=== PATIENT | male | born 1955 | race Caucasian/White ===

== ENCOUNTER → 2023-05-06 09:30 | Outpatient (REF) | payer MEDICARE, OTHER, SELFPAY ==
[2023-05-06 09:54] VITALS: BP 114/83; BP_SYST 108
[2023-05-06 10:35] VITALS: BP 108/74; BP_SYST 99
[2023-05-06 10:45] VITALS: BP 108/74
[2023-05-06 11:54] LABS: Body Fluid Mononuclear 77.7 %; Body Fluid Polymorphonuclear 22.3 %; Body Fluid WBC 417 /CUMM
[2023-05-06 12:09] LABS: Body Fluid Second Tech CF
== END ==
LOC: RADI 09:30
PROVIDERS: ATTENDING PHYSICIAN Physician Assistant Medical
DX: R18.8 Other ascites (principal)
CPT/HCPCS: 49083; 89051

== ENCOUNTER 2023-05-10 13:09 | Emergency (ER) | payer MEDICARE, OTHER, SELFPAY ==
[2023-05-10] VITALS (9 sets, daily range): BP systolic 82–112; BP diastolic 63–72
[2023-05-10 13:42] LABS: % Basophils 0.3 % (0-2); % Eosinophils 0.1 % (0-6); % Immature Granulocytes 1.6 % (0-0.5); % Lymphocytes 0.9 % (20.5-51.1); % Monocytes 0.6 % (1.7-9.3); % Neutrophils 96.5 % (42.2-75.2); Absolute Basophils 0.1 10^3/uL (0-0.2); Absolute Immature Granulocytes 0.2 10^3/uL (0-0.05); Absolute Lymphocytes 0.1 10^3/uL (1.2-3.4); Absolute Monocytes 0.1 10^3/uL (0.1-0.6); Absolute Neutrophils 14.2 10^3/uL (1.4-6.5); Hematocrit 35.2 % (39.0-52.0); Hemoglobin 12.1 g/dL (13.0-18.0); Mean Corp Hgb Conc. 34.4 g/dL (33.0-37.0); Mean Corpuscular Hgb 29.5 pg (27.0-31.0); Mean Corpuscular Volume 85.9 fL (80.0-94.0); Mean Platelet Volume 9.4 fL (7.4-10.4); Nucleated Red Blood Cells % 0 % (-); Platelet Count 381 10^3/uL (130-400); Red Cell Dist. Width 16.2 % (11.5-14.5); White Blood Cell Count 14.8 10^3/uL (4.8-10.8)
[2023-05-10 13:54] LABS: ALT (SGPT) 23 U/L (0-50); AST (SGOT) 37 U/L (17-59); Albumin 3.2 g/dl (3.5-5.0); Alkaline Phosphatase 169 U/L (38-126); Blood Urea Nitrogen 66 mg/dl (9-20); Calcium 8.6 mg/dl (8.4-10.2); Carbon Dioxide 18 mmol/L (22-30); Chloride 95 mmol/L (98-107); Glucose 151 mg/dl (70-99); Potassium 5.5 mmol/L (3.5-5.1); Sodium 128 mmol/L (135-145); Total Bilirubin 1.2 mg/dl (0.2-1.3); Total Protein 5.7 g/dl (6.3-8.2); eGFR 24.13
[2023-05-10 14:10] LABS: Troponin I 0.192 ng/ml
--- NOTE | 2023-05-10 14:21 | ED.GENMED ---
History of Present Illness
<Sagrario Phelps PA-C - Last Filed: 05/10/23 23:33>
General
Chief Complaint: Breathing Problem
Source: patient and records
Exam Limitations: none
Time Seen by Provider: 05/10/23 14:21
Nursing documentation reviewed up to this point in time: agreed with
Travel History
Have you had any contact with someone who has COVID-19?: No
Do you have any symptoms of coronavirus? Fever > 100 degrees, chills, cough, shortness of breath, sore throat, loss of taste or smell, muscle aches, or headache?: No
History of Present Illness
History of Present Illness:
68 y/o male with PMH of afib on Eliquis, CHF, CAD, diabetes, cardiogenic ascites, presenting to the ER today with concerns of shortness of breath since last night and worsening abdominal swelling. Patient states that will have shortness of breath
from time to time but it has been persistent this week. Patient states that he usually only gets it with exertion. Patient does not plan on coming to the ER today, but his called his cardiology office advised him to report to the emergency
department. Patient states that he was recently put on milrinone drip a few months ago and sees Dr. Almanza at [facility]. Patient also states that he has had a cough these past few days, but he usually gets that when he gets short of breath. Patient
recently had a paracentesis done here at [facility] on 05/06/2023 and had 7 L drained. Patient states he feels like he needs to fluid drained again.
Past History
<Sagrario Phelps PA-C - Last Filed: 05/10/23 23:33>
Past History
ED Past Medical History: Arrthythmia and CHF
Social History
Tobacco: Non-smoker
Alcohol: None
Drug: None
Personal:
Living: with family
Employment: Retired
Review of Systems
<Sagrario Phelps PA-C - Last Filed: 05/10/23 23:33>
Review of Systems
All Other Systems: ROS reviewed and negative except as documented in HPI and ROS
Phy Exam
<Sagrario Phelps PA-C - Last Filed: 05/10/23 23:33>
Physical Exam
Physical Exam:
Vitals: Patient is tachycardic and has increased respiratory rate
General: Patient is well appearing and in no acute distress
Skin: Warm and dry, no rashes or lesions
Head: Normocephalic, atraumatic
Cardiac: Regular rate and rhythm, no murmurs
Peripheral Vascular: Chronic venous ulcers noted on lower extremities b/l. 2+ DP pulses b/l.
Pulm: Mild tachypneic. No wheezes, rales, or rhonchi heard on exam
Abdomen: Abdominal distension present, abdomen dull to percussion. No tenderness to palpation, no palpable masses.
Neuro: AAOx3. CN II-XII intact. No focal neurologic deficits.
Scores
<BERTRAND Forrest Last Filed: 05/10/23 23:33>
Heart Failure Risk
HF Risk Score: 2
Admission Status: MEDIUM RISK 9.2% Consider observation or discharge to home with homecare & f/u visit to PCP/Concrete Block Plant Supervisor, or SNF for treatment
<Jet Tran DO - Last Filed: 05/10/23 22:34>
Heart Failure Risk
Heart Failure Risk Score: Yes
History of Stroke or TIA: No
History of intubation for respiratory distress: No
Heart rate on ED arrival >/= 110: No
SaO2 <90% on arrival on room air: No
HR >/=110 during 3min walk test (or too ill to perform test): No
ECG has acute ischemic changes: No
Urea >/=12mmol/L (BUN 33.6mg/dL): Yes
Serum CO2>/=35mmol/L: No
Troponin I or T elevated to ID Level (0.4mg/dL): No
NT-proBNP >/=5,000ng/L (5,000pg/ml): Yes
HF Risk Score: 2
Admission Status: MEDIUM RISK 9.2% Consider observation or discharge to home with homecare & f/u visit to PCP/Con[employer] Block Plant Supervisor, or SNF for treatment
Course
<Sagrario Phelps PA-C - Last Filed: 05/10/23 23:33>
Orders/Labs/Results
Orders:
Orders
05/10/23 13:15
Electrocardiogram (*1) Urgent
Reason for Study: Other
Other Reason for Exam: Respiratory Distress
EKG- Treatment ONCE
05/10/23 13:27
Complete Blood Count/With Diff Urgent
Comprehensive Metabolic Panel Urgent
NT-proBNP Urgent
Troponin I Urgent
05/10/23 14:47
CR Chest - 2 Views Urgent
Comment:
Reason For Exam: shortness of breath
05/10/23 14:55
IRAD CONSULT Routine
Consulting Provider: Nikolas Bright
Was physician already notified: Yes
Reason for consult: paracentesis
05/10/23 15:35
Body Fluid Albumin Routine
Fluid Source: Peritoneal (Ascites)
Date Specimen was Collected: 05/10/23
Time Specimen was Collected: 15:29
Body Fluid Amylase Routine
Fluid Source: Peritoneal (Ascites)
Date Specimen was Collected: 05/10/23
Time Specimen was Collected: 15:29
Body Fluid Cell Count Routine
What is the Body Fluid: peritoneal fluid
Date Specimen was Collected: 05/10/23
Time Specimen was Collected: 15:29
Body Fluid LDH Routine
Fluid Source: Peritoneal (Ascites)
Date Specimen was Collected: 05/10/23
Time Specimen was Collected: 15:29
Body Fluid Protein Routine
Fluid Source: Peritoneal (Ascites)
Date Specimen was Collected: 05/10/23
Time Specimen was Collected: 15:29
Fluid Culture with Gram Stain Routine
ADRIANO Source: Peritoneal Fluid
Specimen Description:
Date Specimen was Collected: 05/10/23
Time Specimen was Collected: 15:29
05/10/23 16:30
Albumin Human 25% 100 ml [Flexbumin] 25 grams in 100 ml IV TODAY
05/10/23 17:28
Electrocardiogram (*1) Urgent
Reason for Study: Tachycardia
EKG- Treatment ONCE
Abnormal Lab Results
05/10/23
13:27
WBC 14.8 H 10^3/uL
(4.8-10.8)
RBC 4.10 L 10^6/uL
(4.70-6.10)
Hgb 12.1 L g/dL
(13.0-18.0)
Hct 35.2 L %
(39.0-52.0)
RDW 16.2 H %
(11.5-14.5)
Abs Immat Gran (auto) 0.2 H 10^3/uL
(0-0.05)
Absolute Neuts (auto) 14.2 H 10^3/uL
(1.4-6.5)
Absolute Lymphs (auto) 0.1 L 10^3/uL
(1.2-3.4)
Immature Gran % 1.6 H %
(0-0.5)
Neutrophils % 96.5 H %
(42.2-75.2)
Lymphocytes % 0.9 L %
(20.5-51.1)
Monocytes % 0.6 L %
(1.7-9.3)
Sodium 128 L mmol/L
(135-145)
Potassium 5.5 H mmol/L
(3.5-5.1)
Chloride 95 L mmol/L
(98-107)
Carbon Dioxide 18 L mmol/L
(22-30)
BUN 66 H mg/dl
(9-20)
Creatinine 2.8 H mg/dL
(0.7-1.3)
Glucose 151 H mg/dl
(70-99)
Alkaline Phosphatase 169 H U/L
(38-126)
Troponin I 0.192 H* ng/ml
Total Protein 5.7 L g/dl
(6.3-8.2)
Albumin 3.2 L g/dl
(3.5-5.0)
05/10/23 13:27
05/10/23 13:27
Vital Signs
Initial and Last Documented VS:
Initial Vital Signs
Temp Pulse Resp BP Pulse Ox
98.3 F 108 22 107/72 98
05/10/23 13:11 05/10/23 13:11 05/10/23 13:11 05/10/23 13:11 05/10/23 13:11
Last Documented Vital Signs
Temp Pulse Resp BP Pulse Ox
98.2 F 65 20 86/69 95
05/10/23 19:34 05/10/23 19:34 05/10/23 19:34 05/10/23 19:34 05/10/23 19:34
Darlenelt;Mickey Coleman DO - Last Filed: 05/10/23 15:28>
Orders/Labs/Results
Orders:
Orders
05/10/23 13:15
Electrocardiogram (*1) Urgent
Reason for Study: Other
Other Reason for Exam: Respiratory Distress
EKG- Treatment ONCE
05/10/23 13:27
Complete Blood Count/With Diff Urgent
Comprehensive Metabolic Panel Urgent
NT-proBNP Urgent
Troponin I Urgent
05/10/23 14:47
CR Chest - 2 Views Urgent
Comment:
Reason For Exam: shortness of breath
05/10/23 14:55
IRAD CONSULT Routine
Consulting Provider: Nikolas Bright
Was physician already notified: Yes
Reason for consult: paracentesis
05/10/23 15:35
Body Fluid Albumin Routine
Fluid Source: Peritoneal (Ascites)
Date Specimen was Collected: 05/10/23
Time Specimen was Collected: 15:29
Body Fluid Amylase Routine
Fluid Source: Peritoneal (Ascites)
Date Specimen was Collected: 05/10/23
Time Specimen was Collected: 15:29
Body Fluid Cell Count Routine
What is the Body Fluid: peritoneal fluid
Date Specimen was Collected: 05/10/23
Time Specimen was Collected: 15:29
Body Fluid LDH Routine
Fluid Source: Peritoneal (Ascites)
Date Specimen was Collected: 05/10/23
Time Specimen was Collected: 15:29
Body Fluid Protein Routine
Fluid Source: Peritoneal (Ascites)
Date Specimen was Collected: 05/10/23
Time Specimen was Collected: 15:29
Fluid Culture with Gram Stain Routine
ADRIANO Source: Peritoneal Fluid
Specimen Description:
Date Specimen was Collected: 05/10/23
Time Specimen was Collected: 15:29
05/10/23 16:30
Albumin Human 25% 100 ml [Flexbumin] 25 grams in 100 ml IV TODAY
05/10/23 17:28
Electrocardiogram (*1) Urgent
Reason for Study: Tachycardia
EKG- Treatment ONCE
Abnormal Lab Results
05/10/23
13:27
WBC 14.8 H 10^3/uL
(4.8-10.8)
RBC 4.10 L 10^6/uL
(4.70-6.10)
Hgb 12.1 L g/dL
(13.0-18.0)
Hct 35.2 L %
(39.0-52.0)
RDW 16.2 H %
(11.5-14.5)
Abs Immat Gran (auto) 0.2 H 10^3/uL
(0-0.05)
Absolute Neuts (auto) 14.2 H 10^3/uL
(1.4-6.5)
Absolute Lymphs (auto) 0.1 L 10^3/uL
(1.2-3.4)
Immature Gran % 1.6 H %
(0-0.5)
Neutrophils % 96.5 H %
(42.2-75.2)
Lymphocytes % 0.9 L %
(20.5-51.1)
Monocytes % 0.6 L %
(1.7-9.3)
Sodium 128 L mmol/L
(135-145)
Potassium 5.5 H mmol/L
(3.5-5.1)
Chloride 95 L mmol/L
(98-107)
Carbon Dioxide 18 L mmol/L
(22-30)
BUN 66 H mg/dl
(9-20)
Creatinine 2.8 H mg/dL
(0.7-1.3)
Glucose 151 H mg/dl
(70-99)
Alkaline Phosphatase 169 H U/L
(38-126)
Troponin I 0.192 H* ng/ml
Total Protein 5.7 L g/dl
(6.3-8.2)
Albumin 3.2 L g/dl
(3.5-5.0)
05/10/23 13:27
05/10/23 13:27
Vital Signs
Initial and Last Documented VS:
Initial Vital Signs
Temp Pulse Resp BP Pulse Ox
98.3 F 108 22 107/72 98
05/10/23 13:11 05/10/23 13:11 05/10/23 13:11 05/10/23 13:11 05/10/23 13:11
Last Documented Vital Signs
Temp Pulse Resp BP Pulse Ox
98.2 F 65 20 86/69 95
05/10/23 19:34 05/10/23 19:34 05/10/23 19:34 05/10/23 19:34 05/10/23 19:34
<Jet Tran, DO - Last Filed: 05/10/23 22:34>
Orders/Labs/Results
Orders:
Orders
05/10/23 13:15
Electrocardiogram (*1) Urgent
Reason for Study: Other
Other Reason for Exam: Respiratory Distress
EKG- Treatment ONCE
05/10/23 13:27
Complete Blood Count/With Diff Urgent
Comprehensive Metabolic Panel Urgent
NT-proBNP Urgent
Troponin I Urgent
05/10/23 14:47
CR Chest - 2 Views Urgent
Comment:
Reason For Exam: shortness of breath
05/10/23 14:55
IRAD CONSULT Routine
Consulting Provider: Nikolas Bright
Was physician already notified: Yes
Reason for consult: paracentesis
05/10/23 15:35
Body Fluid Albumin Routine
Fluid Source: Peritoneal (Ascites)
Date Specimen was Collected: 05/10/23
Time Specimen was Collected: 15:29
Body Fluid Amylase Routine
Fluid Source: Peritoneal (Ascites)
Date Specimen was Collected: 05/10/23
Time Specimen was Collected: 15:29
Body Fluid Cell Count Routine
What is the Body Fluid: peritoneal fluid
Date Specimen was Collected: 05/10/23
Time Specimen was Collected: 15:29
Body Fluid LDH Routine
Fluid Source: Peritoneal (Ascites)
Date Specimen was Collected: 05/10/23
Time Specimen was Collected: 15:29
Body Fluid Protein Routine
Fluid Source: Peritoneal (Ascites)
Date Specimen was Collected: 05/10/23
Time Specimen was Collected: 15:29
Fluid Culture with Gram Stain Routine
ADRIANO Source: Peritoneal Fluid
Specimen Description:
Date Specimen was Collected: 05/10/23
Time Specimen was Collected: 15:29
05/10/23 16:30
Albumin Human 25% 100 ml [Flexbumin] 25 grams in 100 ml IV TODAY
05/10/23 17:28
Electrocardiogram (*1) Urgent
Reason for Study: Tachycardia
EKG- Treatment ONCE
Abnormal Lab Results
05/10/23
13:27
WBC 14.8 H 10^3/uL
(4.8-10.8)
RBC 4.10 L 10^6/uL
(4.70-6.10)
Hgb 12.1 L g/dL
(13.0-18.0)
Hct 35.2 L %
(39.0-52.0)
RDW 16.2 H %
(11.5-14.5)
Abs Immat Gran (auto) 0.2 H 10^3/uL
(0-0.05)
Absolute Neuts (auto) 14.2 H 10^3/uL
(1.4-6.5)
Absolute Lymphs (auto) 0.1 L 10^3/uL
(1.2-3.4)
Immature Gran % 1.6 H %
(0-0.5)
Neutrophils % 96.5 H %
(42.2-75.2)
Lymphocytes % 0.9 L %
(20.5-51.1)
Monocytes % 0.6 L %
(1.7-9.3)
Sodium 128 L mmol/L
(135-145)
Potassium 5.5 H mmol/L
(3.5-5.1)
Chloride 95 L mmol/L
(98-107)
Carbon Dioxide 18 L mmol/L
(22-30)
BUN 66 H mg/dl
(9-20)
Creatinine 2.8 H mg/dL
(0.7-1.3)
Glucose 151 H mg/dl
(70-99)
Alkaline Phosphatase 169 H U/L
(38-126)
Troponin I 0.192 H* ng/ml
Total Protein 5.7 L g/dl
(6.3-8.2)
Albumin 3.2 L g/dl
(3.5-5.0)
05/10/23 13:27
05/10/23 13:27
Vital Signs
Initial and Last Documented VS:
Initial Vital Signs
Temp Pulse Resp BP Pulse Ox
98.3 F 108 22 107/72 98
05/10/23 13:11 05/10/23 13:11 05/10/23 13:11 05/10/23 13:11 05/10/23 13:11
Last Documented Vital Signs
Temp Pulse Resp BP Pulse Ox
98.2 F 65 20 86/69 95
05/10/23 19:34 05/10/23 19:34 05/10/23 19:34 05/10/23 19:34 05/10/23 19:34
Darlenelt;Sagrario Phelps PA-C - Last Filed: 05/10/23 23:33>
MDM/Problems Addressed
Differential Diagnosis Includes:
ddx include acute CHF, pneumonia, cardiorenal syndrome, ACS, pulmonary aneurysm
MDM/Problems Addressed:
shortness of breath
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
Acute Exacerbation and/or Progression of Chronic Illness: HTN and Arrhythmia (atrial fibrillation)
<Sagrario Phelps PA-C - Last Filed: 05/10/23 23:33>
*Pulse Oximetry
Patient hypoxic: no
*EKG
Interpreted by ED Provider?: Yes
EKG Intrepretation Date: 05/10/23
Interpretation: abnormal
Comparison EKG: no changes
Heart Rate: 122
Rate: tachycardiac
Rhythm: a-fib
[place]: normal axis
QRS Pattern: low voltage
Ischemia: non-specific ST changes
*Engine Tester Interpretation
Rate: tachycardiac
Interpretation: abnormal
Heart Rate: 110
Rhythm: a-fib
Data Reviewed
Review of Other/Old Records Reveals: Records
<Jet Tran DO - Last Filed: 05/10/23 22:34>
*Critical Care Note
Total Time (30-74mins, 75-104mins- exclusive of procedures): Not Applicable
<BERTRAND Forrest Last Filed: 05/10/23 23:33>
Patient Management
Escalation/DeEscalation of care consider admission/obs:
68 y/o male with PMH of afib on Eliquis, CHF, CAD, diabetes, cardiogenic ascites, presenting to the ER today with concerns of shortness of breath since last night and worsening abdominal swelling. Patient states that he needs another paracentesis.
Patient had recent paracentesis here at [facility] a few days ago in which 7 L of ascitic fluid was drained. Patient did not receive albumin at that time. Patient had thoracentesis performed today in which around 2L of ascitic fluid was drained.
Patient states that his SOB significantly improved after this procedure. Albumin was repleted.
Patient does not want to stay in the hospital at [facility] or [facility] at this time. Spoke to Nurse from patient's care team at [facility] who states that they have tried many interventions for patient and they are running
out of options for his heart disease. Patient currently takes daily PO diuretics and gets lasix IV infusion twice a week and so IV diuresis not recommended at this time. Care team aware of plan, patient will follow up with his team at [facility].
<Jet Tran, DO - Last Filed: 05/10/23 22:34>
Update Note
Update Note:
Patient feels well, still with mild tachycardia and hypotension. He states he does not feel lightheaded or dizzy. He is in atrial fibrillation. He declines admission and wants to go home. Will discharge to follow-up with his registered public health nurse, ALYS[facility]
surgery and nephrology [facility] [place]. He has complex congenital heart disease heart failure and progressive renal insufficiency.,
ED Attending Note
<Sagrario Phelps PA-C - Last Filed: 05/10/23 23:33>
-
Portions of this chart may have been created with voice recognition software.� Occasional wrong word or��sound alike� substitutions may have occurred due to the inherent limitations of voice recognition software.
<Mickey Coleman, DO - Last Filed: 05/10/23 15:28>
ED Attending Note
Patient seen and examined by attending physician: Yes
I performed the substantive portion of visit, reviewed & personally made and approve the management plan that is documented in note by myself or ADINA.: Yes
I performed a history and physical exam of patient and discussed management with resident, I reviewed resident's note and agree with documented findings and plan of care.: Yes
ED Attending Note:
I evaluated the patient at bedside. The patient is chronically ill in appearance. White count is elevated at 14.8 and he is borderline tachycardic. He does have a history of atrial fibrillation. Sodium is low at 128 but his glucose is elevated.
He has been hyperkalemic in the past and his potassium today is 5.5. His BNP is 12,500. Troponin is chronically elevated currently at 0.192. We are trying to arrange for emergent/urgent paracentesis.
Discharge Plan
Departure
Patient Disposition: Home (Routine Discharge)
Date of Disposition: 05/10/23
Time of Disposition: 19:17
Patient with high blood pressure during this ER visit?: No
Condition: Fair
Discharge Problem:
Exertional shortness of breath, Status post abdominal paracentesis, Hyperkalemia
Instructions: Shortness of Breath (Dyspnea) (DC), Abdominal Paracentesis (DC), BLOOD PRESSURE, *PCP/Other [employer] Supervisor Heart Failure Instructions
Prescriptions:
No Action
allopurinol 100 MG tablet
100 mg PO DAILY
gabapentin 100 MG capsule
100 mg PO BID
acetaminophen 325 mg Tablet
650 mg PO DAILYPRN PRN (Reason: mild pain)
insulin glargine [Lantus U-100 Insulin] 100 unit/mL Solution
10 unit SC HS
Patient Comments:
metoprolol succinate 25 mg Tablet Extended Release 24 Hr
12.5 mg PO DAILY
Eliquis 5 mg Tablet
5 mg PO BID
therapeutic multivitamin Tablet
1 tab PO DAILY
potassium chloride 10 mEq Capsule, Extended Release
40 meq PO DAILY
torsemide 20 mg Tablet
120 mg PO BID
omega-3 fatty acids 1,000 mg Capsule
1,000 mg PO DAILY
hydralazine 25 mg Tablet
25 mg PO Q8H
spironolactone 25 mg Tablet
12.5 mg PO DAILY
levothyroxine 50 mcg Tablet
50 mcg PO DAILY
insulin lispro [Admelog SoloStar U-100 Insulin] 100 unit/mL Insulin Pen
2 unit SC AC
lactulose 10 gram/15 mL Solution
20 g PO DAILY PRN (Reason: constipation)
furosemide 10 mg/ml solution
100 mg IV WEFR
Patient Comments:
05/10/2023, infuse 10 ml into venous catheter 2 times a week. Immediately prior to dose, RN to withdraw Furosemide 100 mg/10 ml and administer IV push over 5-10 minutes twice weekly on WeFr.
milrinone
39,000 mcg IV .SEE BELOW
Patient Comments:
05/10/2023, infuse 39,000 mcg into a venous catheter continuous. Infuse milrinone 0.125 mcg/kg/min IV continuously via CADD may pump. Dose based on weight of 104.3 kg. Pump settings: continuous rate = 3.9 ml/hr; reservoir vol = 191 ml. Bag
contains 48 hour supply with overfill.
Referrals:
Felix Almanza MD [Family Provider] -
Activity Restrictions/Additional Instructions:
Please follow up with your heart failure specialist at [facility].
Please return to the emergency department should you experience new or worsening symptoms, chest pain, syncopal episodes, speech changes, motor weakness, paresthesias, visual changes, lower extremity swelling, or other concerning signs or symptoms.
Interventions
Interventions:
*Risk Screen - Suicide Last Done: 05/10/23 13:11
*General Assessment Last Done: 05/10/23 13:11
*Neglect/Abuse Screening Last Done: 05/10/23 13:11
*ED COVID-19 Vaccine History Last Done: 05/10/23 14:20
*Nursing Disposition Last Done: 05/10/23 19:38
ED- Pulmonary Assessment Last Done: 05/10/23 16:49
Discharge Date and Time
Discharge Date/Time: 05/10/23 19:38
Print Language: GEORGIAN
[2023-05-10 14:39] LABS: NT-proBNP 12500 pg/ml
[2023-05-10 16:35] LABS: Body Fluid Mononuclear 57.7 %; Body Fluid Polymorphonuclear 42.3 %; Body Fluid WBC 409 /CUMM
[2023-05-10] MEDS: FLEXBUMIN 100 IV (16:42)
[2023-05-10 16:55] LABS: Body Fluid Albumin 1.6 g/dl; Body Fluid Amylase 61 U/L; Body Fluid LDH 95 U/L; Body Fluid Protein 3.2 g/dl
[2023-05-10 17:06] LABS: Body Fluid Second Tech DW
== END 2023-05-10 19:38 | disposition home or self-care (01) ==
LOC: EMR 13:09
PROVIDERS: Emergency Medicine; Physician Assistant; CONSULT PHYSICIAN Radiology Vascular & Interventional Radiology; EMERGENCY PHYSICIAN Emergency Medicine; FAMILY PHYSICIAN Internal Medicine Cardiovascular Disease
DX: R06.02 Shortness of breath (principal); I11.0 Hypertensive heart disease with heart failure; E87.5 Hyperkalemia; I48.91 Unspecified atrial fibrillation; I50.9 Heart failure, unspecified; I25.10 Atherosclerotic heart disease of native coronary artery without angina pectoris; E11.9 Type 2 diabetes mellitus without complications; I95.9 Hypotension, unspecified; N28.9 Disorder of kidney and ureter, unspecified; Z79.01 Long term (current) use of anticoagulants
CPT/HCPCS: 49083; 99285; 96365; 96366; 71046; 80053; 82042; 82150; 83615; 83880; 84157; 84484; 85025; 87015; 87070; 87205; 89051; 93005; P9047

== ENCOUNTER 2023-05-12 01:49 | Inpatient (IN) | payer MEDICARE, OTHER, SELFPAY ==
[2023-05-11 21:47] VITALS: BP 96/74
[2023-05-11 22:00] VITALS: BP 97/71
[2023-05-11 22:01] VITALS: BMI 33.8
--- NOTE | 2023-05-11 22:23 | ED.GENMED ---
History of Present Illness
<RHIANNON Canas - Last Filed: 05/11/23 22:32>
General
Chief Complaint: Weakness
Source: patient and family
Exam Limitations: none
Time Seen by Provider: 05/11/23 22:00
Nursing documentation reviewed up to this point in time: agreed with
Travel History
Have you had any contact with someone who has COVID-19?: No
Do you have any symptoms of coronavirus? Fever > 100 degrees, chills, cough, shortness of breath, sore throat, loss of taste or smell, muscle aches, or headache?: No
History of Present Illness
History of Present Illness:
patient is a 68 y/o male with PMH of CHF, afib, and DM presenting after elevated potassium levels at home. Patient states he was here on 05/10/23 for a second paracentesis due to cardiogenic ascites. Patient presents today with continued abdominal
pain and bloating. patient states the symptoms have not changed since the paracentesis. Patient admtis that he had his lasix treatment today where the trailers and motor homes salesperson noted a potassium of 6.2. patient was instructed to 'go to [facility]
immediately, get admitted and request a transfer to [facility].' Patient states there were no beds at [facility]. Patient currently denies MARTÍNEZ, SOB, CP, fever, chills, cough, V/D/C, dizziness, lightheadedness.
Past History
<RHIANNON Canas - Last Filed: 05/11/23 22:32>
Past History
ED Past Medical History: Arrthythmia and CHF
Social History
Tobacco: Non-smoker
Alcohol: None
Drug: None
Personal:
Living: with family
Employment: Retired
Review of Systems
<RHIANNON Canas - Last Filed: 05/11/23 22:32>
Review of Systems
Constitutional: Reports weight gain and fatigue
EENT: Reports no symptoms
Respiratory: Reports no symptoms
Cardiac: Reports no symptoms
ABD/GI: Reports abdominal pain, nausea and other (distension)
: Reports no symptoms
Skin: Reports no symptoms
Endocrine: Reports no symptoms
Phy Exam
<ST FloresitaPA - Last Filed: 05/11/23 22:32>
General Physical Exam
General Presentation: well appearing and no apparent distress
General Skin: warm and dry
General Habitus: normal
General Mental: alert
General Hydration: appears well hydrated
ENT Exam
ENT Exam: EOMI, pharynx normal, neck supple and normocephalic
Eye Exam
Eye Exam: PERRL, cornea clear and conjunctiva normal
Cardiovascular Exam
Cardiovascular Exam: irregularly irregular and other (edema)
Pulmonary Exam
Pulmonary Exam: lungs clear, no respiratory distress, no rales, no crackles, no rhonchi, no stridor, no wheezing and no cough
Gastrointestinal Exam
Gastrointestinal Exam: ascites, distended and tender
Palpation: generalized: Minimal tenderness
Liver Exam: ascites
Neurological Exam
Neurological Exam: alert, oriented x3, no motor deficits and speech normal
Musculoskeletal Exam
Musculoskeletal Exam: full ROM and no edema
Skin Exam
Skin Exam: other (edema, erythema, ulcer noted on B/L LEs)
Psychiatric Exam
Psychiatric Exam: normal mood/affect
Scores
<Nkechi Skinner DO - Last Filed: 05/12/23 00:59>
Heart Failure Risk
Heart Failure Risk Score: Yes
History of Stroke or TIA: No
History of intubation for respiratory distress: No
Heart rate on ED arrival >/= 110: Yes
SaO2 <90% on arrival on room air: No
HR >/=110 during 3min walk test (or too ill to perform test): Yes
ECG has acute ischemic changes: No
Urea >/=12mmol/L (BUN 33.6mg/dL): Yes
Serum CO2>/=35mmol/L: No
Troponin I or T elevated to AL Level (0.4mg/dL): Yes
NT-proBNP >/=5,000ng/L (5,000pg/ml): Yes
HF Risk Score: 6
Admission Status: VERY HIGH RISK 55.3% Consider admission to hospital
Course
<RHIANNON Canas - Last Filed: 05/11/23 22:32>
Orders/Labs/Results
Orders:
Orders
05/11/23 21:39
Electrocardiogram (*1) Urgent
Reason for Study: Fatigue / Weakness
05/11/23 21:40
EKG- Treatment ONCE
05/11/23 22:15
CR Chest - 2 Views Urgent
Comment:
Reason For Exam: cough, SOB, fatigue-worsening
05/11/23 22:58
Complete Blood Count/With Diff Urgent
Comprehensive Metabolic Panel Urgent
Free T4 Urgent
Magnesium Urgent
NT-proBNP Urgent
TSH Reflex To Free T4 Urgent
Troponin I Urgent
05/11/23 23:21
COVID-19 Antigen Urgent
Source: Nasal Swab
Lactic Acid Urgent
05/11/23 23:23
Urinalysis Reflex To Culture Urgent
Date Specimen was Collected: 05/11/23
Time Specimen was Collected: 23:22
Urine Microscopic Reflex Cult Urgent
05/12/23 00:27
Procalcitonin Urgent
PCT Algorithmm Indication: Respiratory
05/12/23 00:30
Blood Culture Q30M
ADRIANO Source: Blood/Venous
Specimen Description:
05/12/23 01:00
Blood Culture Q30M
ADRIANO Source: Blood/Venous
Specimen Description:
Abnormal Lab Results
05/11/23 05/11/23
22:58 23:23
WBC 21.3 H 10^3/uL
(4.8-10.8)
RBC 3.87 L 10^6/uL
(4.70-6.10)
Hgb 11.5 L g/dL
(13.0-18.0)
Hct 32.1 L %
(39.0-52.0)
RDW 15.9 H %
(11.5-14.5)
Abs Immat Gran (auto) 0.2 H 10^3/uL
(0-0.05)
Absolute Neuts (auto) 18.8 H 10^3/uL
(1.4-6.5)
Absolute Lymphs (auto) 0.5 L 10^3/uL
(1.2-3.4)
Absolute Monos (auto) 1.6 H 10^3/uL
(0.1-0.6)
Immature Gran % 1.0 H %
(0-0.5)
Neutrophils % 88.3 H %
(42.2-75.2)
Lymphocytes % 2.5 L %
(20.5-51.1)
Sodium 120 L D mmol/L
(135-145)
Potassium 5.6 H mmol/L
(3.5-5.1)
Chloride 93 L mmol/L
(98-107)
Carbon Dioxide 17 L mmol/L
(22-30)
BUN 68 H mg/dl
(9-20)
Creatinine 2.8 H mg/dL
(0.7-1.3)
Glucose 188 H mg/dl
(70-99)
Alkaline Phosphatase 173 H U/L
(38-126)
Troponin I 0.506 H* ng/ml
Total Protein 5.3 L g/dl
(6.3-8.2)
Albumin 3.0 L g/dl
(3.5-5.0)
TSH (Reflex) 17.50 H uIU/ml
(0.47-4.68)
Leukocyte Esterase Rfl Trace A
(Negative)
Urine Bacteria (Reflex) Few A
(Negative)
05/11/23 22:58
05/11/23 22:58
Vital Signs
Initial and Last Documented VS:
Initial Vital Signs
Temp Pulse Resp BP Pulse Ox
97.9 F 110 18 96/74 99
05/11/23 21:47 05/11/23 21:47 05/11/23 21:47 05/11/23 21:47 05/11/23 21:47
Last Documented Vital Signs
Temp Pulse Resp BP Pulse Ox
97.9 F 102 11 97/71 100
05/11/23 21:47 05/12/23 00:30 05/11/23 22:45 05/11/23 22:00 05/11/23 23:45
<Nkechi Skinner, DO - Last Filed: 05/12/23 00:59>
Orders/Labs/Results
Orders:
Orders
05/11/23 21:39
Electrocardiogram (*1) Urgent
Reason for Study: Fatigue / Weakness
05/11/23 21:40
EKG- Treatment ONCE
05/11/23 22:15
CR Chest - 2 Views Urgent
Comment:
Reason For Exam: cough, SOB, fatigue-worsening
05/11/23 22:58
Complete Blood Count/With Diff Urgent
Comprehensive Metabolic Panel Urgent
Free T4 Urgent
Magnesium Urgent
NT-proBNP Urgent
TSH Reflex To Free T4 Urgent
Troponin I Urgent
05/11/23 23:21
COVID-19 Antigen Urgent
Source: Nasal Swab
Lactic Acid Urgent
05/11/23 23:23
Urinalysis Reflex To Culture Urgent
Date Specimen was Collected: 05/11/23
Time Specimen was Collected: 23:22
Urine Microscopic Reflex Cult Urgent
05/12/23 00:27
Procalcitonin Urgent
PCT Algorithmm Indication: Respiratory
05/12/23 00:30
Blood Culture Q30M
ADRIANO Source: Blood/Venous
Specimen Description:
05/12/23 01:00
Blood Culture Q30M
ADRIANO Source: Blood/Venous
Specimen Description:
Abnormal Lab Results
05/11/23 05/11/23
22:58 23:23
WBC 21.3 H 10^3/uL
(4.8-10.8)
RBC 3.87 L 10^6/uL
(4.70-6.10)
Hgb 11.5 L g/dL
(13.0-18.0)
Hct 32.1 L %
(39.0-52.0)
RDW 15.9 H %
(11.5-14.5)
Abs Immat Gran (auto) 0.2 H 10^3/uL
(0-0.05)
Absolute Neuts (auto) 18.8 H 10^3/uL
(1.4-6.5)
Absolute Lymphs (auto) 0.5 L 10^3/uL
(1.2-3.4)
Absolute Monos (auto) 1.6 H 10^3/uL
(0.1-0.6)
Immature Gran % 1.0 H %
(0-0.5)
Neutrophils % 88.3 H %
(42.2-75.2)
Lymphocytes % 2.5 L %
(20.5-51.1)
Sodium 120 L D mmol/L
(135-145)
Potassium 5.6 H mmol/L
(3.5-5.1)
Chloride 93 L mmol/L
(98-107)
Carbon Dioxide 17 L mmol/L
(22-30)
BUN 68 H mg/dl
(9-20)
Creatinine 2.8 H mg/dL
(0.7-1.3)
Glucose 188 H mg/dl
(70-99)
Alkaline Phosphatase 173 H U/L
(38-126)
Troponin I 0.506 H* ng/ml
Total Protein 5.3 L g/dl
(6.3-8.2)
Albumin 3.0 L g/dl
(3.5-5.0)
TSH (Reflex) 17.50 H uIU/ml
(0.47-4.68)
Leukocyte Esterase Rfl Trace A
(Negative)
Urine Bacteria (Reflex) Few A
(Negative)
05/11/23 22:58
05/11/23 22:58
Vital Signs
Initial and Last Documented VS:
Initial Vital Signs
Temp Pulse Resp BP Pulse Ox
97.9 F 110 18 96/74 99
05/11/23 21:47 05/11/23 21:47 05/11/23 21:47 05/11/23 21:47 05/11/23 21:47
Last Documented Vital Signs
Temp Pulse Resp BP Pulse Ox
97.9 F 102 11 97/71 100
05/11/23 21:47 05/12/23 00:30 05/11/23 22:45 05/11/23 22:00 05/11/23 23:45
[place];RHIANNON Canas - Last Filed: 05/11/23 22:32>
MDM/Problems Addressed
Differential Diagnosis Includes:
CHF exacerbation
afib
hyperkalemia
MDM/Problems Addressed:
elevated potassium
<RHIANNON Canas - Last Filed: 05/11/23 22:32>
*Critical Care Note
Total Time (30-74mins, 75-104mins- exclusive of procedures): Not Applicable
<Nkechi Skinner DO - Last Filed: 05/12/23 00:59>
*Radiology
Radiology exam reviewed: preliminary read by ED provider (Does not chest x-ray shows severe cardiomegaly, no evidence of infiltrate nor pulmonary edema. Overall similar to previous film yesterday.)
*Pulse Oximetry
Patient hypoxic: no
*EKG
Interpreted by ED Provider?: Yes
Interpretation: abnormal
Comparison EKG: no changes (Unchanged from previous EKG yesterday)
Rate: tachycardiac
Rhythm: a-fib
[place]: normal axis
Interval: normal QT interval
QRS Pattern: low voltage and poor R-wave progression
Ischemia: non-specific ST changes
*[employer] Interpretation
Rate: tachycardiac
Interpretation: abnormal
Rhythm: a-fib
ED Attending Note
<RHIANNON Canas - Last Filed: 05/11/23 22:32>
-
Portions of this chart may have been created with voice recognition software.� Occasional wrong word or��sound alike� substitutions may have occurred due to the inherent limitations of voice recognition software.
<Nkechi Skinner DO - Last Filed: 05/12/23 00:59>
ED Attending Note
Patient seen and examined by attending physician: Yes
I performed the substantive portion of visit, reviewed & personally made and approve the management plan that is documented in note by myself or ADINA.: Yes
I performed a history and physical exam of patient and discussed management with resident, I reviewed resident's note and agree with documented findings and plan of care.: Yes
ED Attending Note:
This is a 68-year-old gentleman who resides at home with his . 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
follows with [facility] heart failure team. He has history of atrial fibrillation chronically maintained on Eliquis. Insulin requiring diabetes.
Over the past year he has had marked progression of his heart failure with development of cardiogenic ascites, maintained on IV milrinone via PICC line and receives IV Lasix twice weekly.
He underwent paracentesis May 05 with removal of 7 L and then return to the ED yesterday due to increasing shortness of breath and increasing abdominal girth and underwent paracentesis with removal of 2 L of ascitic fluid via IR. He was given IV
albumin after yesterday's paracentesis.
Laboratory studies yesterday noted a potassium of 5.5, trending up slightly from previous. Creatinine of 2.8 which is his baseline.
Home health nurse visit today for his usual 10 mg of IV Lasix and blood draw today revealed potassium at 6.2. received a phone call from heart failure/transplant attending satellite communications engineer sidra recommending to come to the ED for recheck potassium.
She states she was told that her was going to require admission and then eventual transfer to [facility].
Patient does endorse moderate, chronic fatigue, chronic shortness of breath and somewhat chronic dry cough which is overall unchanged. Chemistry chronic bilateral lower extremity edema and abdominal bloating but currently stable and unchanged from
yesterday.
He admits to neglecting daily weights due to overall fatigue which has been ongoing over the past few weeks.
He has not had a fever nor chills.
Appetite has been fair.
Urinating normally.
He has been compliant with daily fluid restriction. Although asking for ice chips and/or water during my initial evaluation.
GENERAL: 68-year-old gentleman appears his stated age, he is awake and alert, appears mildly fatigued with very mild resting tachypnea and occasional dry cough but able to speak in full sentences and easily communicative. is accompanying.
Vital signs reviewed. Borderline hypotension which appears to be patient's baseline, improved from yesterday. Mild tachycardia. Afebrile. Pulse ox 97 to 99% on room air.
EYE: pupils equal and reactive. anicteric
NECK: Supple, nontender, no meningismus, no significant adenopathy. Mild to moderate JVD.
ENT: oral mucosa is moist. No rhinorrhea.
CARDIAC: Irregularly irregular, mildly tachycardic, 2/6 holosystolic murmur left sternal border.
LUNGS: Very mild resting tachypnea, rales/fine rhonchi left base, minimal rales right base otherwise clear to auscultation.
ABDOMEN: Moderately rotund, soft, nondistended, without focal tenderness, normoactive BS.
NEUROLOGICAL: Alert and oriented x3, no focal neuro deficits.
SKIN: Warm and dry, normal color, venous stasis skin thickening bilateral lower extremities with 2 cm superficial abrasion left anterior medial mid curtis with scant serous drainage. There is no erythema, no tenderness to palpation.
MUSCULOSKELETAL: No clubbing or cyanosis. +2 pitting edema bilateral lower extremities. Peripheral pulses are full and equal b/l. No palpable tenderness.
PSYCH: Normal and appropriate interaction.
Patient has known advanced cardiomyopathy with chronic CHF, cardiogenic ascites, chronic kidney disease, A-fib chronically maintained on Eliquis, insulin requiring diabetes.
Concern for progressive hyperkalemia as cause for generalized fatigue.
Concern for advanced/progressive CHF, CAD with ischemia.
Concern for progression of chronic kidney disease.
Concern for left lower lobe pneumonia, occult infectious process.
Paracentesis fluid from yesterday thus far cultures are negative.
EKG shows chronic A-fib, overall similar and unchanged from yesterday.
Will repeat labs, repeat chest x-ray, will check COVID-19 antigen.
I have placed a call to [facility] and have spoken with [facility] heart failure attending, Dr Cj Reynaga--he was a physician who had spoken with earlier this evening and reports that he did tell the patient to come to
the ED only to recheck labs and if patient is hyperkalemic recommend Imanixalate and then repeat potassium if improves then recommends discharge to home.
05/12/2023 0015 AM
Labs show improvement in potassium to 5.6 but sodium has drifted down from 128 yesterday to now 120. BUN and creatinine stable and unchanged.
White blood cell count has trended up further from 14.8 yesterday to now 21.3.
Troponin has trended up from 0.19 yesterday to now 0.5.
BNP has trended up from 12,500 yesterday to now 13,500.
TSH is elevated at 17.5, new finding.
COVID-19 antigen is negative.
Urinalysis is unremarkable.
Patient continues to deny chest pain, has not had a fever nor chills.
Chest x-ray shows significant cardiomegaly but no evidence of infiltrate.
With uptrend in white blood cell count, significant concern for occult infectious process. Will check procalcitonin and blood cultures.
Patient has significant hyponatremia and if this continues to trend down, he is at risk for seizures, cerebral edema. Due to severe cardiomyopathy/CHF he is not a candidate for hypertonic saline.
He is again asking for water and I have concern for compliance issues with fluid restriction.
Will continue strict fluid restriction and will give an additional IV dose of Lasix now.
Will admit to hospitalist service.
I have touched base with [facility] heart failure attending on-call, Dr. Cj Reynaga. He agrees with acute hospitalization due to significant abnormalities and multiple laboratory studies.
[facility] currently has no beds thus will admit to hospitalist service here with plan for potential transfer to [facility] once bed becomes available.
Discharge Plan
Departure
Patient Disposition: Admit
Date of Disposition: 05/12/23
Time of Disposition: 00:15
Admit to: Telemetry
Admit to doctor: Alvaro
Presentation/result/management discussed w/ accepting MD/DO: Hospitalist
Condition: Serious
Discharge Problem:
Acute on chronic combined systolic and diastolic CHF (congestive heart failure), severe hyponatremia, Elevated troponin level, Leukocytosis,concern for occult infectio, TSH elevation, Permanent atrial fibrillation
Prescriptions:
No Action
allopurinol 100 MG tablet
100 mg PO DAILY
gabapentin 100 MG capsule
100 mg PO BID
acetaminophen 325 mg Tablet
650 mg PO DAILYPRN PRN (Reason: mild pain)
insulin glargine [Lantus U-100 Insulin] 100 unit/mL Solution
10 unit SC HS
Patient Comments:
metoprolol succinate 25 mg Tablet Extended Release 24 Hr
12.5 mg PO DAILY
Eliquis 5 mg Tablet
5 mg PO BID
therapeutic multivitamin Tablet
1 tab PO DAILY
potassium chloride 10 mEq Capsule, Extended Release
40 meq PO DAILY
torsemide 20 mg Tablet
120 mg PO BID
omega-3 fatty acids 1,000 mg Capsule
1,000 mg PO DAILY
hydralazine 25 mg Tablet
25 mg PO Q8H
spironolactone 25 mg Tablet
12.5 mg PO DAILY
levothyroxine 50 mcg Tablet
50 mcg PO DAILY
insulin lispro [Admelog SoloStar U-100 Insulin] 100 unit/mL Insulin Pen
2 unit SC AC
lactulose 10 gram/15 mL Solution
20 g PO DAILY PRN (Reason: constipation)
furosemide 10 mg/ml solution
100 mg IV WEFR
Patient Comments:
05/10/2023, infuse 10 ml into venous catheter 2 times a week. Immediately prior to dose, RN to withdraw Furosemide 100 mg/10 ml and administer IV push over 5-10 minutes twice weekly on WeFr.
milrinone
39,000 mcg IV .SEE BELOW
Patient Comments:
05/10/2023, infuse 39,000 mcg into a venous catheter continuous. Infuse milrinone 0.125 mcg/kg/min IV continuously via CADD may pump. Dose based on weight of 104.3 kg. Pump settings: continuous rate = 3.9 ml/hr; reservoir vol = 191 ml. Bag
contains 48 hour supply with overfill.
Referrals:
Felix Almanza MD [Family Provider] -
Interventions
Interventions:
*Risk Screen - Suicide Last Done: 05/11/23 21:47
*General Assessment Last Done: 05/11/23 21:47
*Neglect/Abuse Screening Last Done: 05/11/23 21:47
ED- Fall Risk Assessment Last Done: 05/11/23 22:02
*ED COVID-19 Vaccine History Last Done: 05/11/23 21:47
ED- Cardiac Assessment Last Done: 05/11/23 22:02
ED- Neurological Assessment Last Done: 05/11/23 22:02
ED- Pulmonary Assessment Last Done: 05/11/23 22:02
Discharge Date and Time
Print Language: TURKMEN
[2023-05-11 23:07] LABS: % Basophils 0.4 % (0-2); % Eosinophils 0.4 % (0-6); % Lymphocytes 2.5 % (20.5-51.1); % Monocytes 7.4 % (1.7-9.3); % Neutrophils 88.3 % (42.2-75.2); Absolute Basophils 0.1 10^3/uL (0-0.2); Absolute Eosinophils 0.1 10^3/uL (0-0.7); Absolute Immature Granulocytes 0.2 10^3/uL (0-0.05); Absolute Lymphocytes 0.5 10^3/uL (1.2-3.4); Absolute Monocytes 1.6 10^3/uL (0.1-0.6); Absolute Neutrophils 18.8 10^3/uL (1.4-6.5); Hematocrit 32.1 % (39.0-52.0); Hemoglobin 11.5 g/dL (13.0-18.0); Mean Corp Hgb Conc. 35.8 g/dL (33.0-37.0); Mean Corpuscular Hgb 29.7 pg (27.0-31.0); Mean Corpuscular Volume 82.9 fL (80.0-94.0); Mean Platelet Volume 9.4 fL (7.4-10.4); Nucleated Red Blood Cells % 0 % (-); Platelet Count 361 10^3/uL (130-400); Red Blood Cell Count 3.87 10^6/uL (4.70-6.10); Red Cell Dist. Width 15.9 % (11.5-14.5); White Blood Cell Count 21.3 10^3/uL (4.8-10.8)
[2023-05-11 23:26] LABS: ALT (SGPT) 22 U/L (0-50); AST (SGOT) 45 U/L (17-59); Alkaline Phosphatase 173 U/L (38-126); Blood Urea Nitrogen 68 mg/dl (9-20); Calcium 8.5 mg/dl (8.4-10.2); Carbon Dioxide 17 mmol/L (22-30); Chloride 93 mmol/L (98-107); Estimated Creatinine Clearance 34 ml/min; Glucose 188 mg/dl (70-99); Magnesium 2.3 mg/dl (1.6-2.3); Potassium 5.6 mmol/L (3.5-5.1); Sodium 120 mmol/L (135-145); Total Protein 5.3 g/dl (6.3-8.2); eGFR 24.13
[2023-05-11 23:41] LABS: Urine Albumin Negative (Neg - Trace); Urine Bilirubin Negative (Negative); Urine Character Clear (Clear); Urine Color Yellow; Urine Glucose Negative (Negative); Urine Ketone Negative (Negative); Urine Leukocyte Trace (Negative); Urine Nitrite Negative (Negative); Urine Occult Blood Negative (Negative); Urine Urobilinogen Negative (Neg - 1+)
[2023-05-11 23:53] LABS: COVID-19 Antigen Negative (Negative)
[2023-05-11 23:55] LABS: NT-proBNP 13500 pg/ml; Troponin I 0.506 ng/ml
[2023-05-12] VITALS (30 sets, daily range): BP systolic 82–119; BP diastolic 58–86; BMI 33.8
--- NOTE | 2023-05-12 00:23 | HPS.HSE ---
Addendum entered and electronically signed by Diana John MD 05/12/23 02:29:
one bag of IV Vancomycin is 300mL. Given patient no presenting like he has a MRSA infection, will cancel.
I will change antibiotics to IV Zosyn (less IVF given) - given degree hyponatremia, goal is to reduce fluid administration as much as possible
Addendum entered and electronically signed by Diana John MD 05/12/23 02:04:
procalcitonin significantly elevated taking into account CKD (37.7)
-covid negative, UA without infection
-blood cultures pending
-will start vanc/cefepime/flagyl
-no obvious source, will need to retest ascitic fluid, IR consult placed for diagnostic paracentesis
Original Note:
Family Physician
-
Family Physician: Felix Almanza MD
Chief Complaint
-
generalized fatigue
History of Present Illness
Mr. Heriberto Sousa is a 68 yo man with hx congenital heart disease, NICM with EF 42% (TTE 08/29) on a milrinone drip and lasix IV 2x/week, cor pulmonale with recurrent ascites, CKD 23, chronic hyponatremia, permanent atrial fibrillation on
Eliquis, IDDM, history of medication non-compliance who presents to the ER after outpatient potassium elevated. He received lasix today and potassium was 6.2
Patient was placed on a milrinone drip a few months ago. He follows with Dr. Almanza at [facility]. He had a recent paracentesis at on 05/05 with 7L drained and returned to the ER 05/09 with additional 2L drained. Albumin was repleted. Per ER note from
05/09: 'Spoke to Nurse from patient's care team at [facility] who states that they have tried many interventions for patient and they are running out of options for his heart disease.' Patient was hospitalized early April
at [facility]. Per he received a lasix gtt while there.
Per Dr. Skinner's note: 'I have placed a call to [facility] transfer center and have spoken with [facility] heart failure attending, Dr Cj Guaman--he was a physician who had spoken with earlier this evening and reports that he did tell
the patient to come to the ED only to recheck labs and if patient is hyperkalemic recommend Kayexalate and then repeat potassium if improves then recommends discharge to home. He denies recommending admission/transfer to [facility].'
Patient states that he has felt sluggish over the past several days. He reports that he feels he has had too much fluid drained. He always has some degree of swelling. Denies more swelling than normal. States abdomen feels better. No
fevers/chills. No abdominal pain. No nausea/vomiting/diarrhea. States he drinks ~ 64 oz water/day at home. He received the IV lasix today but states lasix hasn't been doing much for him lately. He denies rash. Denies cough or sore throat. No
chest pain.
Medical History
Past Medical History
Past Medical History: Reports Other (Coronary AV Fistula Chronic HFrEF DM-II Hypertension Permanent Atrial Fibrillation Obesity)
Past Surgical History: Reports Other
Social History
Tobacco: Non-smoker
Alcohol: Daily (2 drinks daily )
Family History
Family History: Not pertinent
Allergies / Home Medications
Allergies reflects when Allergies were last updated in [employer].
Home Medications with original date entered in [employer]
Allergy/Medication List:
Allergies
Allergy/AdvReac Type Severity Reaction Status Date / Time
No Known Allergies Allergy Verified 05/10/23 13:11
Home Medications
allopurinol 100 mg tablet 100 mg PO DAILY Gout 03/23/21
gabapentin 100 mg capsule 100 mg PO BID Pain 03/23/21
acetaminophen 325 mg tablet 650 mg PO DAILYPRN PRN mild pain 01/03/23
apixaban 5 mg tablet (Eliquis) 5 mg PO BID atrial fibrillation 01/03/23
insulin glargine 100 unit/mL subcutaneous solution (Lantus U-100 Insulin) 10 unit SC HS Diabetes 01/03/23
metoprolol succinate 25 mg tablet,extended release 24 hr 12.5 mg PO DAILY Heart Disease/Hypertension 01/03/23
therapeutic multivitamin 1 tab PO DAILY Supplement 01/03/23
furosemide 100 mg IV WEFR 05/10/23
hydralazine 25 mg tablet 25 mg PO Q8H 05/10/23
insulin lispro 100 unit/mL subcutaneous pen (Admelog SoloStar U-100 Insulin lispro) 2 unit SC AC 05/10/23
lactulose 10 gram/15 mL oral solution 20 g PO DAILY PRN constipation 05/10/23
levothyroxine 50 mcg tablet 50 mcg PO DAILY 05/10/23
milrinone 39,000 mcg IV .SEE BELOW 05/10/23
omega-3 fatty acids 1,000 mg capsule 1,000 mg PO DAILY 05/10/23
potassium chloride 10 mEq capsule,extended release 40 meq PO DAILY 05/10/23
spironolactone 25 mg tablet 12.5 mg PO DAILY 05/10/23
torsemide 20 mg tablet 120 mg PO BID 05/10/23
Review of Systems
-
History Source: Patient
A 12 point ROS was completed and negative except as noted: Yes
Physical Exam
Vital Signs
Vital Signs
Temp Pulse Resp BP Pulse Ox
97.9 F 105 11 97/71 100
05/11/23 21:47 05/12/23 00:15 05/11/23 22:45 05/11/23 22:00 05/11/23 23:45
Physical Exam
General: No Apparent Distress and Appears Chronically Ill
HEENT: PERRLA
Respiratory: Clear; No Wheezes
Cardiac: S1/S2, Regular Rhythm and Murmur
GI: Soft and Non Tender
Musculoskeletal: Other (edema b/l extremities with fluid blisters)
Skin: Warm and Dry; No Rash
Neuro: AO x 3
Psych: Calm
Laboratory Results
-
05/11/23 22:58
05/11/23 22:58
Laboratory Results
Total Bilirubin 1.0 mg/dl (0.2-1.3) 05/11/23 22:58
AST 45 U/L (17-59) 05/11/23 22:58
ALT 22 U/L (0-50) 05/11/23 22:58
Alkaline Phosphatase 173 U/L (38-126) H 05/11/23 22:58
Troponin I 0.506 ng/ml H* 05/11/23 22:58
Data Reviewed
-
Diagnostic Radiology: Report Reviewed by me
Lab Data: Labs Reviewed by me
Impression/Plan
-
Mr. Heriberto Sousa is a 68 yo man with hx congenital heart disease, NICM with EF 42% (TTE 08/29) on a milrinone drip and lasix IV 2x/week, cor pulmonale with recurrent ascites, CKD 3, chronic hyponatremia, permanent atrial fibrillation on
Eliquis, IDDM, history of medication non-compliance who presents to the ER after outpatient potassium elevated. He received lasix today and potassium was 6.2
Triage VS: T 97.9, P 110, RR 18, BP 96/74, SpO2 99%
LABS: WBC 21.3, Hg 11.5, PLT 361, Na 120, K+ 5.6, CO2 17, Cr 2.8 (baseline), Glucose 188, T. Bili 1.0, AST 45, ALT 22, Alk Phos 173, Trop 0.506, TSH 17.5
covid negative
Nonischemic Cardiomyopathy with EF 42%
Cor Pulmonale with Recurrent Ascites
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
Hyperkalemia, 6.2 as outpatient, 5.6 here
-patient is on chronic milrinone drip; he receives outpatient IV lasix 100mg infusions twice a week and takes Torsemide 120mg PO BID
-Dr. Skinner spoke with [facility] heart failure attending. No beds available, did not state patient required transfer at this point. Attending (Dr. Cj Reynaga) aware of low Na, stated heart couldn't handle hypertonic saline.
-Patient appears volume overloaded but not more than his normal. Patient and actually more concerned about how much fluid was recently taken off with paracenteses.
-I will give patient his HARBOR [employer] Torsemide now (missed his evening dose)
-admit to IMU
-very strict fluid restriction for now
-daily weights, strict I/O
-cardiology consult for recs on further administration IV lasix (IV lasix gtt?). Team to touch base with patient's hand pleater, Dr. Almanza tomorrow.
-renal consult
-HARBOR T[employer] Hydralazine
-hold Spironolactone with elevated K today
-hold standing K repletion
Severe Hyponatremia
Acute on Chronic hyponatremia
-with patient's severity of heart failure, would not tolerate hypertonic saline
-he is AAO x 3 but states he feels sluggish
-HARBOR [employer] Torsemide as above
-very strict fluid restriction
-repeat labs at 4 AM
-Renal consult
Leukocytosis
-WBC up from 14.8 yesterday to 21.3 today
-paracentesis from 05/10 without e/o SBP
-follow up blood cultures
-no localizing symptoms to suggest infection
Hypothyroidism
-TSH elevated, will increase [employer] synthroid to 62.5mcg daily
Permanent Atrial Fibrillation on Eliquis
-give Eliquis x 1 now given missed evening dose and next dose this evening
Elevated Troponin
-suspect non-VA Troponin elevation
-trend
-cardiology consult
IDDM
-ISS
-takes lantus 10 units qhs at home; will give 5 units here
chronic kidney disease
-baseline creatinine 2.8-3
DVT PPx Eliquis
FULL CODE - patient states he wants to talk to his more about code status.
[2023-05-12 00:24] LABS: Urine Bacteria Few (Negative); Urine Red Blood Cell 0-2 /HPF (0-2); Urine White Cell 0-2 /HPF (0-5)
[2023-05-12 00:33] LABS: Lactic Acid 1.5 mmol/L (0.7-2.0)
[2023-05-12 01:08] LABS: Free T4 1.08 ng/dl (0.78-2.19)
--- NOTE | 2023-05-12 01:08 | VATNOTE ---
PT ADMITTED WITH 5FR DL R PICC INSERTED AT [facility] IN EARLY FEBRUARY 2023. PT ON A CONTINUOS MILRINONE GTT AT HOME VIA A CADD PUMP. DRSG C/D/I WITH Real Time Tomography. BOTH LUMENS FLUSHED AND HAVE A GOOD BR. LABS DRAWN ORDERED. CAPS CHANGED. CXR COMPLETED FOR
PICC TIP VERIFICATION.
[2023-05-12] MEDS: DEMADEX 120 MG PO (01:42)
[2023-05-12] MEDS: ELIQUIS 5 MG PO ×2 (01:43→20:02)
--- NOTE | 2023-05-12 02:48 | PTCARENOTE ---
Received pt from ED via stretcher. Pt able to ambulate into room with no assistance. Stead on feet. Pt slightly withdrawn and flat. Milrinone gtt on home pump infusing; pt states his will change the bag in the morning when she comes back.
Pt states he will be addressing his code status but provided no extra details. Wound consult placed - pt has two open wounds on left lower leg. AFib on the monitor in 100-120s HR. Pt resting in bed with call evans in reach.
[2023-05-12 03:41] LABS: Urine Sodium < 5 mmol/L (30-90)
[2023-05-12] MEDS: ZOSYN 50 IV (03:46)
[2023-05-12 04:22] LABS: Hematocrit 32.8 % (39.0-52.0); Hemoglobin 11.6 g/dL (13.0-18.0); Mean Corp Hgb Conc. 35.4 g/dL (33.0-37.0); Mean Corpuscular Hgb 29.5 pg (27.0-31.0); Mean Corpuscular Volume 83.5 fL (80.0-94.0); Mean Platelet Volume 9.5 fL (7.4-10.4); Platelet Count 386 10^3/uL (130-400); Red Blood Cell Count 3.93 10^6/uL (4.70-6.10); Red Cell Dist. Width 15.9 % (11.5-14.5); White Blood Cell Count 17.3 10^3/uL (4.8-10.8)
[2023-05-12 04:28] LABS: Osmolality Urine 264 mOsm/kg (300-900)
[2023-05-12 04:49] LABS: Troponin I 0.437 ng/ml
[2023-05-12 04:54] LABS: Blood Urea Nitrogen 70 mg/dl (9-20); Calcium 8.7 mg/dl (8.4-10.2); Carbon Dioxide 18 mmol/L (22-30); Chloride 94 mmol/L (98-107); Estimated Creatinine Clearance 33 ml/min; Glucose 148 mg/dl (70-99); Magnesium 2.4 mg/dl (1.6-2.3); Potassium 5.3 mmol/L (3.5-5.1); Sodium 123 mmol/L (135-145); eGFR 23.13
--- NOTE | 2023-05-12 05:41 | PTCARENOTE ---
Pt HR remains in the 110s-120s consistently. Notified KALSOMINER. Told to give morning dose of Metoprolol early for rate control. (see MAR)
[2023-05-12] MEDS: TOPROL XL 12.5 MG PO ×2 (06:03→09:07)
[2023-05-12] MEDS: SYNTHROID 62.5 MCG PO (06:03)
--- NOTE | 2023-05-12 07:43 | CON.CAR ---
Addendum entered and electronically signed by Julius Adams MD 05/12/23 13:36:
I saw and examined the patient.
The Home Health Aide's note was reviewed and I agree with the note.
Comment: Briefly, 68-year-old man past medical history of complex congenital heart disease and now stage D heart failure with reduced ejection fraction on home milrinone as well as refractory ascites requiring frequent paracentesis who presents due
to abnormal labs showing hyperkalemia
Volume overloaded on exam on exam here, but warm and well perfused on home milrinone dose of 0.125
With IV diuresis potassium has improved and is now normal
Would monitor sodium closely, significantly hyponatremic with sodium of 120, suspect this is hypovolemic hyponatremia -appreciate nephrology input
Continue IV diuresis for now
Will attempt to reach out to patient's primary maintenance of way supervisor at [facility] for further input
Original Note:
Consultation
Consultation Request
Date/Time Consultation Requested: 05/12/23 at 0240
Date/Time Consultation Performed: 05/12/23 at 0743
Requesting Provider: Dr. John
Performing Provider: Dr. Landrum
Reason for Consultation: h/o HF, congenital heart disease, abnl electrolytes
Medical History
-
History of Present Illness:
Patient came to [facility] last night after outpatient labs showed hyperkalemia and cardiology is now consulted for h/o HFrEF. Patient has advanced HF and follows with Dr. Almanza at [facility]. Patient follows with at [facility] for h/o congenital heart disease with
AV fistula from circumflex to coronary sinus, as well as patent ductus arteriosus.Patient was last seen at when he was admitted with COVID 01/03/23 until 01/05/23. During that admission the patient had KATY and diuretics were held, but he also had
increasing ascites so he had a paracentesis as well. Patient and said at that time that patient was being considered for repair of his congenital defect with Dr. Kendrick and it was going to be discussed at his upcoming appt. Called and talked
to patient's this AM and she says that at patient's [facility] cardiology visit that they were told the patient is not a candidate for surgery because EF was down to 18% and that he is also not a candidate for heart transplant because of CKD. Patient
was admitted to [facility] and started on milrinone infusion and was ultimately discharged on continuous home milrinone therapy at 0.125 mcg/kg/min. Patient's says that he did not appear well this weekend with increased SOB and fatigue and decreased
appetite. Patient has regular paracenteses, he had a regularly schedule paracentesis 05/06/23 and 7.1 L removed at that time. Patient then presented to [facility] 05/10/23 with increased SOB and swelling and had another paracentesis for 2.6 L that day. Fluid
from the 05/10/23 tap was cultured and no growth thus far. Patient currently on a regimen from [facility] that includes continuous milrinone at 0.125 mcg/kg/min, torsemide 120 mg PO BID and Lasix 100 mg IV every WeFr. Patient's reports that labs
checked yesterday when [facility]N came for the home Lasix IV infusion and that patient's got a call late last night that the potassium was 6.2 and patient needed to go to his local ER for recheck and evaluation. Recheck potassium in [facility] was 5.6 last
night and potassium is down to 5.3 this AM. Sodium was 120 in ER last night and is 123 today. Patient says that he feels well and wants to go home.
PMH:
Chronic HFrEF
NICM EF 18% by echo at [facility] 01/2023
Recurrent ascites
s/p paracentesis at for 7.1 L 05/06/23
s/p paracentesis at for 2.6 L 05/10/23
HTN
Permanent atrial fibrillation
Chronic Eliquis OAC
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
Patent ductus arteriosus, conservatively managed
CKD 4
History of noncompliance
Past Medical History
Past Medical History: Other (in HPI)
Past Surgical History: None
Social History
Tobacco: Non-Smoker
Alcohol: Occasional (monthly or less)
Drug: None
Personal:
Living: With Family
Family History
Family History: Cancer
Allergies / Home Medications
Allergy/AdvReac Type Severity Reaction Status Date / Time
No Known Allergies Allergy Verified 05/10/23 13:11
�Medication �Instructions �Recorded �Confirmed �Type
allopurinol 100 mg tablet 100 mg PO DAILY Gout 03/23/21 05/11/23 History
gabapentin 100 mg capsule 100 mg PO BID Pain 03/23/21 05/11/23 History
acetaminophen 325 mg tablet 650 mg PO DAILYPRN PRN mild pain 01/03/23 05/11/23 History
apixaban 5 mg tablet (Eliquis) 5 mg PO BID atrial fibrillation 01/03/23 05/11/23 History
insulin glargine 100 unit/mL 10 unit SC HS Diabetes 01/03/23 05/11/23 History
subcutaneous solution (Lantus
U-100 Insulin)
metoprolol succinate 25 mg 12.5 mg PO DAILY Heart 01/03/23 05/11/23 History
tablet,extended release 24 hr Disease/Hypertension
therapeutic multivitamin 1 tab PO DAILY Supplement 01/03/23 05/11/23 History
furosemide 100 mg IV WEFR 05/10/23 05/11/23 History
hydralazine 25 mg tablet 25 mg PO Q8H 05/10/23 05/11/23 History
insulin lispro 100 unit/mL 2 unit SC AC 05/10/23 05/11/23 History
subcutaneous pen (Admelog SoloStar
U-100 Insulin lispro)
lactulose 10 gram/15 mL oral 20 g PO DAILY PRN constipation 05/10/23 05/11/23 History
solution
levothyroxine 50 mcg tablet 50 mcg PO DAILY 05/10/23 05/11/23 History
milrinone 39,000 mcg IV .SEE BELOW 05/10/23 05/11/23 History
omega-3 fatty acids 1,000 mg 1,000 mg PO DAILY 05/10/23 05/11/23 History
capsule
potassium chloride 10 mEq 40 meq PO DAILY 05/10/23 05/11/23 History
capsule,extended release
spironolactone 25 mg tablet 12.5 mg PO DAILY 05/10/23 05/11/23 History
torsemide 20 mg tablet 120 mg PO BID 05/10/23 05/11/23 History
Review of Systems
-
History Source: Patient and Family ( by phone for 13 minutes)
All other systems: Negative unless noted
Physical Exam
Vital Signs
Temp Pulse Resp BP Pulse Ox
97.4 F 99 17 119/76 97
05/12/23 03:55 05/12/23 06:10 05/12/23 06:10 05/12/23 06:10 05/12/23 04:00
Gen: NAD, AAOx3
HEENT: EOMI, MMM
CV: Irreg irreg
Lungs: CTA B/L without wheeze
Abd: NT, soft
Ext: +2 B/L LE edema
Skin: Warm, dry and pink without rash
Neuro: Non-focal
Lab Results
05/12/23 03:55
Troponin I 0.437 ng/ml H* 05/12/23 03:55
Qvt-C-Ptbqluziian Pept 15806 pg/ml 05/11/23 22:58
Impression / Plan
-
PCP: Dr. Nikolas Schmitz
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 Now following with Dr. Felix Almanza at [facility]
Impression:
Acute on chronic HFrEF
NICM EF 18% by echo at [facility] 01/2023
Anasarca
Recurrent ascites
s/p paracentesis at for 7.1 L 3/29/24
s/p paracentesis at for 2.6 L 05/10/23
HTN
Permanent atrial fibrillation
Chronic Eliquis OAC
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
Patent ductus arteriosus, conservatively managed
CKD 4
History of noncompliance
Hyperkalemia
Hyponatremia
ECHO 09/2018: Severely dilated LV, EF 45% with regional variations, moderate LVH, dilated RV, severe biatrial dilatation, dilated coronary sinus, MAC, mild MR, aortic sclerosis, mild AR, trace TR, PAP 50 to 55 mmHg, dilated IVC, small pericardial
effusion, mildly dilated aortic root and proximal ascending aorta
Echo 08/25/22: EF 42%, global hypokinesis, stage 3 diastolic dysfunction, severely enlarged RV size with moderately reduced RV systolic function, severely dilated LA/RA, mild MR, mild TR with PAP 57-62 mmHg, small pericardial effusion, dilated aortic
root with Sinuses at 3.9 cm
Plan:
-Patient came to [facility] last night after outpatient labs showed hyperkalemia and cardiology is now consulted for h/o HFrEF. Patient has advanced HF and follows with Dr. Almanza at [facility]. Patient follows with at [facility] for h/o congenital heart disease
with AV fistula from circumflex to coronary sinus, as well as patent ductus arteriosus.Patient was last seen at when he was admitted with COVID 01/03/23 until 01/05/23. During that admission the patient had KATY and diuretics were held, but he
also had increasing ascites so he had a paracentesis as well. Patient and said at that time that patient was being considered for repair of his congenital defect with Dr. Kendrick and it was going to be discussed at his upcoming appt. Called and
talked to patient's this AM and she says that at patient's [facility] cardiology visit that they were told the patient is not a candidate for surgery because EF was down to 18% and that he is also not a candidate for heart transplant because of CKD.
Patient was admitted to [facility] and started on milrinone infusion and was ultimately discharged on continuous home milrinone therapy at 0.125 mcg/kg/min. Patient's says that he did not appear well this weekend with increased SOB and fatigue and
decreased appetite. Patient has regular paracenteses, he had a regularly schedule paracentesis 05/06/23 and 7.1 L removed at that time. Patient then presented to [facility] 05/10/23 with increased SOB and swelling and had another paracentesis for 2.6 L that
day. Fluid from the 05/10/23 tap was cultured and no growth thus far. Patient currently on a regimen from [facility] that includes continuous milrinone at 0.125 mcg/kg/min, torsemide 120 mg PO BID and Lasix 100 mg IV every WeFr. Patient's reports that
labs checked yesterday when VN came for the home Lasix IV infusion and that patient's got a call late last night that the potassium was 6.2 and patient needed to go to his local ER for recheck and evaluation. Recheck potassium in [facility] was 5.6
last night and potassium is down to 5.3 this AM. Sodium was 120 in ER last night and is 123 today. Patient says that he feels well and wants to go home.
-Hyperkalemia on outpatient labs yesterday with potassium 6.2 at home and then 5.6 on recheck in ER. Potassium is down to 5.3 this AM. Suspect improvement is related to Lasix 100 mg IV x1 given at home yesterday prior to admission to .
-Not clear that patient is responding to oral diuretics at home based on labs, anasarca and increased need to paracentesis. Also question the level of salt and fluid restriction compliance at home. Will attempt IV diuresis with Lasix 100 mg IV now.
-Will hold outpatient dose of torsemide 120 mg PO BID for now
-Patient's is bringing in the home milrinone cartridge and will cont with current rate at 0.125 mcg/kg/min.
-Talked with patient's by phone for about 13 minutes this AM. Patient's is calling Dr. Almanza's office today, shared my work cell # with her so that Romeo can call me with any recommendations or if Romeo decides he should be transferred,
although it sounds like last night that [facility] did not feel a transfer was needed.
-Talked with patient this AM about current care and prognosis and he is a full code. Patient did not want me to talk to his on the phone in front of him and asked that I talk to her separately. Called and talked with patient's for about 13
minutes and reviewed recent course. Patient's does not feel he is ready for palliative care. Confirmed that patient is not a candidate for repair of congenital disease and he is not a transplant candidate.
-Patient with known permanent Afib. HR currently at goal <110 bpm. Outpatient dose of Toprol XL 12.5 mg daily ordered. Patient no longer taking digoxin.
-Outpatient dose of Eliquis 5 mg BID continued
-ECG reviewed by me with Afib and HR 108.
-Reviewed with hospitalist attending as well
[2023-05-12 07:51] LABS: Glucose - Point of Care 170 mg/dl (70-99)
--- NOTE | 2023-05-12 08:15 | W.PN.HOSP.TC ---
Today's Communication/Plan
-
Fluid restriction
Diuresis
Nephrology consult
Cardiology consult
Await cultures
Hold antibiotics
Assessment / Plan
Assessment / Plan
Gen-AAOx3, NAD
HEENT-NC, AT, anicteric, clear oral mm
Neck-supple
CV-reg, no M, +S1/S2
Lungs-clear B/L
Abd-soft, nontender, diffusely distended with fluid wave
Ext-bilateral lower extremity pitting edema, hyperpigmentation
Musculoskeletal-no cyanosis, clubbing
Skin-warm and dry
Neuro-grossly non-focal
Psych-calm, cooperative
Anasarca -multifactorial etiology including chronic congestive heart failure, chronic kidney disease, hypoalbuminemia, etc. Suspect excess sodium intake at home through diet.
Chest x-ray with cardiomegaly, increased pulmonary vascularity.
Acute on chronic hyponatremia -due to excess volume. Admission sodium 120, 123 this morning, continue fluid restriction. Continue diuresis. Urine osmolality 264, urine sodium less than 5. Suspect he drinks excessive amounts of fluids at home.
We discussed the importance of alcohol abstinence. H&P documents 2 drinks daily but patient states he only tastes alcohol and does not have a whole drink.
Hyperkalemia -potassium improving. 5.3 today. Potassium supplements and spironolactone discontinued.
Leukocytosis -doubt infection clinically. Cultures pending. Procalcitonin unreliable in the setting of chronic kidney disease. Hold further antibiotics and observe.
CKD 3B - renal function at baseline. Normal anion gap metabolic acidosis. Bicarb 18.
Chronic heart failure with combined reduced and preserved EF - on chronic milrinone drip. BNP 13,500. He receives outpatient IV Lasix infusions 100 mg twice a week, and takes torsemide 120 mg twice a day at home. He is taken care of by Dr. Corona
Ronnell at the [facility], heart failure team.
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
Cor pulmonale/recurrent ascites due to heart failure - over the past week he had 9.7 L removed via paracentesis.
Essential hypertension -blood pressure stable currently.
Permanent atrial fibrillation -continue Eliquis.
DM2 with hyperglycemia -hemoglobin A1c pending. He is on Lantus 10 units at bedtime, lispro 2 units AC at home. Glucose 148 this morning. Lantus 5 units ordered to start tonight. Low resistance scale.
Troponin elevation -suspect acute nonischemic myocardial injury due to acute on chronic illness. He is asymptomatic.
Hypothyroidism -suspect he is either not consistently taking levothyroxine or he is not absorbing it in light of volume overload. TSH 17.5, free T4 1.0. Admitting physician increased dose of levothyroxine to 62.5 mcg, was on 50 mcg prior to
admission.
Chronic normocytic anemia -suspect due to chronic inflammation. Hemoglobin at baseline.
obesity due to excess calories
Full code
Anticipated Discharge: > 48 hours
Subjective/Interval History
-
Date of Service: May 12, 2023
Patient seen and examined. No complaints. Denies shortness of breath. Denies fevers or chills.
Objective Data
-
Labs:
Laboratory Results
05/11/23 05/12/23 05/12/23
22:58 03:55 10:00
WBC 21.3 H 17.3 H
Hgb 11.5 L 11.6 L
Hct 32.1 L 32.8 L
Plt Count 361 386
Sodium 120 L D 123 L Pending
Potassium 5.6 H 5.3 H Pending
Chloride 93 L 94 L Pending
Carbon Dioxide 17 L 18 L Pending
BUN 68 H 70 H Pending
Creatinine 2.8 H 2.9 H Pending
Glucose 188 H 148 H Pending
Calcium 8.5 8.7 Pending
Total Bilirubin 1.0
AST 45
ALT 22
Alkaline Phosphatase 173 H
Vital Signs:
Vital Signs
Temp Pulse Resp BP Pulse Ox
97.4 F 99 17 119/76 97
05/12/23 03:55 05/12/23 06:10 05/12/23 06:10 05/12/23 06:10 05/12/23 04:00
I&O
05/11/23 05/12/23 05/13/23
06:59 06:59 06:59
Intake Total 240 / 240
Output Total 300 / 300
Balance -60 / -60
Review of Systems
-
History Source: Patient
All other systems: Reviewed and negative
[2023-05-12 08:42] LABS: Glycohemoglobin (HgbA1c) 7.5 % (4.0-5.6)
[2023-05-12] MEDS: APRESOLINE 25 MG PO ×3 (09:06→23:39)
[2023-05-12] MEDS: ZYLOPRIM 100 MG PO (09:07)
[2023-05-12] MEDS: NEURONTIN 100 MG PO ×2 (09:07→20:01)
--- NOTE | 2023-05-12 09:16 | W.CON.NEPH ---
Consultation
-
Date/Time Consultation Requested: 05/12/2023 6:15 AM
Date/Time Consultation Performed: 05/12/2023 9:00 AM
Requesting Provider: Alvaro
Performing Provider: Nicola
Reason for Consultation: Hyponatremia/chronic kidney disease stage IV
Medical History
-
Chief Complaint: Hyponatremia/CKD stage IV
History of Present Illness:
The patient is a 68-year-old male with a past medical history of chronic kidney disease stage IV who maintains a creatinine baseline of around 2.8-3. He has a history of congestive heart failure with a nonischemic cardiomyopathy who is maintained
on milrinone drip and IV Lasix twice weekly in the setting of his cor pulmonale and recurrent ascites. He underwent 2600 cc paracentesis yesterday prior to presenting to the emergency room. He presented to the hospital last evening due to feelings
of fatigue and was noted to have a sodium level of 120 and was at his baseline creatinine level of 2.9. Nephrology was asked to see the patient in regards to his hyponatremia and CKD stage IV in the setting of his cardiorenal syndrome. Of note the
patient is maintained on torsemide 120 mg twice daily in the outpatient setting for his cardiomyopathy. He is maintained on insulin in the setting of his diabetes. The patient was placed on a milrinone drip a few months ago. He follows with "Caridad"Archie at [facility]. He had a recent paracentesis at on 05/05 with 7L drained and returned to the ER 05/09 with additional 2L drained. Albumin was repleted. Per ER note from 05/09: 'Spoke to Nurse from patient's care team at [facility] who states that they have tried many interventions for patient and they are running out of options for his heart disease.' Patient was hospitalized early April at [facility]. Per he received a lasix gtt while there.
He always has some degree of swelling. Denies more swelling than normal. States abdomen feels better. No fevers/chills. No abdominal pain. No nausea/vomiting/diarrhea. States he drinks ~ 64 oz water/day at home. He received the IV lasix
today but states lasix hasn't been doing much for him lately. He denies rash. Denies cough or sore throat. No chest pain.
Past Medical History
CKD 4-progressive creatinine was 3.5 1 month [employer] per pt report-follows nephro at [facility]
Azotemia in setting of cardiorenal state
Chronic hyponatremia
Hyperkalemia
NICM, EF 42% with enlarged and moderately reduced RV systolic function by echo 08/25/22
Recurrent Ascites
Hypertension now with relative hypotension
Permanent atrial fibrillation
Chronic anticoagulation with Eliquis
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
Patent ductus arteriosus, conservatively managed at [facility]
History of noncompliance
Diabetes mellitus type 2
Anemia, multifactorial
Social History
Tobacco: Non-Smoker
Alcohol: Daily
Family History
No chronic kidney
Allergies / Home Medications
Allergy/AdvReac Type Severity Reaction Status Date / Time
No Known Allergies Allergy Verified 05/10/23 13:11
�Medication �Instructions �Recorded �Confirmed �Type
allopurinol 100 mg tablet 100 mg PO DAILY Gout 03/23/21 05/11/23 History
gabapentin 100 mg capsule 100 mg PO BID Pain 03/23/21 05/11/23 History
acetaminophen 325 mg tablet 650 mg PO DAILYPRN PRN mild pain 01/03/23 05/11/23 History
apixaban 5 mg tablet (Eliquis) 5 mg PO BID atrial fibrillation 01/03/23 05/11/23 History
insulin glargine 100 unit/mL 10 unit SC HS Diabetes 01/03/23 05/11/23 History
subcutaneous solution (Lantus
U-100 Insulin)
metoprolol succinate 25 mg 12.5 mg PO DAILY Heart 01/03/23 05/11/23 History
tablet,extended release 24 hr Disease/Hypertension
therapeutic multivitamin 1 tab PO DAILY Supplement 01/03/23 05/11/23 History
furosemide 100 mg IV WEFR 05/10/23 05/11/23 History
hydralazine 25 mg tablet 25 mg PO Q8H 05/10/23 05/11/23 History
insulin lispro 100 unit/mL 2 unit SC AC 05/10/23 05/11/23 History
subcutaneous pen (Admelog SoloStar
U-100 Insulin lispro)
lactulose 10 gram/15 mL oral 20 g PO DAILY PRN constipation 05/10/23 05/11/23 History
solution
levothyroxine 50 mcg tablet 50 mcg PO DAILY 05/10/23 05/11/23 History
milrinone 39,000 mcg IV .SEE BELOW 05/10/23 05/11/23 History
omega-3 fatty acids 1,000 mg 1,000 mg PO DAILY 05/10/23 05/11/23 History
capsule
potassium chloride 10 mEq 40 meq PO DAILY 05/10/23 05/11/23 History
capsule,extended release
spironolactone 25 mg tablet 12.5 mg PO DAILY 05/10/23 05/11/23 History
torsemide 20 mg tablet 120 mg PO BID 05/10/23 05/11/23 History
Review of Systems
-
History Source: Patient
All other systems: Negative unless noted
Constitutional: Fatigue
EENT: No Symptoms
Respiratory: No Symptoms
Cardiac: No Symptoms
Abdomen/GI: No Symptoms
: No Symptoms
Musculoskeletal: No Symptoms
Skin: No Symptoms
Neurological: No Symptoms
Endocrine: No Symptoms
Hematologic/Lymphatic: No Symptoms
Physical Exam
Vital Signs
Vital Signs
Temp Pulse Resp BP Pulse Ox
98.0 F 100 17 91/61 97
05/12/23 07:32 05/12/23 09:07 05/12/23 06:10 05/12/23 09:07 05/12/23 04:00
Lab Results
05/12/23 03:55
WBC 17.3 10^3/uL (4.8-10.8) H 05/12/23 03:55
RBC 3.93 10^6/uL (4.70-6.10) L 05/12/23 03:55
Hgb 11.6 g/dL (13.0-18.0) L 05/12/23 03:55
Hct 32.8 % (39.0-52.0) L 05/12/23 03:55
Plt Count 386 10^3/uL (130-400) 05/12/23 03:55
eGFR 23.13 05/12/23 03:55
Yyb-Z-Rirqrnwqrwb Pept 39228 pg/ml 05/11/23 22:58
Albumin 3.0 g/dl (3.5-5.0) L 05/11/23 22:58
Physical Exam
General: AOx3, No Distress and Nontoxic
HEENT: PERRL, EOMI, Anicteric, Conjunctivae Clear, Ear/Nose Intact, Hearing Normal, Oropharynx Clear/Moist, Dentition Intact, Neck Supple, Trachea Midline, No JVD and No Thyromegaly
Respiratory: Clear, Normal Excursion and Other (Decreased breath sounds to bases)
Cardiac: S1/S2 and Regular Rate/Rhythm
Breast: Deferred by me
Abdomen: Soft, Nontender, Nondistended (Distended) and No Hepatosplenomegaly
Rectal: Deferred by Provider
Genito-urinary: No Costovertebral Tender
Musculoskeletal: No Clubbing, No Cyanosis and Edema (+1 pitting edema to knees)
Skin: No Rash, Warm, Dry, No Clubbing, No Cyanosis, Normal Turgor and No Bruising
Neuro: Nonfocal/Grossly Intact, CN II-XII (Grossly intact) and Strength (5 out of 5 all 4 extremities)
Hematologic/Lymphatic: No Cervical Lymphadenopathy, No Submandibular Lymphadenopathy and No Supraclavicular Lymphadenopathy
Psych: Mood/afflect pleasant and Insight/judgement good
Assessment/Plan
-
Impression:
Cardiorenal syndrome
CKD stage IV with baseline creatinine 2.5-3
Recurrent ascites status post paracentesis on 05-31
Nonischemic cardiomyopathy with a EF of 40% (on home milrionone)
Hyponatremia
Hypotension
Permanent atrial fibrillation
Chronic anticoagulation with Eliquis
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
Patent ductus arteriosus, conservatively managed at [facility]
History of noncompliance
Diabetes mellitus type 2
Anemia, multifactorial
Plan:
Hyponatremia;
-Likely hypervolemic in setting of congestive heart failure with elevated ADH chronically
-Will provide 15 mg of p.o. Samsca to facilitate free water while
-Maintain fluid restriction of 1200 cc daily
-Diuretics per cardiology: Currently maintained on torsemide
-
CKD 4:
-Creatinine is at baseline
-Patient will not be an appropriate dialysis candidate given advanced cardiomyopathy and chronic hemodynamic instability
Data Reviewed
-
Radiology: Image Personally Visualized and interpreted (Chest x-ray personally reviewed noted interstitial edema and Cardiolite)
Medical Tests (Nuc Med, Echo etc): Other (EKG report reviewed A-fib with rapid ventricular)
Labs: Labs Reviewed by me (Reviewed BMP CBC urine osmolality)
Old Records: Reviewed (Reviewed old records from 01/05/2023: Sodium 126 creatinine 2.8)
[2023-05-12 10:25] LABS: Blood Urea Nitrogen 68 mg/dl (9-20); Calcium 8.7 mg/dl (8.4-10.2); Carbon Dioxide 16 mmol/L (22-30); Chloride 95 mmol/L (98-107); Estimated Creatinine Clearance 33 ml/min; Glucose 175 mg/dl (70-99); Potassium 5.5 mmol/L (3.5-5.1); Sodium 121 mmol/L (135-145); eGFR 23.13
[2023-05-12] MEDS: SAMSCA 15 MG PO (10:37)
[2023-05-12] MEDS: NOVOLOG FLEXPEN-LOW RESISTANCE SC (10:57)
[2023-05-12 12:06] LABS: Body Fluid LDH 98 U/L
--- NOTE | 2023-05-12 12:06 | PTCARENOTE ---
Rec'd pt this AM. Pt currently using own milrinone pump and med. Pt BP low this AM. Reviewed with agricultural agent this AM as pt BP sys 90s. Ok to give AM meds. Pt currently due for 100mg IV lasix. BP 88/71. RN notified Cardiology GAEL Anne. Will
awaiit further instructions prior to giving lasix. Pt asymptomatic
[2023-05-12 12:20] LABS: Glucose - Point of Care 171 mg/dl (70-99)
[2023-05-12] MEDS: LASIX 100 MG IV (12:31)
[2023-05-12 12:38] LABS: Body Fluid Albumin 1.5 g/dl; Body Fluid Protein 3.2 g/dl
[2023-05-12] MEDS: NOVOLOG FLEXPEN-LOW RESISTANCE 1 UNITS SC ×2 (13:46→17:07)
--- NOTE | 2023-05-12 14:55 | PTCARENOTE ---
IV lasix given per cardiology order. Pts BP tolerated the lasix well. Resting comfortably.
[2023-05-12] MEDS: PRIMACOR 20 MG 100 IV (15:33)
--- NOTE | 2023-05-12 15:40 | CM ---
Addendum entered by Erum Aden RN 05/12/23 16:08:
PT/OT Evals pending.
Follow up after PT/OT Evals.
Addendum entered by Erum Aden RN 05/12/23 15:58:
Patient with Dx Anasarca s/p paracentesis today. Room air. Receiving IV Milrinone infusion, IV Las
Spoke with Kita who confirms patient functioning independently at home and still working from home. confirms they are fully setup to do his Milrinone infusions at home through [facility]. She volunteers that there have been discussions
with his [facility] docs about Palliative Care however they do not feel ready for that at this time.
Plan home with resumption [facility] for Milrinone.
Original Note:
Patient with Dx Anasaarca s/p paracentesis today. Room air. Receiving IV Milrinone infusion, IV Lasix.
Spoke with patient who was known to this CM from his prior admission. Speech is hesitant, patient appears forgetful and needs some prompting to remember.
The patient resides in a 2 story house with his .
The patient was Independent for ADLs/ambulation prior to admission.
No difficulty with stairs at home. He was active and self employed.
The patient has no DME.
He is current with [facility] for Milrinone infusion, ordered by Dr. Almanza, which his administers.
PCP - Nikolas Schmitz
Pharmacy - [facility] [address], [place]
Plan home with resumption [facility] for Milrinone.
--- NOTE | 2023-05-12 16:02 | PTCARENOTE ---
Pt became irate over not being able to get OOB by himself and walk into the bathroom. RN explained that he is weak and that we have to make sure that he is safe. Explained about the fall risk related to monitor wires, IV lines, etc. Pt upset but
finally agreed to use urinal standing at bedside with supervision by RN.
[2023-05-12 16:39] LABS: Troponin I 0.309 ng/ml
--- NOTE | 2023-05-12 17:08 | CM ---
Call received from [facility] saying that they received the referral for resumption of care and wanted to know if patient was being discharged tonight, I reviewed physicians notes and stated that based on the notes patient is not discharging
tonight. I was given the name of Elaine at [phone] who will be working the next three days and once we know discharge date for patient to please call her to make her aware. Update to CM.
[2023-05-12 17:18] LABS: Glucose - Point of Care 158 mg/dl (70-99)
--- NOTE | 2023-05-12 19:15 | PTCARENOTE ---
aaox3 but forgetfull. afib on monitor. vss. Milrinone infusing @ 3.9ml/hr via r picc. pt using urinal. bed alarm on for safety. Will monitor.
[2023-05-12 22:23] LABS: Glucose - Point of Care 176 mg/dl (70-99)
[2023-05-12] MEDS: LANTUS 0.0500000000000000028 UNITS SC (23:14)
[2023-05-13] VITALS (30 sets, daily range): BP systolic 82–119; BP diastolic 49–97; PULSE 98–105; O2SAT 98; BMI 30.6; BMI 31.1
[2023-05-13 04:17] LABS: % Basophils 0.9 % (0-2); % Eosinophils 3.4 % (0-6); % Immature Granulocytes 1.1 % (0-0.5); % Monocytes 12.9 % (1.7-9.3); % Neutrophils 73.7 % (42.2-75.2); Absolute Basophils 0.1 10^3/uL (0-0.2); Absolute Eosinophils 0.4 10^3/uL (0-0.7); Absolute Immature Granulocytes 0.1 10^3/uL (0-0.05); Absolute Lymphocytes 0.9 10^3/uL (1.2-3.4); Absolute Monocytes 1.4 10^3/uL (0.1-0.6); Hematocrit 34.7 % (39.0-52.0); Mean Corp Hgb Conc. 34.6 g/dL (33.0-37.0); Mean Corpuscular Hgb 29.9 pg (27.0-31.0); Mean Corpuscular Volume 86.3 fL (80.0-94.0); Mean Platelet Volume 9.5 fL (7.4-10.4); Nucleated Red Blood Cells % 0 % (-); Platelet Count 402 10^3/uL (130-400); Red Blood Cell Count 4.02 10^6/uL (4.70-6.10); Red Cell Dist. Width 15.9 % (11.5-14.5); White Blood Cell Count 10.9 10^3/uL (4.8-10.8)
[2023-05-13 04:58] LABS: Blood Urea Nitrogen 73 mg/dl (9-20); Calcium 8.7 mg/dl (8.4-10.2); Carbon Dioxide 19 mmol/L (22-30); Chloride 95 mmol/L (98-107); Estimated Creatinine Clearance 30 ml/min; Glucose 156 mg/dl (70-99); Potassium 5.4 mmol/L (3.5-5.1); Sodium 125 mmol/L (135-145); eGFR 22.21
[2023-05-13] MEDS: SYNTHROID 62.5 MCG PO (06:30)
[2023-05-13 08:21] LABS: Glucose - Point of Care 150 mg/dl (70-99)
[2023-05-13] MEDS: NOVOLOG FLEXPEN-LOW RESISTANCE SC ×2 (09:07→12:55)
[2023-05-13] MEDS: ELIQUIS 5 MG PO ×2 (09:08→20:05)
[2023-05-13] MEDS: ZYLOPRIM 100 MG PO (09:08)
[2023-05-13] MEDS: NEURONTIN 100 MG PO ×2 (09:08→20:05)
[2023-05-13] MEDS: APRESOLINE 25 MG PO ×3 (09:08→23:12)
[2023-05-13] MEDS: TOPROL XL 12.5 MG PO (09:09)
[2023-05-13] MEDS: LASIX 100 MG IV (09:09)
--- NOTE | 2023-05-13 10:10 | W.PN.CARDCBS ---
Addendum entered and electronically signed by Mariam Mcmahon PA-C 05/13/23 15:24:
Talked w/ Charity Merritt, Nurse Coordinator from [facility] who works directly with Dr. Almanza and updated her on patient status and ongoing treatment plan/decisions. [facility] is in agreement he should remain hospitalized as he is not medically optimized and not
ready for discharge. They will be reaching out to him on Tuesday to schedule follow up early next week, likely Tuesday visit.
Talked w/ pt and his , Kita and updated them on coordination of care between Darlin and Dr. Almanza/[facility] team. Patient now is willing to remain hospitalized at this time.
Addendum entered and electronically signed by Guzman Srinivasan MD 05/13/23 12:32:
I saw and examined the patient.
The SLASHER TENDER or PA's note was reviewed and I agree with the note.
Comment: General: Well developed, well nourished in NAD.
Neck: Supple, no JVD, HJR, carotids +2 B/L, no bruits bilaterally.
Heart: Non displaced PMI, RRR, no murmurs, No S3, S4, no rubs.
Lungs: Scattered rhonchi
Abdomen: Distended
Extremities: No clubbing, cyanosis or edema bilaterally.
Neuro: Grossly nonfocal, awake, alert and oriented x3.
He insist on being discharged. He claims his dry weight at home was approximately 226 pounds. His weight today is 229 pounds. I feel he would benefit from more IV Lasix but he thinks he can get all these things at home. Discussed with primary
service. Patient likely will sign out AMA. He can follow-up with [facility] on discharge. Unclear how much of improvement is due to paracentesis versus IV Lasix. He is getting IV Lasix at home and on chronic milrinone.
Original Note:
Today's Communication / Plan
-
Continue IV Lasix
Continue milrinone infusion
Continue to monitor electrolytes and renal function
Recommend continue to observe for another 24 hours with anticipated discharge 05/14/2023
Impression / Plan
-
PCP: Dr. Nikolas Schmitz
Primary Fancy [facility] Drawer: previously seen by Dr. Torres, last 2018. Now following with Dr. Felix Almanza at [facility]
Impression:
Presented 05/11/2023 with abnormal labs, hyperkalemia
Acute on chronic HFrEF
NICM EF 18% by echo at [facility] 01/2023
Anasarca
Recurrent ascites
s/p paracentesis at for 7.1 L 05/06/23
s/p paracentesis at for 2.6 L 05/10/23
HTN
Permanent atrial fibrillation
Chronic Eliquis OAC
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
Patent ductus arteriosus, conservatively managed
CKD 4
History of noncompliance
Hyperkalemia
Hyponatremia
ECHO 09/2018: Severely dilated LV, EF 45% with regional variations, moderate LVH, dilated RV, severe biatrial dilatation, dilated coronary sinus, MAC, mild MR, aortic sclerosis, mild AR, trace TR, PAP 50 to 55 mmHg, dilated IVC, small pericardial
effusion, mildly dilated aortic root and proximal ascending aorta
Echo 08/25/22: EF 42%, global hypokinesis, stage 3 diastolic dysfunction, severely enlarged RV size with moderately reduced RV systolic function, severely dilated LA/RA, mild MR, mild TR with PAP 57-62 mmHg, small pericardial effusion, dilated aortic
root with Sinuses at 3.9 cm
Plan:
-Presented 05/11/2023 with abnormal labs, hyperkalemia
-Hyperkalemia on outpatient labs yesterday with potassium 6.2 at home, 5.6 on recheck in ER. Potassium is down to 5.4 this AM. Seems to be improving with IV diuresis
-Acute on chronic heart failure. proBNP 13,700. Unfortunately weight is up 4 pounds overnight. May be discrepancy in scale. Patient feeling well. Would continue with IV diuresis with Lasix 100 mg IV for another 24 hours
-Managed by [facility] cardiology, Dr. Almanza with IV milrinone infusion. Continue with current rate at 0.125 mcg/kg/min.
-Discussion with [facility] on 05/12/2023 regarding transfer. [facility] did not feel a transfer was needed.
-Patient with known permanent Afib. HR currently at goal <110 bpm. Outpatient dose of Toprol XL 12.5 mg daily ordered. Patient no longer taking digoxin.
-Outpatient dose of Eliquis 5 mg BID continued
-ECG reviewed by me with Afib and HR 108.
-CKD 4, follows with [facility] neph[facility]. Creatinine appears to be at baseline, currently 3.0. Patient is not appropriate dialysis candidate given heart failure with advanced cardiomyopathy and chronic hemodynamic instability
-Hyponatremia was provided Samsca 15 mg 05/12/2023, sodium improved to 125.
-Leukocytosis appears to be improving. Blood culture negative x 24 hours
-Ascites with paracentesis with removal of 7.1 L of fluid removed 05/06/2023. Then had repeat thoracentesis 05/10/2023 with 2.6 L removed. Electrolyte disturbance may be secondary to fluid shift from thoracentesis. Patient may benefit from routine
scheduling of outpatient paracentesis but will defer to [facility] where he gets his routine outpatient cardiology care.
-Prior goals of care discussion with patient and . Not ready for palliative care. Confirmed that patient is not a candidate for repair of congenital disease and he is not a transplant candidate.
-Abnormal troponin, peaked at 0.506 and trended down thereafter. Patient denies chest pain.EKG without ischemic changes. Suspect nonischemic myocardial injury secondary to acute heart failure, CKD, electrolyte disturbance
-Reviewed with hospitalist attending as well
Talked w/ [facility] nurse Elaine and [facility] Pharmacist Darci regarding continuing home infusion of Milrinone at 0.125 mcg/kg/min and IV Lasix 100 mg IV Tuesday and Tuesday upon d/c. Also reached out to Dr. Agrawal's
office to provide update. Time for correspondence was 25 minutes in addition face to face encounter
HPI :
Patient came to [facility] last night after outpatient labs showed hyperkalemia and cardiology is now consulted for h/o HFrEF. Patient has advanced HF and follows with Dr. Almanza at [facility]. Patient follows with at [facility] for h/o congenital heart disease with
AV fistula from circumflex to coronary sinus, as well as patent ductus arteriosus.Patient was last seen at when he was admitted with COVID 01/03/23 until 01/05/23. During that admission the patient had KATY and diuretics were held, but he also had
increasing ascites so he had a paracentesis as well. Patient and said at that time that patient was being considered for repair of his congenital defect with Dr. Kendrick and it was going to be discussed at his upcoming appt. Called and talked
to patient's this AM and she says that at patient's [facility] cardiology visit that they were told the patient is not a candidate for surgery because EF was down to 18% and that he is also not a candidate for heart transplant because of CKD. Patient
was admitted to [facility] and started on milrinone infusion and was ultimately discharged on continuous home milrinone therapy at 0.125 mcg/kg/min. Patient's says that he did not appear well this weekend with increased SOB and fatigue and decreased
appetite. Patient has regular paracenteses, he had a regularly schedule paracentesis 05/06/23 and 7.1 L removed at that time. Patient then presented to [facility] 05/10/23 with increased SOB and swelling and had another paracentesis for 2.6 L that day. Fluid
from the 05/10/23 tap was cultured and no growth thus far. Patient currently on a regimen from [facility] that includes continuous milrinone at 0.125 mcg/kg/min, torsemide 120 mg PO BID and Lasix 100 mg IV every WeFr. Patient's reports that labs
checked yesterday when [facility] came for the home Lasix IV infusion and that patient's got a call late last night that the potassium was 6.2 and patient needed to go to his local ER for recheck and evaluation. Recheck potassium in [facility] was 5.6 last
night and potassium is down to 5.3 this AM. Sodium was 120 in ER last night and is 123 today. Patient says that he feels well and wants to go home.
Progress Note - Fancy Wire Drawer
Subjective
Date of Service: May 13, 2023
Patient seen and examined. Patient reports he is feeling considerably better. He reports he has been able to ambulate around the unit without significant shortness of breath. He is eager to go home
Objective
Labs:
05/13/23 04:05
05/13/23 04:05
Labs
Hgb 12.0 g/dL (13.0-18.0) L 05/13/23 04:05
Hct 34.7 % (39.0-52.0) L 05/13/23 04:05
Plt Count 402 10^3/uL (130-400) H 05/13/23 04:05
Sodium 125 mmol/L (135-145) L 05/13/23 04:05
Potassium 5.4 mmol/L (3.5-5.1) H 05/13/23 04:05
BUN 73 mg/dl (9-20) H 05/13/23 04:05
Creatinine 3.0 mg/dL (0.7-1.3) H 05/13/23 04:05
Glucose 156 mg/dl (70-99) H 05/13/23 04:05
Troponins
05/11/23 05/12/23 05/12/23
22:58 03:55 09:59
Troponin I 0.506 H* 0.437 H* 0.380 H*
05/12/23
15:54
Troponin I 0.309 H*
Vital Signs and I&O:
Vital Signs
Temp Pulse Resp BP Pulse Ox
97.3 F 96 18 92/69 98
05/13/23 07:36 05/13/23 09:00 05/13/23 09:00 05/13/23 09:00 05/13/23 09:00
Vital Signs
Temp Pulse Resp BP Pulse Ox
97.3 F 96 18 92/69 98
05/13/23 07:36 05/13/23 09:00 05/13/23 09:00 05/13/23 09:00 05/13/23 09:00
Intake & Output
05/11/23 05/12/23 05/13/23 05/14/23
06:59 06:59 06:59 06:59
Intake Total 240 / 240 526.8 / 526.8 720 / 720
Output Total 300 / 300 1650 / 1650 350 / 350
Balance -60 / -60 -1123.2 / -1123.2 370 / 370
Physical Exam
Physical Exam
GEN: No distress, awake, Ox3, sitting up in chair
HEENT: supple, anicteric, mmm
LUNGS: Decreased breath sounds at bases otherwise clear CTA, no wheezes/rales
CV: Irregularly irregular, no murmur, rub or gallop
ABD: Mildly distended, BS+, NT/ND
EXT: Trace bilateral lower extremity edema, skin changes consistent with chronic venous stasis
NEURO: Gross non-focal
SKIN: No rash, warm, dry, pink
[2023-05-13 12:27] LABS: Glucose - Point of Care 156 mg/dl (70-99)
[2023-05-13] MEDS: PRIMACOR 20 MG 100 IV (13:00)
[2023-05-13] MEDS: NOVOLOG FLEXPEN-LOW RESISTANCE 1 UNITS SC ×3 (13:04→17:22)
--- NOTE | 2023-05-13 13:06 | CM ---
Patient currently discussing signing AMA per nursing and physician. Per discussion with Mariam Mcmahon NP from Cardiology. Patient restart order for medication given to [facility] Pharmacist (Darci [phone]) and no further information needed. CM
updated Elaine from [facility] [phone]. Patient completed IMM and signed form placed on chart. Patient physician and Cardiology are requesting patient remain at for another day. Patient with no questions and IMM completed and signed form placed
on chart. CM will continue to follow for discharge planning needs.
Plan; home with [facility]
--- NOTE | 2023-05-13 13:11 | W.PN.HOSP.TC ---
Addendum entered and electronically signed by Júnior Bragg DO 05/13/23 15:51:
CKD 4
Acute on chronic heart failure with reduced EF
Original Note:
Today's Communication/Plan
-
Continue diuresis
Assessment / Plan
Assessment / Plan
Gen-AAOx3, NAD
HEENT-NC, AT, anicteric, clear oral mm
Neck-supple
CV-reg, no M, +S1/S2
Lungs-clear B/L
Abd-soft, nontender, diffusely distended with fluid wave
Ext-bilateral lower extremity pitting edema, hyperpigmentation
Musculoskeletal-no cyanosis, clubbing
Skin-warm and dry
Neuro-grossly non-focal
Psych-calm, cooperative
Anasarca -multifactorial etiology including chronic congestive heart failure, chronic kidney disease, hypoalbuminemia, etc. Suspect excess sodium intake at home through diet.
Chest x-ray with cardiomegaly, increased pulmonary vascularity. Weight is down from 113 kg to 103 today.
Acute on chronic hyponatremia -due to excess volume. Admission sodium 120, 125 this morning, continue fluid restriction. Received a dose of tolvaptan on 05/11. Continue diuresis. Urine osmolality 264, urine sodium less than 5. Suspect he drinks
excessive amounts of fluids at home.
We discussed the importance of alcohol abstinence. H&P documents 2 drinks daily but patient states he only 'tastes alcohol' and does not have a whole drink.
Hyperkalemia -potassium improving. 5.5 today. Potassium supplements and spironolactone discontinued.
Leukocytosis -doubt infection clinically. White blood cell count down to 10.9k today. Blood cultures negative. Ascitic fluid cultures negative. Procalcitonin unreliable in the setting of chronic kidney disease. Holding antibiotics.
CKD 3B - renal function at baseline. Normal anion gap metabolic acidosis. Bicarb 19.
Acute on chronic heart failure with combined reduced and preserved EF - on chronic milrinone drip. BNP 13,500. He receives outpatient IV Lasix infusions 100 mg twice a week, and takes torsemide 120 mg twice a day at home. He is taken care of by
Dr. Cj Reynaga at the [facility], heart failure team.
Chronic hypotension noted.
Currently on IV Lasix 100 mg daily. Not yet ready for discharge despite patient wishes.
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
Cor pulmonale/recurrent ascites due to heart failure - over the past week he had 9.7 L removed via paracentesis.
Essential hypertension -blood pressure stable currently.
Permanent atrial fibrillation -continue Eliquis.
DM2 with hyperglycemia -hemoglobin A1c 7.5%. He is on Lantus 10 units at bedtime, lispro 2 units AC at home. Glucose 156 this morning. Continue Lantus 5 units at bedtime, low resistance scale.
Troponin elevation -suspect acute nonischemic myocardial injury due to acute on chronic illness. He is asymptomatic. Troponin trending down.
Hypothyroidism -suspect he is either not consistently taking levothyroxine or he is not absorbing it in light of volume overload. TSH 17.5, free T4 1.0. Admitting physician increased dose of levothyroxine to 62.5 mcg, was on 50 mcg prior to
admission.
Chronic normocytic anemia -suspect due to chronic inflammation. Hemoglobin at baseline.
obesity due to excess calories
Full code
Dispo -patient not medically ready for discharge given ongoing acute on chronic heart failure exacerbation, volume overload, electrolyte abnormalities including hyponatremia. High risk for readmission to the hospital. Discussed with patient.
Anticipated Discharge: > 48 hours
Subjective/Interval History
-
Date of Service: May 13, 2023
Patient seen and examined. Seems angry today, demanding discharge. No complaints.
Objective Data
-
Labs:
Laboratory Results
05/13/23
04:05
WBC 10.9 H
Hgb 12.0 L
Hct 34.7 L
Plt Count 402 H
Sodium 125 L
Potassium 5.4 H
Chloride 95 L
Carbon Dioxide 19 L
BUN 73 H
Creatinine 3.0 H
Glucose 156 H
Calcium 8.7
Vital Signs:
Vital Signs
Temp Pulse Resp BP Pulse Ox
97.3 F 96 18 92/69 98
05/13/23 11:23 05/13/23 09:00 05/13/23 09:00 05/13/23 09:00 05/13/23 09:00
I&O
05/12/23 05/13/23 05/14/23
06:59 06:59 06:59
Intake Total 240 / 240 526.8 / 526.8 720 / 720
Output Total 300 / 300 1650 / 1650 600 / 600
Balance -60 / -60 -1123.2 / -1123.2 120 / 120
Review of Systems
-
History Source: Patient
All other systems: Reviewed and negative
--- NOTE | 2023-05-13 14:45 | PN.CDI ---
CDI
- -
CDI:
Physician Documentation Request
Admit Date: 05/12/23 01:49
Dear Doctor Mahsa,
Patient admitted with anasarca.
05/12 Cardiology PN: 'Acute on chronic HFrEF'
05/12 Hospitalist PN: 'Acute on chronic heart failure with combined reduced and preserved EF'
Please provide further specificity regarding the most likely type of CHF you are evaluating, treating or monitoring.
HF reduced EF
HF combined reduced and preserved EF
Other
Use of terms such as suspected, likely, concern for, or probable (associated with a specific diagnosis that is being evaluated, monitored, or treated as if it exists) are acceptable and can be coded in the inpatient setting, when documented at the
time of discharge.
Thank you,
Daja Stokes RN, BSN
CDI Specialist
Available via [place] text
Please use your independent medical judgment in providing your response.
--- NOTE | 2023-05-13 14:51 | PN.CDI ---
CDI
- -
CDI:
Physician Documentation Request
Admit Date: 05/12/23 01:49
Dear Doctor Mahsa,
Patient admitted for anasacra.
05/11 Nephrology PN: 'past medical history of chronic kidney disease stage IV who maintains a creatinine baseline of around 2.8-3.'
05/12 Hospitalist PN: 'CKD 3B - renal function at baseline.'
Laboratory Tests
05/11/23 05/12/23 05/13/23
22:58 03:55 04:05
Creatinine 2.8 H 2.9 H 3.0 H
eGFR 24.13 23.13 22.21
Clarify which of the following accurately represents the patient's renal status:
CKD 4
CKD 3B
Other
Stages of Chronic Kidney Disease*
Level Description GFR
G1 Normal or High >90
G2 Mildly decreased 60-89
G3a Mildly to moderately decreased 45-59
G3b Moderately to severely decreased 30-44
G4 Severely decreased 15-29
G5 Kidney failure <15
Use of terms such as suspected, likely, concern for, or probable (associated with a specific diagnosis that is being evaluated, monitored, or treated as if it exists) are acceptable and can be coded in the inpatient setting, when documented at the
time of discharge.
Thank you,
Daja Stokes RN, BSN
CDI Specialist
Available via [place] text
Please use your independent medical judgment in providing your response.
*Source: Kidney Disease: Improving Global Outcomes (KDIGO) 2012
--- NOTE | 2023-05-13 14:59 | W.PN.NEPH.PH ---
Today's Communication / Plan
-
samsca again
Assessment/Plan
-
Impression:
Cardiorenal syndrome
CKD stage IV with baseline creatinine 2.5-3
Recurrent ascites status post paracentesis on 05-31
Nonischemic cardiomyopathy with a EF of 40% (on home milrionone)
Hyponatremia
Hypotension
Permanent atrial fibrillation
Chronic anticoagulation with Eliquis
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
Patent ductus arteriosus, conservatively managed at [facility]
History of noncompliance
Diabetes mellitus type 2
Anemia, multifactorial
Plan:
Hyponatremia;
-Likely hypervolemic in setting of congestive heart failure with elevated ADH chronically
-sodium improving slowly to 125 post [facility] 05/11, redose again
-Maintain fluid restriction of 1200 cc daily
-Diuretics per cardiology: Currently maintained on torsemide
-d/w in detail with pt and
CKD 4:
-Creatinine is at baseline
monitor met acidosis
chr hyperkalemia-holding po kcl
-Patient will not be an appropriate dialysis candidate given advanced cardiomyopathy and chronic hemodynamic instability
-
-
Date of Service: May 13, 2023
CC / HPI / ROS
-
Chief Complaint:
hyponatreia, CKD
History of Present Illness:
sodium improving to 125, wt is down
BP chr low on milrinone gtt
k remians high 5.4
Review of Systems:
no cp or sob at rest
wanting to go home
Labs
-
Labs:
WBC 10.9 10^3/uL (4.8-10.8) H 05/13/23 04:05
RBC 4.02 10^6/uL (4.70-6.10) L 05/13/23 04:05
Hgb 12.0 g/dL (13.0-18.0) L 05/13/23 04:05
Hct 34.7 % (39.0-52.0) L 05/13/23 04:05
Plt Count 402 10^3/uL (130-400) H 05/13/23 04:05
Sodium 125 mmol/L (135-145) L 05/13/23 04:05
Potassium 5.4 mmol/L (3.5-5.1) H 05/13/23 04:05
Chloride 95 mmol/L (98-107) L 05/13/23 04:05
Carbon Dioxide 19 mmol/L (22-30) L 05/13/23 04:05
BUN 73 mg/dl (9-20) H 05/13/23 04:05
Creatinine 3.0 mg/dL (0.7-1.3) H 05/13/23 04:05
eGFR 22.21 05/13/23 04:05
Glucose 156 mg/dl (70-99) H 05/13/23 04:05
Calcium 8.7 mg/dl (8.4-10.2) 05/13/23 04:05
Lxo-R-Rznetxsrsir Pept 14092 pg/ml 05/11/23 22:58
Albumin 3.0 g/dl (3.5-5.0) L 05/11/23 22:58
Physical Exam
-
Vital Signs:
Vital Signs
Temp Pulse Resp BP Pulse Ox
97.3 F 96 18 89/66 97
05/13/23 11:23 05/13/23 14:00 05/13/23 14:00 05/13/23 14:00 05/13/23 14:00
Cardiovascular:: Regular rate and rhythm
Respiratory:: Bilateral: CTA
Lung Excursion:: Normal
Abdomen:: Distended, Nontender and Soft
Extremity Edema:: +3: Bilateral:
Johnson Catheter: No
[2023-05-13] MEDS: SAMSCA 30 MG PO (17:13)
[2023-05-13 17:32] LABS: Glucose - Point of Care 152 mg/dl (70-99)
[2023-05-13 21:58] LABS: Glucose - Point of Care 159 mg/dl (70-99)
[2023-05-13] MEDS: LANTUS SC (22:01)
[2023-05-14] VITALS (15 sets, daily range): BP systolic 91–123; BP diastolic 60–80; BMI 30.6
--- NOTE | 2023-05-14 04:45 | PTCARENOTE ---
Patient OOB to chair, felt like he got enough sleep. Patient's outlook good since he voided urine throughout the night. OOB to standing scale. happy with weight. Patient stated his abdomen feels less distended, but is concerned about not having a
bowel movement for 3 days. Requesting daily lactulose.
[2023-05-14 05:15] LABS: % Basophils 1.1 % (0-2); % Eosinophils 4.8 % (0-6); % Immature Granulocytes 1.9 % (0-0.5); % Lymphocytes 10.4 % (20.5-51.1); % Neutrophils 68.8 % (42.2-75.2); Absolute Basophils 0.1 10^3/uL (0-0.2); Absolute Eosinophils 0.4 10^3/uL (0-0.7); Absolute Immature Granulocytes 0.2 10^3/uL (0-0.05); Absolute Monocytes 1.2 10^3/uL (0.1-0.6); Absolute Neutrophils 6.4 10^3/uL (1.4-6.5); Hematocrit 35.9 % (39.0-52.0); Mean Corp Hgb Conc. 33.4 g/dL (33.0-37.0); Mean Corpuscular Hgb 28.8 pg (27.0-31.0); Mean Corpuscular Volume 86.1 fL (80.0-94.0); Mean Platelet Volume 9.4 fL (7.4-10.4); Nucleated Red Blood Cells % 0 % (-); Platelet Count 403 10^3/uL (130-400); Red Blood Cell Count 4.17 10^6/uL (4.70-6.10); Red Cell Dist. Width 15.7 % (11.5-14.5); White Blood Cell Count 9.3 10^3/uL (4.8-10.8)
[2023-05-14] MEDS: DUPHALAC/CHRONULAC 20 GRAMS PO (06:08)
[2023-05-14] MEDS: SYNTHROID 62.5 MCG PO (06:09)
[2023-05-14 06:22] LABS: Blood Urea Nitrogen 70 mg/dl (9-20); Calcium 8.5 mg/dl (8.4-10.2); Carbon Dioxide 19 mmol/L (22-30); Chloride 101 mmol/L (98-107); Estimated Creatinine Clearance 33 ml/min; Glucose 136 mg/dl (70-99); Magnesium 2.6 mg/dl (1.6-2.3); Potassium 4.6 mmol/L (3.5-5.1); Sodium 128 mmol/L (135-145)
[2023-05-14 08:11] LABS: Glucose - Point of Care 183 mg/dl (70-99)
--- NOTE | 2023-05-14 09:12 | W.PN.HOSP.TC ---
Addendum entered and electronically signed by Júnior Bragg DO 05/14/23 11:08:
Cardiology recommends discharge home today. Resume home doses of diuretics per cardiology. Confirmed that milrinone is available with both patient's and case management. Resume milrinone at home.
Updated regarding discharge plans. Will need BMP checked this coming week. Recommend holding spironolactone and potassium supplements on discharge given hyperkalemia on admission.
TSH in 4 weeks to follow-up on thyroid function given change in Synthroid dose on discharge. Discussed with . Follow-up with PCP and cardiology.
Original Note:
Today's Communication/Plan
-
Continue diuresis
Bowel regimen
Assessment / Plan
Assessment / Plan
Gen-AAOx3, NAD
HEENT-NC, AT, anicteric, clear oral mm
Neck-supple
CV-reg, no M, +S1/S2
Lungs-clear B/L
Abd-soft, nontender, diffusely distended with fluid wave
Ext-bilateral lower extremity pitting edema, hyperpigmentation
Musculoskeletal-no cyanosis, clubbing
Skin-warm and dry
Neuro-grossly non-focal
Psych-calm, cooperative
Anasarca -multifactorial etiology including chronic congestive heart failure, chronic kidney disease, hypoalbuminemia, etc. Suspect excess sodium intake at home through diet.
Chest x-ray with cardiomegaly, increased pulmonary vascularity. Weight is down to 102.3 kg today.
Acute on chronic hyponatremia -due to excess volume. Admission sodium 120, 128 this morning, continue fluid restriction. Received a second dose dose of tolvaptan on 05/12. Continue diuresis. Urine osmolality 264, urine sodium less than 5. Suspect
he drinks excessive amounts of fluids at home.
We discussed the importance of alcohol abstinence. H&P documents 2 drinks daily but patient states he only 'tastes alcohol' and does not have a whole drink.
Hyperkalemia -potassium improving. 4.6 today. Potassium supplements and spironolactone discontinued.
Leukocytosis -doubt infection clinically. White blood cell count down to 9.3k today. Blood cultures negative. Ascitic fluid cultures negative. Procalcitonin unreliable in the setting of chronic kidney disease. Holding antibiotics.
CKD 3B - renal function at baseline. Normal anion gap metabolic acidosis. Bicarb 19.
Acute on chronic heart failure with combined reduced and preserved EF - on chronic milrinone drip. BNP 13,500. He receives outpatient IV Lasix infusions 100 mg twice a week, and takes torsemide 120 mg twice a day at home. He is taken care of by
Dr. Cj Reynaga at the [facility], heart failure team.
Chronic hypotension noted.
Currently on IV Lasix 100 mg daily. Not yet ready for discharge despite patient wishes.
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
Cor pulmonale/recurrent ascites due to heart failure -he has had 3 paracenteses since May 05, last was May 11.
Essential hypertension -blood pressure stable currently.
Permanent atrial fibrillation -continue Eliquis.
DM2 with hyperglycemia -hemoglobin A1c 7.5%. He is on Lantus 10 units at bedtime, lispro 2 units AC at home. Glucose 136 this morning. Continue Lantus 5 units at bedtime, low resistance scale.
Troponin elevation -suspect acute nonischemic myocardial injury due to acute on chronic illness. He is asymptomatic. Troponin trending down.
Hypothyroidism -suspect he is either not consistently taking levothyroxine or he is not absorbing it in light of volume overload. TSH 17.5, free T4 1.0. Admitting physician increased dose of levothyroxine to 62.5 mcg, was on 50 mcg prior to
admission.
Chronic normocytic anemia -suspect due to chronic inflammation. Hemoglobin at baseline.
obesity due to excess calories
Full code
Dispo -patient not medically ready for discharge given ongoing acute on chronic heart failure exacerbation, volume overload, electrolyte abnormalities including hyponatremia. High risk for readmission to the hospital. Discussed with patient.
Anticipated Discharge: > 48 hours
Subjective/Interval History
-
Date of Service: May 14, 2023
Patient seen and examined. Complaining of constipation. Denies shortness of breath.
Objective Data
-
Labs:
Laboratory Results
05/14/23
04:24
WBC 9.3
Hgb 12.0 L
Hct 35.9 L
Plt Count 403 H
Sodium 128 L
Potassium 4.6
Chloride 101
Carbon Dioxide 19 L
BUN 70 H
Creatinine 2.7 H
Glucose 136 H
Calcium 8.5
Vital Signs:
Vital Signs
Temp Pulse Resp BP Pulse Ox
97.4 F 95 15 101/67 98
05/14/23 07:00 05/14/23 08:00 05/14/23 08:00 05/14/23 08:00 05/14/23 08:00
I&O
05/13/23 05/14/23 05/15/23
06:59 06:59 06:59
Intake Total 526.8 / 526.8 2160 / 2160
Output Total 1650 / 1650 3390 / 3390
Balance -1123.2 / -1123.2 -1230 / -1230
Review of Systems
-
History Source: Patient
All other systems: Reviewed and negative
--- NOTE | 2023-05-14 09:41 | W.PN.CARDCBS ---
Today's Communication / Plan
-
He has end-stage heart failure with reduced ejection fraction and appears to be back to his baseline.
No objection to discharge home as long as he has his home milrinone infusion arranged. He can be placed back on his outpatient diuretic regimen at discharge. He has follow-up arranged next week with [facility].
Impression / Plan
-
PCP: Dr. Nikolas Schmitz
Primary Demand Generation Manager: previously seen by Dr. Torres, last 2018. Now following with Dr. Felix Almanza at [facility]
Impression:
Presented 05/11/2023 with abnormal labs, hyperkalemia
Acute on chronic HFrEF
NICM EF 18% by echo at [facility] 01/2023
Anasarca
Recurrent ascites
s/p paracentesis at for 7.1 L 05/06/23
s/p paracentesis at for 2.6 L 05/10/23
HTN
Permanent atrial fibrillation
Chronic Eliquis OAC
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
Patent ductus arteriosus, conservatively managed
CKD 4
History of noncompliance
Hyperkalemia
Hyponatremia
ECHO 09/2018: Severely dilated LV, EF 45% with regional variations, moderate LVH, dilated RV, severe biatrial dilatation, dilated coronary sinus, MAC, mild MR, aortic sclerosis, mild AR, trace TR, PAP 50 to 55 mmHg, dilated IVC, small pericardial
effusion, mildly dilated aortic root and proximal ascending aorta
Echo 08/25/22: EF 42%, global hypokinesis, stage 3 diastolic dysfunction, severely enlarged RV size with moderately reduced RV systolic function, severely dilated LA/RA, mild MR, mild TR with PAP 57-62 mmHg, small pericardial effusion, dilated aortic
root with Sinuses at 3.9 cm
Plan:
Presented 05/11/2023 with abnormal labs, hyperkalemia 6.2 as OP, 5.6 on recheck in ER. Also found to be in acute on chronic decompensated heart failure with reduced ejection fraction, cardiorenal syndrome.
-Potassium improving, down to 4.6 today
-Acute on chronic heart failure. proBNP 13,700.
IV diuresis has been with Lasix 100 mg IV daily
Wt down 4 lbs and Creat improved
Continue with IV lasix 100mg daily for while hospitalized, then transition to outpt regimen of Torsemide 120 mg BID and Lasix IV 100mg and Tue
No objection to discharge home as long as he has home milrinone infusion arranged. He has a phone call appointment with [facility] on Tuesday.
Managed by [facility] cardiology, Dr. Almanza with IV milrinone infusion. Continue with current rate at 0.125 mcg/kg/min.
Discussion with [facility] on 05/12/2023 regarding transfer. [facility] did not feel a transfer was needed.
- Ascites with paracentesis with removal of 7.1 L of fluid removed 05/06/2023. Then had repeat thoracentesis 05/10/2023 with 2.6 L removed.
Patient may benefit from routine scheduling of outpatient paracentesis but will defer to [facility] where he gets his routine outpatient cardiology care.
-Patient with known permanent Afib. HR currently at goal <110 bpm. Outpatient dose of Toprol XL 12.5 mg daily ordered. Patient no longer taking digoxin.
-Outpatient dose of Eliquis 5 mg BID continued
-CKD 4, follows with [facility] nephrology. Creatinine appears to be at baseline, currently 2.7. Patient is not appropriate dialysis candidate given heart failure with advanced cardiomyopathy and chronic hemodynamic instability
-Hyponatremia was provided Samsca 15 mg 05/12/2023, sodium improved to 128.
-Leukocytosis appears to be improving. Blood culture negative x 48 hours
-Prior goals of care discussion with patient and . Not ready for palliative care. Confirmed that patient is not a candidate for repair of congenital disease and he is not a transplant candidate.
-Abnormal troponin, peaked at 0.506 and trended down thereafter. Patient denies chest pain.EKG without ischemic changes. Suspect nonischemic myocardial injury secondary to acute heart failure, CKD, electrolyte disturbance
-Reviewed with hospitalist attending as well
We have talked / [facility] nurse Elaine and [facility] Pharmacist Darci regarding continuing home infusion of Milrinone at 0.125 mcg/kg/min and IV Lasix 100 mg IV Tuesday and Tuesday upon d/c. Also reached out to
Tanja's office to provide update.
HPI :
Patient came to [facility] last night after outpatient labs showed hyperkalemia and cardiology is now consulted for h/o HFrEF. Patient has advanced HF and follows with Dr. Almanza at [facility]. Patient follows with at [facility] for h/o congenital heart disease with
AV fistula from circumflex to coronary sinus, as well as patent ductus arteriosus.Patient was last seen at when he was admitted with COVID 01/03/23 until 01/05/23. During that admission the patient had KATY and diuretics were held, but he also had
increasing ascites so he had a paracentesis as well. Patient and said at that time that patient was being considered for repair of his congenital defect with Dr. Kendrick and it was going to be discussed at his upcoming appt. Called and talked
to patient's this AM and she says that at patient's [facility] cardiology visit that they were told the patient is not a candidate for surgery because EF was down to 18% and that he is also not a candidate for heart transplant because of CKD. Patient
was admitted to [facility] and started on milrinone infusion and was ultimately discharged on continuous home milrinone therapy at 0.125 mcg/kg/min. Patient's says that he did not appear well this weekend with increased SOB and fatigue and decreased
appetite. Patient has regular paracenteses, he had a regularly schedule paracentesis 05/06/23 and 7.1 L removed at that time. Patient then presented to [facility] 05/10/23 with increased SOB and swelling and had another paracentesis for 2.6 L that day. Fluid
from the 05/10/23 tap was cultured and no growth thus far. Patient currently on a regimen from [facility] that includes continuous milrinone at 0.125 mcg/kg/min, torsemide 120 mg PO BID and Lasix 100 mg IV every WeFr. Patient's reports that labs
checked yesterday when [facility] came for the home Lasix IV infusion and that patient's got a call late last night that the potassium was 6.2 and patient needed to go to his local ER for recheck and evaluation. Recheck potassium in [facility] was 5.6 last
night and potassium is down to 5.3 this AM. Sodium was 120 in ER last night and is 123 today. Patient says that he feels well and wants to go home.
Progress Note - Demand Generation Manager
Subjective
Date of Service: May 14, 2023
He tells me he feels back to his baseline and would like to go home.
Objective
Labs:
05/14/23 04:24
05/14/23 04:24
Labs
Hgb 12.0 g/dL (13.0-18.0) L 05/14/23 04:24
Hct 35.9 % (39.0-52.0) L 05/14/23 04:24
Plt Count 403 10^3/uL (130-400) H 05/14/23 04:24
Sodium 128 mmol/L (135-145) L 05/14/23 04:24
Potassium 4.6 mmol/L (3.5-5.1) 05/14/23 04:24
BUN 70 mg/dl (9-20) H 05/14/23 04:24
Creatinine 2.7 mg/dL (0.7-1.3) H 05/14/23 04:24
Glucose 136 mg/dl (70-99) H 05/14/23 04:24
Troponins
05/11/23 05/12/23 05/12/23
22:58 03:55 09:59
Troponin I 0.506 H* 0.437 H* 0.380 H*
05/12/23
15:54
Troponin I 0.309 H*
Vital Signs and I&O:
Vital Signs
Temp Pulse Resp BP Pulse Ox
97.4 F 95 15 101 98
05/14/23 07:00 05/14/23 08:00 05/14/23 08:00 05/14/23 08:00 05/14/23 08:00
Vital Signs
Temp Pulse Resp BP Pulse Ox
97.4 F 95 15 98
05/14/23 07:00 05/14/23 08:00 05/14/23 08:00 05/14/23 08:00 05/14/23 08:00
Intake & Output
05/12/23 05/13/23 05/14/23 05/15/23
06:59 06:59 06:59 06:59
Intake Total 240 / 240 526.8 / 526.8 2160 / 2160
Output Total 300 / 300 1650 / 1650 3390 / 3390
Balance -60 / -60 -1123.2 / -1123.2 -1230 / -1230
Physical Exam
Physical Exam
Sitting in chair, no acute distress
Irregular rate and rhythm, normal S1 and S2, no S3, no S4 there is a grade 2/6 apical holosystolic murmur, no rubs, PMI is laterally and inferiorly displaced.
Lungs with reduced inspiratory effort, decreased breath sounds at bases but otherwise clear
Abdomen with ascites
Extremities with +2 lower extremity edema
[2023-05-14] MEDS: ZYLOPRIM 100 MG PO (10:03)
[2023-05-14] MEDS: NOVOLOG FLEXPEN-LOW RESISTANCE 1 UNITS SC (10:03)
[2023-05-14] MEDS: COLACE 100 MG PO (10:03)
[2023-05-14] MEDS: TOPROL XL 12.5 MG PO (10:04)
[2023-05-14] MEDS: NEURONTIN 100 MG PO (10:04)
[2023-05-14] MEDS: MIRALAX 17 GRAMS PO (10:05)
[2023-05-14] MEDS: ELIQUIS 5 MG PO (10:05)
[2023-05-14] MEDS: LASIX 100 MG IV (10:06)
[2023-05-14] MEDS: APRESOLINE 25 MG PO (10:07)
--- NOTE | 2023-05-14 11:04 | W.DS.TRANS ---
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
-
Discharge Instructions:
Sleep Apnea Risk Intermediate
Discharge Diagnosis/Procedures Acute on chronic heart failure exacerbation,
hyponatremia, hyperkalemia
Diet 2 Gram Sodium,Diabetic, Carb Controlled
Additional Diets 40 ounce fluid restriction
Activity As tolerated
Driving Restrictions As prior to admission
Bathing Restrictions None
Blood Work BMP next week
TSH in 4 weeks
Other Services [facility]N
Instructions: *PCP/Other Inside Sales Executive Heart Failure Instructions
Stand-Alone Forms:
Changes to Home Medications: Yes
Discharge Medications:
DC Medications w/original date entered in [facility]
allopurinol 100 mg tablet 100 mg PO DAILY Gout 03/23/21
gabapentin 100 mg capsule 100 mg PO BID Pain 03/23/21
acetaminophen 325 mg tablet 650 mg PO DAILYPRN PRN mild pain 01/03/23
apixaban 5 mg tablet (Eliquis) 5 mg PO BID atrial fibrillation 01/03/23
insulin glargine 100 unit/mL subcutaneous solution (Lantus U-100 Insulin) 10 unit SC HS Diabetes 01/03/23
metoprolol succinate 25 mg tablet,extended release 24 hr 12.5 mg PO DAILY Heart Disease/Hypertension 01/03/23
therapeutic multivitamin 1 tab PO DAILY Supplement 01/03/23
furosemide 100 mg IV WEFR Fluid Retention/Swelling 05/10/23
hydralazine 25 mg tablet 25 mg PO Q8H Blood Pressure 05/10/23
insulin lispro 100 unit/mL subcutaneous pen (Admelog SoloStar U-100 Insulin lispro) 2 unit SC AC Diabetes 05/10/23
lactulose 10 gram/15 mL oral solution 20 g PO DAILY PRN constipation 05/10/23
milrinone 39,000 mcg IV .SEE BELOW CHF 05/10/23
omega-3 fatty acids 1,000 mg capsule 1,000 mg PO DAILY Supplement 05/10/23
torsemide 20 mg tablet 120 mg PO BID Fluid Retention/Swelling 05/10/23
docusate sodium 100 mg capsule 100 mg PO BID #0 caps 05/14/23
levothyroxine 125 mcg tablet 62.5 mcg (1/2 x 125 mcg) PO DAILY@0700 #30 tabs 05/14/23
Home Medication Changes
Hold spironolactone and potassium
Levothyroxine dose increased
Pending Results: No
--- NOTE | 2023-05-14 11:10 | CM ---
Patient with Dx Anasarca. Room air. Receiving IV Milrinone infusion, IV Lasix.
As per prior CM note 05/12: Patient restart order for medication given to [facility] Pharmacist (Darci [phone]) and no further information needed.
Spoke with Kita who confirms she is ready to take the patient home today. confirmed that [facility] is aware of discharge and she has knowledge of next delivery of Milrinone and IV Lasix for Tuesday. She has the Milrinone if discharged
today. Nurse from [facility] will do next IV Lasix on Tue per . She will bring in his Milrinone infusion pump to hook him up to the Milrinone, and needs any extra Milrinone cartridges that she brought in from home.
Phone call to Rahul, [facility] (fax [phone]); they put CM on hold for 15 mins and never came back to the phone- sent message through [employer] confirming d/c today and requesting callback.
Spoke with Elaine, [facility] (ph [phone]); informed her of d/c today. She confirms that the next delivery of Milrinone and Lasix will be Tuesday.
Phone calls x3 to Elaine at # provided; message all circuits are busy now on every call. Attempted to send text which did not go through.
Plan home today with resumption [facility] for Milrinone.
--- NOTE | 2023-05-14 11:41 | PTCARENOTE ---
Patient out of bed to chair. Anxious to go home today. Milrinone drip infusing as ordered 3.9 mls/hr via right D/L PICC. Patient came in with PICC. He receives milrinone at home, managed by home economics extension worker's with [facility]. Patient's will bring in
milrinone from home at discharge. Afib with PVC's on monitor. Vital signs stable.
--- NOTE | 2023-05-14 11:45 | CM ---
Patient with Dx Anasarca. Room air. Receiving IV Milrinone infusion, IV Lasix. PT & OT Evals; no PT/OT needs.
As per prior CM note 05/12: Patient restart order for medication given to [facility] Pharmacist (Darci [phone]) and no further information needed.
Spoke with Kita who confirms she is ready to take the patient home today. confirmed that [facility] is aware of discharge and she has knowledge of next delivery of Milrinone and IV Lasix for Tuesday. She has the Milrinone if discharged
today. Nurse from [facility] will do next IV Lasix on Tue per . She will bring in his Milrinone infusion pump to hook him up to the Milrinone, and needs any extra Milrinone cartridges that she brought in from home.
Phone call to Intake, [facility] (fax [phone]); CM placed on hold for 15 mins and Intake never came back to the phone- sent message through [employer] confirming d/c today and requesting callback.
Spoke with Elaine, Intake [facility] (ph [phone]); informed her of d/c today. She confirms that the next delivery of Milrinone and Lasix will be Tuesday.
Plan home today with resumption [facility] for Milrinone.
[2023-05-14 12:09] LABS: Glucose - Point of Care 126 mg/dl (70-99)
[2023-05-14] MEDS: NOVOLOG FLEXPEN-LOW RESISTANCE SC (12:21)
--- NOTE | 2023-05-16 11:55 | W.HF.CON ---
Heart Failure
- LV Function
Left ventricular function study result: LV Ejection fraction </= 35% (ECHO 01/2023 outside hospital)
Ejection Fraction Percentage: 18
- ARNI
Patient already on ARNI: No
Heart Failure ARNI Contraindication: Acute Renal Failure
- ACEI/ARB
Patient already on ACEI/ARB: No
Heart Failure ACEI/ARB Contraindication: Acute Renal Failure
- Beta Lizz
Patient already on Evidence Based Beta Lizz: Yes
- Mineralocorticord Receptor Antagonist
Patient already on MRA: No
Heart Failure MRA Contraindication: Acute Renal Insufficiency
- SGLT-2 Inhibitor
Patient already on SGLT-2 Inhibitor: No
Heart Failure SGLT-2 Inhibitor Contraindication: eGFR < 25
- Afib Anticoagulation
Patient already on Anticoagulation for Afib: Yes
- NYHA CHF Classification
NYHA CHF Classification Level: Class III - Symptoms w/ min exertion, interferes w/ nml daily activity
- ACC/AHA Stage
ACC/AHA Stage: Stage D: Advanced Heart Failure (home IV milirnone & furosemide)
[id number] Score
- Score
Stroke/TIA/Thromboembolism History (Yes=+2): (home IV milrinone & furosimide)
== END 2023-05-14 13:59 | disposition home health service (06) | DRG 291 ==
LOC: IMU 01:49
PROVIDERS: Radiology Vascular & Interventional Radiology; ADMITTING PHYSICIAN Student in an Organized Health Care Education/Training Program; ATTENDING PHYSICIAN Hospitalist; CONSULT PHYSICIAN Specialist; EMERGENCY PHYSICIAN Emergency Medicine; FAMILY PHYSICIAN Internal Medicine Cardiovascular Disease; OTHER PHYSICIAN Internal Medicine Cardiovascular Disease
PROC: 0W9G3ZZ Drainage of Peritoneal Cavity, Percutaneous Approach (ICD-10-PCS; 2023-05-12)
DX: I13.0 Hypertensive heart and chronic kidney disease with heart failure and stage 1 through stage 4 chronic kidney disease, or unspecified chronic kidney disease (principal); I50.43 Acute on chronic combined systolic (congestive) and diastolic (congestive) heart failure; E87.1 Hypo-osmolality and hyponatremia; I48.21 Permanent atrial fibrillation; R18.8 Other ascites; N18.4 Chronic kidney disease, stage 4 (severe); I42.8 Other cardiomyopathies; I5A Non-ischemic myocardial injury (non-traumatic); Z11.52 Encounter for screening for COVID-19; E11.22 Type 2 diabetes mellitus with diabetic chronic kidney disease; Z79.4 Long term (current) use of insulin; Z79.01 Long term (current) use of anticoagulants; E87.5 Hyperkalemia; E66.9 Obesity, unspecified; Z68.30 Body mass index [BMI] 30.0-30.9, adult; I27.81 Cor pulmonale (chronic)
CPT/HCPCS: 49083; 71046; 80048; 80053; 81003; 81015; 82042; 82150; 82962; 83036; 83605; 83615; 83735; 83880; 83935; 84145; 84157; 84300; 84439; 84443; 84484; 85025; 85027; 87015; 87040; 87070; 87205; 87811; 89051; 93005; 96374; 96375; 97162; 97166; 99285; J2260; P9047

== ENCOUNTER → 2023-06-01 09:21 | Outpatient (REF) | payer MEDICARE, OTHER, SELFPAY ==
[2023-06-01 09:50] VITALS: BP 122/68; BP_SYST 92
[2023-06-01 10:52] VITALS: BP 105/76
[2023-06-01 11:28] LABS: Body Fluid Mononuclear 86.1 %; Body Fluid Polymorphonuclear 13.9 %; Body Fluid WBC 403 /CUMM
[2023-06-01 11:45] LABS: Body Fluid Second Tech EF
== END ==
LOC: RADI 09:21
PROVIDERS: ATTENDING PHYSICIAN Physician Assistant Medical; FAMILY PHYSICIAN Family Medicine
DX: R18.8 Other ascites (principal)
CPT/HCPCS: 49083; 89051

== ENCOUNTER 2023-06-01 11:12 | Outpatient (RCR) | payer MEDICARE, OTHER, SELFPAY ==
[2023-06-01] MEDS: FLEXBUMIN 50 IV (11:30)
[2023-06-01 11:43] VITALS: BP 104/73
[2023-06-01 12:44] VITALS: BP 111/65
== END 2023-06-07 23:59 | disposition home or self-care (01) ==
LOC: OID 11:12
PROVIDERS: ATTENDING PHYSICIAN Internal Medicine Cardiovascular Disease
DX: I50.23 Acute on chronic systolic (congestive) heart failure (principal); E87.1 Hypo-osmolality and hyponatremia; E87.5 Hyperkalemia; R60.1 Generalized edema; N18.32 Chronic kidney disease, stage 3b
CPT/HCPCS: 96365; P9047

== ENCOUNTER 2023-06-18 18:00 | Inpatient (IN) | payer MEDICARE, OTHER, SELFPAY ==
[2023-06-18] VITALS (11 sets, daily range): BP systolic 90–108; BP diastolic 64–75; BMI 33.2; BMI 31.7
--- NOTE | 2023-06-18 12:49 | ED.GENMED ---
History of Present Illness
<Sagrario Phelps PA-C - Last Filed: 06/18/23 15:50>
General
Chief Complaint: Fall
Source: patient and records
Exam Limitations: none
Time Seen by Provider: 06/18/23 12:33
Nursing documentation reviewed up to this point in time: agreed with
Travel History
Have you had any contact with someone who has COVID-19?: No
Do you have any symptoms of coronavirus? Fever > 100 degrees, chills, cough, shortness of breath, sore throat, loss of taste or smell, muscle aches, or headache?: No
History of Present Illness
History of Present Illness:
68-year-old male with a past medical history of A-fib on Eliquis, who pretension, CHF, coronary artery disease, insulin-dependent diabetes presenting emergency department today following a fall. Patient is currently asymptomatic but his was
concerned after he fell and called 911. Patient notes that he was walking to the bathroom today when he slipped on the floor and fell forward onto his face. Patient states that he felt shaky and weak. [place] that this may have contributed to his
fall. Patient denies any headache, any dizziness and lightheadedness. Patient currently endorses a lump above his left brow. Of note, patient was recently discharged from the hospital for an acute heart failure exacerbation at [facility]. Patient
denies any dizziness or dizziness prior to falling. Patient denies any pain in his arms or legs, denies any neck pain. Later on in the ER visit, patient presented to the emergency department who updated my attending that patient has been much
more confused than baseline he is past few days and repeating his words a lot and she ran to get his medication for him today and came back to find him on the floor in front of the bathroom, not moving.
Past History
<Sagrario Phelps PA-C - Last Filed: 06/18/23 15:50>
Past History
ED Past Medical History: Arrthythmia and CHF
Social History
Tobacco: Non-smoker
Alcohol: None
Drug: None
Personal:
Living: with family
Employment: Retired
Review of Systems
<Sagrario Phelps PA-C - Last Filed: 06/18/23 15:50>
Review of Systems
All Other Systems: ROS reviewed and negative except as documented in HPI and ROS
Phy Exam
<Sagrario Phelps PA-C - Last Filed: 06/18/23 15:50>
Physical Exam
Physical Exam:
General: Patient is well appearing and in no acute distress; non-toxic
Skin: Warm and dry, chronic scaly discoloration to b/l lower extremities.
Head: Small hematoma noted above the left eyebrow. No tenderness to palpation of the facial bones bilaterally.
Eyes: Sclera non-icteric. EOMs intact.
Ears: No hemotympanum.
Cardiac: Regular rate and rhythm, no murmurs.
Peripheral Vascular: Non-pitting edema noted to bilateral lower extremities.
Pulm: Normal respiratory effort, no wheezes, no crackles.
Abdomen: No abdominal tenderness, abdominal distension noted.
Musculoskeletal: Patient seen spontaneously moving cervical spine. No tenderness to palpation of the cervical spine.
Neuro: CN II-XII intact, no focal neurologic deficits.
Psychiatric: Appropriate mood and affect.
Course
<Sagrario Phelps PA-C - Last Filed: 06/18/23 15:50>
Orders/Labs/Results
Orders:
Orders
06/18/23 12:[address] [CT Head W/o Iv Contrast] Urgent
Comment:
Reason For Exam: fall eliquis
06/18/23 13:35
Electrocardiogram (*1) Urgent
Reason for Study: Fatigue / Weakness
EKG- Treatment ONCE
06/18/23 14:17
Basic Metabolic Panel Urgent
Complete Blood Count/With Diff Urgent
TSH Urgent
Comment: ADD ON
Urinalysis Reflex To Culture Urgent
Date Specimen was Collected: 06/18/23
Time Specimen was Collected: 13:55
Urine Microscopic Reflex Cult Urgent
06/18/23 14:53
CR Chest - 2 Views Urgent
Comment:
Reason For Exam: weakness
06/18/23 14:54
Add On- LAB Urgent
Tests Added?: tsh
06/18/23 15:23
Blood Culture Q30M
ADRIANO Source: Blood/Venous
Specimen Description:
Blood Culture Q30M
ADRIANO Source: Blood/Venous
Specimen Description:
Abnormal Lab Results
06/18/23
14:17
WBC 11.2 H 10^3/uL
(4.8-10.8)
RBC 4.13 L 10^6/uL
(4.70-6.10)
Hgb 12.1 L g/dL
(13.0-18.0)
Hct 34.8 L %
(39.0-52.0)
RDW 15.9 H %
(11.5-14.5)
Plt Count 437 H 10^3/uL
(130-400)
Abs Immat Gran (auto) 0.1 H 10^3/uL
(0-0.05)
Absolute Neuts (auto) 9.5 H 10^3/uL
(1.4-6.5)
Absolute Lymphs (auto) 0.5 L 10^3/uL
(1.2-3.4)
Absolute Monos (auto) 1.0 H 10^3/uL
(0.1-0.6)
Immature Gran % 0.8 H %
(0-0.5)
Neutrophils % 84.6 H %
(42.2-75.2)
Lymphocytes % 4.3 L %
(20.5-51.1)
Sodium 125 L mmol/L
(135-145)
Chloride 90 L mmol/L
(98-107)
BUN 102 H* mg/dl
(9-20)
Creatinine 2.4 H mg/dL
(0.7-1.3)
Glucose 189 H mg/dl
(70-99)
Ur Occult Blood Reflex Trace A
(Negative)
06/18/23 14:17
06/18/23 14:17
Vital Signs
Initial and Last Documented VS:
Initial Vital Signs
Temp Pulse Resp BP Pulse Ox
98.1 F 101 16 108/73 99
06/18/23 12:33 06/18/23 12:33 06/18/23 12:33 06/18/23 12:33 06/18/23 12:33
Last Documented Vital Signs
Temp Pulse Resp BP Pulse Ox
98.1 F 101 16 108/73 99
06/18/23 12:33 06/18/23 12:33 06/18/23 12:33 06/18/23 12:33 06/18/23 12:33
<Danelle Ferguson MD - Last Filed: 06/18/23 14:20>
Orders/Labs/Results
Orders:
Orders
06/18/23 12:[address] [CT Head W/o Iv Contrast] Urgent
Comment:
Reason For Exam: fall eliquis
06/18/23 13:35
Electrocardiogram (*1) Urgent
Reason for Study: Fatigue / Weakness
EKG- Treatment ONCE
06/18/23 14:17
Basic Metabolic Panel Urgent
Complete Blood Count/With Diff Urgent
TSH Urgent
Comment: ADD ON
Urinalysis Reflex To Culture Urgent
Date Specimen was Collected: 06/18/23
Time Specimen was Collected: 13:55
Urine Microscopic Reflex Cult Urgent
06/18/23 14:53
CR Chest - 2 Views Urgent
Comment:
Reason For Exam: weakness
06/18/23 14:54
Add On- LAB Urgent
Tests Added?: tsh
06/18/23 15:23
Blood Culture Q30M
ADRIANO Source: Blood/Venous
Specimen Description:
Blood Culture Q30M
ADRIANO Source: Blood/Venous
Specimen Description:
Abnormal Lab Results
06/18/23
14:17
WBC 11.2 H 10^3/uL
(4.8-10.8)
RBC 4.13 L 10^6/uL
(4.70-6.10)
Hgb 12.1 L g/dL
(13.0-18.0)
Hct 34.8 L %
(39.0-52.0)
RDW 15.9 H %
(11.5-14.5)
Plt Count 437 H 10^3/uL
(130-400)
Abs Immat Gran (auto) 0.1 H 10^3/uL
(0-0.05)
Absolute Neuts (auto) 9.5 H 10^3/uL
(1.4-6.5)
Absolute Lymphs (auto) 0.5 L 10^3/uL
(1.2-3.4)
Absolute Monos (auto) 1.0 H 10^3/uL
(0.1-0.6)
Immature Gran % 0.8 H %
(0-0.5)
Neutrophils % 84.6 H %
(42.2-75.2)
Lymphocytes % 4.3 L %
(20.5-51.1)
Sodium 125 L mmol/L
(135-145)
Chloride 90 L mmol/L
(98-107)
BUN 102 H* mg/dl
(9-20)
Creatinine 2.4 H mg/dL
(0.7-1.3)
Glucose 189 H mg/dl
(70-99)
Ur Occult Blood Reflex Trace A
(Negative)
06/18/23 14:17
06/18/23 14:17
Vital Signs
Initial and Last Documented VS:
Initial Vital Signs
Temp Pulse Resp BP Pulse Ox
98.1 F 101 16 108/73 99
06/18/23 12:33 06/18/23 12:33 06/18/23 12:33 06/18/23 12:33 06/18/23 12:33
Last Documented Vital Signs
Temp Pulse Resp BP Pulse Ox
98.1 F 101 16 108/73 99
06/18/23 12:33 06/18/23 12:33 06/18/23 12:33 06/18/23 12:33 06/18/23 12:33
<Sagrario Phelps PA-C - Last Filed: 06/18/23 15:50>
MDM/Problems Addressed
Differential Diagnosis Includes:
Hyponatremia, deconditioning, fluid overload, sepsis, epidural hematoma, subarachnoid hemorrhage, CVA,
MDM/Problems Addressed:
shakiness, weakness, head trauma
Chronic conditions affecting care:
Chronic kidney disease, congestive heart failure, recurrent ascites, atrial fibrillation, coronary artery disease, hypertension
Acute Exacerbation and/or Progression of Chronic Illness:
Chronic kidney disease, congestive heart failure, recurrent ascites, atrial fibrillation, coronary artery disease, hypertension
<Sagrario Phelps PA-C - Last Filed: 06/18/23 15:50>
*Critical Care Note
Total Time (30-74mins, 75-104mins- exclusive of procedures): Not Applicable
<Sagrario Phelps PA-C - Last Filed: 06/18/23 15:50>
Patient Management
Escalation/DeEscalation of care consider admission/obs:
68-year-old male with a past medical history of A-fib on Eliquis, who pretension, CHF, coronary artery disease, insulin-dependent diabetes presenting emergency department today following a fall. Patient states that he felt shaky and weak prior to
falling. presents and states that he was recently discharged from the hospital for CHF and feels that she was discharged too soon. She reports he had a paracentesis done and at least 7 L of fluid was removed from his abdomen. There is no
history of liver disease. reports that she feels patient is still more confused than his baseline. Considering his recent fluid shifts, hyponatremia, and altered mental status, admission is indicated for further evaluation.
ED Attending Note
<Sagrario Phelps PA-C - Last Filed: 06/18/23 15:50>
-
Portions of this chart may have been created with voice recognition software.� Occasional wrong word or��sound alike� substitutions may have occurred due to the inherent limitations of voice recognition software.
<Danelle Ferguson MD - Last Filed: 06/18/23 14:20>
ED Attending Note
Patient seen and examined by attending physician: Yes
I performed the substantive portion of visit, reviewed & personally made and approve the management plan that is documented in note by myself or ADINA.: Yes
ED Attending Note:
Patient looks chronically ill but not acutely ill. Patient's has just come to the bedside and reports that the patient was recently admitted at [facility] for CHF. She reports he had a paracentesis done and at least 7 L of fluid was removed from
his abdomen. There is no history of liver disease. reports that she feels patient is still more confused than his baseline. She reports he was asking the same question over and over this morning. She reports that she is worried that he was
not strong enough and stable enough to be discharged from [facility]. Patient is alert and oriented x 3 in the ED. He reports he felt shaky earlier but no longer feels shaky. His lungs are clear. He has a nonfocal neurological exam. We will proceed
with CT head, blood work and EKG given patient's history of chronic illness and his 's concerns
Discharge Plan
Departure
Patient Disposition: Admit
Date of Disposition: 06/18/23
Time of Disposition: 15:16
Admit to: Med/Surg
Presentation/result/management discussed w/ accepting MD/DO: Hospitalist
Patient with high blood pressure during this ER visit?: Yes
Condition: Fair
Discharge Problem:
Hyponatremia, Altered mental status
Prescriptions:
No Action
allopurinol 100 MG tablet
100 mg PO DAILY
gabapentin 100 MG capsule
100 mg PO BID
acetaminophen 325 mg Tablet
650 mg PO DAILYPRN PRN (Reason: mild pain)
insulin glargine [Lantus U-100 Insulin] 100 unit/mL Solution
10 unit SC HS
Patient Comments:
metoprolol succinate 25 mg Tablet Extended Release 24 Hr
12.5 mg PO DAILY
Eliquis 5 mg Tablet
5 mg PO BID
therapeutic multivitamin Tablet
1 tab PO DAILY
torsemide 20 mg Tablet
120 mg PO BID
omega-3 fatty acids 1,000 mg Capsule
1,000 mg PO DAILY
hydralazine 25 mg Tablet
25 mg PO Q8H
insulin lispro [Admelog SoloStar U-100 Insulin] 100 unit/mL Insulin Pen
2 unit SC AC
lactulose 10 gram/15 mL Solution
20 g PO DAILY PRN (Reason: constipation)
furosemide 10 mg/ml solution
100 mg IV MOWEFR
Patient Comments:
05/10/2023, infuse 10 ml into venous catheter 2 times a week. Immediately prior to dose, RN to withdraw Furosemide 100 mg/10 ml and administer IV push over 5-10 minutes twice weekly on WeFr.
milrinone
39,000 mcg IV .SEE BELOW
Patient Comments:
05/10/2023, infuse 39,000 mcg into a venous catheter continuous. Infuse milrinone 0.125 mcg/kg/min IV continuously via CADD may pump. Dose based on weight of 104.3 kg. Pump settings: continuous rate = 3.9 ml/hr; reservoir vol = 191 ml. Bag
contains 48 hour supply with overfill.
levothyroxine 125 mcg Tablet
62.5 mcg PO DAILY@0700 Qty: 30 0RF
docusate sodium 100 mg Capsule
100 mg PO BID Qty: 0 0RF
potassium chloride 10 mEq Tablet Extended Release
60 meq PO ONCE
Referrals:
Nikolas Schmitz MD [Family Provider] -
Interventions
Interventions:
*Risk Screen - Suicide Last Done: 06/18/23 12:33
*General Assessment Last Done: 06/18/23 12:33
*Neglect/Abuse Screening Last Done: 06/18/23 12:33
*ED COVID-19 Vaccine History Last Done: 06/18/23 12:33
ED-Musculoskeletal Assessment Last Done: 06/18/23 14:23
ED- Neurological Assessment Last Done: 06/18/23 14:23
ED-Skin Assessment Last Done: 06/18/23 12:33
Discharge Date and Time
Print Language: TUNISIAN
[2023-06-18 14:31] LABS: % Basophils 0.9 % (0-2); % Eosinophils 0.7 % (0-6); % Immature Granulocytes 0.8 % (0-0.5); % Lymphocytes 4.3 % (20.5-51.1); % Monocytes 8.7 % (1.7-9.3); % Neutrophils 84.6 % (42.2-75.2); Absolute Basophils 0.1 10^3/uL (0-0.2); Absolute Eosinophils 0.1 10^3/uL (0-0.7); Absolute Immature Granulocytes 0.1 10^3/uL (0-0.05); Absolute Lymphocytes 0.5 10^3/uL (1.2-3.4); Absolute Neutrophils 9.5 10^3/uL (1.4-6.5); Hematocrit 34.8 % (39.0-52.0); Hemoglobin 12.1 g/dL (13.0-18.0); Mean Corp Hgb Conc. 34.8 g/dL (33.0-37.0); Mean Corpuscular Hgb 29.3 pg (27.0-31.0); Mean Corpuscular Volume 84.3 fL (80.0-94.0); Mean Platelet Volume 9.5 fL (7.4-10.4); Nucleated Red Blood Cells % 0 % (-); Platelet Count 437 10^3/uL (130-400); Red Blood Cell Count 4.13 10^6/uL (4.70-6.10); Red Cell Dist. Width 15.9 % (11.5-14.5); White Blood Cell Count 11.2 10^3/uL (4.8-10.8)
[2023-06-18 14:48] LABS: Urine Albumin Trace (Neg - Trace); Urine Bilirubin Negative (Negative); Urine Character Clear (Clear); Urine Color Yellow; Urine Glucose Negative (Negative); Urine Ketone Negative (Negative); Urine Leukocyte Negative (Negative); Urine Nitrite Negative (Negative); Urine Occult Blood Trace (Negative); Urine Specific Gravity 1.005 (<1.030); Urine Urobilinogen Negative (Neg - 1+)
[2023-06-18 14:58] LABS: Urine Hyaline Cast 0-2 /LPF (0-2); Urine Squamous Cell 0-2 /LPF (Few)
[2023-06-18 14:59] LABS: Urine Red Blood Cell 0-2 /HPF (0-2); Urine Urothelial Cell 0-2 /LPF (FEW); Urine White Cell 0-2 /HPF (0-5)
[2023-06-18 15:04] LABS: Calcium 9.2 mg/dl (8.4-10.2); Carbon Dioxide 29 mmol/L (22-30); Chloride 90 mmol/L (98-107); Glucose 189 mg/dl (70-99); Sodium 125 mmol/L (135-145); eGFR 29.03
[2023-06-18 15:05] LABS: Blood Urea Nitrogen 102 mg/dl (9-20)
--- NOTE | 2023-06-18 17:06 | HPS.HSE ---
Family Physician
-
Family Physician: Nikolas Schmitz
Chief Complaint
-
Fall
History of Present Illness
68-year-old man with a past medical history of:
A-fib on Eliquis
HTN,
CHF, end stage with EF of 18%
Chronic kidney Dz
coronary artery disease,
insulin-dependent diabetes
Who came to the emergency department following a fall. He was walking to the bathroom today when he slipped on the floor and fell forward onto his face. He states that he felt shaky and weak. He denies any headache, any dizziness and
lightheadedness. He was discharged yesterday from the hospital ([facility]) for an acute heart failure exacerbation. He has been much more confused than baseline and is repeating his words. Today he is more somnolent. He also had had admits to for a
similar presentation. From the 05/15/23 admit:
'DISCHARGE DIAGNOSES:
1. Anasarca.
2. Acute on chronic hyponatremia.
3. Acute on chronic heart failure with reduced ejection fraction.
4. Hyperkalemia.
5. Chronic kidney disease, stage IIIB.
CONSULTATIONS:
1. Cardiology - Dr. Royce Fam.
2. Nephrology - Dr. Emely Perez.
HOSPITAL COURSE: The patient is a 68-year-old male with chronic
congestive heart failure and cor pulmonale, recurrent ascites, who
presented to the hospital with generalized fatigue and diagnosed
with acute on chronic heart failure exacerbation.
He underwent a paracentesis with removal of 3.1 L of fluid. Of
note, he also had a recent paracentesis on 05/10/2023 as well as
05/05. Diuresis was achieved with IV Lasix. His infusion of
Milrinone was continued. Cardiology and Nephrology assisted in
management. Hyperkalemia was treated and hyponatremia as well.
Electrolytes overall were trending in the normal direction and was
deemed stable for discharge by Cardiology on 05/14/2023 with plans
to continue the home Milrinone infusion. We will resume his home
doses of diuretics. He does follow up with the heart failure team
at the [facility]. He will be in touch with them on
Tuesday. Labs should be repeated early next week. He was otherwise
stable for discharge.'
Medical History
Past Medical History
Past Medical History: Reports Other
Additional Past Medical History:
Congenital heart anomaly
PDA (patent ductus arteriosus)
Other thrombophilia
Allergic rhinitis,
Chronic anticoagulation
Chronic atrial fibrillation, permanent
Essential (primary) hypertension
Chronic diastolic (congestive) heart failure, ef 18%
hyponatremia
Hypothyroidism
Diabetes
Hyperkalemia
Chronic leg wounds
Past Surgical History: Reports Other
Additional Past Surgical History:
Pic in arm
Social History
Tobacco: Non-smoker
Alcohol: Occasional
Personal:
Living: With Family
Employment: Employed
Family History
Family History: Not pertinent
Allergies / Home Medications
Allergies reflects when Allergies were last updated in [facility].
Home Medications with original date entered in [facility]
Allergy/Medication List:
Allergies
Allergy/AdvReac Type Severity Reaction Status Date / Time
No Known Allergies Allergy Verified 06/01/23 11:34
Home Medications
allopurinol 100 mg tablet 100 mg PO DAILY Gout 03/23/21
gabapentin 100 mg capsule 100 mg PO Q12H Pain 03/23/21
acetaminophen 325 mg tablet 650 mg PO DAILYPRN PRN mild pain 01/03/23
apixaban 5 mg tablet (Eliquis) 5 mg PO BID atrial fibrillation 01/03/23
insulin glargine 100 unit/mL subcutaneous solution (Lantus U-100 Insulin) 10 unit SC HS Diabetes 01/03/23
metoprolol succinate 25 mg tablet,extended release 24 hr 12.5 mg PO DAILY Heart Disease/Hypertension 01/03/23
therapeutic multivitamin 1 tab PO DAILY Supplement 01/03/23
insulin lispro 100 unit/mL subcutaneous pen (Admelog SoloStar U-100 Insulin lispro) 2 unit SC AC Diabetes 05/10/23
milrinone 78,000 mcg IV .SEE BELOW CHF 05/10/23
omega-3 fatty acids 1,000 mg capsule 1,000 mg PO DAILY Supplement 05/10/23
torsemide 20 mg tablet 120 mg PO BID Fluid Retention/Swelling 05/10/23
docusate sodium 100 mg capsule 100 mg PO DAILY 06/18/23
furosemide 10 mg/mL injection solution 100 mg IV MOWEFR 06/18/23
levothyroxine 75 mcg tablet 75 mcg PO DAILY 06/18/23
potassium chloride 10 mEq capsule,extended release 40 meq PO DIRECTED 06/18/23
spironolactone 25 mg tablet 12.5 mg PO DAILY 06/18/23
Review of Systems
-
Unable to obtain full review of systems at this time due to: Acuity
History Source: Patient
A 12 point ROS was completed and negative except as noted: Yes
Physical Exam
Vital Signs
Vital Signs
Temp Pulse Resp BP Pulse Ox
98.1 F 101 16 108/73 99
06/18/23 12:33 06/18/23 12:33 06/18/23 12:33 06/18/23 12:33 06/18/23 12:33
Physical Exam
General: Comfortable and Appears Chronically Ill
HEENT: NormoCephalic, Moist mucous membranes, No Ptosis, Nose Appears Normal and Ears Appear Normal
Respiratory: Clear and Decreased Breath Sounds
Cardiac: S1/S2, Irregular Rhythm and Murmur
GI: Soft, Non Tender and Distended
Musculoskeletal: No Clubbing, No Cyanosis, Edema, Left Lower Extremity and Edema, Right Lower Extremity
Skin: Warm, Dry, Rash and Lesions
Neuro: Awake, Alert, Oriented and AO x 3
Psych: Calm
Laboratory Results
-
06/18/23 14:17
06/18/23 14:17
Laboratory Results
Total Bilirubin Cancelled 06/18/23 14:17
AST Cancelled 06/18/23 14:17
ALT Cancelled 06/18/23 14:17
Alkaline Phosphatase Cancelled 06/18/23 14:17
Data Reviewed
-
Lab Data: Labs Reviewed by me
Impression/Plan
-
IMPRESSION:
Very medically complex 68 man with the following findings:
Somnolence, weakness and shakiness
WBC 11.2
Na 125
Unknown K
BUN/Creat 102/2.4
TSH 18.6
BP 108/73
Pulse of 101
PLAN:
1. Somnolence, weakness and shakiness - likely multifactorial mix of low thyroid, low Na, high BUN. See plans for each condition below.
WBC of 11.2 and low BP less likely to be sepsis given issues below
if WBC goes up tomorrow, treat for sepsis given high complexity and risk
Given complexity of situation and his care, IMU or ICU may be a good fit for him.
2. Congenital heart anomaly - PDA (patent ductus arteriosus) Chronically managed by cardiology, no signs of acute stroke
3. Other thrombophilia on Chronic anticoagulation for afib
Continue anticoagulation
4. Chronic atrial fibrillation, permanent
Cardiology consult to help with this and also:
Essential (primary) hypertension
Chronic diastolic (congestive) heart failure, with ef 18% on milrinone IV
In mean time, given risk and known disease, check troponins
monitor on telemetry
5. hyponatremia - 125
Consult nephrology
request help with best strategy to fix given heart and kidney issues
6 Hypothyroidism, TSH 18.60
Increase thyroid replacement dose
7. Diabetes - supplemental insulin as needed.
8. Hyperkalemia - check K and mag now and in the am
9. Chronic leg wounds - looks much improved according to patient and
Wound care
Keep eye on WBC of 11.2, this may be a source of infection
Full code
Eliquis for DVTp
[2023-06-18] MEDS: ELIQUIS 5 MG PO (20:13)
[2023-06-18] MEDS: NEURONTIN 100 MG PO (20:13)
[2023-06-18 20:41] LABS: Glucose - Point of Care 171 mg/dl (70-99)
[2023-06-18] MEDS: DEMADEX 120 MG PO (22:06)
[2023-06-18] MEDS: LANTUS 0.100000000000000006 UNITS SC (22:20)
[2023-06-18 22:33] LABS: Glucose - Point of Care 211 mg/dl (70-99)
[2023-06-19] VITALS (19 sets, daily range): BP systolic 83–119; BP diastolic 56–97; BMI 31.7
[2023-06-19 00:11] LABS: Troponin I 0.128 ng/ml
--- NOTE | 2023-06-19 02:31 | PTCARENOTE ---
Rec'd pt from ED confused, forgetful. Milrinone gtt in place on admission through R PICC. Stockinet dressing covering PICC soiled in crusted drainage. This RN replaced stockinet dressing. Pt unable to state purpose of admission, but does answer
admission questions. Afib on cardiac cath tech. Pt continuously requesting water, education provided about 1000ml FR. Pt able to void in urinal. Bed alarm in place for pt safety.
[2023-06-19 03:47] LABS: Troponin I 0.119 ng/ml
[2023-06-19] MEDS: SYNTHROID 150 MCG PO (05:06)
[2023-06-19 05:36] LABS: Blood Urea Nitrogen 98 mg/dl (9-20); Calcium 9.1 mg/dl (8.4-10.2); Carbon Dioxide 28 mmol/L (22-30); Chloride 92 mmol/L (98-107); Estimated Creatinine Clearance 37 ml/min; Glucose 151 mg/dl (70-99); Potassium 4.6 mmol/L (3.5-5.1); Sodium 126 mmol/L (135-145); eGFR 27.64
[2023-06-19 05:52] LABS: Hematocrit 31.9 % (39.0-52.0); Mean Corp Hgb Conc. 34.5 g/dL (33.0-37.0); Mean Corpuscular Hgb 29.2 pg (27.0-31.0); Mean Corpuscular Volume 84.6 fL (80.0-94.0); Mean Platelet Volume 9.7 fL (7.4-10.4); Platelet Count 422 10^3/uL (130-400); Red Blood Cell Count 3.77 10^6/uL (4.70-6.10); Red Cell Dist. Width 15.9 % (11.5-14.5); White Blood Cell Count 7.9 10^3/uL (4.8-10.8)
[2023-06-19] MEDS: TOPROL XL 12.5 MG PO (08:04)
[2023-06-19] MEDS: ELIQUIS 5 MG PO ×2 (08:04→20:28)
[2023-06-19] MEDS: ALDACTONE 12.5 MG PO (08:05)
[2023-06-19] MEDS: DEMADEX 120 MG PO ×2 (08:05→20:27)
[2023-06-19] MEDS: THERAGRAN 1 TABLET PO (08:07)
[2023-06-19] MEDS: ZYLOPRIM 100 MG PO (08:08)
[2023-06-19] MEDS: COLACE 100 MG PO (08:09)
[2023-06-19] MEDS: NEURONTIN 100 MG PO ×2 (08:09→20:28)
[2023-06-19 09:57] LABS: Glucose - Point of Care 165 mg/dl (70-99)
--- NOTE | 2023-06-19 10:10 | W.CON.NEPH ---
Consultation
-
Date/Time Consultation Requested: 06/18/2023 7:00 PM
Date/Time Consultation Performed: 06/19/2023 10:00 AM
Requesting Provider: Tamara
Performing Provider: Dr. Petersen
Reason for Consultation: Hyponatremia CKD stage IV
Medical History
-
Chief Complaint: Hyponatremia CKD stage 4
History of Present Illness:
The patient is a 68-year-old male with a past medical history of chronic kidney disease stage IV due to cardio renal syndrome ,who maintains a creatinine baseline of around 2.8-3. He has a history of congestive heart failure with a nonischemic
cardiomyopathy who is maintained on milrinone drip and IV Lasix twice weekly in the setting of his cor pulmonale and recurrent ascites. Of note the patient is maintained on torsemide 120 mg twice daily in the outpatient setting for his
cardiomyopathy. He is maintained on insulin in the setting of his diabetes. The patient was placed on a milrinone drip a few months ago. He follows with Dr. Almanza at [facility]. He presented o the emergency department following a fall. He was walking
to the bathroom today when he slipped on the floor and fell forward onto his face. He states that he felt shaky and weak. He denies any headache, any dizziness and lightheadedness. He was discharged yesterday from the hospital ([facility]) for an acute
heart failure exacerbation. He has been much more confused than baseline and is repeating his words. Nephrology was consulted for hyponatremia of 125 and profound azotemia with a BUN of 102 and creatinine of 2.4 in the setting of his cardiorenal
syndrome.
Past Medical History
CKD 4-progressive creatinine was 3.5 1 month [employer] per pt report-follows nephro at [facility]
Azotemia in setting of cardiorenal state
Chronic hyponatremia
Chronic hyponatremia
Hyperkalemia
NICM, EF 18% with enlarged and moderately reduced RV systolic function
Recurrent Ascites
Hypertension now with relative hypotension
Permanent atrial fibrillation
Chronic anticoagulation with Eliquis
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
Patent ductus arteriosus, conservatively managed at [facility]
History of noncompliance
Diabetes mellitus type 2
Anemia, multifactorial
Social History
Tobacco: Non-Smoker
Alcohol: Daily
Family History
No chronic kidney
Allergies / Home Medications
Allergy/AdvReac Type Severity Reaction Status Date / Time
No Known Allergies Allergy Verified 06/01/23 11:34
�Medication �Instructions �Recorded �Confirmed �Type
allopurinol 100 mg tablet 100 mg PO DAILY Gout 03/23/21 06/18/23 History
gabapentin 100 mg capsule 100 mg PO Q12H Pain 03/23/21 06/18/23 History
acetaminophen 325 mg tablet 650 mg PO DAILYPRN PRN mild pain 01/03/23 06/18/23 History
apixaban 5 mg tablet (Eliquis) 5 mg PO BID atrial fibrillation 01/03/23 06/18/23 History
insulin glargine 100 unit/mL 10 unit SC HS Diabetes 01/03/23 06/18/23 History
subcutaneous solution (Lantus
U-100 Insulin)
metoprolol succinate 25 mg 12.5 mg PO DAILY Heart 01/03/23 06/18/23 History
tablet,extended release 24 hr Disease/Hypertension
therapeutic multivitamin 1 tab PO DAILY Supplement 01/03/23 06/18/23 History
insulin lispro 100 unit/mL 2 unit SC AC Diabetes 05/10/23 06/18/23 History
subcutaneous pen (Admelog SoloStar
U-100 Insulin lispro)
milrinone 78,000 mcg IV .SEE BELOW CHF 05/10/23 06/18/23 History
omega-3 fatty acids 1,000 mg 1,000 mg PO DAILY Supplement 05/10/23 06/18/23 History
capsule
torsemide 20 mg tablet 120 mg PO BID Fluid 05/10/23 06/18/23 History
Retention/Swelling
docusate sodium 100 mg capsule 100 mg PO DAILY 06/18/23 06/18/23 History
furosemide 10 mg/mL injection 100 mg IV MOWEFR 06/18/23 06/18/23 History
solution
levothyroxine 75 mcg tablet 75 mcg PO DAILY 06/18/23 06/18/23 History
potassium chloride 10 mEq 40 meq PO DIRECTED 06/18/23 06/18/23 History
capsule,extended release
spironolactone 25 mg tablet 12.5 mg PO DAILY 06/18/23 06/18/23 History
Review of Systems
-
History Source: Patient
All other systems: Negative unless noted
Constitutional: Weight Gain (increased 4kg)
Respiratory: Other (Chronic shortness of breath with exertion)
Cardiac: No Symptoms
Abdomen/GI: Other (Recurrent ascites)
: No Symptoms
Musculoskeletal: Edema and Other (Left leg cramp)
Skin: Other (Chronic venous stasis changes along lower extremity)
Neurological: Other (Somnolence)
Endocrine: No Symptoms
Hematologic/Lymphatic: No Symptoms
Physical Exam
Vital Signs
Vital Signs
Temp Pulse Resp BP Pulse Ox
97.7 F 96 15 95/68 94
06/19/23 03:08 06/19/23 04:22 06/19/23 04:22 06/19/23 04:22 06/19/23 04:22
Lab Results
06/19/23 05:04
06/19/23 05:04
WBC 7.9 10^3/uL (4.8-10.8) 06/19/23 05:04
RBC 3.77 10^6/uL (4.70-6.10) L 06/19/23 05:04
Hgb 11.0 g/dL (13.0-18.0) L 06/19/23 05:04
Hct 31.9 % (39.0-52.0) L 06/19/23 05:04
Plt Count 422 10^3/uL (130-400) H 06/19/23 05:04
Sodium 126 mmol/L (135-145) L 06/19/23 05:04
Potassium 4.6 mmol/L (3.5-5.1) 06/19/23 05:04
Chloride 92 mmol/L (98-107) L 06/19/23 05:04
Carbon Dioxide 28 mmol/L (22-30) 06/19/23 05:04
BUN 98 mg/dl (9-20) H 06/19/23 05:04
Creatinine 2.5 mg/dL (0.7-1.3) H 06/19/23 05:04
eGFR 27.64 06/19/23 05:04
Glucose 151 mg/dl (70-99) H 06/19/23 05:04
Calcium 9.1 mg/dl (8.4-10.2) 06/19/23 05:04
Albumin Cancelled 06/18/23 14:17
Physical Exam
General: AOx3, Nontoxic , NAD
HEENT: PERRL, EOMI, Anicteric, Conjunctivae Clear, Ear/Nose Intact, Hearing Normal, Oropharynx Clear/Moist, Dentition Intact, Facial Symmetry, Neck Supple, Neck: Trachea Midline, No JVD and No Thyromegaly, no Bruits
Respiratory: coarse to auscultation bilaterally with normal lung exersion
Cardiac: S1/S2 and Regular Rate/Rhythm
Breast: Deferred by me
Abdomen: Soft, Nontender, Nondistended, Normal Bowel Sounds and No Hepatosplenomegaly
Rectal: Deferred by Provider
Genito-urinary: No Costovertebral Tenderness
Extremities: No Clubbing, No Cyanosis and plus two pitting edema
Skin: No Rash or open lesions
Neuro: Nonfocal/Grossly Intact, CN II-XII (Intact) and Strength (Musculoskeletal exam 5 out of 5 both upper and lower extremities)
Hematologic/Lymphatic: No Cervical Lymphadenopathy, No Submandibular Lymphadenopathy and No Supraclavicular Lymphadenopathy
Psych: Mood/afflect pleasant, Insight/judgement good and Appropriate
Vascular: plus 1 pedal and radial pulses
Data Reviewed
-
Radiology: Image Personally Visualized and interpreted (Chest x-ray personally reviewed : cardiomegaly with interstitial edema)
Medical Tests (Nuc Med, Echo etc): Report Reviewed by me (EKG report reviewed A-fib with PVCs inferior infarct pattern anterolateral infarct pattern 97 beats per minute)
Labs: Labs Reviewed by me (BMP CBC)
Old Records: Reviewed (Reviewed 05/12/2023 nephrology consultation for hyponatremia: sodium 121)
Assessment/Plan
-
Impression:
Change in mental status
Status post fall on face
Cardiorenal syndrome
CKD stage IV with baseline creatinine 2.5-3
Recurrent ascites status post paracentesis on 05-31
Nonischemic cardiomyopathy with a EF of 40% (on home milrinone)
Hyponatremia (125)
Hypotension
Permanent atrial fibrillation
Chronic anticoagulation with Eliquis
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
Patent ductus arteriosus, conservatively managed at [facility]
History of noncompliance
Diabetes mellitus type 2
Anemia, multifactorial
Plan:
Hyponatremia;
-Likely hypervolemic in setting of congestive heart failure with elevated ADH chronically
-hypotension aggravating ADH
-Sodium 126 today
-Maintain fluid restriction of 1200 cc daily
-Diuretics per cardiology: Currently maintained on torsemide
-will give 15mg po samsca
-Hyponatremia should improve with volume reduction with diuresis
-Check magnesium level in regards to cramping on high-dose diuretic regimen
CKD 4:
-Creatinine is at baseline
-Chronic cardiorenal syndrome with profound azotemia
-Patient will not be an appropriate dialysis candidate given advanced cardiomyopathy and chronic hemodynamic instability this was directly communicated to the patient and his daughter at bedside
-Unfortunately recurrent profound azotemia will be unavoidable in setting of advanced cardiorenal syndrome
-Concur with diuresis
[2023-06-19 10:12] LABS: Glucose - Point of Care 188 mg/dl (70-99)
[2023-06-19] MEDS: NOVOLOG FLEXPEN 2 UNITS SC ×3 (11:08→18:20)
[2023-06-19 11:17] LABS: Glycohemoglobin (HgbA1c) 7.7 % (4.0-5.6)
[2023-06-19] MEDS: PRIMACOR 20 MG 100 IV ×2 (11:46→23:36)
[2023-06-19] MEDS: SAMSCA 15 MG PO (12:26)
[2023-06-19 12:35] LABS: Glucose - Point of Care 219 mg/dl (70-99)
--- NOTE | 2023-06-19 12:35 | PTCARENOTE ---
Pt needing frequent reminders to not get OOB on his own. Bed alarm in place for patient safety. Pt agitated w/ this RN for following hospital protocols.
--- NOTE | 2023-06-19 15:34 | PTCARENOTE ---
home pump evon holguin d/c. Placed on our pump/medication running through R double lumen PICC.
--- NOTE | 2023-06-19 16:25 | CM ---
IA completed with pts via phone.
Pt is a 68yr old male admitted after a fall at home.
Per MD note, pt is very medically complex. Pt was in back in May for weakness and heart failure exacerbation. Pt was just a few days ago dc'd from [facility] for same. Pt is lethargic and confused at present.
Pt is seen at home by [facility] at home for [id number] for chronic milrinone drip and blood draws.
Per , functionally, pt is independent with mobility and ADLs. Pt does have a RW, but does not actively use it. is present and helpful when needed.
plans for pt to dc to home with [facility] and no additional needs.
PCP; Esteb[facility] Mcnulty
IV provided through [facility] and alternative Pharm is [facility]
--- NOTE | 2023-06-19 16:46 | W.PN.HOSP.TC ---
Today's Communication/Plan
-
PT/OT
Orthostatic vital signs
Diuresis
Samsca as per nephrology
Assessment / Plan
Assessment / Plan
Physical Exam
General: Not in acute distress
HEENT: Normocephalic, Moist mucous membranes
Respiratory: Decreased Breath Sounds
Cardiac: S1/S2, Irregular Rhythm and Murmur
GI: Soft, Non Tender and Distended
Musculoskeletal: No Clubbing, No Cyanosis, Edema, Left Lower Extremity and Edema, Right Lower Extremity
Skin: Warm, Dry, Rash and Lesions
Neuro: Awake, Alert, Oriented and AO x 3
Psych: Calm
Assessment/Plan
#Somnolence, weakness and shakiness resulting in fall
#Fall prior to arrival
-Somnolence resolved, continue to monitor
-Fall appears to be from weakness, patient denied syncope
-Could be due to multiple medical problems as below
-Troponins with insignificant rise so far
-Orthostatic vital signs
-PT/OT
#Anasarca
#Heart Failure with Reduced Ejection Fraction
#NICM EF 18% by echo at [place] 01/2023
#Cor Pulmonale
-Managed by [place] cardiology, Dr. Almanza with IV milrinone infusion.
-On Milrinone Drip via Picc Line at home
-Recent ejection fraction was 18%
-Per patient and his , his most recent Lasix dose is 120 mg on Tue/Tue/Tue (3x per week)
-Continue home Lasix
-He continues to take Torsemide 120 mg PO BID -- continue
-Daily weights
-I's and O's
#Recurrent ascites
-s/p paracentesis at for 7.1 L 05/06/23
-s/p paracentesis at for 2.6 L 05/10/23
-Re-assess for another paracentesis if needed
#Congenital heart disease with AV fistula from LCx to coronary sinus
#Patent ductus arteriosus, conservatively managed
#Chronic atrial fibrillation, permanent
-Heart rate goal less than 110 bpm
-Continue home Eliquis 5 mg PO BID
-Continue Toprol XL 12.5 mg daily
-Continue Aldactone
#Chronic Kidney Disease Stage 4
#Chronic Cardiorenal Syndrome
#Recurrent Profound Aoztemia
-Creatinine is at baseline
-Monitor BMP/renal function
-Patient will not be an appropriate dialysis candidate given advanced cardiomyopathy and chronic hemodynamic instability -- patient is aware
-Continue with diuresis
#Hypervolemic hyponatremia
-Consulted nephrology, recommendations appreciated
-Try to avoid hypotension
-Maintain daily PO fluid restriction of 1200 cc daily
-Samsca, as per nephrology
-Check magnesium levels
#Hypothyroidism, TSH 18.60
-Home thyroid replacement dose was increased on admission due to the TSH
#Diabetes - supplemental insulin as needed.
#Hypertension
-Continue Toprol, Aldactone, Furosemide
#History of Hyperkalemia
-Monitor BMP and magnesium
#Chronic leg wounds - looks much improved according to patient and
Wound care
Keep eye on WBC of 11.2, this might be a source of infection
Full code
Eliquis for DVTp
Anticipated Discharge: 24 - 48 hours
Subjective/Interval History
-
Date of Service: June 19, 2023
Patient was seen and examined. No new significant symptoms or complaints since admission.
Objective Data
-
Labs:
Laboratory Results
06/19/23
05:04
WBC 7.9
Hgb 11.0 L
Hct 31.9 L
Plt Count 422 H
Sodium 126 L
Potassium 4.6
Chloride 92 L
Carbon Dioxide 28
BUN 98 H
Creatinine 2.5 H
Glucose 151 H
Calcium 9.1
Vital Signs:
Vital Signs
Temp Pulse Resp BP Pulse Ox
97.9 F 83 15 110/71 96
06/19/23 11:25 06/19/23 14:00 06/19/23 14:00 06/19/23 13:01 06/19/23 06:00
I&O
06/18/23 06/19/23 06/20/23
06:59 06:59 06:59
Intake Total 480 / 480 840 / 840
Output Total 500 / 500 625 / 625
Balance -20 / -20 215 / 215
--- NOTE | 2023-06-19 17:45 | CON.CAR ---
Consultation
Consultation Request
Date/Time Consultation Requested: 06/19/2023 1026
Date/Time Consultation Performed: 06/19/2023 1200
Requesting Provider: Olivier Tolbert MD
Performing Provider: Miles Botello DO
Reason for Consultation: History of HF, on home milrinone
Medical History
-
Chief Complaint: Fall
History of Present Illness:
Patient is a 68-year-old male with a past medical history significant for nonischemic cardiomyopathy, chronic heart failure with reduced ejection fraction, recurrent ascites, hypertension, permanent A-fib, chronic Eliquis oral anticoagulation,
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
to acute on chronic heart failure and underwent significant diuresis and underwent paracentesis x 2 draining 6 L and 2 L respectively during hospital stay. Patient was discharged on 06/17/2023. On 06/18/2023, patient was reporting significant
shakiness and unsteadiness. He reports that he had a mechanical fall at home. Patient denies any chest pain, shortness of breath, lightheadedness, dizziness, near-syncope, syncope, PND, orthopnea, or weakness. He reports that his abdomen is soft
and close to baseline for him and his condition. He notes that the lower extremity swelling is significantly improved with only mild swelling noted. He notes that while he had been shaky on discharge and on the following day, he notes that the
shakiness has improved during his hospitalization here. Patient noted to have abnormal labs including hyponatremia elevated BUN and creatinine which are near his baseline. Patient remains on home inotropic therapy. In discussion with patient, he
denies any chest pain, shortness of breath, palpitations, edema, or weakness. Additionally, troponin was noted to be 0.128 downtrending to 0.119. EKG demonstrated A-fib with aberrantly conducted beats no significant change from prior. Chest x-ray
no acute disease stable moderate cardiomegaly. CT head no acute intracranial abnormality.
Past Medical History
Past Medical History: None (Per HPI)
Past Surgical History: None
Social History
Tobacco: Non-Smoker
Alcohol: Occasional
Drug: None
Personal:
Living: With Family
Family History
Family History: Cancer
Allergies / Home Medications
Allergy/AdvReac Type Severity Reaction Status Date / Time
No Known Allergies Allergy Verified 06/01/23 11:34
�Medication �Instructions �Recorded �Confirmed �Type
allopurinol 100 mg tablet 100 mg PO DAILY Gout 03/23/21 06/18/23 History
gabapentin 100 mg capsule 100 mg PO Q12H Pain 03/23/21 06/18/23 History
acetaminophen 325 mg tablet 650 mg PO DAILYPRN PRN mild pain 01/03/23 06/18/23 History
apixaban 5 mg tablet (Eliquis) 5 mg PO BID atrial fibrillation 01/03/23 06/18/23 History
insulin glargine 100 unit/mL 10 unit SC HS Diabetes 01/03/23 06/18/23 History
subcutaneous solution (Lantus
U-100 Insulin)
metoprolol succinate 25 mg 12.5 mg PO DAILY Heart 01/03/23 06/18/23 History
tablet,extended release 24 hr Disease/Hypertension
therapeutic multivitamin 1 tab PO DAILY Supplement 01/03/23 06/18/23 History
insulin lispro 100 unit/mL 2 unit SC AC Diabetes 05/10/23 06/18/23 History
subcutaneous pen (Admelog SoloStar
U-100 Insulin lispro)
milrinone 78,000 mcg IV .SEE BELOW CHF 05/10/23 06/18/23 History
omega-3 fatty acids 1,000 mg 1,000 mg PO DAILY Supplement 05/10/23 06/18/23 History
capsule
torsemide 20 mg tablet 120 mg PO BID Fluid 05/10/23 06/18/23 History
Retention/Swelling
docusate sodium 100 mg capsule 100 mg PO DAILY 06/18/23 06/18/23 History
furosemide 10 mg/mL injection 100 mg IV MOWEFR 06/18/23 06/18/23 History
solution
levothyroxine 75 mcg tablet 75 mcg PO DAILY 06/18/23 06/18/23 History
potassium chloride 10 mEq 40 meq PO DIRECTED 06/18/23 06/18/23 History
capsule,extended release
spironolactone 25 mg tablet 12.5 mg PO DAILY 06/18/23 06/18/23 History
Review of Systems
-
History Source: Patient and Family
Constitutional: Fatigue and Other (Shakiness)
EENT: No Symptoms
Respiratory: No Symptoms
Cardiac: No Symptoms
Abdomen/GI: No Symptoms
: No Symptoms
Musculoskeletal: No Symptoms
Skin: No Symptoms
Neurological: Other (Fall; shakiness)
Endocrine: No Symptoms
Hematologic/Lymphatic: No Symptoms
Physical Exam
Vital Signs
Temp Pulse Resp BP Pulse Ox
97.9 F 83 15 110/71 96
06/19/23 11:25 06/19/23 14:00 06/19/23 14:00 06/19/23 13:01 06/19/23 06:00
Lab Results
06/19/23 05:04
06/19/23 05:04
Troponin I 0.119 ng/ml H* 06/19/23 02:26
Physical Exam
General: Well Developed, Well Nourished, No Apparent Distress and Comfortable
HEENT: Normocephalic, Anicteric and Moist Mucous Membranes
Respiratory: Clear and Non Labored Respirations
Cardiac: S1/S2, Irregular Rhythm and Murmur (2/6 apical holosystolic)
Breast: Deferred by me
GI: Soft, Non Tender and Non Distended
Rectal: Deferred by Provider
Musculoskeletal: No Clubbing, No Cyanosis and Edema (1+ bilateral lower extremity)
Skin: Warm and Dry
Neuro: Awake, Alert and Oriented
Psych: Calm
Impression / Plan
-
PCP: Dr. Nikolas Schmitz
Primary Die Baker: previously seen by Dr. 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 Now following with Dr. Felix Almanza at [place] /Dr. Hong Nino
Impression:
Mechanical fall
Hyponatremia, chronic
Acute on chronic heart failure with reduced ejection fraction
Nonischemic cardiomyopathy EF 18% by echo at [facility] 01/2023
Recurrent ascites, stable
Hypertension
Permanent A-fib on Eliquis; [id number]: 3 (heart failure, hypertension, age). On Eliquis 5 mg twice daily for stroke risk reduction
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
PA, conservatively managed
CKD stage IV
History of medication nonadherence
History of hyperkalemia
ECHO 09/2018: Severely dilated LV, EF 45% with regional variations, moderate LVH, dilated RV, severe biatrial dilatation, dilated coronary sinus, MAC, mild MR, aortic sclerosis, mild AR, trace TR, PAP 50 to 55 mmHg, dilated IVC, small pericardial
effusion, mildly dilated aortic root and proximal ascending aorta
Echo 08/25/22: EF 42%, global hypokinesis, stage 3 diastolic dysfunction, severely enlarged RV size with moderately reduced RV systolic function, severely dilated LA/RA, mild MR, mild TR with PAP 57-62 mmHg, small pericardial effusion, dilated aortic
root with Sinuses at 3.9 cm
Plan:
� Recently discharged from [facility] for acute on chronic heart failure, reported aggressive diuresis with 6 L and 2 L paracenteses prior to discharge on 06/17/2023
� Continue home dosing of milrinone infusion
� Diuretic therapy with torsemide in coordination with nephrology; believed by nephrology that renal function will improve/noted hyponatremia will improve with diuresis�currently on IV Lasix 20 mg Tuesday, torsemide 120 mg twice
daily, Aldactone 12.5 mg daily
� Monitor renal function closely
� Strict intake and output, daily weights
� Physical therapy
� Continue beta-harry for rate control and permanent A-fib, patient currently at goal less than 110 bpm
� On Samsca for hyponatremia, managed by nephrology
� Troponin peak 0.12, likely secondary to acute metabolic conditions, no chest pain or EKG changes
Discussed with nursing, hospitalist, and Dr. Nino
Data Reviewed
-
EKG: Tracing Personally Visualized and interpreted
Radiology: Report Reviewed by me
CT Scan: Report Reviewed by me
Medical Tests (Nuc Med, Echo etc): Report Reviewed by me
Labs: Labs Reviewed by me
Old Records: Reviewed
[2023-06-19 18:12] LABS: Glucose - Point of Care 206 mg/dl (70-99)
[2023-06-19 20:26] LABS: Magnesium 2.4 mg/dl (1.6-2.3)
[2023-06-19 20:39] LABS: Troponin I 0.125 ng/ml
[2023-06-19 21:57] LABS: Glucose - Point of Care 228 mg/dl (70-99)
[2023-06-19] MEDS: LANTUS 0.100000000000000006 UNITS SC (23:33)
[2023-06-20] VITALS (26 sets, daily range): BP systolic 93–118; BP diastolic 61–90; PULSE 90–98; O2SAT 98; BMI 31.2
[2023-06-20 04:36] LABS: % Basophils 1.2 % (0-2); % Eosinophils 3.3 % (0-6); % Immature Granulocytes 0.7 % (0-0.5); % Lymphocytes 10.2 % (20.5-51.1); % Monocytes 10.8 % (1.7-9.3); % Neutrophils 73.8 % (42.2-75.2); Absolute Basophils 0.1 10^3/uL (0-0.2); Absolute Eosinophils 0.3 10^3/uL (0-0.7); Absolute Immature Granulocytes 0.1 10^3/uL (0-0.05); Absolute Lymphocytes 0.9 10^3/uL (1.2-3.4); Absolute Neutrophils 6.8 10^3/uL (1.4-6.5); Hematocrit 33.9 % (39.0-52.0); Hemoglobin 11.3 g/dL (13.0-18.0); Mean Corp Hgb Conc. 33.3 g/dL (33.0-37.0); Mean Corpuscular Hgb 28.9 pg (27.0-31.0); Mean Corpuscular Volume 86.7 fL (80.0-94.0); Mean Platelet Volume 9.5 fL (7.4-10.4); Nucleated Red Blood Cells % 0 % (-); Platelet Count 426 10^3/uL (130-400); Red Blood Cell Count 3.91 10^6/uL (4.70-6.10); Red Cell Dist. Width 15.8 % (11.5-14.5); White Blood Cell Count 9.2 10^3/uL (4.8-10.8)
[2023-06-20 05:04] LABS: Blood Urea Nitrogen 94 mg/dl (9-20); Calcium 9.1 mg/dl (8.4-10.2); Carbon Dioxide 29 mmol/L (22-30); Chloride 94 mmol/L (98-107); Estimated Creatinine Clearance 36 ml/min; Glucose 173 mg/dl (70-99); Magnesium 2.4 mg/dl (1.6-2.3); Potassium 4.4 mmol/L (3.5-5.1); Sodium 132 mmol/L (135-145); eGFR 27.64
[2023-06-20 05:13] LABS: Troponin I 0.146 ng/ml
[2023-06-20] MEDS: SYNTHROID 100 MCG PO (06:26)
[2023-06-20 07:17] LABS: Glucose - Point of Care 188 mg/dl (70-99)
--- NOTE | 2023-06-20 07:26 | PTCARENOTE ---
Patient sitting up in bed AAO X3. Milrinone drip infusing at 7.8 mls/hr via right PICC as ordered. SR with BBB and PVC's. Patient offers no complaints at this time.
[2023-06-20] MEDS: NOVOLOG FLEXPEN 2 UNITS SC ×3 (08:07→17:32)
--- NOTE | 2023-06-20 08:07 | W.PN.HOSP.TC ---
Today's Communication/Plan
-
Orthostatic vitals
PT/OT
Add low resistance NovoLog correction scale
Assessment / Plan
Assessment / Plan
Gen-AAOx3, NAD
HEENT-NC, AT, anicteric, clear oral mm
Neck-supple
CV-reg, no M, +S1/S2
Lungs-clear B/L
Abd-soft, NT, ND
Ext-bilateral lower extremity edema
Musculoskeletal-no cyanosis, clubbing
Skin-warm and dry
Neuro-grossly non-focal
Psych-calm, cooperative
Ambulatory dysfunction, fall -multifactorial etiology including hyponatremia, deconditioning, etc. Check orthostatics. Await PT/OT. He does have a walker at home.
Symptomatic hyponatremia -likely contributor to weakness and fall. Patient states he feels much stronger today. Sodium improved, 132 today. Received a dose of tolvaptan yesterday.
Anasarca
Heart Failure with Reduced Ejection Fraction
NICM EF 18% by echo at [place] 01/2023
Cor Pulmonale.
Currently weight is 104 kg, down since admission weight of 106. Discharge weight in May of this year was 102 kg.
-Managed by [place] cardiology, Dr. Almanza with IV milrinone infusion.
-On Milrinone Drip via Picc Line at home
-Recent ejection fraction was 18%
-Per patient and his , his most recent Lasix dose is 120 mg on Tue/Tue/Tue (3x per week)
-Continue home Lasix
-He continues to take Torsemide 120 mg PO BID -- continue
Recurrent ascites
-s/p paracentesis at for 7.1 L 05/06/23
-s/p paracentesis at for 2.6 L 05/10/23
-Re-assess for another paracentesis if needed
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
Patent ductus arteriosus, conservatively managed
Chronic atrial fibrillation, permanent
-Heart rate goal less than 110 bpm
-Continue home Eliquis 5 mg PO BID
-Continue Toprol XL 12.5 mg daily
-Continue Aldactone
Chronic Kidney Disease Stage 4
Chronic Cardiorenal Syndrome
Recurrent Profound Aoztemia
-Creatinine is at baseline
-Monitor BMP/renal function
-Patient will not be an appropriate dialysis candidate given advanced cardiomyopathy and chronic hemodynamic instability -- patient is aware
-Continue with diuresis
Hypothyroidism - TSH 18.60 -Home thyroid replacement dose was increased on admission due to the TSH, repeat thyroid labs in 4 weeks with primary care doctor.
DM2 with hyperglycemia - Hemoglobin A1c 7.7%. He is on glargine insulin 10 units at bedtime, lispro insulin 2 units AC at home. Received 10 units of Lantus last night, glucose 173 this morning on BMP, 228 last night. Continue home regimen of
insulin, add low resistance NovoLog scale.
Essential hypertension -Continue Toprol, Aldactone, Furosemide
Chronic leg wounds - looks much improved according to patient and
Wound care
Keep eye on WBC of 11.2, this might be a source of infection
Full code
Anticipated Discharge: Within 24 hours
Subjective/Interval History
-
Date of Service: June 20, 2023
Patient seen and examined. No complaints today.
Objective Data
-
Labs:
Laboratory Results
06/20/23
04:25
WBC 9.2
Hgb 11.3 L
Hct 33.9 L
Plt Count 426 H
Sodium 132 L
Potassium 4.4
Chloride 94 L
Carbon Dioxide 29
BUN 94 H
Creatinine 2.5 H
Glucose 173 H
Calcium 9.1
Vital Signs:
Vital Signs
Temp Pulse Resp BP Pulse Ox
97.6 F 101 26 110/67 99
06/20/23 07:42 06/20/23 07:13 06/20/23 07:13 06/20/23 07:13 06/20/23 08:06
I&O
06/19/23 06/20/23 06/21/23
06:59 06:59 06:59
Intake Total 480 / 480 840 / 840
Output Total 500 / 500 2075 / 2075 300 / 300
Balance -20 / -20 -1235 / -1235 -300 / -300
Review of Systems
-
History Source: Patient
All other systems: Reviewed and negative
[2023-06-20] MEDS: ALDACTONE 12.5 MG PO (08:08)
[2023-06-20] MEDS: DEMADEX 120 MG PO ×2 (08:10→21:06)
[2023-06-20] MEDS: ELIQUIS 5 MG PO ×2 (08:11→21:08)
[2023-06-20] MEDS: NEURONTIN 100 MG PO ×2 (08:11→21:09)
[2023-06-20] MEDS: COLACE PO (08:12)
[2023-06-20] MEDS: ZYLOPRIM 100 MG PO (08:12)
[2023-06-20] MEDS: TOPROL XL 12.5 MG PO (08:12)
[2023-06-20] MEDS: THERAGRAN 1 TABLET PO (08:12)
--- NOTE | 2023-06-20 10:33 | W.PN.CARDCBS ---
Today's Communication / Plan
-
Continue milrinone, he is on this at home for palliation
Follow labs
Continue diuretics per nephrology
PT
Impression / Plan
-
PCP: Dr. Nikolas Schmitz
Primary Department Specialist: previously seen by Dr. 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 Now following with Dr. Felix Almanza at [place] /Dr. Hong Nino
Impression:
Mechanical fall
Hyponatremia, chronic
Acute on chronic heart failure with reduced ejection fraction
Nonischemic cardiomyopathy EF 18% by echo at [facility] 01/2023
Recurrent ascites, stable
Hypertension
Permanent A-fib on Eliquis; [id number]: 3 (heart failure, hypertension, age). On Eliquis 5 mg twice daily for stroke risk reduction
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
PA, conservatively managed
CKD stage IV
History of medication nonadherence
History of hyperkalemia
ECHO 09/2018: Severely dilated LV, EF 45% with regional variations, moderate LVH, dilated RV, severe biatrial dilatation, dilated coronary sinus, MAC, mild MR, aortic sclerosis, mild AR, trace TR, PAP 50 to 55 mmHg, dilated IVC, small pericardial
effusion, mildly dilated aortic root and proximal ascending aorta
Echo 08/25/22: EF 42%, global hypokinesis, stage 3 diastolic dysfunction, severely enlarged RV size with moderately reduced RV systolic function, severely dilated LA/RA, mild MR, mild TR with PAP 57-62 mmHg, small pericardial effusion, dilated aortic
root with Sinuses at 3.9 cm
Plan:
- Here for mechanical fall. Awaiting PT assessment. Patient occasionally will have lightheadedness. Telemetry stable. Blood pressure stable.
- Unfortunately appears to have end-stage heart failure. Currently on IV milrinone with upcoming appointment today or tomorrow at [facility] for which she will change timing.
� Recently discharged from [facility] for acute on chronic heart failure, reported aggressive diuresis with 6 L and 2 L paracentesis x 2 prior to discharge on 06/17/2023. In addition he tells me [facility] has
triggers for him to undergo paracentesis.
� Continue home dosing of milrinone infusion from what the patient tells me appears to be palliative. He also receives intermittent IV Lasix at home through infusion company.
� Continue current diuretics. Weight stable. Tells me dry weight is about 225 pounds.
� Monitor renal function closely
� Strict intake and output, daily weights
� Continue beta-haryr for rate control and permanent A-fib, patient currently at goal less than 110 bpm
� On Samsca for hyponatremia, managed by nephrology
� Troponin peak 0.146. Likely nonischemic troponin elevation.
Discussed with nursing, hospitalist, and Dr. Nino
Progress Note - Department Specialist
Subjective
Date of Service: June 20, 2023
He feels like he is near his dry weight. He denies chest pain and palpitations.
Objective
Labs:
06/20/23 04:25
06/20/23 04:25
Labs
Hgb 11.3 g/dL (13.0-18.0) L 06/20/23 04:25
Hct 33.9 % (39.0-52.0) L 06/20/23 04:25
Plt Count 426 10^3/uL (130-400) H 06/20/23 04:25
Sodium 132 mmol/L (135-145) L 06/20/23 04:25
Potassium 4.4 mmol/L (3.5-5.1) 06/20/23 04:25
BUN 94 mg/dl (9-20) H 06/20/23 04:25
Creatinine 2.5 mg/dL (0.7-1.3) H 06/20/23 04:25
Glucose 173 mg/dl (70-99) H 06/20/23 04:25
Troponins
06/18/23 06/18/23 06/19/23
18:47 23:25 02:26
Troponin I Cancelled 0.128 H* 0.119 H*
06/19/23 06/20/23
20:05 04:25
Troponin I 0.125 H* 0.146 H*
Vital Signs and I&O:
Vital Signs
Temp Pulse Resp BP Pulse Ox
97.6 F 101 26 110/67 99
06/20/23 07:42 06/20/23 07:13 06/20/23 07:13 06/20/23 07:13 06/20/23 08:06
Vital Signs
Temp Pulse Resp BP Pulse Ox
97.6 F 101 26 110/67 99
06/20/23 07:42 06/20/23 07:13 06/20/23 07:13 06/20/23 07:13 06/20/23 08:06
Intake & Output
06/18/23 06/19/23 06/20/23 06/21/23
06:59 06:59 06:59 06:59
Intake Total 480 / 480 840 / 840 325 / 325
Output Total 500 / 500 5 / 2075 300 / 300
Balance -20 / -20 -1235 / -1235
Physical Exam
Physical Exam
General: Well developed, well nourished in NAD.
Heart: Distant heart sounds, irregularly irregular, 2/6 murmur left sternal border no S3, S4, no rubs.
Lungs: Coarse breath sounds decreased at the bases
Abdomen: distended.
Extremities: No clubbing, cyanosis and +2 edema bilaterally. Chronic skin changes and legs wrapped
[2023-06-20 11:51] LABS: Glucose - Point of Care 165 mg/dl (70-99)
--- NOTE | 2023-06-20 12:00 | W.PN.NEPH.PH ---
Today's Communication / Plan
-
- Cr stable
- Na improving
- diuretics per cardiology
Assessment/Plan
-
Impression:
Change in mental status
Status post fall on face
Cardiorenal syndrome
CKD stage IV with baseline creatinine 2.5-3
Recurrent ascites status post paracentesis on 05-31
Nonischemic cardiomyopathy with a EF of 40% (on home milrinone)
Hyponatremia (125)
Hypotension
Permanent atrial fibrillation
Chronic anticoagulation with Eliquis
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
Patent ductus arteriosus, conservatively managed at [place]
History of noncompliance
Diabetes mellitus type 2
Anemia, multifactorial
Plan:
Hyponatremia;
-Likely hypervolemic in setting of congestive heart failure with elevated ADH chronically
-hypotension aggravating ADH
-Sodium 132 today
-Maintain fluid restriction of 1200 cc daily
-Diuretics per cardiology: Currently maintained on torsemide
-s/p samsca on 06/18
-Hyponatremia should improve with volume reduction with diuresis
-Mg levels acceptable
CKD 4:
-Creatinine is at baseline
-Chronic cardiorenal syndrome with profound azotemia
-Patient will not be an appropriate dialysis candidate given advanced cardiomyopathy and chronic hemodynamic instability this was directly communicated to the patient and his daughter at bedside
-Unfortunately recurrent profound azotemia will be unavoidable in setting of advanced cardiorenal syndrome
-Concur with diuresis
-
-
Date of Service: June 20, 2023
CC / HPI / ROS
-
Chief Complaint:
Hyponatremia
History of Present Illness:
Cr stable at 2.5
Na improving to 132 today s/p samsca
Review of Systems:
continues to have pitting edema
overall feels okay
Labs
-
Labs:
WBC 9.2 10^3/uL (4.8-10.8) 06/20/23 04:25
RBC 3.91 10^6/uL (4.70-6.10) L 06/20/23 04:25
Hgb 11.3 g/dL (13.0-18.0) L 06/20/23 04:25
Hct 33.9 % (39.0-52.0) L 06/20/23 04:25
Plt Count 426 10^3/uL (130-400) H 06/20/23 04:25
Sodium 132 mmol/L (135-145) L 06/20/23 04:25
Potassium 4.4 mmol/L (3.5-5.1) 06/20/23 04:25
Chloride 94 mmol/L (98-107) L 06/20/23 04:25
Carbon Dioxide 29 mmol/L (22-30) 06/20/23 04:25
BUN 94 mg/dl (9-20) H 06/20/23 04:25
Creatinine 2.5 mg/dL (0.7-1.3) H 06/20/23 04:25
eGFR 27.64 06/20/23 04:25
Glucose 173 mg/dl (70-99) H 06/20/23 04:25
Calcium 9.1 mg/dl (8.4-10.2) 06/20/23 04:25
Albumin Cancelled 06/18/23 14:17
Physical Exam
-
Vital Signs:
Vital Signs
Temp Pulse Resp BP Pulse Ox
98.2 F 93 14 106/76 99
06/20/23 11:20 06/20/23 10:00 06/20/23 10:00 06/20/23 10:00 06/20/23 10:00
Cardiovascular:: Regular rate and rhythm
Respiratory:: Bilateral: Coarse
Lung Excursion:: Normal
Abdomen:: Nontender and Soft
Bowel Sounds:: Normal
Extremity Edema:: +3: Bilateral:
Johnson Catheter: No
[2023-06-20] MEDS: NOVOLOG FLEXPEN-LOW RESISTANCE 1 UNITS SC (12:06)
[2023-06-20] MEDS: LASIX 100 MG IV (12:12)
[2023-06-20] MEDS: FLUSH (NSS) 1 FLUSH IV (12:13)
[2023-06-20] MEDS: PRIMACOR 20 MG 100 IV (12:14)
--- NOTE | 2023-06-20 16:47 | CM ---
Patient with Hx Milrinone home infusion, Chronic leg wounds with Dx Ambulatory dysfunction, fall, Symptomatic hyponatremia, Anasarca, HF. Receiving IV Milrinone gtt. PT recommends HH. OT; no needs.
Met with patient who resides in a 2 story house with his . Patient somewhat forgetful and becomes irritable when he cannot remember details.
The patient was Independent for ADLs/ambulation prior to admission.
The patient has no DME, prior VN or SNF.
He is current with [facility] for Milrinone infusion, and has pump at home. 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
PCP - Nikolas Schmitz
Pharmacy - [facility] Kellie Celis, [place]
Patient amenable to [facility] for PT. He was getting wound care at home - unclear who was assisting with wound care.
Plan contact about wound care at home - probable referral to [facility].
Plan home with resumption [facility] for Milrinone, with probable referral to [facility].
[2023-06-20 17:18] LABS: Glucose - Point of Care 227 mg/dl (70-99)
[2023-06-20] MEDS: NOVOLOG FLEXPEN-LOW RESISTANCE 4 UNITS SC (17:33)
[2023-06-20 21:33] LABS: Glucose - Point of Care 222 mg/dl (70-99)
[2023-06-20] MEDS: LANTUS 0.100000000000000006 UNITS SC (22:02)
[2023-06-21] VITALS (13 sets, daily range): BP systolic 91–114; BP diastolic 62–82; BMI 30.9
[2023-06-21] MEDS: PRIMACOR 20 MG 100 IV (00:47)
--- NOTE | 2023-06-21 01:23 | PTCARENOTE ---
Pt had 7 run of VT. Per RN report this also happened during the day shift. Night [employer]MAN made aware, will follow with morning labs. Pt was asymptomatic appears to be resting comfortably, respirations even and unlabored. pt answering questions
appropriately.
[2023-06-21] MEDS: SYNTHROID 100 MCG PO (04:57)
[2023-06-21 05:07] LABS: % Basophils 0.9 % (0-2); % Eosinophils 3.7 % (0-6); % Immature Granulocytes 0.7 % (0-0.5); % Lymphocytes 10.6 % (20.5-51.1); % Monocytes 11.9 % (1.7-9.3); % Neutrophils 72.2 % (42.2-75.2); Absolute Basophils 0.1 10^3/uL (0-0.2); Absolute Eosinophils 0.4 10^3/uL (0-0.7); Absolute Immature Granulocytes 0.1 10^3/uL (0-0.05); Absolute Monocytes 1.2 10^3/uL (0.1-0.6); Hematocrit 33.1 % (39.0-52.0); Hemoglobin 11.3 g/dL (13.0-18.0); Mean Corp Hgb Conc. 34.1 g/dL (33.0-37.0); Mean Corpuscular Hgb 29.4 pg (27.0-31.0); Mean Platelet Volume 9.3 fL (7.4-10.4); Nucleated Red Blood Cells % 0 % (-); Platelet Count 450 10^3/uL (130-400); Red Blood Cell Count 3.85 10^6/uL (4.70-6.10); Red Cell Dist. Width 15.9 % (11.5-14.5); White Blood Cell Count 9.6 10^3/uL (4.8-10.8)
[2023-06-21 05:41] LABS: Blood Urea Nitrogen 88 mg/dl (9-20); Carbon Dioxide 29 mmol/L (22-30); Chloride 94 mmol/L (98-107); Estimated Creatinine Clearance 41 ml/min; Glucose 185 mg/dl (70-99); Magnesium 2.4 mg/dl (1.6-2.3); Potassium 4.1 mmol/L (3.5-5.1); Sodium 134 mmol/L (135-145); eGFR 32.23
[2023-06-21 07:51] LABS: Glucose - Point of Care 152 mg/dl (70-99)
--- NOTE | 2023-06-21 07:51 | W.PN.HOSP.TC ---
Today's Communication/Plan
-
Discharge
Assessment / Plan
Assessment / Plan
Gen-AAOx3, NAD
HEENT-NC, AT, anicteric, clear oral mm
Neck-supple
CV-reg, no M, +S1/S2
Lungs-clear B/L
Abd-soft, NT, ND
Ext-bilateral lower extremity edema
Musculoskeletal-no cyanosis, clubbing
Skin-warm and dry
Neuro-grossly non-focal
Psych-calm, cooperative
Ambulatory dysfunction, fall -multifactorial etiology including hyponatremia, deconditioning, etc. not orthostatic based on vital signs. Physical therapy recommends home health. He does have a walker at home.
Symptomatic hyponatremia -likely contributor to weakness and fall. Patient states he feels much stronger today. Sodium improved, 134 today. Received a dose of tolvaptan 06/18.
Anasarca
Heart Failure with Reduced Ejection Fraction
NICM EF 18% by echo at [place] 01/2023
Cor Pulmonale.
Currently weight is 103.4 kg, down since admission weight of 106. Discharge weight in May of this year was 102 kg.
-Managed by [place] cardiology, Dr. Almanza with IV milrinone infusion.
-On Milrinone Drip via Picc Line at home
-Recent ejection fraction was 18%
-Per patient and his , his most recent Lasix dose is 120 mg on Tue/Tue/Tue (3x per week)
-Continue home Lasix
-He continues to take Torsemide 120 mg PO BID -- continue
Recurrent ascites
-s/p paracentesis at for 7.1 L 05/06/23
-s/p paracentesis at for 2.6 L 05/10/23
-Re-assess for another paracentesis if needed
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
Patent ductus arteriosus, conservatively managed
Chronic atrial fibrillation, permanent
-Heart rate goal less than 110 bpm
-Continue home Eliquis 5 mg PO BID
-Continue Toprol XL 12.5 mg daily
-Continue Aldactone
Chronic Kidney Disease Stage 4
Chronic Cardiorenal Syndrome
Recurrent Profound Aoztemia
-Creatinine is at baseline
-Monitor BMP/renal function
-Patient will not be an appropriate dialysis candidate given advanced cardiomyopathy and chronic hemodynamic instability -- patient is aware
-Continue with diuresis
Hypothyroidism - TSH 18.60 -Home thyroid replacement dose was increased on admission due to the TSH, repeat thyroid labs in 4 weeks with primary care doctor.
DM2 with hyperglycemia - Hemoglobin A1c 7.7%. He is on glargine insulin 10 units at bedtime, lispro insulin 2 units AC at home. Received 10 units of Lantus last night, glucose 173 this morning on BMP, 228 last night. Continue home regimen of
insulin, add low resistance NovoLog scale.
Essential hypertension -Continue Toprol, Aldactone, Furosemide
Chronic leg wounds - looks much improved according to patient and
Wound care
Keep eye on WBC of 11.2, this might be a source of infection
Full code
Dispo -medically stable for discharge. Awaiting cardiology input. Recommend close outpatient follow-up.
32 minutes spent in discharge process.
Anticipated Discharge: Today
Subjective/Interval History
-
Date of Service: June 21, 2023
Patient seen and examined. No complaints. Eager to go home.
Objective Data
-
Labs:
Laboratory Results
06/21/23
04:55
WBC 9.6
Hgb 11.3 L
Hct 33.1 L
Plt Count 450 H
Sodium 134 L
Potassium 4.1
Chloride 94 L
Carbon Dioxide 29
BUN 88 H
Creatinine 2.2 H
Glucose 185 H
Calcium 9.0
Vital Signs:
Vital Signs
Temp Pulse Resp BP Pulse Ox
97.8 F 101 14 106/75 92
06/21/23 03:25 06/21/23 06:00 06/21/23 06:00 06/21/23 06:00 06/21/23 06:00
I&O
06/20/23 06/21/23 06/22/23
06:59 06:59 06:59
Intake Total 840 / 840 1452.2 / 1452.2
Output Total 5 / 2074 3705 / 3705
Balance -1235 / -1235 -2252.8 / -2252.8
Review of Systems
-
History Source: Patient
All other systems: Reviewed and negative
--- NOTE | 2023-06-21 07:58 | W.DS.TRANS ---
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
-
Discharge Instructions:
Discharge Diagnosis/Procedures Heart failure exacerbation, hyponatremia
Diet Diabetic, Carb Controlled,Other diet
Additional Diets 40 ounce daily fluid restriction
Activity With assistance
Driving Restrictions No driving
Bathing Restrictions None
Blood Work BMP next week with your primary care doctor
Thyroid blood work in 4 weeks with your primary
care doctor
Other Services VN
Instructions:
Stand-Alone Forms:
Changes to Home Medications: Yes
Discharge Medications:
DC Medications w/original date entered in [facility]
allopurinol 100 mg tablet 100 mg PO DAILY Gout 03/23/21
gabapentin 100 mg capsule 100 mg PO Q12H Pain 03/23/21
acetaminophen 325 mg tablet 650 mg PO DAILYPRN PRN mild pain 01/03/23
apixaban 5 mg tablet (Eliquis) 5 mg PO BID Blood Clot Prevention/Tx 01/03/23
insulin glargine 100 unit/mL subcutaneous solution (Lantus U-100 Insulin) 10 unit SC HS Diabetes 01/03/23
metoprolol succinate 25 mg tablet,extended release 24 hr 12.5 mg PO DAILY Heart Disease/Hypertension 01/03/23
therapeutic multivitamin 1 tab PO DAILY Supplement 01/03/23
insulin lispro 100 unit/mL subcutaneous pen (Admelog SoloStar U-100 Insulin lispro) 2 unit SC AC Diabetes 05/10/23
milrinone 78,000 mcg IV .SEE BELOW Heart Failure 05/10/23
omega-3 fatty acids 1,000 mg capsule 1,000 mg PO DAILY Supplement 05/10/23
torsemide 20 mg tablet 120 mg PO BID Fluid Retention/Swelling 05/10/23
docusate sodium 100 mg capsule 100 mg PO DAILY Constipation 06/18/23
furosemide 10 mg/mL injection solution 100 mg IV MOWEFR Fluid Retention/Swelling 06/18/23
potassium chloride 10 mEq capsule,extended release 40 meq PO DIRECTED Electrolyte Repletion 06/18/23
spironolactone 25 mg tablet 12.5 mg PO DAILY Heart Failure 06/18/23
levothyroxine 100 mcg tablet 100 mcg PO DAILY @ 0600 #30 tabs 06/21/23
Home Medication Changes
Levothyroxine dose increased
Pending Results: No
[2023-06-21] MEDS: NOVOLOG FLEXPEN 2 UNITS SC (08:29)
[2023-06-21] MEDS: NOVOLOG FLEXPEN-LOW RESISTANCE 1 UNITS SC (08:29)
[2023-06-21] MEDS: DEMADEX 120 MG PO (08:31)
[2023-06-21] MEDS: TOPROL XL 12.5 MG PO (08:31)
[2023-06-21] MEDS: COLACE 100 MG PO (08:31)
[2023-06-21] MEDS: ZYLOPRIM 100 MG PO (08:31)
[2023-06-21] MEDS: NEURONTIN 100 MG PO (08:32)
[2023-06-21] MEDS: THERAGRAN 1 TABLET PO (08:32)
[2023-06-21] MEDS: ALDACTONE 12.5 MG PO (08:33)
[2023-06-21] MEDS: ELIQUIS 5 MG PO (08:33)
--- NOTE | 2023-06-21 09:42 | W.PN.CARDCBS ---
Today's Communication / Plan
-
Overall remained stable. Continue home milrinone.
Continue torsemide 120 mg p.o. twice daily with extra IV Lasix 3 times a week to help augment diuresis.
Creatinine stable at 2.2.
Continue Toprol and Eliquis. A-fib is rate controlled.
Okay for discharge from cardiac standpoint and follow-up with [facility]
Impression / Plan
-
PCP: Dr. Nikolas Schmitz
Primary Search Engine Optimization Specialist: previously seen by Dr. 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 Now following with Dr. Felix Almanza at [place] /Dr. Hong Nino
Impression:
Mechanical fall
Hyponatremia, chronic
Acute on chronic heart failure with reduced ejection fraction
Nonischemic cardiomyopathy EF 18% by echo at [facility] 01/2023
Recurrent ascites, stable
Hypertension
Permanent A-fib on Eliquis; [id number]: 3 (heart failure, hypertension, age). On Eliquis 5 mg twice daily for stroke risk reduction
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
PA, conservatively managed
CKD stage IV
History of medication nonadherence
History of hyperkalemia
ECHO 09/2018: Severely dilated LV, EF 45% with regional variations, moderate LVH, dilated RV, severe biatrial dilatation, dilated coronary sinus, MAC, mild MR, aortic sclerosis, mild AR, trace TR, PAP 50 to 55 mmHg, dilated IVC, small pericardial
effusion, mildly dilated aortic root and proximal ascending aorta
Echo 08/25/22: EF 42%, global hypokinesis, stage 3 diastolic dysfunction, severely enlarged RV size with moderately reduced RV systolic function, severely dilated LA/RA, mild MR, mild TR with PAP 57-62 mmHg, small pericardial effusion, dilated aortic
root with Sinuses at 3.9 cm
Plan:
- Here for mechanical fall. Awaiting PT assessment. Telemetry stable. Blood pressure stable.
- Unfortunately appears to have end-stage heart failure. Currently on IV milrinone with upcoming appointment today or tomorrow at [facility] for which she will change timing.
� Recently discharged from [facility] for acute on chronic heart failure, reported aggressive diuresis with 6 L and 2 L paracentesis x 2 prior to discharge on 06/17/2023. In addition he tells me [facility] has
triggers for him to undergo paracentesis.
� Continue home dosing of milrinone infusion from what the patient tells me appears to be palliative. He also receives intermittent IV Lasix at home through infusion company.
� Continue current diuretics. Weight stable. Tells me dry weight is about 225 pounds.
� Creatinine stable at 2.2.
� Strict intake and output, daily weights
� Continue beta-harry for rate control and permanent A-fib, patient currently at goal less than 110 bpm
� On Samsca for hyponatremia, managed by nephrology
� Troponin peak 0.146. Likely nonischemic troponin elevation.
Progress Note - Search Engine Optimization Specialist
Subjective
Date of Service: June 21, 2023
Overall feeling better. Breathing at baseline.
Objective
Labs:
06/21/23 04:55
06/21/23 04:55
Labs
Hgb 11.3 g/dL (13.0-18.0) L 06/21/23 04:55
Hct 33.1 % (39.0-52.0) L 06/21/23 04:55
Plt Count 450 10^3/uL (130-400) H 06/21/23 04:55
Sodium 134 mmol/L (135-145) L 06/21/23 04:55
Potassium 4.1 mmol/L (3.5-5.1) 06/21/23 04:55
BUN 88 mg/dl (9-20) H 06/21/23 04:55
Creatinine 2.2 mg/dL (0.7-1.3) H 06/21/23 04:55
Glucose 185 mg/dl (70-99) H 06/21/23 04:55
Troponins
06/18/23 06/18/23 06/19/23
18:47 23:25 02:26
Troponin I Cancelled 0.128 H* 0.119 H*
06/19/23 06/20/23
20:05 04:25
Troponin I 0.125 H* 0.146 H*
Vital Signs and I&O:
Vital Signs
Temp Pulse Resp BP Pulse Ox
97.4 F 96 13 108/73 96
06/21/23 07:54 06/21/23 07:00 06/21/23 07:00 06/21/23 08:00 06/21/23 08:05
Vital Signs
Temp Pulse Resp BP Pulse Ox
97.4 F 96 13 108/73 96
06/21/23 07:54 06/21/23 07:00 06/21/23 07:00 06/21/23 08:00 06/21/23 08:05
Intake & Output
06/19/23 06/20/23 06/21/23 06/22/23
06:59 06:59 06:59 06:59
Intake Total 480 / 480 840 / 840 1452.2 / 1452.2 480 / 480
Output Total 500 / 500 2075 / 2075 3705 / 3705 360 / 360
Balance -20 / -20 -1235 / -1235 -2252.8 / -2252.8 120 / 120
Physical Exam
Physical Exam
GEN: No distress, awake, Ox3
HEENT: supple, anicteric, mmm
LUNGS: scatt rhonchi
CV: Reg, S1/S2, 1/6 syst LSB, no gallop
ABD: soft, BS+, NT/ND
EXT: No edema
NEURO: Gross non-focal
SKIN: No rash
--- NOTE | 2023-06-21 10:20 | CM ---
Patient seen at bedside, Patient states to transport home, Referral sent to [facility] for [facility]- fax [phone]. Patient completed IMM and signed form placed on chart. CM will continue to follow for discharge planning needs.
Plan; home with [facility].
== END 2023-06-21 12:21 | disposition home health service (06) | DRG 291 ==
LOC: IMU 18:00
PROVIDERS: Hospitalist; Nurse Practitioner Family; ADMITTING PHYSICIAN Internal Medicine; ATTENDING PHYSICIAN Hospitalist; CONSULT PHYSICIAN Specialist; EMERGENCY PHYSICIAN Emergency Medicine; FAMILY PHYSICIAN Family Medicine; OTHER PHYSICIAN Internal Medicine Cardiovascular Disease
DX: I13.0 Hypertensive heart and chronic kidney disease with heart failure and stage 1 through stage 4 chronic kidney disease, or unspecified chronic kidney disease (principal); I50.43 Acute on chronic combined systolic (congestive) and diastolic (congestive) heart failure; I48.21 Permanent atrial fibrillation; E87.1 Hypo-osmolality and hyponatremia; N18.4 Chronic kidney disease, stage 4 (severe); R18.8 Other ascites; Z79.01 Long term (current) use of anticoagulants; I25.10 Atherosclerotic heart disease of native coronary artery without angina pectoris; E87.5 Hyperkalemia; E11.22 Type 2 diabetes mellitus with diabetic chronic kidney disease; I42.8 Other cardiomyopathies
CPT/HCPCS: 70450; 71046; 80048; 81003; 81015; 82962; 83036; 83735; 84443; 84484; 85025; 85027; 87040; 93005; 97116; 97163; 97167; 99285; J2260

== ENCOUNTER 2023-06-24 21:14 | Inpatient (IN) | payer MEDICARE, OTHER, SELFPAY ==
[2023-06-24] VITALS (10 sets, daily range): BP systolic 106–124; BP diastolic 76–81; BMI 33.0; BMI 28.5
--- NOTE | 2023-06-24 18:36 | ED.GENMED ---
History of Present Illness
General
Chief Complaint: Change in Mental Status
Source: patient
Exam Limitations: clinical condition
Time Seen by Provider: 06/24/23 18:33
History of Present Illness
History of Present Illness:
See MDM
Past History
Past History
ED Past Medical History: Arrthythmia and CHF
Social History
Tobacco: Non-smoker
Alcohol: None
Drug: None
Personal:
Living: with family
Employment: Retired
Phy Exam
Physical Exam
Physical Exam:
See MDM
Course
Orders/Labs/Results
Orders:
Orders
06/24/23 18:35
EKG [Electrocardiogram (*1)] Urgent
Reason for Study: Fatigue / Weakness
EKG- Treatment ONCE
06/24/23 18:44
CR Chest Portable - 1 View Urgent
Comment:
Reason For Exam: altered, eval PICC placement
Reason Study Needs to be Portable: Patient Unstable
06/24/23 18:59
Urinalysis Reflex To Culture Urgent
Date Specimen was Collected: 06/24/23
Time Specimen was Collected: 18:47
Urine Microscopic Reflex Cult Urgent
06/24/23 19:06
Ammonia Urgent
Complete Blood Count/With Diff Urgent
Comprehensive Metabolic Panel Urgent
Magnesium Urgent
PTT Urgent
Prothrombin Time Urgent
06/24/23 19:46
Calcium Gluconate 1 gram/100mL [Calcium Gluconate] 1 gram in 100 ml IV ONCE
Furosemide [Lasix] 100 mg IV NOW STA
Insulin Human Regular [Novolin R] 10 units IV NOW STA
Sodium Zirconium Cyclosilicate [Lokelma] 10 gram PO NOW STA
06/24/23 19:47
Lactulose [Duphalac/Chronulac] 20 grams PO ONCE ONE
Abnormal Lab Results
06/24/23 06/24/23
18:59 19:06
RBC 4.03 L 10^6/uL
(4.70-6.10)
Hgb 11.7 L g/dL
(13.0-18.0)
Hct 33.6 L %
(39.0-52.0)
RDW 16.0 H %
(11.5-14.5)
Plt Count 478 H 10^3/uL
(130-400)
Abs Immat Gran (auto) 0.1 H 10^3/uL
(0-0.05)
Absolute Neuts (auto) 8.4 H 10^3/uL
(1.4-6.5)
Absolute Lymphs (auto) 0.5 L 10^3/uL
(1.2-3.4)
Absolute Monos (auto) 0.9 H 10^3/uL
(0.1-0.6)
Neutrophils % 83.9 H %
(42.2-75.2)
Lymphocytes % 5.4 L %
(20.5-51.1)
PT 19.6 H Sec
(11.4-14.6)
APTT 37.0 H Sec
(23.4-35.0)
Sodium 129 L mmol/L
(135-145)
Potassium 6.2 H* mmol/L
(3.5-5.1)
Chloride 96 L mmol/L
(98-107)
BUN 82 H mg/dl
(9-20)
Creatinine 2.8 H mg/dL
(0.7-1.3)
Glucose 178 H mg/dl
(70-99)
Magnesium 2.4 H mg/dl
(1.6-2.3)
Alkaline Phosphatase 167 H U/L
(38-126)
Ammonia 55 H umol/L
(9-30)
Total Protein 5.8 L g/dl
(6.3-8.2)
Albumin 3.3 L g/dl
(3.5-5.0)
Leukocyte Esterase Rfl Trace A
(Negative)
06/24/23 19:06
06/24/23 19:06
Vital Signs
Initial and Last Documented VS:
Initial Vital Signs
Temp Pulse Resp BP Pulse Ox
98.5 F 116 17 114/79 98
06/24/23 18:35 06/24/23 18:35 06/24/23 18:35 06/24/23 18:35 06/24/23 18:35
Last Documented Vital Signs
Temp Pulse Resp BP Pulse Ox
98.4 F 117 20 108/79 96
06/24/23 19:11 06/24/23 19:00 06/24/23 19:00 06/24/23 19:00 06/24/23 19:00
MDM/Problems Addressed
Differential Diagnosis Includes:
HPI and MDM Narrative:
68-year-old male presenting for evaluation of altered mental status. Patient states he feels confused. Patient unsure who called 911. Patient is a poor historian.
Prior records revealed that he was recently discharged where he was treated with acute on chronic CHF and symptomatic hyponatremia
At that time, patient did have a fall. He denies any recurrent falls
Will repeat blood work specifically looking at sodium levels and ammonia level
Patient currently on milrinone drip through PICC line
Physical exam
General: Sitting in bed comfortably. Appears confused
HEENT: protecting airway
Neck: supple
CV: No evidence of cyanosis
Resp: No accessory muscle use
Abd: Non-distended
Extremities: +2 pitting edema bilateral lower extremities. Small abrasions noted to both leg
Neuro: alert. Appears confused and disoriented
Psych: Flat affect
Skin: No rash noted
Problems Addressed including Acute and Chronic Conditions affecting care:
1. Altered mental status
Acuity: acute
Prognosis: unstable
Details: Given his history, will repeat sodium levels and will obtain ammonia level
2. Elevated ammonia
Acuity: acute
Prognosis: unstable
Details: Will give lactulose
3. Hyperkalemia
Acuity: acute
Prognosis: unstable
Details: Will give IV Lasix, IV insulin, Lokelma and calcium
Updates
Daughter at bedside. I discussed lab abnormalities consistent with mild hyponatremia, hyperkalemia and elevated ammonia. He does have EKG changes consistent with hyperkalemia. Will treat the hyperkalemia with Lasix, calcium, Lokelma and insulin.
Daughter states that he has had increasing doses of potassium to counterbalance his increased doses of Lasix.
I also discussed his elevated ammonia level. He does have a history of cirrhosis. However, daughter states that she was under the impression that lactulose at home was to be given as needed for constipation. He has not received lactulose at home
for quite a while, per daughter
Differential Diagnosis (but not limited to): Hyponatremia, hepatic encephalopathy
Testing considered: CT head
Drug therapy (if applicable): OTC meds, please see d/c instruction regarding Rx drugs
Amount and/or Complexity of Data Reviewed
Clinical info obtained from: EMS
External data reviewed: Recent admission for symptomatic hyponatremia
Labs I independently reviewed (but not limited to): Hyperkalemia, elevated ammonia
Radiology: X-ray independently reviewed: Chest x-ray with cardiomegaly. PICC line in place
Pulse Ox: not hypoxic
EKG independently reviewed: A-fib, normal axis, no STEMI
Gis Professor: A-fib
Critical Care: The high probability of a clinically significant, sudden or life threatening deterioration of the cardiovascular system(s) required my full and direct attention, intervention and personal management. The aggregate critical care time
was 35 minutes. This time is in addition to time spent performing reported procedures but includes the following:
[x] Data Review and interpretation
[x] Patient assessment and monitoring of vital signs
[x] Documentation
[x] Medication orders and management
Risk of Complication:
Social Determinants of health: Good social support
Discussed with other providers: Hospitalist
Escalation of Care includes Admit/Obs: Given the hyperkalemia and elevated ammonia level, will admit
Occasional wrong word or 'sound a like' substitutions may have occurred due to the inherent limitations of voice recognition software. Read the chart carefully and recognize, using context, where substitutions have occurred.
*Critical Care Note
Total Time (30-74mins, 75-104mins- exclusive of procedures): 35 min
ED Attending Note
-
Portions of this chart may have been created with voice recognition software.� Occasional wrong word or��sound alike� substitutions may have occurred due to the inherent limitations of voice recognition software.
Discharge Plan
Departure
Patient Disposition: Admit
Date of Disposition: 06/24/23
Time of Disposition: 19:53
Admit to: Telemetry
Presentation/result/management discussed w/ accepting MD/DO: Hospitalist
Discharge Problem:
Acute hepatic encephalopathy, Acute hyperkalemia
Prescriptions:
No Action
allopurinol 100 MG tablet
100 mg PO DAILY
gabapentin 100 MG capsule
100 mg PO Q12H
Patient Comments:
06/18/2023, paperwork from [facility].
acetaminophen 325 mg Tablet
650 mg PO DAILYPRN PRN (Reason: mild pain)
insulin glargine [Lantus U-100 Insulin] 100 unit/mL Solution
10 unit SC HS
Patient Comments:
06/18/2023, paperwork from [facility].
metoprolol succinate 25 mg Tablet Extended Release 24 Hr
12.5 mg PO DAILY
Eliquis 5 mg Tablet
5 mg PO BID
therapeutic multivitamin Tablet
1 tab PO DAILY
torsemide 20 mg Tablet
120 mg PO BID
omega-3 fatty acids 1,000 mg Capsule
1,000 mg PO DAILY
insulin lispro [Admelog SoloStar U-100 Insulin] 100 unit/mL Insulin Pen
2 unit SC AC
milrinone
78,000 mcg IV .SEE BELOW
Patient Comments:
06/18/2023, infuse 78,000 mcg into a venous catheter continuous. Infuse milrinone 0.25 mcg/kg/min IV continuously via CADD may pump. Dose based on weight of 104.3 kg. Pump settings: continuous rate = 7.9 ml/hr; vol = 382 ml. Bag contains 48
hour supply with overfill. Paperwork from [facility].
furosemide 10 mg/mL solution
100 mg IV MOWEFR
Patient Comments:
06/18/2023, infuse 10 ml into venous catheter 3 times a week. Immediately prior to dose, RN to withdraw Furosemide 100 mg/10 ml and administer IV push over 5-10 minutes three times weekly on MoWeFr. Paperwork from [facility].
potassium chloride 10 mEq capsule, extended release
40 meq PO DIRECTED
Patient Comments:
06/18/2023, pt. takes 4 tablets BID on SuTuThSa and 4 tablets TID on MoWeFr when he has his Furosemide IV.
docusate sodium 100 mg capsule
100 mg PO DAILY
spironolactone 25 mg Tablet
12.5 mg PO DAILY
levothyroxine 100 mcg tablet
100 mcg PO DAILY@0600
Referrals:
UNKNOWN - PT DOES,NOT KNOW [Family Provider] -
Interventions
Interventions:
*Risk Screen - Suicide Last Done: 06/24/23 18:41
*General Assessment Last Done: 06/24/23 18:41
*Neglect/Abuse Screening Last Done: 06/24/23 18:41
*ED COVID-19 Vaccine History Last Done: 06/24/23 18:41
ED- Pulmonary Assessment Last Done: 06/24/23 18:52
ED- Cardiac Assessment Last Done: 06/24/23 18:52
Discharge Date and Time
Print Language: HUNGARIAN
[2023-06-24 19:13] LABS: Urine Albumin Trace (Neg - Trace); Urine Bilirubin Negative (Negative); Urine Character Clear (Clear); Urine Color Yellow; Urine Glucose Negative (Negative); Urine Ketone Negative (Negative); Urine Leukocyte Trace (Negative); Urine Nitrite Negative (Negative); Urine Occult Blood Negative (Negative); Urine Urobilinogen Negative (Neg - 1+)
[2023-06-24 19:16] LABS: % Basophils 0.9 % (0-2); % Eosinophils 0.7 % (0-6); % Immature Granulocytes 0.5 % (0-0.5); % Lymphocytes 5.4 % (20.5-51.1); % Monocytes 8.6 % (1.7-9.3); % Neutrophils 83.9 % (42.2-75.2); Absolute Basophils 0.1 10^3/uL (0-0.2); Absolute Eosinophils 0.1 10^3/uL (0-0.7); Absolute Immature Granulocytes 0.1 10^3/uL (0-0.05); Absolute Lymphocytes 0.5 10^3/uL (1.2-3.4); Absolute Monocytes 0.9 10^3/uL (0.1-0.6); Absolute Neutrophils 8.4 10^3/uL (1.4-6.5); Hematocrit 33.6 % (39.0-52.0); Hemoglobin 11.7 g/dL (13.0-18.0); Mean Corp Hgb Conc. 34.8 g/dL (33.0-37.0); Mean Corpuscular Volume 83.4 fL (80.0-94.0); Mean Platelet Volume 9.2 fL (7.4-10.4); Nucleated Red Blood Cells % 0 % (-); Platelet Count 478 10^3/uL (130-400); Red Blood Cell Count 4.03 10^6/uL (4.70-6.10)
[2023-06-24 19:27] LABS: Ammonia 55 umol/L (9-30); INR 1.68; PT 19.6 Sec (11.4-14.6)
[2023-06-24 19:31] LABS: ALT (SGPT) 18 U/L (0-50); AST (SGOT) 38 U/L (17-59); Albumin 3.3 g/dl (3.5-5.0); Alkaline Phosphatase 167 U/L (38-126); Blood Urea Nitrogen 82 mg/dl (9-20); Calcium 9.4 mg/dl (8.4-10.2); Carbon Dioxide 22 mmol/L (22-30); Chloride 96 mmol/L (98-107); Estimated Creatinine Clearance 33 ml/min; Glucose 178 mg/dl (70-99); Magnesium 2.4 mg/dl (1.6-2.3); Potassium 6.2 mmol/L (3.5-5.1); Sodium 129 mmol/L (135-145); Total Bilirubin 1.3 mg/dl (0.2-1.3); Total Protein 5.8 g/dl (6.3-8.2); eGFR 24.13
[2023-06-24 19:42] LABS: Urine Red Blood Cell None Seen /HPF (0-2)
[2023-06-24] MEDS: DUPHALAC/CHRONULAC 20 GRAMS PO ×2 (20:08→23:22)
[2023-06-24] MEDS: LOKELMA 10 GRAM PO (20:10)
[2023-06-24] MEDS: NOVOLIN R 10 UNITS IV (20:11)
[2023-06-24] MEDS: LASIX 100 MG IV (20:17)
[2023-06-24] MEDS: CALCIUM GLUCONATE 100 IV (20:27)
--- NOTE | 2023-06-24 21:48 | HPS.HSE ---
Family Physician
-
Family Physician: NOT KNOW UNKNOWN - PT DOES
Chief Complaint
-
Confusion
History of Present Illness
Patient is a 68y M with PMH significant for end-stage cardiomyopathy, HFrEF, cardiogenic cirrhosis and permanent atrial fibrillation who presents to ED for evaluation of increased confusion, unsteady gait and decreased urine output. History
obtained primarily from the given patient confusion. Patient states that he feels 'fine' and denies any specific complaints. Patient was recently admitted here at 06/17 - 06/20 secondary to CHFrEF and hyponatremia. states that he was
feeling well for about two days. Yesterday he was noted to be significantly more weak and somewhat confused. She noted that his urine output significantly declined from his usual - despite continued compliance with his usual aggressive diuretic
regimen. Today, the patient was significantly more confused and seemed very unsteady on his feet and ultimately unable to stand unassisted at all. Patient was brought to the ED for further evaluation.
notes that patient typically has a BM every 1-3 days. He has an Rx for lactulose at home, but uses this only 'as needed' for constipation.
Medical History
Past Medical History
Past Medical History: Reports Other
Additional Past Medical History:
Congenital heart anomaly
PDA (patent ductus arteriosus)
Permanent Atrial Fibrillation
Hypertension
Non-Ischemic Cardiomyopathy
Chronic HFrEF
Cardiogenic Cirrhosis with Ascites
CKD IV
Hyponatremia
Hypothyroidism
DM-II
Hyperkalemia
Chronic Leg Wounds
Past Surgical History: Reports Other
Additional Past Surgical History:
PICC
Social History
Tobacco: Non-smoker
Alcohol: Occasional
Personal:
Living: With Family
Employment: Employed
Family History
Family History: Not pertinent
Allergies / Home Medications
Allergies reflects when Allergies were last updated in [facility].
Home Medications with original date entered in [facility]
Allergy/Medication List:
Allergies
Allergy/AdvReac Type Severity Reaction Status Date / Time
No Known Allergies Allergy Verified 06/24/23 18:35
Home Medications
allopurinol 100 mg tablet 100 mg PO DAILY Gout 03/23/21
gabapentin 100 mg capsule 100 mg PO Q12H Pain 03/23/21
acetaminophen 325 mg tablet 650 mg PO DAILYPRN PRN mild pain 01/03/23
apixaban 5 mg tablet (Eliquis) 5 mg PO BID Blood Clot Prevention/Tx 01/03/23
insulin glargine 100 unit/mL subcutaneous solution (Lantus U-100 Insulin) 10 unit SC HS Diabetes 01/03/23
metoprolol succinate 25 mg tablet,extended release 24 hr 12.5 mg PO DAILY Heart Disease/Hypertension 01/03/23
therapeutic multivitamin 1 tab PO DAILY Supplement 01/03/23
insulin lispro 100 unit/mL subcutaneous pen (Admelog SoloStar U-100 Insulin lispro) 2 unit SC AC Diabetes 05/10/23
milrinone 78,000 mcg IV .SEE BELOW Heart Failure 05/10/23
omega-3 fatty acids 1,000 mg capsule 1,000 mg PO DAILY Supplement 05/10/23
torsemide 20 mg tablet 120 mg PO BID Fluid Retention/Swelling 05/10/23
docusate sodium 100 mg capsule 100 mg PO DAILY Constipation 06/18/23
furosemide 10 mg/mL injection solution 100 mg IV MOWEFR Fluid Retention/Swelling 06/18/23
potassium chloride 10 mEq capsule,extended release 40 meq PO DIRECTED Electrolyte Repletion 06/18/23
spironolactone 25 mg tablet 12.5 mg PO DAILY Heart Failure 06/18/23
levothyroxine 100 mcg tablet 100 mcg PO DAILY@0600 06/24/23
Review of Systems
-
History Source: Patient and Family
A 12 point ROS was completed and negative except as noted: Yes
Constitutional: Reports Fatigue; Denies Fever or Chills
Respiratory: Reports Cough; Denies Hemoptysis or Trouble Breathing
Cardiac: Denies Chest Pain or Palpitations
Abdomen/GI: Denies Abdominal Pain, Nausea, Vomiting, Diarrhea, Bloody Stools or Black Stools
: Reports Other (Decreased urine output); Denies Dysuria or Frequency
Musculoskeletal: Reports Edema
Skin: Reports Other (LE wounds)
Neurological: Denies Headache
Psych: Reports Other (Confusion / disorientation)
Physical Exam
Vital Signs
Vital Signs
Temp Pulse Resp BP Pulse Ox
98.4 F 112 22 119/81 96
06/24/23 19:11 06/24/23 21:30 06/24/23 21:30 06/24/23 21:07 06/24/23 19:00
Physical Exam
General: Other (68y M chronically ill-appearing but in no acute distress. Awake and interactive but confused.)
HEENT: Moist mucous membranes and PERRLA
Respiratory: Other (Decreased BS at bases. No W/R/R.)
Cardiac: S1/S2, Irregular Rhythm and Murmur (III/ LEANN)
GI: Other (Distended / apparent ascites. No focal tenderness. )
Musculoskeletal: No Clubbing and Other (Cyanotic appearing digits b/l feet. Pulses are intact at DP / PT bilaterally. Scattered superficial wounds L > R LE. 2+ pitting edema.)
Neuro: Awake and Alert; No Oriented
Psych: Confused
Laboratory Results
-
06/24/23 19:06
06/24/23 19:06
Laboratory Results
PT 19.6 Sec (11.4-14.6) H 06/24/23 19:06
INR 1.68 06/24/23 19:06
APTT 37.0 Sec (23.4-35.0) H 06/24/23 19:06
Total Bilirubin 1.3 mg/dl (0.2-1.3) 06/24/23 19:06
AST 38 U/L (17-59) 06/24/23 19:06
ALT 18 U/L (0-50) 06/24/23 19:06
Alkaline Phosphatase 167 U/L (38-126) H 06/24/23 19:06
Impression/Plan
-
A/P: Patient is a 68y M with PMH significant for end-stage cardiomyopathy, CHFrEF, cardiogenic cirrhosis and ascites who presents to ED for evaluation of confusion and weakness for the past 2 days.
Acute Hepatic Encephalopathy
Cardiogenic Cirrhosis with Ascites
- Admit for further evaluation and treatment.
- Multiple active issues; however, tremulousness / asterixis on exam and elevated ammonia level suggest confusion is secondary to hepatic encephalopathy.
- Begin lactulose in standing doses and titrate for 2-3 loose BMs per day.
- Follow for clinical improvement and improvement in hyperammonemia.
- Treat underlying / associated conditions as outlined below.
- IR evaluation for possible paracentesis during this stay given increased abdominal distention / ascites accumulation.
Acute on Chronic HFrEF
End-Stage Non-Ischemic Cardiomyopathy
PDA
- Decreased urine output over the past few days despite aggressive diuretic regimen and home milrinone infusion.
- Increased ascites / abdominal distention. Weight appears to be significantly increased from recent discharge - if values are accurate / comparable.
- Hold current diuretic regimen and begin bumetanide infusion.
- Titrate for effective diuresis.
- Continue home milrinone infusion without changes.
- Cardiology evaluation for additional recommendations / changes.
- Follow I/Os, daily weights, urine output, etc.
Hyponatremia
- Acute on chronic. Suspect that current value is in part due to hypervolemia / CHF as noted above.
- Follow for improvement with diuresis.
- Nephrology evaluation for additional recommendations.
- Patient did require Samsca doses during recent admission.
Hyperkalemia
- Likely secondary to potassium supplementation and absence of effective diuresis / potassium wasting.
- Hold supplemental potassium for now.
- Temporizing measures performed in the ED.
- Repeat BMP later this evening.
- IV diuresis / infusion as noted above.
KATY on CKD IV
- SCr = 2.8 compared to recent discharge value of 2.2.
- Follow for changes with diuresis.
- Nephrology evaluation as noted above to assist with management / balancing of diuresis efforts.
Permanent Atrial Fibrillation
- Stable. Continue current med regimen including metoprolol and Eliquis.
DM-II
- Continue basal : bolus insulin regimen.
- SSI coverage as needed.
Hypothyroidism
- T4 dose increased during recent admission.
- Too early for repeat TFTs at this time.
Chronic LE Wounds
- Secondary to prior / marked edema - now much improved.
- Wound care eval during stay.
DVT Prophylaxis: On Eliquis
Code Status: Full
[2023-06-24 23:09] LABS: Glucose - Point of Care 131 mg/dl (70-99)
[2023-06-24] MEDS: LANTUS 0.100000000000000006 UNITS SC (23:21)
[2023-06-24] MEDS: NEURONTIN 100 MG PO (23:22)
[2023-06-24] MEDS: BUMEX 50 IV (23:37)
[2023-06-24] MEDS: PRIMACOR 20 MG 100 IV (23:52)
[2023-06-25] VITALS (98 sets, daily range): BP systolic 81–124; BP diastolic 56–109; PULSE 114; O2SAT 98; BMI 28.5
[2023-06-25 00:05] LABS: Blood Urea Nitrogen 81 mg/dl (9-20); Calcium 9.5 mg/dl (8.4-10.2); Carbon Dioxide 22 mmol/L (22-30); Chloride 95 mmol/L (98-107); Estimated Creatinine Clearance 32 ml/min; Glucose 131 mg/dl (70-99); Potassium 5.9 mmol/L (3.5-5.1); Sodium 129 mmol/L (135-145); eGFR 23.13
--- NOTE | 2023-06-25 00:27 | PTCARENOTE ---
Late note due to patient care. Patient alert to self, otherwise confused. at bedside able to answer a few admission questions. Pt had home milrinone gtt infusion, switched to our milrinone and pump, will send machine home with . Pt also has
PICC line that was placed before this hospitalization, the PICC team did inspect and Xray was obtained in the ED for placement. Bumex gtt started per order. Pt on room air, lungs are diminished, fine crackles in the bases. Abdomen is large,
distended and full. Wounds present on admission. Left buttock has stage 2, covered with with foam, sacrum red and blanchable, covered with protective foam. Left curtis has 2 open wounds draining serosanguineous fluid, xeroform and foam placed on both.
B/L feet have multiple small dry and necrotic wounds scattered mainly on the toes.
[2023-06-25 03:45] LABS: Hematocrit 34.5 % (39.0-52.0); Hemoglobin 11.7 g/dL (13.0-18.0); Mean Corp Hgb Conc. 33.9 g/dL (33.0-37.0); Mean Corpuscular Hgb 29.5 pg (27.0-31.0); Mean Corpuscular Volume 86.9 fL (80.0-94.0); Mean Platelet Volume 9.4 fL (7.4-10.4); Platelet Count 467 10^3/uL (130-400); Red Blood Cell Count 3.97 10^6/uL (4.70-6.10); Red Cell Dist. Width 15.8 % (11.5-14.5); White Blood Cell Count 10.9 10^3/uL (4.8-10.8)
[2023-06-25 03:57] LABS: Ammonia 21 umol/L (9-30)
[2023-06-25 04:25] LABS: ALT (SGPT) 21 U/L (0-50); AST (SGOT) 40 U/L (17-59); Albumin 3.2 g/dl (3.5-5.0); Alkaline Phosphatase 169 U/L (38-126); Blood Urea Nitrogen 81 mg/dl (9-20); Calcium 9.3 mg/dl (8.4-10.2); Carbon Dioxide 21 mmol/L (22-30); Chloride 97 mmol/L (98-107); Direct Bilirubin 0.8 mg/dl (0.0-0.4); Estimated Creatinine Clearance 32 ml/min; Glucose 167 mg/dl (70-99); Magnesium 2.4 mg/dl (1.6-2.3); Phosphorus 5.8 mg/dl (2.5-4.5); Potassium 5.8 mmol/L (3.5-5.1); Sodium 130 mmol/L (135-145); Total Bilirubin 1.3 mg/dl (0.2-1.3); Total Protein 5.8 g/dl (6.3-8.2); eGFR 23.13
--- NOTE | 2023-06-25 05:00 | PTCARENOTE ---
Pt remains on Milrinone and Bumex gtt, no urine out, then pt was incontinent of urine and saturated the bed. post void bladder scan inconclusive due to ascites in abdomen. Johnson placed for critical I&Os. Pt remains alert yet confused conversation.
Assessment unchanged.
[2023-06-25] MEDS: SYNTHROID 100 MCG PO (05:58)
--- NOTE | 2023-06-25 07:03 | CON.INTV ---
Consultation
Consultation Request
Date/Time Consultation Requested: 06-25-23
Date/Time Consultation Performed: 06-25-23
Requesting Provider: Hospitalist Jaspreet
Performing Provider: Dr Pedraza
Reason for Consultation: heart failure
Medical History
-
Chief Complaint: weakness
History of Present Illness:
Mr Heriberto Sousa is a 68/M readm 06-23 with worsening weakness and confusion, reported decreasing UO in spite of diuretic regimen and inability to stand up without help.
Recent adm [facility] 06-17 to after a mechanical fall, symptomatic hyponatremia, ac/chronic HFrEF, CHD with AV fistula from LCx to CS, CKD, anasarca, recurrent ascites, chronic AFib, hyponatremia was managed with fluid restriction and tolvaptan,
continued on outpatient dose of diuretics, L-thyroxine dose increased due to ^TSH
^wt 10 lbs since recent adm in spite of compliance to diuretics
Still confused on interview at ICU consultation this am. In no resp distress on RA
Past Medical History
Past Medical History: Other (see A&P for PMH/PSH)
Social History
Tobacco: Non-smoker
Alcohol: Occasional
Personal:
Living: With Family
Employment: Employed
Family History
Family History: Reviewed & Not Pertinent
Allergies / Home Medications
Allergies
Allergy/AdvReac Type Severity Reaction Status Date / Time
No Known Allergies Allergy Verified 06/24/23 18:35
Home Medications
�Medication �Instructions �Recorded �Confirmed �Last Taken �Type
allopurinol 100 mg tablet 100 mg PO DAILY Gout 03/23/21 06/24/23 06/18/23 History
gabapentin 100 mg capsule 100 mg PO Q12H Pain 03/23/21 06/24/23 06/18/23 History
acetaminophen 325 mg tablet 650 mg PO DAILYPRN PRN mild pain 01/03/23 06/24/23 06/01/23 History
apixaban 5 mg tablet (Eliquis) 5 mg PO BID Blood Clot 01/03/23 06/24/23 06/18/23 History
Prevention/Tx
insulin glargine 100 unit/mL 10 unit SC HS Diabetes 01/03/23 06/24/23 06/17/23 History
subcutaneous solution (Lantus
U-100 Insulin)
metoprolol succinate 25 mg 12.5 mg PO DAILY Heart 01/03/23 06/24/23 06/18/23 History
tablet,extended release 24 hr Disease/Hypertension
therapeutic multivitamin 1 tab PO DAILY Supplement 01/03/23 06/24/23 06/18/23 History
insulin lispro 100 unit/mL 2 unit SC AC Diabetes 05/10/23 06/24/23 06/18/23 History
subcutaneous pen (Admelog SoloStar
U-100 Insulin lispro)
milrinone 78,000 mcg IV .SEE BELOW 05/10/23 06/24/23 06/18/23 History
Heart Failure
omega-3 fatty acids 1,000 mg 1,000 mg PO DAILY Supplement 05/10/23 06/24/23 06/18/23 History
capsule
torsemide 20 mg tablet 120 mg PO BID Fluid 05/10/23 06/24/23 06/17/23 History
Retention/Swelling
docusate sodium 100 mg capsule 100 mg PO DAILY Constipation 06/18/23 06/24/23 06/18/23 History
furosemide 10 mg/mL injection 100 mg IV MOWEFR Fluid 06/18/23 06/24/23 Unknown History
solution Retention/Swelling
potassium chloride 10 mEq 40 meq PO DIRECTED Electrolyte 06/18/23 06/24/23 Unknown History
capsule,extended release Repletion
spironolactone 25 mg tablet 12.5 mg PO DAILY Heart Failure 06/18/23 06/24/23 06/18/23 History
levothyroxine 100 mcg tablet 100 mcg PO DAILY@0600 06/24/23 06/24/23 Unknown History
Review of Systems
-
History Source: Patient
All other systems: Negative unless noted (noted still confused)
Constitutional: Fatigue
Neuro: Weakness
Vitals / Labs / Diagnostic Testing
Vital Signs
Temp Pulse Resp BP Pulse Ox
97.0 F 123 21 101/79 98
06/25/23 03:42 06/25/23 06:00 06/25/23 06:00 06/25/23 06:00 06/25/23 06:00
Lab Data
06/25/23 03:39
06/25/23 03:39
Laboratory Results
06/24/23
19:06
PT 19.6 H
INR 1.68
APTT 37.0 H
Diagnostic Testing:
Physical Exam
-
HEENT: Normocephalic and Moist Mucous Membranes
Cardiovascular: Regular Rhythm, Peripheral Edema (FENG), Calf Tenderness (n), JVD (n) and Other (RUE PICC)
Respiratory: Wheeze (n), Rales and Non-Labored Respirations
GI: Soft, Distended and Non Tender
Neurology: Awake and Other (confused)
Skin: Warm
General: Respiratory Distress (n)
Assessment
-
Assessment:
Mr Heriberto Sousa is a 68/M readm 06-23 with worsening weakness and confusion, reported decreasing UO in spite of diuretic regimen and inability to stand up without help. Recent adm [facility] 06-17 to 14 after a mechanical fall, symptomatic
hyponatremia, ac/chronic HFrEF, CHD with AV fistula from LCx to CS, CKD, anasarca, recurrent ascites, chronic AFib, hyponatremia was managed with fluid restriction and tolvaptan, continued on outpatient dose of diuretics, L-thyroxine dose increased
due to ^TSH
Impression:
Ac/chronic HFrEF
Outpatient milrinone gtt via RUE PICC
Cardiac cirrhosis
Hepatic encephalopathy
Mild chronic hyponatremia
Hyperkalemia
Transient mild hyperammonemia
Conditions INCIDENT MANAGER:
Chronic HFrEF. TTE August 2012 with LVEF 42%, stage 3 DD, severely enlarged RV with moderately reduced systolic function, mild MR//AR/TR, ePAP 57-62, small pericardial effusion
CHD with AV fistula from LCx to CS, PDA
CKD
Anasarca, recurrent ascites
Chronic AFib on apixaban
Hypothyroidism
Plan:
O2 protocol if needed
Currently on RA, POx 97% at rest
CXR 06-23, portable, pulm vasc congestion, cardiomegaly, RUE PICC
Keep asp precs
IS if able
On chronic milrinone and diuretics
Noted ^wt of 10 lbs since recent adm
Continue milrinone gtt
Continue bumetadine gtt
Continue oral metoprolol
Holding spironolactony
Eventual return to oral furosemide and torsemide
Follow UO, renal function
Johnson placed on adm
Continue lactulose
Monitor BM frequency
Monitor MS
Chronic ascites s/p multiple paracentesis
For paracentesis by IRad
Continue apixaban (AFib)
Continue TRT
Cautious use of gabapentin, follow MS
Insulin glargine and aspart SS
Critical care time: 40 min
D/w PULP DRIER FIRER
[2023-06-25] MEDS: BUMEX 50 IV ×2 (07:10→19:03)
--- NOTE | 2023-06-25 07:10 | PTCARENOTE ---
this RN heard the pt yell out, 'Help help please help me i pooped, i pooped', this RN entered the pts room and the pt stated to this RN, 'I pooped can you please change me', this RN with the assistance of PCT cleaned the pt up, changed the pts
brief, pad, gown, and linens, the pt was repositioned in bed for comfort, no complaints offered at this time, will continue to monitor the pt closely
--- NOTE | 2023-06-25 07:18 | CON.CAR ---
Consultation
Consultation Request
Date/Time Consultation Requested: 06/24/23
Date/Time Consultation Performed: 06/25/23
Requesting Provider: González
Performing Provider: Angie
Reason for Consultation: CHF
Medical History
-
Chief Complaint: AMS
History of Present Illness:
Patient came to [facility] last night with altered mental status. Recently hospitalized at from 06/17-06/20 after a mechanical fall and decompensate HF.
Now admitted to ICU with decompensated HF and AMS likely d/t hepatic encephalopathy.
After a few days at home it seems that his mental status worsened and he was confused last evening. Ammonia level was elevated to 55 and he was treated with lactulose and this value normalized.
There was also concern for volume overload. His weight is up >10lbs from discharge and abd was distended concerning for recurrent ascites. Bumex gtt was started for diuresis. He was maintained on home milrinone dose.
Seems to be oriented this morning, but remains somewhat drowsy. Tells me his breathing is comfortable, he is on room air not requiring supplemental oxygen. Does feel that his abdomen is more distended and lower extremities are more swollen.
PMH:
Chronic HFrEF, stage D on home milrinone
NICM EF 18% by echo at [place] 01/2023
Recurrent ascites
s/p paracentesis at for 7.1 L 05/06/23
s/p paracentesis at for 2.6 L 05/10/23TN
Permanent atrial fibrillation
Chronic Eliquis OAC
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
Patent ductus arteriosus, conservatively managed
CKD 4
Past Medical History
Past Medical History: Other (as above)
Past Surgical History: Other (as above)
Social History
Tobacco: Non-Smoker
Alcohol: Occasional
Personal:
Family History
Family History: Reviewed & Not Pertinent
Allergies / Home Medications
Allergy/AdvReac Type Severity Reaction Status Date / Time
No Known Allergies Allergy Verified 06/24/23 18:35
�Medication �Instructions �Recorded �Confirmed �Type
allopurinol 100 mg tablet 100 mg PO DAILY Gout 03/23/21 06/24/23 History
gabapentin 100 mg capsule 100 mg PO Q12H Pain 03/23/21 06/24/23 History
acetaminophen 325 mg tablet 650 mg PO DAILYPRN PRN mild pain 01/03/23 06/24/23 History
apixaban 5 mg tablet (Eliquis) 5 mg PO BID Blood Clot 01/03/23 06/24/23 History
Prevention/Tx
insulin glargine 100 unit/mL 10 unit SC HS Diabetes 01/03/23 06/24/23 History
subcutaneous solution (Lantus
U-100 Insulin)
metoprolol succinate 25 mg 12.5 mg PO DAILY Heart 01/03/23 06/24/23 History
tablet,extended release 24 hr Disease/Hypertension
therapeutic multivitamin 1 tab PO DAILY Supplement 01/03/23 06/24/23 History
insulin lispro 100 unit/mL 2 unit SC AC Diabetes 05/10/23 06/24/23 History
subcutaneous pen (Admelog SoloStar
U-100 Insulin lispro)
milrinone 78,000 mcg IV .SEE BELOW 05/10/23 06/24/23 History
Heart Failure
omega-3 fatty acids 1,000 mg 1,000 mg PO DAILY Supplement 05/10/23 06/24/23 History
capsule
torsemide 20 mg tablet 120 mg PO BID Fluid 05/10/23 06/24/23 History
Retention/Swelling
docusate sodium 100 mg capsule 100 mg PO DAILY Constipation 06/18/23 06/24/23 History
furosemide 10 mg/mL injection 100 mg IV MOWEFR Fluid 06/18/23 06/24/23 History
solution Retention/Swelling
potassium chloride 10 mEq 40 meq PO DIRECTED Electrolyte 06/18/23 06/24/23 History
capsule,extended release Repletion
spironolactone 25 mg tablet 12.5 mg PO DAILY Heart Failure 06/18/23 06/24/23 History
levothyroxine 100 mcg tablet 100 mcg PO DAILY@0600 06/24/23 06/24/23 History
Review of Systems
-
History Source: Patient
All other systems: Negative unless noted
Physical Exam
Vital Signs
Temp Pulse Resp BP Pulse Ox
97.0 F 123 21 101/79 98
06/25/23 03:42 06/25/23 06:00 06/25/23 06:00 06/25/23 06:00 06/25/23 06:00
Lab Results
06/25/23 03:39
06/25/23 03:39
Physical Exam
General: Well Developed
HEENT: Normocephalic
Respiratory: Clear
Cardiac: S1/S2, Irregular Rhythm and Murmur (2/6 LEANN at the base)
GI: Distended
Musculoskeletal: Edema (tense LE edema with overlying erythema)
Skin: Warm
Neuro: Awake, Alert and Nonfocal/Grossly Intact
Psych: Calm
Impression / Plan
-
PCP: Dr. Nikolas Schmitz
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 Now following with Dr. Felix Almanza at [place] /Dr. Hong Nino
Impression:
TME - possibly due to hepatic encephalopathy
Acute on chronic heart failure with reduced ejection fraction, stage D on home milrinone
Nonischemic cardiomyopathy EF 18% by echo at [facility] 01/2023
Recurrent ascites, cirrhosis
Permanent A-fib on Eliquis; [id number]: 3 (heart failure, hypertension, age). On Eliquis 5 mg twice daily for stroke risk reduction
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
Hyponatremia, chronic
Hypertension
PA, conservatively managed
CKD stage IV
History of hyperkalemia
ECHO 09/2018: Severely dilated LV, EF 45% with regional variations, moderate LVH, dilated RV, severe biatrial dilatation, dilated coronary sinus, MAC, mild MR, aortic sclerosis, mild AR, trace TR, PAP 50 to 55 mmHg, dilated IVC, small pericardial
effusion, mildly dilated aortic root and proximal ascending aorta
Echo 08/25/22: EF 42%, global hypokinesis, stage 3 diastolic dysfunction, severely enlarged RV size with moderately reduced RV systolic function, severely dilated LA/RA, mild MR, mild TR with PAP 57-62 mmHg, small pericardial effusion, dilated aortic
root with Sinuses at 3.9 cm
Plan:
- Presenting with AMS, likely TME in setting of cirrhosis, seems to be improving this morning
- Also volume overloaded on exam consistent with acute on chronic HF. Known stage D HF on home milrinone, following with [facility].
- Weight is up significantly, abd distended and LE edema present, but not requiring supplemental O2 most consistent with R>L HF
- Agree with bumex gtt to improve volume status
- Follow Cr, electrolytes, I/O closely, continue daily weights
- Paracentesis may provide some symptomatic relief
- Cont current milrinone dose, could be uptitrated in the event he does not improve clinically
-AFib is permanent
-Cont home low dose metoprolol for rate control, may need to tolerate slightly higher HRs in the near term
-Cont Eliquis for cardioembolic ppx
We will continue to follow
Data Reviewed
-
EKG: Tracing Personally Visualized and interpreted
Radiology: Image Personally Visualized and interpreted
Medical Tests (Nuc Med, Echo etc): Report Reviewed by me
Labs: Labs Reviewed by me
Old Records: Reviewed
[2023-06-25 07:46] LABS: Glucose - Point of Care 149 mg/dl (70-99)
--- NOTE | 2023-06-25 07:55 | PTCARENOTE ---
loan supervisor currently at the pts bedside with this RN
[2023-06-25] MEDS: NOVOLOG FLEXPEN-LOW RESISTANCE SC (08:13)
--- NOTE | 2023-06-25 08:15 | PTCARENOTE ---
the pt was received from previous unscrambler RN, the pt is currently sleeping in stretcher in the lowest position, side rails up, HOB elevated, call evans within reach, the pt is currently on fall precautions and has a RUE Limb Alert, the pt is
currently AAO and confused, the pt awakens to voice, generalized weakness, the pt has been bed rest however this RN will attempt to increase the pts activity today with the approval of Dr. Resendiz, neurological assessment intact other manzo, the pt
is lethargic, Sinus tachycardic on the monitor at 115-120's, palpable pulses, b/l lower extremity edema present, no c/o chest pain currently, the pt is currently on RA Sp02 98%, no c/o SOB, expiratory wheeze present, no cough present, abdomen
currently distended, round, and non tender, bowel sounds present, no c/o N/V, pt does have frequent bowel movements, indwelling urinary catheter [address], draining clear yellow urine, indwelling catheter care performed and is hanging at
the side of the pts bed, sacral area and left buttock area red with left buttock having a pressure site in place, foam in place, left curtis ulcer in place with dressing, b/l lower legs are dusky and reddened and provider was notified, b/l legs
elevated on pillows, RUE DL PICC has positive blood return and was flushed, the pt currently has Milrinone gtt running at 0.25mcg/kg/min and Bumex gtt currently running at 1mg/hour, will continue to monitor the pt closely
[2023-06-25] MEDS: DUPHALAC/CHRONULAC 20 GRAMS PO ×3 (08:20→22:06)
[2023-06-25] MEDS: ZYLOPRIM 100 MG PO (08:20)
[2023-06-25] MEDS: ELIQUIS 5 MG PO ×2 (08:20→19:40)
[2023-06-25] MEDS: TOPROL XL 12.5 MG PO (08:20)
--- NOTE | 2023-06-25 08:51 | W.PN.HOSP.TC ---
Today's Communication/Plan
-
Continue current care
Assessment / Plan
Assessment / Plan
Gen-awake but not alert, NAD, obese
HEENT-NC, AT, anicteric, clear oral mm
Neck-supple
CV-reg, no M, +S1/S2
Lungs-clear B/L
Abd-soft, NT, ND
Ext-bilateral lower extremity edema, hyperpigmentation
Musculoskeletal-no cyanosis, clubbing
Skin-warm and dry
Neuro-grossly non-focal
Psych-calm, cooperative
Acute TME -possible hepatic encephalopathy versus other causes. Continue lactulose. Ammonia level 55 on admission.
Anasarca -discharge weight on June 20 was 103 kg, currently 109 kg today. Etiology of anasarca multifactorial including acute on chronic heart failure, cirrhosis, renal failure, etc.
Hyperkalemia -due to KATY, CKD, spironolactone, potassium supplementation. Hold spironolactone and potassium, give another dose of Lokelma. Potassium 5.8 today, 6.2 on admission.
Cardiac cirrhosis with recurrent ascites -last paracentesis was May 31. IR consulted.
Acute on chronic heart failure reduced EF/nonischemic cardiomyopathy -on chronic home milrinone infusion. Started on Bumex drip, continue, cardiology following.
KATY on CKD 4 -creatinine up to 2.9 today. Discharge creatinine was 2.2. Nephrology consulted. Suspect cardiorenal syndrome in the setting of acute on chronic heart failure exacerbation.
Chronic hyponatremia -sodium stable at 130.
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
Patent ductus arteriosus, conservatively managed.
Permanent atrial fibrillation -on Eliquis.
Hypothyroidism -on levothyroxine.
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
Full code
Overall prognosis is poor as he has had recurrent hospitalizations. Hospice can be considered if patient and deem appropriate and in line with her goals of care, otherwise we will continue aggressive medical therapy and it is virtually
guaranteed that he will continue to be rehospitalized for various reasons.
Anticipated Discharge: > 48 hours
Subjective/Interval History
-
Date of Service: June 25, 2023
Patient seen and examined. Denies shortness of breath. Looks confused. Minimal interaction.
Objective Data
-
Labs:
Laboratory Results
06/24/23 06/25/23
23:34 03:39
WBC 10.9 H
Hgb 11.7 L
Hct 34.5 L
Plt Count 467 H
Sodium 129 L 130 L
Potassium 5.9 H 5.8 H
Chloride 95 L 97 L
Carbon Dioxide 22 21 L
BUN 81 H 81 H
Creatinine 2.9 H 2.9 H
Glucose 131 H 167 H
Calcium 9.5 9.3
Total Bilirubin 1.3
AST 40
ALT 21
Alkaline Phosphatase 169 H
Vital Signs:
Vital Signs
Temp Pulse Resp BP Pulse Ox
97.5 F 112 21 107/69 98
06/25/23 07:00 06/25/23 08:20 06/25/23 06:00 06/25/23 08:20 06/25/23 06:00
I&O
06/24/23 06/25/23 06/26/23
06:59 06:59 06:59
Intake Total 332.6 / 332.6
Output Total 700 / 700
Balance -367.4 / -367.4
Review of Systems
-
Unable to obtain full review of systems at this time due to: Acuity
History Source: Patient
All other systems: Reviewed and negative
[2023-06-25] MEDS: LOKELMA 10 GRAM PO (09:00)
[2023-06-25] MEDS: NEURONTIN 100 MG PO ×2 (10:53→22:06)
--- NOTE | 2023-06-25 11:14 | PTCARENOTE ---
the pt is resting in stretcher in the lowest position, side rails up, call evans within reach, HOB elevated, VS WNL, the pt has not had another bowel movement, tolerating oral medications, physical therapy spoke to this RN and they will come to see
the pt shortly, will continue to monitor the pt closely
--- NOTE | 2023-06-25 11:38 | PTCARENOTE ---
physical therapy currently at the pts bedside along with the pts
[2023-06-25] MEDS: PRIMACOR 20 MG 100 IV ×2 (11:39→23:46)
--- NOTE | 2023-06-25 11:54 | PTCARENOTE ---
physical therapy got the pt up, assisted the pt with ambulating and assisted the pt into the chair, the pt is comfortable in the chair currently, SUNNI IZAGUIRRE, will continue to monitor the pt closely
[2023-06-25 12:04] LABS: Glucose - Point of Care 150 mg/dl (70-99)
[2023-06-25] MEDS: NOVOLOG FLEXPEN-LOW RESISTANCE 1 UNITS SC (12:20)
--- NOTE | 2023-06-25 13:13 | W.CON.NEPH ---
Consultation
-
Date/Time Consultation Requested: 06/24/2023 22:35
Date/Time Consultation Performed: 06/25/2023 1:13PM
Requesting Provider: González Alvarado
Performing Provider: Marie Kearney
Reason for Consultation: KATY
Medical History
-
Chief Complaint: KATY
History of Present Illness:
Mr. Sousa is a 68YOM with PMH for end stage cardiomyopathy b/c cardiogenic cirrhosis and Afib who presents to the hospital for increased confusion, unsteady gait and decreased UOP.
History obtained primarily from the at bedside given patient confusion. Patient states that he feels 'fine' and denies any specific complaints. Patient was recently admitted here at 06/17 - 06/20 secondary to CHFrEF and hyponatremia.
Nephrology was consulted at that time for hyponatremia and ?KATY. He was discharged with a Cr of 2.2 (bl around 2.4-3) and normalized Na.
states that he was feeling well for about two days. Yesterday he was noted to be significantly unsteady on his feet and ultimately unable to stand unassisted at all. Patient was brought to the ED for further evaluation.
notes that patient typically has a BM every 1-3 days. He has an Rx for lactulose at home, but uses this only 'as needed' for constipation.
Past Medical History
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
Azotemia in setting of cardiorenal state
Chronic hyponatremia
Chronic hyponatremia
Hyperkalemia
NICM, EF 18% with enlarged and moderately reduced RV systolic function
Recurrent Ascites
Hypertension now with relative hypotension
Permanent atrial fibrillation
Chronic anticoagulation with Eliquis
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
Patent ductus arteriosus, conservatively managed at [place]
History of noncompliance
Diabetes mellitus type 2
Anemia, multifactorial
Social History
Tobacco: Non-Smoker
Alcohol: Daily
Drug: None
Personal:
Living: With Family
Family History
Family History: Not Pertinent
Allergies / Home Medications
Allergy/AdvReac Type Severity Reaction Status Date / Time
No Known Allergies Allergy Verified 06/24/23 18:35
�Medication �Instructions �Recorded �Confirmed �Type
allopurinol 100 mg tablet 100 mg PO DAILY Gout 03/23/21 06/24/23 History
gabapentin 100 mg capsule 100 mg PO Q12H Pain 03/23/21 06/24/23 History
acetaminophen 325 mg tablet 650 mg PO DAILYPRN PRN mild pain 01/03/23 06/24/23 History
apixaban 5 mg tablet (Eliquis) 5 mg PO BID Blood Clot 01/03/23 06/24/23 History
Prevention/Tx
insulin glargine 100 unit/mL 10 unit SC HS Diabetes 01/03/23 06/24/23 History
subcutaneous solution (Lantus
U-100 Insulin)
metoprolol succinate 25 mg 12.5 mg PO DAILY Heart 01/03/23 06/24/23 History
tablet,extended release 24 hr Disease/Hypertension
therapeutic multivitamin 1 tab PO DAILY Supplement 01/03/23 06/24/23 History
insulin lispro 100 unit/mL 2 unit SC AC Diabetes 05/10/23 06/24/23 History
subcutaneous pen (Admelog SoloStar
U-100 Insulin lispro)
milrinone 78,000 mcg IV .SEE BELOW 05/10/23 06/24/23 History
Heart Failure
omega-3 fatty acids 1,000 mg 1,000 mg PO DAILY Supplement 05/10/23 06/24/23 History
capsule
torsemide 20 mg tablet 120 mg PO BID Fluid 05/10/23 06/24/23 History
Retention/Swelling
docusate sodium 100 mg capsule 100 mg PO DAILY Constipation 06/18/23 06/24/23 History
furosemide 10 mg/mL injection 100 mg IV MOWEFR Fluid 06/18/23 06/24/23 History
solution Retention/Swelling
potassium chloride 10 mEq 40 meq PO DIRECTED Electrolyte 06/18/23 06/24/23 History
capsule,extended release Repletion
spironolactone 25 mg tablet 12.5 mg PO DAILY Heart Failure 06/18/23 06/24/23 History
levothyroxine 100 mcg tablet 100 mcg PO DAILY@0600 Thyroid 06/24/23 06/24/23 History
Review of Systems
-
History Source: Patient and Family
All other systems: Negative unless noted
Constitutional: Fatigue
Physical Exam
Vital Signs
Vital Signs
Temp Pulse Resp BP Pulse Ox
98.5 F 118 17 106/68 98
06/25/23 12:00 06/25/23 12:30 06/25/23 12:30 06/25/23 12:30 06/25/23 12:30
Lab Results
WBC 10.9 10^3/uL (4.8-10.8) H 06/25/23 03:39
RBC 3.97 10^6/uL (4.70-6.10) L 06/25/23 03:39
Hgb 11.7 g/dL (13.0-18.0) L 06/25/23 03:39
Hct 34.5 % (39.0-52.0) L 06/25/23 03:39
Plt Count 467 10^3/uL (130-400) H 06/25/23 03:39
Sodium 130 mmol/L (135-145) L 06/25/23 03:39
Potassium 5.8 mmol/L (3.5-5.1) H 06/25/23 03:39
Chloride 97 mmol/L (98-107) L 06/25/23 03:39
Carbon Dioxide 21 mmol/L (22-30) L 06/25/23 03:39
BUN 81 mg/dl (9-20) H 05/18/24 03:39
Creatinine 2.9 mg/dL (0.7-1.3) H 06/25/23 03:39
eGFR 23.13 06/25/23 03:39
Glucose 167 mg/dl (70-99) H 06/25/23 03:39
Calcium 9.3 mg/dl (8.4-10.2) 06/25/23 03:39
Phosphorus 5.8 mg/dl (2.5-4.5) H 06/25/23 03:39
Albumin 3.2 g/dl (3.5-5.0) L 06/25/23 03:39
Physical Exam
General: Awake, Alert and Oriented
HEENT: PERRL, EOMI, Anicteric, Conjunctivae Clear, Ear/Nose Intact, Hearing Normal, Oropharynx Clear/Moist, Dentition Intact, Neck Supple, No JVD and No Thyromegaly
Respiratory: Crackels
Cardiac: S1/S2 and Regular Rate/Rhythm
Breast: N/A
Abdomen: Soft, Nontender and Other (Distended)
Rectal: Deferred by Provider
Genito-urinary: No Costovertebral Tender
Musculoskeletal: No Clubbing, No Cyanosis and Edema
Skin: Warm, Dry and Other (Bilateral erythema of the lower ext)
Neuro: Nonfocal/Grossly Intact
Hematologic/Lymphatic: No Cervical Lymphadenopathy
Psych: Mood/afflect pleasant
Data Reviewed
-
Radiology: Image Personally Visualized and interpreted (pulmonary congestion noted)
Labs: Labs Reviewed by me, Discussed with Physician, Discussed with Nurse, Discussed with Patient and Discussed with Family
Old Records: Reviewed
Assessment/Plan
-
Impression:
Change in mental status (now improving)
Cardiorenal syndrome
CKD stage IV with baseline creatinine 2.5-3
Recurrent ascites status post paracentesis on 05-31
Nonischemic cardiomyopathy with a EF of 40% (on home milrinone)
Hyponatremia (125)
Hypotension
Permanent atrial fibrillation
Chronic anticoagulation with Eliquis
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
Patent ductus arteriosus, conservatively managed at [place]
History of noncompliance
Diabetes mellitus type 2
Anemia, multifactorial
Plan:
Hyponatremia;
-Likely hypervolemic in setting of congestive heart failure with elevated ADH chronically
-hypotension aggravating ADH
-Sodium stable at 130 today
-Maintain fluid restriction of 1200 cc daily
-Diuretics per cardiology: current on bumex gtt
-Hyponatremia should improve with volume reduction with diuresis
-Check magnesium level in regards to cramping on high-dose diuretic regimen
CKD 4:
-Creatinine is at baseline (2.5-3)
-Chronic cardiorenal syndrome with profound azotemia
-Patient will not be an appropriate dialysis candidate given advanced cardiomyopathy and chronic hemodynamic instability this was directly communicated to the patient and his at bedside
-Unfortunately recurrent profound azotemia will be unavoidable in setting of advanced cardiorenal syndrome
-Concur with diuresis
--- NOTE | 2023-06-25 13:18 | PTCARENOTE ---
the pt pressed the call evans and this RN entered the pts room, the pt stated to this RN that he needed to have a bowel movement, this RN assisted the pt onto the commode and the pt had a bowel movement, the pt was cleaned up with the assistance of
this RN and the pt was assisted from the commode back to the chair, VS WNL, will continue to monitor the pt closely
--- NOTE | 2023-06-25 16:00 | PTCARENOTE ---
the pt is resting in bed in the lowest position, side rails up, HOB elevated, call evans within reach, NST in the 120's, no c/o chest pain, no c/o SOB, RA Sp02 98%, the pt currently still has Bumex gtt running at 1mg/hour and Milrinone
0.25mcg/kg/min, the pt was bathed with CHG wipes, indwelling urinary catheter wipes used and catheter hygeine performed, the pt was repositioned in bed for comfort, will continue to monitor the pt closely
[2023-06-25 16:34] LABS: Glucose - Point of Care 226 mg/dl (70-99)
[2023-06-25] MEDS: NOVOLOG FLEXPEN-LOW RESISTANCE 2 UNITS SC (16:52)
[2023-06-25 19:46] LABS: Hemoglobin 11.6 g/dL (13.0-18.0)
--- NOTE | 2023-06-25 20:33 | PTCARENOTE ---
Pt is arousable to voice, alert to self, otherwise confused. Uncontrolled Afib on monitor with frequent PVCs and one run of NSVT about 15 beats. Labs drawn. Bumex and Milrinone infusing per order through right dual lumen PICC. +2 pitting edema from
trunk to legs. Crackles in lung bases. Abdomen firm, round, nontender. Johnson care complete. Pt offers no complaints of pain, appears comfortable in bed. Wounds monitored.
[2023-06-25 20:57] LABS: Blood Urea Nitrogen 80 mg/dl (9-20); Calcium 9.1 mg/dl (8.4-10.2); Carbon Dioxide 21 mmol/L (22-30); Chloride 95 mmol/L (98-107); Estimated Creatinine Clearance 33 ml/min; Glucose 178 mg/dl (70-99); Magnesium 2.5 mg/dl (1.6-2.3); Sodium 130 mmol/L (135-145); eGFR 24.13
[2023-06-25] MEDS: LANTUS 0.100000000000000006 UNITS SC (22:06)
[2023-06-25 22:17] LABS: Glucose - Point of Care 183 mg/dl (70-99)
[2023-06-26] VITALS (72 sets, daily range): BP systolic 83–109; BP diastolic 55–87; PULSE 105–111; BMI 28.5; BMI 28.3
[2023-06-26 04:21] LABS: Hematocrit 32.3 % (39.0-52.0); Mean Corp Hgb Conc. 34.1 g/dL (33.0-37.0); Mean Corpuscular Hgb 29.3 pg (27.0-31.0); Mean Corpuscular Volume 85.9 fL (80.0-94.0); Mean Platelet Volume 9.4 fL (7.4-10.4); Platelet Count 429 10^3/uL (130-400); Red Blood Cell Count 3.76 10^6/uL (4.70-6.10); Red Cell Dist. Width 15.9 % (11.5-14.5); White Blood Cell Count 8.8 10^3/uL (4.8-10.8)
[2023-06-26 04:50] LABS: Blood Urea Nitrogen 80 mg/dl (9-20); Calcium 8.9 mg/dl (8.4-10.2); Carbon Dioxide 22 mmol/L (22-30); Chloride 97 mmol/L (98-107); Estimated Creatinine Clearance 33 ml/min; Glucose 140 mg/dl (70-99); Magnesium 2.6 mg/dl (1.6-2.3); Potassium 4.5 mmol/L (3.5-5.1); Sodium 130 mmol/L (135-145); eGFR 24.13
[2023-06-26] MEDS: BUMEX 50 IV ×2 (05:44→17:58)
[2023-06-26] MEDS: SYNTHROID 100 MCG PO (05:44)
--- NOTE | 2023-06-26 06:03 | PTCARENOTE ---
Pt assessment unchanged, continues to have NSRVT and frequent PVCs. Potassium trending down. Remains on milrinone and Bumex gtt per order. Q2hour turns with pillows. Pt offers no complaints, will continue with plan of care.
--- NOTE | 2023-06-26 07:13 | W.PN.INTV ---
Today's Communication / Plan
Recommendations
Asp precs
Milrinone and bumex gtt
Lactulose
Assessment
-
Assessment:
Mr Heriberto Sousa is a 68/M readm 06-23 with worsening weakness and confusion, reported decreasing UO in spite of diuretic regimen and inability to stand up without help. Recent adm [facility] 06-17 to after a mechanical fall, symptomatic
hyponatremia, ac/chronic HFrEF, CHD with AV fistula from LCx to CS, CKD, anasarca, recurrent ascites, chronic AFib, hyponatremia was managed with fluid restriction and tolvaptan, continued on outpatient dose of diuretics, L-thyroxine dose increased
due to ^TSH
Impression:
Ac/chronic HFrEF
Outpatient milrinone gtt via RUE PICC
Cardiac cirrhosis
Hepatic encephalopathy
Mild chronic hyponatremia
Hyperkalemia
Transient mild hyperammonemia
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
Chronic HFrEF. TTE August 2012 with LVEF 42%, stage 3 DD, severely enlarged RV with moderately reduced systolic function, mild MR//AR/TR, ePAP 57-62, small pericardial effusion
CHD with AV fistula from LCx to CS, PDA
CKD
Anasarca, recurrent ascites
Chronic AFib on apixaban
Hypothyroidism
Plan:
O2 protocol if needed
Remains on RA since adm, POx 97% at rest
CXR 06-23, portable, pulm vasc congestion, cardiomegaly, RUE PICC
Keep asp precs
IS if able
On chronic milrinone and diuretics
Noted ^wt of 10 lbs since recent adm
Continue milrinone gtt (already on outpatient gtt via RUE PICC)
Continue bumetadine gtt for now
Continue oral metoprolol
Holding spironolactone
Eventual return to oral furosemide and torsemide
Follow UO, renal function
Johnson placed on adm
Continue lactulose
Monitor BM frequency
Monitor MS
Chronic ascites s/p multiple paracentesis
For paracentesis by IRad
Continue apixaban (AFib)
Continue TRT
Cautious use of gabapentin, follow MS
Insulin glargine and aspart SS
Critical care time: 40 min
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
Subjective Dataa
Subjective Data
Date of Service:
Date of Service: June 26, 2023
Chief Complaint: Paraoptometric Follow Up
Subjective:
No major events reported overnight
Feels much improved today, appears much more awake, conversant, very appropriate conversation
Denies cough or chest pain, denies dyspnea while on room air
Review of Systems
General: Fever (n), Sweats (n), Chills and Satisfactory Appetite
HEENT: Epistaxis (n) and Dysphagia
Cardiopulmonary: Dyspnea (n at rest on RA), Cough (n), Wheezing, Chest Pain (n) and Hemoptysis
GI: Abdominal Pain (n), Nausea (n) and Vomiting
Neuro: Weakness (n)
Objective Data
Data Reviewed
Vital Signs / I&O / Oxygen:
Vital Signs
Temp Pulse Resp BP Pulse Ox
97.6 F 102 16 96/66 97
06/26/23 03:50 06/26/23 04:30 06/26/23 04:30 06/26/23 04:30 06/26/23 04:30
Intake and Output
06/25/23 06/26/23 06/27/23
06:59 06:59 06:59
Intake Total 332.6 / 344.4 433.2 / 433.2
Output Total 700 / 750 1770 / 1770
Balance -367.4 / -405.6 -1336.8 / -1336.8
SaO2 97
Physical Exam
General: Respiratory Distress (n)
HEENT: Normocephalic and Moist Mucous Membranes
Cardiovascular: Regular Rhythm, JVD and Peripheral Edema (mild FENG)
Respiratory: Wheeze (n), Crackles (trace basilar), Non-Labored Respirations and Stridor (n)
GI: Soft, Non Tender and Other (positive wave sign)
Neurology: Awake, AO x 3 and No Motor Deficits
Skin: Warm
Labs/Micro/Reports
Lab Data
06/26/23 03:49
06/26/23 03:49
--- NOTE | 2023-06-26 07:30 | W.PN.HOSP.TC ---
Today's Communication/Plan
-
Continue diuresis
Continue lactulose
Assessment / Plan
Assessment / Plan
Gen-awake but not alert, NAD, obese
HEENT-NC, AT, anicteric, clear oral mm
Neck-supple
CV-reg, no M, +S1/S2
Lungs-clear B/L
Abd-soft, NT, ND
Ext-bilateral lower extremity edema, hyperpigmentation
Musculoskeletal-no cyanosis, clubbing
Skin-warm and dry
Neuro-grossly non-focal
Psych-calm, cooperative
Acute TME -possible hepatic encephalopathy versus other causes. Continue lactulose. Apparently was not getting lactulose at home for unclear reasons. Ammonia level 55 on admission, improved to 21.
Anasarca -discharge weight on June 20 was 103 kg, currently 108 kg today. Etiology of anasarca multifactorial including acute on chronic heart failure, cirrhosis, renal failure, etc.
Hyperkalemia -due to KATY, CKD, spironolactone, potassium supplementation. Hold spironolactone and potassium, give another dose of Lokelma. Potassium improved to 4.5 today.
Cardiac cirrhosis with recurrent ascites -last paracentesis was May 31. IR consulted.
Acute on chronic heart failure reduced EF/nonischemic cardiomyopathy -on chronic home milrinone infusion. Started on Bumex drip, continue, cardiology following.
KATY on CKD 4 -creatinine stable at 2.8 today. Discharge creatinine was 2.2. Nephrology consulted. Suspect cardiorenal syndrome in the setting of acute on chronic heart failure exacerbation.
Chronic hyponatremia -sodium stable at 130.
DM2 without hyperglycemia -hemoglobin A1c 7.7% on June 17. Glucose 140 this morning. At home he is on Lantus 10 units at bedtime, lispro 2 units AC.
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
Patent ductus arteriosus, conservatively managed.
Permanent atrial fibrillation -on Eliquis.
Hypothyroidism -on levothyroxine. Last TSH was 18.6 on June 17, at which point his levothyroxine dose was increased in the hospital. Repeat thyroid labs in 3 to 4 weeks.
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
Full code
Dispo -PT recommending SNF.
Anticipated Discharge: > 48 hours
Subjective/Interval History
-
Date of Service: June 26, 2023
Patient seen and examined. Much more awake and alert today. No complaints.
Objective Data
-
Labs:
Laboratory Results
06/25/23 06/25/23 06/26/23
19:39 20:06 03:49
WBC 8.8
Hgb 11.6 L 11.0 L
Hct 33.0 L 32.3 L
Plt Count 429 H
Sodium Cancelled 130 L 130 L
Potassium Cancelled 5.0 4.5
Chloride Cancelled 95 L 97 L
Carbon Dioxide Cancelled 21 L 22
BUN Cancelled 80 H 80 H
Creatinine Cancelled 2.8 H 2.8 H
Glucose Cancelled 178 H 140 H
Calcium Cancelled 9.1 8.9
Vital Signs:
Vital Signs
Temp Pulse Resp BP Pulse Ox
97.8 F 102 16 96/66 97
06/26/23 07:25 06/26/23 04:30 06/26/23 04:30 06/26/23 04:30 06/26/23 04:30
I&O
06/25/23 06/26/23 06/27/23
06:59 06:59 06:59
Intake Total 332.6 / 344.4 433.2 / 433.2
Output Total 700 / 750 1770 / 1770
Balance -367.4 / -405.6 -1336.8 / -1336.8
Review of Systems
-
History Source: Patient
All other systems: Reviewed and negative
[2023-06-26] MEDS: NOVOLOG FLEXPEN-LOW RESISTANCE 1 UNITS SC ×3 (07:43→17:09)
[2023-06-26 07:46] LABS: Glucose - Point of Care 166 mg/dl (70-99)
--- NOTE | 2023-06-26 07:46 | W.PN.CARDCBS ---
Today's Communication / Plan
-
Cont Bumex gtt for diuresis. Wt coming down. He still appears up 10 lbs from last admit.
Monitor lytes and replete as needed. Hyperkalemia improved.
Nephrology following. Cr at last d/c was 2.2. Pt has chronic hyponatremia.
Continue Milrinone which pt takes chronically. Could consider uptitration if necessary for clinical response but appears to be improving with Bumex.
Short NSVT. Cont Toprol. If recurrent or longer episodes may consider increasing Toprol.
AFib is permanent, rate controlled.
Cont Eliquis for stroke prophylaxis.
Impression / Plan
-
.
PCP: Dr. Nikolas Schmitz
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 Now following with Dr. Felix Almanza at [place] /Dr. Hong Nino
Impression:
TME - possibly due to hepatic encephalopathy
Acute on chronic heart failure with reduced ejection fraction, stage D on home milrinone
Nonischemic cardiomyopathy EF 18% by echo at [facility] 01/2023
Recurrent ascites, cirrhosis
Permanent A-fib on Eliquis; [id number]: 3 (heart failure, hypertension, age). On Eliquis 5 mg twice daily for stroke risk reduction
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
Hyponatremia, chronic
Hyperkalemia improved with hx hyperkalemia
Hypertension
PA, conservatively managed
CKD stage IV
History of hypothyroidism
ECHO 09/2018: Severely dilated LV, EF 45% with regional variations, moderate LVH, dilated RV, severe biatrial dilatation, dilated coronary sinus, MAC, mild MR, aortic sclerosis, mild AR, trace TR, PAP 50 to 55 mmHg, dilated IVC, small pericardial
effusion, mildly dilated aortic root and proximal ascending aorta
Echo 08/25/22: EF 42%, global hypokinesis, stage 3 diastolic dysfunction, severely enlarged RV size with moderately reduced RV systolic function, severely dilated LA/RA, mild MR, mild TR with PAP 57-62 mmHg, small pericardial effusion, dilated aortic
root with Sinuses at 3.9 cm
Plan:
HPI: Presenting with AMS, likely TME in setting of cirrhosis, he had not been taking lactulose
MS improved with lactulose
Cont Bumex gtt for diuresis. Wt coming down. He still appears up 10 lbs from last admit.
Monitor lytes and replete as needed. Hyperkalemia improved.
Nephrology following. Cr at last d/c was 2.2. Pt has chronic hyponatremia.
Continue Milrinone which pt takes chronically. Could consider uptitration if necessary for clinical response but appears to be improving with Bumex.
Short NSVT. Cont Toprol. If recurrent or longer episodes may consider increasing Toprol.
AFib is permanent, rate controlled.
Cont Eliquis for stroke prophylaxis.
Wound care for leg wounds.
PT recommending SNF as noted by primary service.
Discussed with nursing.
Progress Note - Bullion Weigher
Subjective
Date of Service: June 26, 2023
Pt seen and examined. No complaints. No chest pain or shortness of breath.
Objective
Labs:
06/26/23 03:49
06/26/23 03:49
Labs
Hgb 11.0 g/dL (13.0-18.0) L 06/26/23 03:49
Hct 32.3 % (39.0-52.0) L 06/26/23 03:49
Plt Count 429 10^3/uL (130-400) H 06/26/23 03:49
PT 19.6 Sec (11.4-14.6) H 06/24/23 19:06
INR 1.68 06/24/23 19:06
APTT 37.0 Sec (23.4-35.0) H 06/24/23 19:06
Sodium 130 mmol/L (135-145) L 06/26/23 03:49
Potassium 4.5 mmol/L (3.5-5.1) 06/26/23 03:49
BUN 80 mg/dl (9-20) H 06/26/23 03:49
Creatinine 2.8 mg/dL (0.7-1.3) H 06/26/23 03:49
Glucose 140 mg/dl (70-99) H 06/26/23 03:49
Vital Signs and I&O:
Vital Signs
Temp Pulse Resp BP Pulse Ox
97.8 F 102 16 96/66 97
06/26/23 07:25 06/26/23 04:30 06/26/23 04:30 06/26/23 04:30 06/26/23 04:30
Vital Signs
Temp Pulse Resp BP Pulse Ox
97.8 F 102 16 96/66 97
06/26/23 07:25 06/26/23 04:30 06/26/23 04:30 06/26/23 04:30 06/26/23 04:30
Intake & Output
06/24/23 06/25/23 06/26/23 06/27/23
06:59 06:59 06:59 06:59
Intake Total 332.6 / 344.4 433.2 / 433.2
Output Total 700 / 750 1770 / 1770
Balance -367.4 / -405.6 -1336.8 / -1336.8
Physical Exam
Physical Exam
General: No acute distress, AAOX3
Neck: Negative JVD
Heart: Regular, Negative S3 positive S1/S2, Negative S4, No murmur
Lungs: CTA b/l, negative wheezes/rales/rhonchi
Abd: Positive BS, NT, neg rebound/rigidity/guarding
Ext: Negative cyanosis/clubbing/edema
Neuro: nonfocal
[2023-06-26] MEDS: TOPROL XL 12.5 MG PO (07:54)
[2023-06-26] MEDS: DUPHALAC/CHRONULAC 20 GRAMS PO ×3 (07:54→21:35)
[2023-06-26] MEDS: ELIQUIS 5 MG PO ×2 (07:54→20:02)
[2023-06-26] MEDS: ZYLOPRIM 100 MG PO (07:56)
--- NOTE | 2023-06-26 09:22 | PTCARENOTE ---
Complete assessment done. Pt improving in orientation, less confusion today. Pt can ABRAHAM bilat. HR afib with PVC's noted, occ small runs of [address] Perry in to see pt, and made aware of pt's longer runs of PVC's last night. He was
able to see these on the ectopy history. As of now pt to stay on current dose of metoprolol, and may increase if pt has repeats of PVC runs. Lower exts reddened and with +2 edema. Pt also seen by Dr Zhong and Dr Pedraza. Johnson cath care done. Pt
eating breakfast now.
[2023-06-26] MEDS: NEURONTIN 100 MG PO ×2 (11:00→21:35)
[2023-06-26] MEDS: PRIMACOR 20 MG 100 IV (12:10)
--- NOTE | 2023-06-26 12:15 | W.PN.NEPH.PH ---
Today's Communication / Plan
-
- continue bumex gtt
Assessment/Plan
-
Impression:
Change in mental status (now improving)
Cardiorenal syndrome
CKD stage IV with baseline creatinine 2.5-3
Recurrent ascites status post paracentesis on 05-31
Nonischemic cardiomyopathy with a EF of 40% (on home milrinone)
Hyponatremia (125)
Hypotension
Permanent atrial fibrillation
Chronic anticoagulation with Eliquis
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
Patent ductus arteriosus, conservatively managed at [place]
History of noncompliance
Diabetes mellitus type 2
Anemia, multifactorial
Plan:
Hyponatremia;
-Likely hypervolemic in setting of congestive heart failure with elevated ADH chronically
-hypotension aggravating ADH
-Sodium stable at 130 today
-Maintain fluid restriction of 1200 cc daily
-Diuretics per cardiology: current on bumex gtt
-Hyponatremia should improve with volume reduction with diuresis
-Check magnesium level in regards to cramping on high-dose diuretic regimen
CKD 4:
-Creatinine is at baseline (2.5-3)
-Chronic cardiorenal syndrome with profound azotemia
-Patient will not be an appropriate dialysis candidate given advanced cardiomyopathy and chronic hemodynamic instability this was directly communicated to the patient and his at bedside
-Unfortunately recurrent profound azotemia will be unavoidable in setting of advanced cardiorenal syndrome
-Concur with diuresis
-
-
Date of Service: June 26, 2023
CC / HPI / ROS
-
Chief Complaint:
KATY
History of Present Illness:
Cr up to 2.9 (Bl 2.5-3)
mentation improving with diuresis and lactulose
Review of Systems:
no complaints
Labs
-
Labs:
WBC 8.8 10^3/uL (4.8-10.8) 06/26/23 03:49
RBC 3.76 10^6/uL (4.70-6.10) L 06/26/23 03:49
Hgb 11.0 g/dL (13.0-18.0) L 06/26/23 03:49
Hct 32.3 % (39.0-52.0) L 06/26/23 03:49
Plt Count 429 10^3/uL (130-400) H 06/26/23 03:49
Sodium 130 mmol/L (135-145) L 06/26/23 03:49
Potassium 4.5 mmol/L (3.5-5.1) 06/26/23 03:49
Chloride 97 mmol/L (98-107) L 06/26/23 03:49
Carbon Dioxide 22 mmol/L (22-30) 06/26/23 03:49
BUN 80 mg/dl (9-20) H 06/26/23 03:49
Creatinine 2.8 mg/dL (0.7-1.3) H 06/26/23 03:49
eGFR 24.13 06/26/23 03:49
Glucose 140 mg/dl (70-99) H 06/26/23 03:49
Calcium 8.9 mg/dl (8.4-10.2) 06/26/23 03:49
Albumin 3.2 g/dl (3.5-5.0) L 06/25/23 03:39
Physical Exam
-
Vital Signs:
Vital Signs
Temp Pulse Resp BP Pulse Ox
97.8 F 107 17 93/65 98
06/26/23 07:25 06/26/23 09:00 06/26/23 09:00 06/26/23 09:00 06/26/23 08:00
Cardiovascular:: Regular rate and rhythm
Respiratory:: Bilateral: Coarse
Lung Excursion:: Normal
Abdomen:: Nontender, Soft and Tender
Bowel Sounds:: Normal
Extremity Edema:: +1: Bilateral:
Johnson Catheter: Yes
Other Findings::
+ fluid shift in abd
[2023-06-26 12:19] LABS: Glucose - Point of Care 188 mg/dl (70-99)
[2023-06-26 12:33] LABS: Phosphorus 6.5 mg/dl (2.5-4.5)
--- NOTE | 2023-06-26 12:40 | PTCARENOTE ---
Pt assisted OOB to chair, 2 RN assist as pt is still weak. Eating lunch now, tolerating well.
--- NOTE | 2023-06-26 15:15 | PTCARENOTE ---
Pt taken down to IR approx 1345 via stretcher. R lower quad paracentesis done, 5860 fluid removed by MD. PT brought back to ICU via stretcher, and now assisted back to sitting in chair. Milrinone at 0.25 mcg/kg/min and bumex 1 mg/hr remain infusing.
HR afib at102, BP 94/65, 99% sat on R/A
[2023-06-26] MEDS: RENVELA 800 MG PO (17:16)
[2023-06-26 17:18] LABS: Glucose - Point of Care 171 mg/dl (70-99)
[2023-06-26 17:57] LABS: Body Fluid Mononuclear 70.8 %; Body Fluid Polymorphonuclear 29.2 %; Body Fluid WBC 302 /CUMM
[2023-06-26 18:04] LABS: Body Fluid Second Tech CF
--- NOTE | 2023-06-26 18:19 | PTCARENOTE ---
Pt continues to tolerate OOB in chair well, and wants to stay in chair for a while more. Johnson care done. Pt c/o cramping in R hand. Pt states that he gets this cramping sometimes when his sodium level is low. Dr Bragg updated on pt and sodium
level 130. Will con't to monitor, but no further treatment at this time as per Dr Bragg.
[2023-06-26] MEDS: TYLENOL 650 MG PO (18:32)
--- NOTE | 2023-06-26 18:33 | PTCARENOTE ---
Tylenol 650 mg prn offered and given to pt for R hand discomfort.
--- NOTE | 2023-06-26 20:00 | PTCARENOTE ---
Rec' d pt sitting on chair, oriented, cooperative, follows commands, assisted back to bed w/ walker; Afib w/ freq pvc's, bp stable, weak distal pulses, + LE edema,skin warm/dry, RA, lungs w/ bibas crackles, sat 99, + bowel sounds, no bm, abd obese,
soft, no n/v, ernestine diet, cm draining yellow urine, milrinone gtt at 0.25 adele/kg/min, bumex gtt at 1 mg/hr
[2023-06-26] MEDS: LANTUS 0.100000000000000006 UNITS SC (21:35)
[2023-06-26 21:44] LABS: Glucose - Point of Care 167 mg/dl (70-99)
[2023-06-26] MEDS: MYLICON 80 MG PO (23:19)
--- NOTE | 2023-06-26 23:20 | PTCARENOTE ---
sys reviewed, lungs decr in bases, mylicon 80mg given for gas
[2023-06-27] VITALS (29 sets, daily range): BP systolic 86–114; BP diastolic 57–101; PULSE 96–107; BMI 26.7
--- NOTE | 2023-06-27 01:10 | PTCARENOTE ---
bp 86/60- k BEN Tijerina aware, no orders rec'd
[2023-06-27] MEDS: PRIMACOR 20 MG 100 IV ×2 (01:51→13:00)
[2023-06-27 04:05] LABS: Hematocrit 32.5 % (39.0-52.0); Hemoglobin 10.9 g/dL (13.0-18.0); Mean Corp Hgb Conc. 33.5 g/dL (33.0-37.0); Mean Corpuscular Volume 86.4 fL (80.0-94.0); Mean Platelet Volume 9.3 fL (7.4-10.4); Platelet Count 368 10^3/uL (130-400); Red Blood Cell Count 3.76 10^6/uL (4.70-6.10); Red Cell Dist. Width 15.4 % (11.5-14.5); White Blood Cell Count 8.7 10^3/uL (4.8-10.8)
[2023-06-27] MEDS: BUMEX 50 IV (04:25)
--- NOTE | 2023-06-27 04:27 | PTCARENOTE ---
sys reviewed, lungs w/ crackles in bases, decr in bases, CHG bath done, linens changed
[2023-06-27 04:28] LABS: ALT (SGPT) 17 U/L (0-50); AST (SGOT) 35 U/L (17-59); Albumin 2.6 g/dl (3.5-5.0); Alkaline Phosphatase 151 U/L (38-126); Blood Urea Nitrogen 75 mg/dl (9-20); Calcium 8.2 mg/dl (8.4-10.2); Carbon Dioxide 23 mmol/L (22-30); Chloride 95 mmol/L (98-107); Estimated Creatinine Clearance 38 ml/min; Glucose 135 mg/dl (70-99); Phosphorus 5.2 mg/dl (2.5-4.5); Potassium 4.4 mmol/L (3.5-5.1); Sodium 129 mmol/L (135-145); eGFR 29.03
[2023-06-27] MEDS: SYNTHROID 100 MCG PO (05:55)
--- NOTE | 2023-06-27 07:11 | W.PN.INTV ---
Addendum entered and electronically signed by Kim Mejia, DO 06/27/23 13:06:
Transfer initiated to IVU, we will sign off at this time
Please call with questions
Original Note:
Today's Communication / Plan
Recommendations
Doing well, remains on chronic milrinone
Diet advanced
Bumex gtt transition to PO meds per renal
PT eval for instruction at discharge
Outpatient FU with [facility]
Can transfer to IVU today per team
Assessment
-
Mr Heriberto Sousa is a 68/M readm 06-23 with worsening weakness and confusion, reported decreasing UO in spite of diuretic regimen and inability to stand up without help. Recent adm DH 06-17 to 14 after a mechanical fall, symptomatic
hyponatremia, ac/chronic HFrEF, CHD with AV fistula from LCx to CS, CKD, anasarca, recurrent ascites, chronic AFib, hyponatremia was managed with fluid restriction and tolvaptan, continued on outpatient dose of diuretics, L-thyroxine dose increased
due to ^TSH
Impression:
Ac/chronic HFrEF
Outpatient milrinone gtt via RUE PICC
Cardiac cirrhosis
Hepatic encephalopathy
Mild chronic hyponatremia
Hyperkalemia
Transient mild hyperammonemia
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
Chronic HFrEF. TTE August 2012 with LVEF 42%, stage 3 DD, severely enlarged RV with moderately reduced systolic function, mild MR//AR/TR, ePAP 57-62, small pericardial effusion
CHD with AV fistula from LCx to CS, PDA
CKD
Anasarca, recurrent ascites s/p frequent large volume paracentesis: 06/26/23, 06/01/23, 05/10/23, 05/06/23, 01/04/23, 08/25/22
Chronic AFib on apixaban
Hypothyroidism
Plan
O2 protocol if needed
Remains on RA since adm, POx 97% at rest
CXR 06-23, portable, pulm vasc congestion, cardiomegaly, RUE PICC
Keep asp precs
IS if able
On chronic milrinone and diuretics
Noted ^wt of 10 lbs since recent adm
Continue milrinone gtt (already on outpatient gtt via RUE PICC)
Follows at [facility]
On bumetadine gtt --await renal input, can likely transition to home meds
Continue oral metoprolol
Holding spironolactone
Eventual return to oral furosemide and torsemide
Follow UO, renal function
Johnson placed on adm
Continue lactulose
Monitor BM frequency
Monitor MS
Chronic ascites s/p multiple paracentesis
For paracentesis by IRad
Continue apixaban (AFib)
Continue TRT
Cautious use of gabapentin, follow MS
Insulin glargine and aspart SS
Encouraged PT/OT
Ambulation
Outpatient FU at [place]
Can transfer to IVU
Diagnostic Data
CXR 06/24/23- SEVERE CARDIOMEGALY consistent with a severe dilated cardiomyopathy. Mild interstitial and alveolar cardiogenic pulmonary edema.
06/18/23- No acute disease of the chest. Moderate cardiomegaly. Stable
ECHO 08/25/22- Left ventricle is severely dilated. Moderate concentric left ventricular hypertrophy. Mild-moderately reduced left ventricular systolic function. Left ventricular ejection fraction is 42% by Flores's method of discs. Global
hypokinesis. Stage III diastolic dysfunction suggestive of restrictive filling pattern and increased filling pressures. Severely enlarged right ventricular size. Moderately reduced right ventricular systolic function. Severely dilated left atrium.
Indexed LA volume is severely abnormal (> 48 mL/m2). Dilated coronary sinus. Severely dilated right atrium. Mild mitral regurgitation. Mild aortic stenosis. Mild aortic regurgitation. Mild tricuspid regurgitation. Estimated pulmonary artery pressure
of 57-62 mmHg assuming a right atrial pressure of 15-20 mmHg. Small pericardial effusion without evidence of hemodynamic compromise. Dilated aortic root. Sinuses at 3.9 cm. Compared to previous echo 09/27/2018, the left ventricle has dilated
further. It previously was 6.9 cm and now is 7.7 cm. LV and RV function both remain abnormal and about the same.
-----
Critical Care time 35 mins -- The patient is admitted for acute critical illness for the treatment of vital organ failure and/or prevention of further life-threatening conditions. Total care includes time spent in review of history, physical exam,
medications, hemodynamic/ventilator parameters, laboratory data, imaging and discussion with house staff, pharmacy, respiratory therapy, shoe repairman, and nursing.
Subjective Dataa
Subjective Data
Date of Service:
Date of Service: June 27, 2023
Chief Complaint: Linen Checker Follow Up
Subjective:
Doing well today, stable on room air
Wants to go home
Remains on milrinone gtt and bumex gtt
Objective Data
Data Reviewed
Vital Signs / I&O / Oxygen:
Vital Signs
Temp Pulse Resp BP Pulse Ox
97.6 F 91 14 89/57 96
06/27/23 04:00 06/27/23 05:02 06/27/23 05:02 06/27/23 05:02 06/27/23 05:02
Intake and Output
06/26/23 06/27/23 06/28/23
06:59 06:59 06:59
Intake Total 433.2 / 445.0 1531.4 / 1531.4
Output Total 1769 / 1970 3775 / 3775
Balance -1336.8 / -1525.0 -2243.6 / -2243.6
SaO2 96
Physical Exam
General: Respiratory Distress (n)
HEENT: Normocephalic and Moist Mucous Membranes
Cardiovascular: S1-S2, Regular Rhythm, Murmur, JVD and Peripheral Edema (mild FENG)
Respiratory: Clear, Wheeze (n), Non-Labored Respirations and Stridor (n)
GI: Soft, Non Distended, Non Tender and Other (positive wave sign)
Neurology: Awake, Alert, Oriented, AO x 3 and No Motor Deficits
Skin: Warm and Dry
Labs/Micro/Reports
Lab Data
06/27/23 03:36
06/27/23 03:36
Microbiology
06/24/23 23:34 Nose MRSA Screen - Final
No Methicillin Resistant Staphylococcus aureus isolated.
--- NOTE | 2023-06-27 07:45 | PTCARENOTE ---
Assumed care of patient. Pt rec'd A&Ox3. Pleasant. ABRAHAM's...min assist x 1...uses rolling walker. S1 S2 irregular w/ afib on monitor. Weak PP. Trac LLE. Reddened PVD noted. On R/A...sats 99%. Lungs diminished w/ fine crackles bibasilarly.
Occasional NPC. Abdomen obese...+BS. Cm draining yellow urine...cm care done. Skin pale in color....right abdominal dressing intact. Left curtis and sacrum w/ intact optifoams. Right DL PICC w/ bumex and milrinone gtts infusing...see
interventions. 20P LFA capped. VS documented. Able to take po meds w/o issue....1999 yennifer ada diet. Call evans within reach. Sitting on side of bed w/o issue. Will continue to monitor.
[2023-06-27] MEDS: NOVOLOG FLEXPEN-LOW RESISTANCE SC ×2 (07:56→16:54)
[2023-06-27] MEDS: ZYLOPRIM 100 MG PO (07:58)
[2023-06-27] MEDS: ELIQUIS 5 MG PO ×2 (07:58→20:12)
[2023-06-27] MEDS: RENVELA 800 MG PO ×3 (07:58→16:52)
[2023-06-27] MEDS: DUPHALAC/CHRONULAC 20 GRAMS PO ×3 (07:58→21:53)
[2023-06-27] MEDS: TOPROL XL 12.5 MG PO (07:59)
[2023-06-27 08:06] LABS: Glucose - Point of Care 149 mg/dl (70-99)
--- NOTE | 2023-06-27 08:49 | W.PN.HOSP.TC ---
Today's Communication/Plan
-
Weight back to baseline
Transitioned to outpatient diuretics
Johnson Catheter out
Transfer to IVU
Hopefully discharge in the next 24 to 48 hours
Assessment / Plan
Assessment / Plan
Physical Exam
Gen-awake but not alert, NAD, obese
HEENT-NC, AT, anicteric, clear oral mm
Neck-supple
CV-irreg, no M, +S1/S2
Lungs-Rhonchi
Abd-soft, NT, ND
Ext-bilateral lower extremity edema, hyperpigmentation
Musculoskeletal-no cyanosis, clubbing
Skin-warm and dry
Neuro-grossly non-focal
Psych-calm, cooperative
Assessment/Plan
Acute TME -possible hepatic encephalopathy versus other causes. Continue lactulose. Apparently was not getting lactulose at home for unclear reasons. Ammonia level 55 on admission, improved to 21.
Anasarca - discharge weight on June 20 was 103 kg, currently 102 kg today. Etiology of anasarca multifactorial including acute on chronic heart failure, cirrhosis, renal failure, etc.
Hyperkalemia - due to KATY, CKD, spironolactone, potassium supplementation. Hold spironolactone and potassium, was previously given another dose of Lokelma. Potassium improved to 4.4 today.
Cardiac cirrhosis with recurrent ascites -last paracentesis was May 31. IR consulted and 5860 cc of yellow ascitic fluid was drained.
Acute on chronic heart failure reduced EF/nonischemic cardiomyopathy -on chronic home milrinone infusion -- continue. Status post Bumex Drip, now transitioned back torsemide and IV Lasix as OP regimen. Monitor for recurrent ventricular tachycardia.
He says that follows a 50oz FR and low salt diet.
KATY on CKD 4 -creatinine stable at 2.4 today. Discharge creatinine was 2.2. Nephrology consulted. Suspect cardiorenal syndrome in the setting of acute on chronic heart failure exacerbation. Discontinue Johnson Catheter.
Chronic hyponatremia -sodium stable at 129.
DM2 without hyperglycemia -hemoglobin A1c 7.7% on June 17. Glucose 140 this morning. At home he is on Lantus 10 units at bedtime, lispro 2 units AC.
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
Patent ductus arteriosus, conservatively managed.
Permanent atrial fibrillation -on Eliquis.
Hypothyroidism -on levothyroxine. Last TSH was 18.6 on June 17, at which point his levothyroxine dose was increased in the hospital. Repeat thyroid labs in 3 to 4 weeks.
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
Full code
Dispo -PT recommending SNF.
Anticipated Discharge: 24 - 48 hours
Subjective/Interval History
-
Date of Service: June 27, 2023
Patient was seen and examined. He reported no new significant symptoms or complaints.
Objective Data
-
Labs:
Laboratory Results
06/27/23
03:36
WBC 8.7
Hgb 10.9 L
Hct 32.5 L
Plt Count 368
Sodium 129 L
Potassium 4.4
Chloride 95 L
Carbon Dioxide 23
BUN 75 H
Creatinine 2.4 H
Glucose 135 H
Calcium 8.2 L
Total Bilirubin 1.0
AST 35
ALT 17
Alkaline Phosphatase 151 H
Vital Signs:
Vital Signs
Temp Pulse Resp BP Pulse Ox
97.5 F 112 13 109/68 100
06/27/23 07:45 06/27/23 08:15 06/27/23 08:15 06/27/23 08:15 06/27/23 08:00
I&O
06/26/23 06/27/23 06/28/23
06:59 06:59 06:59
Intake Total 433.2 / 445.0 1531.4 / 1543.2 503.6 / 503.6
Output Total 1770 / 1970 3775 / 3925 300 / 300
Balance -1336.8 / -1525.0 -2243.6 / -2381.8 203.6 / 203.6
--- NOTE | 2023-06-27 09:34 | W.PN.NEPH.PH ---
Today's Communication / Plan
-
switch to OP diuretic regimen
Assessment/Plan
-
Impression:
Change in mental status (now improving)
Cardiorenal syndrome
CKD stage IV with baseline creatinine 2.5-3
Recurrent ascites status post paracentesis on 05-31
Nonischemic cardiomyopathy with a EF of 40% (on home milrinone)
Hyponatremia (125)
Hypotension
Permanent atrial fibrillation
Chronic anticoagulation with Eliquis
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
Patent ductus arteriosus, conservatively managed at [facility]
History of noncompliance
Diabetes mellitus type 2
Anemia, multifactorial
Plan:
-d/c cm
-d/c bumex
-restart torsemide and IV lasix as OP regimen
-follow BMP
-He says that follows a 50oz FR and low salt diet
-He says that [facility] has told him that [facility]mis have no other patients like him. He recalls no discussion regarding prognosis or end of life issues.
-He says that [facility] nephrology has not discussed dialysis or progressive CKD with him (or rather that he recalls no such discussion)
-I discussed with him that his renal function is likely to progressively decline from cardiorenal syndrome. Given his poor cardiac function and chronic milrinone, should his kidneys fail he would not be a candidate for dialysis and hospice would be
the only option. He said he would have to 'figure it all out' with respect to what his treatment options are.
-critical care time 40 minutes
-
-
Date of Service: June 27, 2023
CC / HPI / ROS
-
Chief Complaint:
KATY
History of Present Illness:
KATY/Cr down to 2.4 (Bl 2.5-3)
MS at baseline
Na low 129
remains on chronic milrinone for HFrEF
critically ill in ICU on Bumex gtt
Review of Systems:
no complaints
Labs
-
Labs:
WBC 8.7 10^3/uL (4.8-10.8) 06/27/23 03:36
RBC 3.76 10^6/uL (4.70-6.10) L 06/27/23 03:36
Hgb 10.9 g/dL (13.0-18.0) L 06/27/23 03:36
Hct 32.5 % (39.0-52.0) L 06/27/23 03:36
Plt Count 368 10^3/uL (130-400) 06/27/23 03:36
Sodium 129 mmol/L (135-145) L 06/27/23 03:36
Potassium 4.4 mmol/L (3.5-5.1) 06/27/23 03:36
Chloride 95 mmol/L (98-107) L 06/27/23 03:36
Carbon Dioxide 23 mmol/L (22-30) 06/27/23 03:36
BUN 75 mg/dl (9-20) H 06/27/23 03:36
Creatinine 2.4 mg/dL (0.7-1.3) H 06/27/23 03:36
eGFR 29.03 06/27/23 03:36
Glucose 135 mg/dl (70-99) H 06/27/23 03:36
Calcium 8.2 mg/dl (8.4-10.2) L 06/27/23 03:36
Phosphorus 5.2 mg/dl (2.5-4.5) H 06/27/23 03:36
Albumin 2.6 g/dl (3.5-5.0) L 06/27/23 03:36
Physical Exam
-
Vital Signs:
Vital Signs
Temp Pulse Resp BP Pulse Ox
97.5 F 112 13 109/68 100
06/27/23 07:45 06/27/23 08:15 06/27/23 08:15 06/27/23 08:15 06/27/23 08:00
Cardiovascular:: Regular rate and rhythm
Respiratory:: Bilateral: Coarse
Lung Excursion:: Normal
Abdomen:: Nontender and Soft
Bowel Sounds:: Normal
Extremity Edema:: +1: Bilateral:
[2023-06-27] MEDS: NEURONTIN 100 MG PO ×2 (09:50→21:53)
[2023-06-27] MEDS: NOVOLOG FLEXPEN-LOW RESISTANCE 1 UNITS SC (11:47)
--- NOTE | 2023-06-27 11:55 | PTCARENOTE ---
Pt able to stand and void w/o issue. Voided 290mls of yellow urine. Sitting comfortably in chair....no major changes in physical assessment. Off bumex gtt. Call evans within reach. Will continue to monitor.
[2023-06-27 11:58] LABS: Glucose - Point of Care 172 mg/dl (70-99)
--- NOTE | 2023-06-27 12:28 | W.PN.CARDCBS ---
Today's Communication / Plan
-
Changed to outpatient diuretic therapy per nephrology
Continue chronic milrinone
Consider taking Johnson out
Stable cardiology status
Impression / Plan
-
.
PCP: Dr. iNkolas Schmitz
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 Now following with Dr. Felix Almanza at [place] /Dr. Hong Nino
Impression:
TME - possibly due to hepatic encephalopathy
Acute on chronic heart failure with reduced ejection fraction, stage D on home milrinone
Nonischemic cardiomyopathy EF 18% by echo at [facility] 01/2023
Recurrent ascites, cirrhosis
Permanent A-fib on Eliquis; [id number]: 3 (heart failure, hypertension, age). On Eliquis 5 mg twice daily for stroke risk reduction
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
Hyponatremia, chronic
Hyperkalemia improved with hx hyperkalemia
Hypertension
PA, conservatively managed
CKD stage IV
History of hypothyroidism
ECHO 09/2018: Severely dilated LV, EF 45% with regional variations, moderate LVH, dilated RV, severe biatrial dilatation, dilated coronary sinus, MAC, mild MR, aortic sclerosis, mild AR, trace TR, PAP 50 to 55 mmHg, dilated IVC, small pericardial
effusion, mildly dilated aortic root and proximal ascending aorta
Echo 08/25/22: EF 42%, global hypokinesis, stage 3 diastolic dysfunction, severely enlarged RV size with moderately reduced RV systolic function, severely dilated LA/RA, mild MR, mild TR with PAP 57-62 mmHg, small pericardial effusion, dilated aortic
root with Sinuses at 3.9 cm
Plan:
He seems to be much improved
His weight appears to be at baseline
Discussed with primary service, sewing machine attachment tester, nephrology
Nephrology changing patient back to baseline outpatient diuretic regimen
Continue outpatient milrinone
Continue to watch for recurrent VT
AFib is permanent, rate controlled.
Cont Eliquis for stroke prophylaxis.
SNF has been recommended but he may elect to go home
Need to discuss whether Johnson can be removed
Progress Note - Fur Dry Cleaner Hand
Subjective
Date of Service: June 27, 2023
He is without complaints. He is off of oxygen. He claims his weight is back to baseline.
Objective
Labs:
06/27/23 03:36
06/27/23 03:36
Labs
Hgb 10.9 g/dL (13.0-18.0) L 06/27/23 03:36
Hct 32.5 % (39.0-52.0) L 06/27/23 03:36
Plt Count 368 10^3/uL (130-400) 06/27/23 03:36
PT 19.6 Sec (11.4-14.6) H 06/24/23 19:06
INR 1.68 06/24/23 19:06
APTT 37.0 Sec (23.4-35.0) H 06/24/23 19:06
Sodium 129 mmol/L (135-145) L 06/27/23 03:36
Potassium 4.4 mmol/L (3.5-5.1) 06/27/23 03:36
BUN 75 mg/dl (9-20) H 06/27/23 03:36
Creatinine 2.4 mg/dL (0.7-1.3) H 06/27/23 03:36
Glucose 135 mg/dl (70-99) H 06/27/23 03:36
Vital Signs and I&O:
Vital Signs
Temp Pulse Resp BP Pulse Ox
97.9 F 96 16 88/63 100
06/27/23 11:44 06/27/23 11:00 06/27/23 11:00 06/27/23 11:00 06/27/23 11:44
Vital Signs
Temp Pulse Resp BP Pulse Ox
97.9 F 96 16 88/63 100
06/27/23 11:44 06/27/23 11:00 06/27/23 11:00 06/27/23 11:00 06/27/23 11:44
Intake & Output
06/25/23 06/26/23 06/27/23 06/28/23
06:59 06:59 06:59 06:59
Intake Total 332.6 / 344.4 433.2 / 445.0 1531.4 / 1543.2 535.0 / 535.0
Output Total 700 / 750 1770 / 1970 3775 / 3925 990 / 990
Balance -367.4 / -405.6 -1336.8 / -1525.0 -2243.6 / -2381.8 -455.0 / -455.0
Physical Exam
Physical Exam
General: Well developed, well nourished in NAD.
Neck: Supple, no JVD, HJR, carotids +2 B/L, no bruits bilaterally.
Heart: Non displaced PMI, irregular, no murmurs, No S3, S4, no rubs.
Lungs: Scattered rhonchi
Extremities: No clubbing, cyanosis or edema bilaterally.
Neuro: Grossly nonfocal, awake, alert and oriented x3.
--- NOTE | 2023-06-27 12:45 | PTCARENOTE ---
Spoke w/ pt's (Kita)....fully updated at bedside...all questions answered.
--- NOTE | 2023-06-27 14:27 | WOUNDNOTE ---
HEMALATHA RN note: Patient admitted with acute hepatic encephalopathy and hyperkalemia.
See H&P for complete history.
PMH: AV fistula, chronic a-fib, HTN, diabetes, toe and leg ulcers, cardiac cirrhosis with ascites-paracentesis in May.
Wound Location and type/assessment: Patient with bilateral LE edema and redness, much less compared to admission. L curtis with open flat dried up venous blister, + palpable pulses. Heels are intact, legs dependent. Patient able to stand up using
walker, has a small stage 1 vs stage 2 PI on R buttock, uses barrier cream(TRIAD) at home. Patient refusing to use air chair cushion, to bring in offloading cushion from home.
Appetite: Patient reports good appetite
Pressure redistribution devices in place: Centrella Max Air
Plan: L leg cleaned and foam dressing applied. Encourage leg elevation when sitting. Applied silicone foam to buttock but can also use Triad barrier cream, will obtain supply from wound office. Will confirm orders with hospitalist and updated nurse
Linda. Updated care plan and will follow as needed.
Note to case management of equipment requested for discharge: TBD
Recommend follow up at wound care center upon discharge.
--- NOTE | 2023-06-27 14:30 | WOUNDNOTE ---
L 5TH TOE
--- NOTE | 2023-06-27 14:30 | WOUNDNOTE ---
WON RN NOTE ADDENDUM: Patient also has scattered tiny dry intact blood blisters on toes of both feet. + palpable pedal pulses, no drainage from blisters, open to air, slipper sock in use. Patient states he gets abrasions easily on toes from banging
into things. Since last time wound care saw patient back in August of 2022, patient did not follow up with High Lift Driver Dr. Santos. Teaching done with patient regarding the importance of foot care and regular podiatry apt to manage nails. Barrier Triad
brought to to use on buttocks. Updated nurse Linda and will follow as needed.
--- NOTE | 2023-06-27 14:39 | CM ---
Addendum entered by Juan Pablo Cornelius 06/27/23 15:36:
[facility] phone: [phone].
A script for IV required to resume home infusion at home
Original Note:
CM following re: discharge planning.
Discussed in Rounds, reviewed pt's chart, met with pt.
Pt is a 68 year old male, admitted with primary dx of Hepatic encephalopathy.
Pt reports he lives with spouse 2SH, 1 steps to enter, has 2 supportive children. Pr reports he ambulates with a walker, fell at home. Pt reports he is active with [facility] and receives home infusion therapy Lasix 3 day per week managed
by [facility].
Pt expressed his desire to return back home with resumptions of [facility], [facility] and family support. Family to transport at discharge.
PCP: Nikolas Schmitz
Pharmacy:[facility].
D/C plan: home with resumptions of [facility], [facility] and family support
CM will follow with discharge plan updates as hospitalization progresses
[2023-06-27] MEDS: DEMADEX 120 MG PO (15:45)
[2023-06-27 17:05] LABS: Glucose - Point of Care 133 mg/dl (70-99)
--- NOTE | 2023-06-27 18:10 | PTCARENOTE ---
Received the patient from ICU in a wheelchair. The patient is aaox3, vss, 100% on RA. Rapid afib note on the monitor with a HR of 106. Milrinone gtt running at 7.8 ml per hour through a right DL picc . The patient has no complaints of pain or SOB. .
[2023-06-27] MEDS: LANTUS 0.100000000000000006 UNITS SC (21:53)
[2023-06-27 21:57] LABS: Glucose - Point of Care 169 mg/dl (70-99)
[2023-06-28] VITALS (8 sets, daily range): BP systolic 94–116; BP diastolic 59–81; PULSE 96; O2SAT 99; BMI 26.8
--- NOTE | 2023-06-28 00:31 | PTCARENOTE ---
Pt received at start of shift, HR afib w/BBB and PVCs. Milrinone infusing into RUE PICC at 7.8mL/hr (0.25mcg/kg/hr). Pt OOB in chair, assisted x1 back to bed. Orthostatic BPs obtained, however during the process the pt was discharged from the system
due to a system malfunction and the sitting BP was lost. Pt readmitted in the system. Pt expresses extreme displeasure w/ fluid restriction, stating 'how the hell am i supposed to limit to 40oz a day? 50oz maybe'. Reinforced importance of fluid
restriction w/ pt.
[2023-06-28] MEDS: PRIMACOR 20 MG 100 IV ×2 (01:23→13:30)
[2023-06-28 04:53] LABS: ALT (SGPT) 15 U/L (0-50); AST (SGOT) 32 U/L (17-59); Albumin 2.6 g/dl (3.5-5.0); Alkaline Phosphatase 146 U/L (38-126); Blood Urea Nitrogen 67 mg/dl (9-20); Calcium 8.2 mg/dl (8.4-10.2); Carbon Dioxide 24 mmol/L (22-30); Chloride 93 mmol/L (98-107); Estimated Creatinine Clearance 44 ml/min; Glucose 182 mg/dl (70-99); Phosphorus 4.9 mg/dl (2.5-4.5); Potassium 4.1 mmol/L (3.5-5.1); Sodium 127 mmol/L (135-145); Total Bilirubin 0.8 mg/dl (0.2-1.3); Total Protein 5.1 g/dl (6.3-8.2); eGFR 34.08
[2023-06-28] MEDS: SYNTHROID 100 MCG PO (06:07)
[2023-06-28 06:49] LABS: Glucose - Point of Care 128 mg/dl (70-99)
[2023-06-28] MEDS: RENVELA 800 MG PO ×3 (08:24→17:28)
[2023-06-28] MEDS: DEMADEX 120 MG PO ×2 (08:24→16:17)
[2023-06-28] MEDS: TOPROL XL 12.5 MG PO (08:24)
[2023-06-28] MEDS: ZYLOPRIM 100 MG PO (08:24)
[2023-06-28] MEDS: ELIQUIS 5 MG PO ×2 (08:25→20:55)
[2023-06-28] MEDS: DUPHALAC/CHRONULAC 20 GRAMS PO ×3 (08:30→22:33)
[2023-06-28] MEDS: NOVOLOG FLEXPEN-LOW RESISTANCE SC (08:35)
[2023-06-28] MEDS: NEURONTIN 100 MG PO ×2 (08:53→22:33)
[2023-06-28 08:55] LABS: Hematocrit 34.2 % (39.0-52.0); Hemoglobin 11.4 g/dL (13.0-18.0); Mean Corp Hgb Conc. 33.3 g/dL (33.0-37.0); Mean Corpuscular Hgb 28.8 pg (27.0-31.0); Mean Corpuscular Volume 86.4 fL (80.0-94.0); Mean Platelet Volume 9.4 fL (7.4-10.4); Platelet Count 398 10^3/uL (130-400); Red Blood Cell Count 3.96 10^6/uL (4.70-6.10); Red Cell Dist. Width 15.4 % (11.5-14.5); White Blood Cell Count 8.4 10^3/uL (4.8-10.8)
--- NOTE | 2023-06-28 10:05 | CM ---
Addendum entered by uLpis Kilpatrick 06/28/23 16:26:
Received telephone call from [facility] who states Mr. Sousa pump will need to be changed. [facility] will be here tomorrow between 1:00 p.m. and 2:00 p.m to switch the pump. Updated medical team , patient and spouse.
Addendum entered by Lupis Kilpatrick 06/28/23 14:55:
Received telephone call from [facility] who is asking P.A. to call Darci the Pharmacist ([phone]) who has a question.
Addendum entered by Lupis Kilpatrick 06/28/23 14:09:
Telephone call to [facility] to see if they can get medications there today. Awaiting call back.
Addendum entered by Lupis Kilpatrick 06/28/23 11:48:
Script called in to [facility] by P.A. Faxed updated clinical to [facility].
Original Note:
Reviewed chart. Mr. Sousa was transferred to IVU. Met with to review discharge plans. He states prior to admission he resides with his spouse in a two story home with one step to enter. He states he has a full flight of steps
to get to bedroom/full bathroom. He states he has a powder room on the first floor. He states prior to admission he ambulates with a walker. He states he has a walker at home. He states he ambulated with the walker today. He states he his current
with [facility] and [facility] for IV Lasix and IV Milrinone. Telephone call to [facility] Intake to review what they need to resume swervices. They will need clinical information and scripts faxed to them. the fax number is
([phone]). Medical work-up in progress. The discharge plan is to return home with his spouse and resumption of [facility] and [facility] when medically stable.
--- NOTE | 2023-06-28 10:27 | W.PN.NEPH.PH ---
Today's Communication / Plan
-
dc
Assessment/Plan
-
Impression:
Change in mental status (now improving)
Cardiorenal syndrome
CKD stage IV with baseline creatinine 2.5-3
Recurrent ascites status post paracentesis on 05-31
Nonischemic cardiomyopathy with a EF of 40% (on home milrinone)
Hyponatremia (125)
Hypotension
Permanent atrial fibrillation
Chronic anticoagulation with Eliquis
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
Patent ductus arteriosus, conservatively managed at [facility]
History of noncompliance
Diabetes mellitus type 2
Anemia, multifactorial
Plan:
-back on torsemide and IV lasix as OP regimen
-follow BMP
-He says that follows a 50oz FR and low salt diet
-He will follow up with [facility] regarding future plans if renal function inevitably worsens
-ok for dc from renal standpoint
-
-
Date of Service: June 28, 2023
CC / HPI / ROS
-
Chief Complaint:
KATY
History of Present Illness:
KATY/Cr down to 2.1 (B/l 2.5-3)
MS at baseline
Na low 127
remains on chronic milrinone for HFrEF
Review of Systems:
no CP/SOB
Labs
-
Labs:
WBC 8.4 10^3/uL (4.8-10.8) 06/28/23 08:42
RBC 3.96 10^6/uL (4.70-6.10) L 06/28/23 08:42
Hgb 11.4 g/dL (13.0-18.0) L 06/28/23 08:42
Hct 34.2 % (39.0-52.0) L 06/28/23 08:42
Plt Count 398 10^3/uL (130-400) 06/28/23 08:42
Sodium 127 mmol/L (135-145) L 06/28/23 04:10
Potassium 4.1 mmol/L (3.5-5.1) 06/28/23 04:10
Chloride 93 mmol/L (98-107) L 06/28/23 04:10
Carbon Dioxide 24 mmol/L (22-30) 06/28/23 04:10
BUN 67 mg/dl (9-20) H 06/28/23 04:10
Creatinine 2.1 mg/dL (0.7-1.3) H 06/28/23 04:10
eGFR 34.08 06/28/23 04:10
Glucose 182 mg/dl (70-99) H 06/28/23 04:10
Calcium 8.2 mg/dl (8.4-10.2) L 06/28/23 04:10
Phosphorus 4.9 mg/dl (2.5-4.5) H 06/28/23 04:10
Albumin 2.6 g/dl (3.5-5.0) L 06/28/23 04:10
Physical Exam
-
Vital Signs:
Vital Signs
Temp Pulse Resp BP Pulse Ox
97.9 F 103 16 101/66 100
06/28/23 07:16 06/28/23 08:00 06/28/23 07:16 06/28/23 07:18 06/28/23 08:00
Cardiovascular:: Regular rate and rhythm
Respiratory:: Bilateral: Coarse
Lung Excursion:: Normal
Abdomen:: Nontender and Soft
Bowel Sounds:: Normal
Extremity Edema:: +1: Bilateral:
--- NOTE | 2023-06-28 10:40 | W.PN.CARDCBS ---
Addendum entered and electronically signed by Guzman Srinivasan MD 06/28/23 11:44:
I saw and examined the patient.
The ASSISTANT PROFESSOR OF LIFE SCIENCES or PA's note was reviewed and I agree with the note.
Comment: General: Well developed, well nourished in NAD.
Neck: Supple, no JVD, HJR, carotids +2 B/L, no bruits bilaterally.
Heart: Non displaced PMI, RRR, no murmurs, No S3, S4, no rubs.
Lungs: Scattered rhonchi
Extremities: No clubbing, cyanosis or edema bilaterally.
Neuro: Grossly nonfocal, awake, alert and oriented x3.
Volume status appears stable on oral diuretic regimen. Stable cardiology status for discharge. He declines follow-up at [facility] and will see his doc at [place] on July 05. discussed with primary service
Addendum entered and electronically signed by Brit Shah PA-C 06/28/23 11:00:
scheduled for follow up with [facility] 07/05 @3:30. d/w patient.
Original Note:
Today's Communication / Plan
-
continue home milrinone @0.25
continue torsemide 120mg po BID and IV lasix 100mg MWF
BMP/mag in 1 week
continue toprol, eliquis
will arrange OP follow up
Impression / Plan
-
.
PCP: Dr. Nikolas Schmitz
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 Now following with Dr. Felix Almanza at [place] /Dr. Hong Nino
Impression:
TME - possibly due to hepatic encephalopathy
Acute on chronic heart failure with reduced ejection fraction, stage D on home milrinone
Nonischemic cardiomyopathy EF 18% by echo at [facility] 01/2023
Recurrent ascites, cirrhosis
Permanent A-fib on Eliquis; [id number]: 3 (heart failure, hypertension, age). On Eliquis 5 mg twice daily for stroke risk reduction
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
Hyponatremia, chronic
Hyperkalemia improved with hx hyperkalemia
Hypertension
PA, conservatively managed
CKD stage IV
History of hypothyroidism
ECHO 09/2018: Severely dilated LV, EF 45% with regional variations, moderate LVH, dilated RV, severe biatrial dilatation, dilated coronary sinus, MAC, mild MR, aortic sclerosis, mild AR, trace TR, PAP 50 to 55 mmHg, dilated IVC, small pericardial
effusion, mildly dilated aortic root and proximal ascending aorta
Echo 08/25/22: EF 42%, global hypokinesis, stage 3 diastolic dysfunction, severely enlarged RV size with moderately reduced RV systolic function, severely dilated LA/RA, mild MR, mild TR with PAP 57-62 mmHg, small pericardial effusion, dilated aortic
root with Sinuses at 3.9 cm
Plan:
-He states he is feeling better and is eager for discharge today
-Continue home milrinone infusion at 0.25
-Back on torsemide 120 mg twice daily as of 06/26. Creatinine continues to improve, 2.1 on 06/27
-He also gets 100 mg IV Lasix Tuesday via home infusion
-Will need BMP in 1 week upon discharge
-Remains in rate controlled A-fib on review of telemetry. Continue low-dose Toprol and Eliquis 5mg BID
-Long-term prognosis appears poor
-will arrange OP cardiac follow up
Progress Note - Solder Making Laborer
Subjective
Date of Service: June 28, 2023
reports feeling improved. eager for DC
Objective
Labs:
06/28/23 08:42
06/28/23 04:10
Labs
Hgb 11.4 g/dL (13.0-18.0) L 06/28/23 08:42
Hct 34.2 % (39.0-52.0) L 06/28/23 08:42
Plt Count 398 10^3/uL (130-400) 06/28/23 08:42
PT 19.6 Sec (11.4-14.6) H 06/24/23 19:06
INR 1.68 06/24/23 19:06
APTT 37.0 Sec (23.4-35.0) H 06/24/23 19:06
Sodium 127 mmol/L (135-145) L 06/28/23 04:10
Potassium 4.1 mmol/L (3.5-5.1) 06/28/23 04:10
BUN 67 mg/dl (9-20) H 06/28/23 04:10
Creatinine 2.1 mg/dL (0.7-1.3) H 06/28/23 04:10
Glucose 182 mg/dl (70-99) H 06/28/23 04:10
Vital Signs and I&O:
Vital Signs
Temp Pulse Resp BP Pulse Ox
97.9 F 103 16 101/66 100
06/28/23 07:16 06/28/23 08:00 06/28/23 07:16 06/28/23 07:18 06/28/23 08:00
Vital Signs
Temp Pulse Resp BP Pulse Ox
97.9 F 103 16 101/66 100
06/28/23 07:16 06/28/23 08:00 06/28/23 07:16 06/28/23 07:18 06/28/23 08:00
Intake & Output
06/26/23 06/27/23 06/28/23 06/29/23
07:59 07:59 07:59 07:59
Intake Total 433.2 / 565.0 1531.4 / 2023.2 1610.0 / 1610.0
Output Total 1919 3725 / 3875 2265 / 2265
Balance -1486.8 / -1455.0 -2193.6 / -1851.8 -655.0 / -655.0
Physical Exam
Physical Exam
GEN: No distress, awake, alert, oriented x3. sitting in chair
HEENT: supple, anicteric, mmm, eomi
LUNGS: CTA B/L, no wheezes/rales
CV: Irreg, S1/S2, no murmur
ABD: soft, BS+, NT/ND
EXT: No cyanosis, clubbing. 4+ edema of B/L LE to knee with B/L discoloration
NEURO: Gross non-focal
SKIN: Warm, pink, dry. No rash
[2023-06-28 11:24] LABS: Glucose - Point of Care 197 mg/dl (70-99)
[2023-06-28] MEDS: NOVOLOG FLEXPEN-LOW RESISTANCE 1 UNITS SC ×2 (11:42→17:32)
--- NOTE | 2023-06-28 14:25 | W.PN.HOSP.TC ---
Addendum entered and electronically signed by Olivier Tolbert MD 06/28/23 16:10:
Per patient's nurse [facility] just called back again and patient needs a new pump and this can not be done until tomorrow between 1:00 and 2:00 p.m. So patient can not go home until tomorrow. Anticipate discharge tomorrow.
Original Note:
Today's Communication/Plan
-
Discharge today
Assessment / Plan
Assessment / Plan
Physical Exam
Gen-awake but not alert, NAD, obese
HEENT-NC, AT, anicteric, clear oral mm
Neck-supple
CV-irreg, no M, +S1/S2
Lungs-Rhonchi
Abd-soft, NT, ND
Ext-bilateral lower extremity edema, hyperpigmentation
Musculoskeletal-no cyanosis, clubbing
Skin-warm and dry
Neuro-grossly non-focal
Psych-calm, cooperative
Assessment/Plan
Acute TME - possible hepatic encephalopathy versus other causes. Continue lactulose. Apparently was not getting lactulose at home for unclear reasons. Ammonia level 55 on admission, improved to 21.
Anasarca - discharge weight on June 20 was 103 kg, currently 102.6 kg today. Etiology of anasarca multifactorial including acute on chronic heart failure, cirrhosis, renal failure, etc.
Hyperkalemia - due to KATY, CKD, spironolactone, potassium supplementation. Hold spironolactone and potassium, was previously given another dose of Lokelma. Potassium improved to 4.4 today.
Cardiac cirrhosis with recurrent ascites -last paracentesis was May 31. IR consulted and 5860 cc of yellow ascitic fluid was drained.
Acute on chronic heart failure reduced EF/nonischemic cardiomyopathy -on chronic home milrinone infusion -- continue home Milrinone at 0.25. Status post Bumex Drip, now transitioned back torsemide 120 mg po BID and IV Lasix 100 mg MWF as outpatient
regimen. Continue Toprol and Eliquis. Monitor for recurrent ventricular tachycardia. He says that follows a 50oz FR and low salt diet.
KATY on CKD 4 -creatinine stable at 2.1 today. Discharge creatinine was 2.2. Nephrology consulted. Suspect cardiorenal syndrome in the setting of acute on chronic heart failure exacerbation. Discontinue Johnson Catheter.
-Check BMP and Magnesium in 1 week
Chronic hyponatremia -sodium stable at 127.
DM2 without hyperglycemia -hemoglobin A1c 7.7% on June 17. Glucose 182 this morning. At home he is on Lantus 10 units at bedtime, lispro 2 units AC.
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
Patent ductus arteriosus, conservatively managed.
Permanent atrial fibrillation -on Eliquis.
Hypothyroidism -on levothyroxine. Last TSH was 18.6 on June 17, at which point his levothyroxine dose was increased in the hospital. Repeat thyroid labs in 3 to 4 weeks.
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
Full code
Dispo -PT recommending SNF.
More than 30 minutes spent in discharge including
Final examination of the patient
Summarizing hospital stay
Instructions for continuing care to all relevant caregivers
Preparation of discharge records, prescriptions, and referral forms
Total time spent (in minutes): 42
Anticipated Discharge: Today
Subjective/Interval History
-
Date of Service: June 28, 2023
Patient was seen and examined. He reported feeling good, and would be happy to be discharged today.
Objective Data
-
Labs:
Laboratory Results
06/28/23 06/28/23
04:10 08:42
WBC 8.4
Hgb 11.4 L
Hct 34.2 L
Plt Count 398
Sodium 127 L
Potassium 4.1
Chloride 93 L
Carbon Dioxide 24
BUN 67 H
Creatinine 2.1 H
Glucose 182 H
Calcium 8.2 L
Total Bilirubin 0.8
AST 32
ALT 15
Alkaline Phosphatase 146 H
Vital Signs:
Vital Signs
Temp Pulse Resp BP Pulse Ox
97.7 F 101 16 106/59 100
06/28/23 11:18 06/28/23 13:00 06/28/23 11:18 06/28/23 11:42 06/28/23 11:18
I&O
06/27/23 06/28/23 06/29/23
06:59 06:59 06:59
Intake Total 1531.4 / 1543.2 1621.8 / 1621.8
Output Total 3775 / 3925 2415 / 2415
Balance -2243.6 / -2381.8 -793.2 / -793.2
--- NOTE | 2023-06-28 15:22 | PTCARENOTE ---
Pt received this am stating he feels great. Pt oob to the chair and to the bathroom with the walker. Gait steady. Denies any pain or sob. Milrinone infusing as ordered.
--- NOTE | 2023-06-28 15:36 | W.HF.CON ---
Heart Failure
- LV Function
Left ventricular function study result: LV Ejection fraction </= 35% (ECHO @ [facility] 01/2023)
Ejection Fraction Percentage: 18
- ARNI
Patient already on ARNI: No
Heart Failure ARNI Contraindication: Acute Renal Failure, Hypotension
- ACEI/ARB
Patient already on ACEI/ARB: No
Heart Failure ACEI/ARB Contraindication: Acute Renal Failure, Hypotension
- Beta Lizz
Patient already on Evidence Based Beta Lizz: Yes
- Mineralocorticord Receptor Antagonist
Patient already on MRA: No
Heart Failure MRA Contraindication: Cr > 2.5 in Men, Hypotension
- SGLT-2 Inhibitor
Patient already on SGLT-2 Inhibitor: No
Heart Failure SGLT-2 Inhibitor Contraindication: eGFR < 25
- Afib Anticoagulation
Patient already on Anticoagulation for Afib: Yes
- NYHA CHF Classification
NYHA CHF Classification Level: Class III - Symptoms w/ min exertion, interferes w/ nml daily activity
- ACC/AHA Stage
ACC/AHA Stage: Stage D: Advanced Heart Failure (on home milrinone infusion)
[2023-06-28 17:37] LABS: Glucose - Point of Care 191 mg/dl (70-99)
--- NOTE | 2023-06-28 18:00 | PTCARENOTE ---
Report called to IVU. Pt to transfer to Room 2248. All belongings packed and taken w/ patient.
--- NOTE | 2023-06-28 18:59 | PTCARENOTE ---
at 1843 pt w/ what appears to be 4 beat run VT. Pt asymptomatic, states they feel fine.
[2023-06-28 21:42] LABS: Glucose - Point of Care 156 mg/dl (70-99)
--- NOTE | 2023-06-28 22:04 | PTCARENOTE ---
Pt received at start of shift, HR afib w/ BBB and PVCs. Milrinone infusing at 0.25 mcg/kg/min (7.8mL/hr). Reinforced importance of fluid restriction w/ pt. Pt denies any CP, SOB, or lightheadedness/dizziness at this time. Informed to notify RN if
any changes, call evans within reach.
[2023-06-28] MEDS: LANTUS 0.100000000000000006 UNITS SC (22:33)
[2023-06-29] VITALS (7 sets, daily range): BP systolic 96–102; BP diastolic 69–83; PULSE 102–106; BMI 27.2; BMI 31.1
[2023-06-29 03:07] LABS: ALT (SGPT) 17 U/L (0-50); AST (SGOT) 31 U/L (17-59); Albumin 2.7 g/dl (3.5-5.0); Alkaline Phosphatase 146 U/L (38-126); Blood Urea Nitrogen 65 mg/dl (9-20); Calcium 8.1 mg/dl (8.4-10.2); Carbon Dioxide 26 mmol/L (22-30); Chloride 93 mmol/L (98-107); Estimated Creatinine Clearance 48 ml/min; Glucose 180 mg/dl (70-99); Potassium 4.6 mmol/L (3.5-5.1); Sodium 126 mmol/L (135-145); Total Bilirubin 0.7 mg/dl (0.2-1.3); Total Protein 5.2 g/dl (6.3-8.2); eGFR 38.42
[2023-06-29] MEDS: SYNTHROID 100 MCG PO (06:06)
[2023-06-29 07:14] LABS: Glucose - Point of Care 92 mg/dl (70-99)
[2023-06-29] MEDS: NOVOLOG FLEXPEN-LOW RESISTANCE SC ×2 (08:26→12:19)
[2023-06-29] MEDS: DUPHALAC/CHRONULAC 20 GRAMS PO (08:26)
[2023-06-29] MEDS: RENVELA 800 MG PO ×2 (08:27→12:23)
[2023-06-29] MEDS: ZYLOPRIM 100 MG PO (08:27)
[2023-06-29] MEDS: TOPROL XL 12.5 MG PO (08:27)
[2023-06-29] MEDS: ELIQUIS 5 MG PO (08:27)
[2023-06-29] MEDS: DEMADEX 120 MG PO (08:38)
[2023-06-29] MEDS: NEURONTIN 100 MG PO (10:22)
[2023-06-29] MEDS: LASIX 100 MG IV (10:43)
[2023-06-29 11:36] LABS: Glucose - Point of Care 136 mg/dl (70-99)
--- NOTE | 2023-06-29 11:43 | W.PN.NEPH.PH ---
Today's Communication / Plan
-
- plan for BMP follow up as outpatient
Assessment/Plan
-
Impression:
Change in mental status (now improving)
Cardiorenal syndrome
CKD stage IV with baseline creatinine 2.5-3
Recurrent ascites status post paracentesis on 05-31
Nonischemic cardiomyopathy with a EF of 40% (on home milrinone)
Hyponatremia (125)
Hypotension
Permanent atrial fibrillation
Chronic anticoagulation with Eliquis
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
Patent ductus arteriosus, conservatively managed at [facility]
History of noncompliance
Diabetes mellitus type 2
Anemia, multifactorial
Plan:
-back on torsemide and IV lasix as OP regimen
-follow BMP
-Na has been slowly dropping, now down to 126 today. did discuss with patient that he could benefit from closer inpatient management but the patient is not willing. plan will be for continued diuresis and then follow up labs on Tuesday
-He says that follows a 50oz FR and low salt diet
-He will follow up with [facility] regarding future plans if renal function inevitably worsens
-
-
Date of Service: June 29, 2023
CC / HPI / ROS
-
Chief Complaint:
KATY
History of Present Illness:
KATY/Cr down to 1.9 (B/l 2.5-3)
MS at baseline
Na low 126
remains on chronic milrinone for HFrEF
Review of Systems:
no CP/SOB
Labs
-
Labs:
WBC 8.4 10^3/uL (4.8-10.8) 06/28/23 08:42
RBC 3.96 10^6/uL (4.70-6.10) L 06/28/23 08:42
Hgb 11.4 g/dL (13.0-18.0) L 06/28/23 08:42
Hct 34.2 % (39.0-52.0) L 06/28/23 08:42
Plt Count 398 10^3/uL (130-400) 06/28/23 08:42
Sodium 126 mmol/L (135-145) L 06/29/23 02:20
Potassium 4.6 mmol/L (3.5-5.1) 06/29/23 02:20
Chloride 93 mmol/L (98-107) L 06/29/23 02:20
Carbon Dioxide 26 mmol/L (22-30) 06/29/23 02:20
BUN 65 mg/dl (9-20) H 06/29/23 02:20
Creatinine 1.9 mg/dL (0.7-1.3) H 06/29/23 02:20
eGFR 38.42 06/29/23 02:20
Glucose 180 mg/dl (70-99) H 06/29/23 02:20
Calcium 8.1 mg/dl (8.4-10.2) L 06/29/23 02:20
Phosphorus 4.9 mg/dl (2.5-4.5) H 06/28/23 04:10
Albumin 2.7 g/dl (3.5-5.0) L 06/29/23 02:20
Physical Exam
-
Vital Signs:
Vital Signs
Temp Pulse Resp BP Pulse Ox
97.7 F 104 16 97/69 98
06/29/23 11:33 06/29/23 11:33 06/29/23 11:33 06/29/23 10:43 06/29/23 11:33
Cardiovascular:: Regular rate and rhythm
Respiratory:: Bilateral: Coarse
Lung Excursion:: Normal
Abdomen:: Soft
Bowel Sounds:: Normal
Extremity Edema:: +2: Bilateral:
Johnson Catheter: No
--- NOTE | 2023-06-29 12:16 | W.PN.HOSP.TC ---
Today's Communication/Plan
-
Discharge today
Assessment / Plan
Assessment / Plan
Physical Exam
Gen-awake but not alert, NAD, obese
HEENT-NC, AT, anicteric, clear oral mm
Neck-supple
CV-irreg, no M, +S1/S2
Lungs-Rhonchi
Abd-soft, NT, ND
Ext-bilateral lower extremity edema, hyperpigmentation
Musculoskeletal-no cyanosis, clubbing
Skin-warm and dry
Neuro-grossly non-focal
Psych-calm, cooperative
Assessment/Plan
Acute TME - possible hepatic encephalopathy versus other causes. Continue lactulose. Apparently was not getting lactulose at home for unclear reasons. Ammonia level 55 on admission, improved to 21.
Anasarca - discharge weight on June 20 was 103 kg, currently 104 kg today. Etiology of anasarca multifactorial including acute on chronic heart failure, cirrhosis, renal failure, etc.
Hyperkalemia - due to KATY, CKD, spironolactone, potassium supplementation. Hold spironolactone and potassium, was previously given another dose of Lokelma. Potassium improved to 4.4 today.
Cardiac cirrhosis with recurrent ascites -last paracentesis was May 31. IR consulted and 5860 cc of yellow ascitic fluid was drained.
Acute on chronic heart failure reduced EF/nonischemic cardiomyopathy -on chronic home milrinone infusion -- continue home Milrinone at 0.25. Status post Bumex Drip, now transitioned back torsemide 120 mg po BID and IV Lasix 100 mg MWF as outpatient
regimen. Continue Toprol and Eliquis. Monitor for recurrent ventricular tachycardia. He says that follows a 50oz FR and low salt diet.
KATY on CKD 4 -creatinine stable at 2.1 today. Discharge creatinine was 2.2. Nephrology consulted. Suspect cardiorenal syndrome in the setting of acute on chronic heart failure exacerbation. Discontinue Johnson Catheter.
-Check BMP and Magnesium in 2 days.
Chronic hyponatremia -sodium stable at 127.
DM2 without hyperglycemia -hemoglobin A1c 7.7% on June 17. Glucose 182 this morning. At home he is on Lantus 10 units at bedtime, lispro 2 units AC.
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
Patent ductus arteriosus, conservatively managed.
Permanent atrial fibrillation -on Eliquis.
Hypothyroidism -on levothyroxine. Last TSH was 18.6 on June 17, at which point his levothyroxine dose was increased in the hospital. Repeat thyroid labs in 3 to 4 weeks.
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
Full code
Dispo -PT recommending SNF.
More than 30 minutes spent in discharge including
Final examination of the patient
Summarizing hospital stay
Instructions for continuing care to all relevant caregivers
Preparation of discharge records, prescriptions, and referral forms
Total time spent (in minutes): 40
Anticipated Discharge: Today
Subjective/Interval History
-
Date of Service: June 29, 2023
Patient was seen and examined. He denied any new significant symptoms or complaints. He would like to go home today.
Objective Data
-
Labs:
Laboratory Results
06/29/23
02:20
Sodium 126 L
Potassium 4.6
Chloride 93 L
Carbon Dioxide 26
BUN 65 H
Creatinine 1.9 H
Glucose 180 H
Calcium 8.1 L
Total Bilirubin 0.7
AST 31
ALT 17
Alkaline Phosphatase 146 H
Vital Signs:
Vital Signs
Temp Pulse Resp BP Pulse Ox
97.7 F 104 16 97/69 98
06/29/23 11:33 06/29/23 11:33 06/29/23 11:33 06/29/23 10:43 06/29/23 11:33
I&O
06/28/23 06/29/23 06/30/23
06:59 06:59 06:59
Intake Total 1621.8 / 1621.8 360 / 360 360 / 360
Output Total 2415 / 2415 1250 / 1250 225 / 225
Balance -793.2 / -793.2 -890 / -890 135 / 135
[2023-06-29] MEDS: PRIMACOR 20 MG 100 IV (12:19)
--- NOTE | 2023-06-29 12:53 | W.DS.TRANS ---
DC Summary - [place] Clerk
-
Discharge Instructions:
Discharge Diagnosis/Procedures Acute Encephalopathy - RESOLVED
Anasarca
Hyperkalemia
Cardiac cirrhosis with recurrent ascites
Acute on chronic heart failure reduced ejection
fraction/non-ischemic cardiomyopathy - on
chronic home milrinone infusion
Acute Kidney Injury on Chronic Kidney Disease
Chronic hyponatremia
Type 2 Diabetes Mellitus without hyperglycemia
Congenital heart disease, AV fistula from left
circumflex to coronary sinus
Patent ductus arteriosus, conservatively managed
Permanent atrial fibrillation on Eliquis
Hypothyroidism
Chronic lower extremity venous stasis dermatitis
/leg wounds
Diet 2 Gram Sodium,Other diet
Additional Diets 50 oz fluid restriction
Activity As tolerated
Blood Work CBC/BMP/magnesium by Saturday July 01, 2023
Other Services PT,VN
Specialty Instructions Weigh Daily
Instructions: *DCA Heart Failure Instructions
Stand-Alone Forms:
Changes to Home Medications: Yes
Discharge Medications:
DC Medications w/original date entered in [employer]
allopurinol 100 mg tablet 100 mg PO DAILY Gout 03/23/21
gabapentin 100 mg capsule 100 mg PO Q12H Pain 03/23/21
acetaminophen 325 mg tablet 650 mg PO DAILYPRN PRN mild pain 01/03/23
apixaban 5 mg tablet (Eliquis) 5 mg PO BID Blood Clot Prevention/Tx 01/03/23
insulin glargine 100 unit/mL subcutaneous solution (Lantus U-100 Insulin) 10 unit SC HS Diabetes 01/03/23
metoprolol succinate 25 mg tablet,extended release 24 hr 12.5 mg PO DAILY Heart Disease/Hypertension 01/03/23
therapeutic multivitamin 1 tab PO DAILY Supplement 01/03/23
insulin lispro 100 unit/mL subcutaneous pen (Admelog SoloStar U-100 Insulin lispro) 2 unit SC AC Diabetes 05/10/23
milrinone 78,000 mcg IV .SEE BELOW Heart Failure 05/10/23
omega-3 fatty acids 1,000 mg capsule 1,000 mg PO DAILY Supplement 05/10/23
torsemide 20 mg tablet 120 mg PO BID Fluid Retention/Swelling 05/10/23
docusate sodium 100 mg capsule 100 mg PO DAILY Constipation 06/18/23
furosemide 10 mg/mL injection solution 100 mg IV MOWEFR Fluid Retention/Swelling 06/18/23
potassium chloride 10 mEq capsule,extended release 40 meq PO DIRECTED Electrolyte Repletion 06/18/23
spironolactone 25 mg tablet 12.5 mg PO DAILY Heart Failure 06/18/23
levothyroxine 100 mcg tablet 100 mcg PO DAILY@0600 Thyroid 06/24/23
sevelamer carbonate 800 mg tablet 800 mg PO MEALS #100 tabs 06/29/23
Home Medication Changes
Sevelamer Carbonate (for high phosphorus) is new.
Spironolactone and Potassium are being held due to hyperkalemia.
Pending Results: No
Total time spent discharging patient (in min): 40
--- NOTE | 2023-06-29 12:54 | W.DCSUMMARY ---
Discharge Summary
Discharge Data
Date of Admission: 06/24/23
Date of Discharge: 06/29/23
Total time spent discharging patient (in min): 40
-
Pending Results: No
Hospital Course
68 y/o male with past medical history significant for end-stage cardiomyopathy, HFrEF, cardiogenic cirrhosis and permanent atrial fibrillation who presented for evaluation of increased confusion, unsteady gait and decreased urine output. Patient was
recently admitted at [facility] from 06/18/23 - 06/21/23 secondary to HFrEF and hyponatremia. stated that he was feeling well for about two days. But 1 day prior to presentation, he was noted to be significantly more weak and somewhat
confused. She noted that his urine output significantly declined from his usual - despite continued compliance with his usual aggressive diuretic regimen. Patient then became confused and unsteady. Patient was started on Lactulose. Patient was
placed in the ICU, started on Bumex for heart failure exacerbation. He was continued on Milrinone drip. Cardiology and nephrology (for hyponatremia) were consulted. Patient's weight decreased to around his baseline and he also had paracentesis with
5860 cc of yellow ascitic fluid drained. Nephrology discussed with him that his renal function is likely to progressively decline from cardiorenal syndrome and that given his poor cardiac function and chronic milrinone, should his kidneys fail he
would not be a candidate for dialysis, and hospice would be the only option. Patient was transitioned to his home diuretics and discharged.
Discharge Plan
-
Patient Disposition: Home with Home Care
Discharge Diagnosis/Procedures: Acute Encephalopathy - RESOLVED
Anasarca
Hyperkalemia
Cardiac cirrhosis with recurrent ascites
Acute on chronic heart failure reduced ejection fraction/non-ischemic cardiomyopathy - on chronic home milrinone infusion
Acute Kidney Injury on Chronic Kidney Disease
Chronic hyponatremia
Type 2 Diabetes Mellitus without hyperglycemia
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
Patent ductus arteriosus, conservatively managed
Permanent atrial fibrillation on Eliquis
Hypothyroidism
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
Condition: Fair
Diet: 2 Gram Sodium and Other diet
Additional Diets: 50 oz fluid restriction
Activity: As tolerated
Blood Work: CBC/BMP/magnesium by Saturday July 01, 2023
Other Services: VN and PT
Specialty Instructions: Weigh Daily- Call MD for wt gain/loss 3 lbs overnight/5 lbs in 1 week
Activity Restrictions/Additional Instructions:
You need to have your CBC/BMP/magnesium labwork rechecked by Saturday July 01, 2023.
You need to follow-up with your printing press operator apprentice and primary care physicians, both in the next 1 to 2 days, this week. They need to know your current medications and get an update on your hospitalization.
Continue home milrinone infusion at 0.25
Wound Care Instructions
R Buttock: clean with soap and water, silicone foam or use Triad barrier cream daily and prn soilage.
R curtis: clean with soap and water, silicone foam change q 3 days and prn drainage.
Toes: clean with soap and water, open to air unless drainage then dry dressing change daily.
Follow up with a Direct Service Provider for nail care.
Instructions: *DCA Heart Failure Instructions
Referrals:
[facility] [Outside]
Felix Almanza MD [Non-Admitting Privileges] - 07/06/23 3:30 pm (you are scheduled for follow [facility] [address] Almanza's [facility]. Please call with questions. )
UNKNOWN - PT DOES,NOT KNOW [Family Provider] -
Additional Discharge Medication Instructions: Spironolactone and Potassium are being held due to hyperkalemia.
Prescriptions:
Continued
allopurinol 100 MG tablet
100 mg PO DAILY
gabapentin 100 MG capsule
100 mg PO Q12H
Patient Comments:
06/18/2023, paperwork from [facility].
acetaminophen 325 mg Tablet
650 mg PO DAILYPRN PRN (Reason: mild pain)
insulin glargine [Lantus U-100 Insulin] 100 unit/mL Solution
10 unit SC HS
Patient Comments:
06/18/2023, paperwork from [facility].
metoprolol succinate 25 mg Tablet Extended Release 24 Hr
12.5 mg PO DAILY
Eliquis 5 mg Tablet
5 mg PO BID
therapeutic multivitamin Tablet
1 tab PO DAILY
torsemide 20 mg Tablet
120 mg PO BID
omega-3 fatty acids 1,000 mg Capsule
1,000 mg PO DAILY
insulin lispro [Admelog SoloStar U-100 Insulin] 100 unit/mL Insulin Pen
2 unit SC AC
milrinone
78,000 mcg IV .SEE BELOW
Patient Comments:
06/18/2023, infuse 78,000 mcg into a venous catheter continuous. Infuse milrinone 0.25 mcg/kg/min IV continuously via CADD may pump. Dose based on weight of 104.3 kg. Pump settings: continuous rate = 7.9 ml/hr; vol = 382 ml. Bag contains 48
hour supply with overfill. Paperwork from [facility].
furosemide 10 mg/mL solution
100 mg IV MOWEFR
Patient Comments:
06/18/2023, infuse 10 ml into venous catheter 3 times a week. Immediately prior to dose, RN to withdraw Furosemide 100 mg/10 ml and administer IV push over 5-10 minutes three times weekly on MoWeFr. Paperwork from [facility].
docusate sodium 100 mg capsule
100 mg PO DAILY
levothyroxine 100 mcg tablet
100 mcg PO DAILY@0600
Held
potassium chloride 10 mEq capsule, extended release
40 meq PO DIRECTED
Hold Instructions: Resume on 07/13/23. Resume this medication if and only if your outpatient physicians/printing press operator apprentice say you can resume this medication.
Patient Comments:
06/18/2023, pt. takes 4 tablets BID on SuTuThSa and 4 tablets TID on MoWeFr when he has his Furosemide IV.
spironolactone 25 mg Tablet
12.5 mg PO DAILY
Hold Instructions: Resume on 07/13/23. Resume this medication if and only if your outpatient physicians/cardiology say it is okay to resume this medication.
Discharge Orders:
Discharge Patient (As Directed); Ordered 06/29/23
Ordered By: Olivier Tolbert
Care Plan Goals
Care Plan Goals:
Problem: Readiness for enhanced knowledge related to diagnosis and treatment plan
Goal: Understand your diagnosis and treatment plan needs, including medications if applicable.
Instructions: Know your diagnosis, underlying causes and treatment plan options, including medications if applicable. Consult with your health care team to learn about your diagnosis and treatment plan, including medications if applicable.
Discharge Date and Time
Discharge Date/Time: 06/29/23 16:09
Print Language: P[place]
--- NOTE | 2023-06-29 13:27 | CM ---
Reviewed chart. Met with Mr. Sousa to review discharge plans. He states the medication has been delivered to the room. He states the [facility] Nurse called and will be here at 1:45 p.m. His spouse will provide transportation home.
Medically work-up in progress. The discharge plan is to return home with his spouse and [facility] and [facility] when medically stable.
--- NOTE | 2023-07-01 18:54 | W.PN.UPDATE ---
Update Note
Progress Note Update
I just spoke over the phone with patient and his , and emphasized the importance of rechecking patient's phosphorus levels through [facility] ([facility]; where patient usually gets his labs checked). They understood and,
will contact [facility] and get it checked.
== END 2023-06-29 16:09 | disposition home health service (06) | DRG 291 ==
LOC: IVU 21:14
PROVIDERS: Hospitalist; Nurse Practitioner Family; Radiology Vascular & Interventional Radiology; ADMITTING PHYSICIAN Hospitalist; ATTENDING PHYSICIAN Hospitalist; CONSULT PHYSICIAN Internal Medicine Cardiovascular Disease; CONSULT PHYSICIAN Internal Medicine Pulmonary Disease; CONSULT PHYSICIAN Student in an Organized Health Care Education/Training Program; EMERGENCY PHYSICIAN Student in an Organized Health Care Education/Training Program
PROC: 0W9G3ZZ Drainage of Peritoneal Cavity, Percutaneous Approach (ICD-10-PCS; 2023-06-26)
DX: I13.0 Hypertensive heart and chronic kidney disease with heart failure and stage 1 through stage 4 chronic kidney disease, or unspecified chronic kidney disease (principal); I50.23 Acute on chronic systolic (congestive) heart failure; E87.1 Hypo-osmolality and hyponatremia; R18.8 Other ascites; N18.4 Chronic kidney disease, stage 4 (severe); N17.9 Acute kidney failure, unspecified; I48.21 Permanent atrial fibrillation; Q25.0 Patent ductus arteriosus; I42.8 Other cardiomyopathies; E87.5 Hyperkalemia; E11.22 Type 2 diabetes mellitus with diabetic chronic kidney disease; E03.9 Hypothyroidism, unspecified; Z79.01 Long term (current) use of anticoagulants; K76.82 Hepatic encephalopathy; K76.1 Chronic passive congestion of liver; E11.65 Type 2 diabetes mellitus with hyperglycemia; I87.2 Venous insufficiency (chronic) (peripheral)
CPT/HCPCS: 49083; 71045; 80048; 80053; 81003; 81015; 82140; 82248; 82962; 83735; 84100; 85014; 85018; 85025; 85027; 85610; 85730; 87070; 89051; 93005; 96374; 96375; 97116; 97163; 97167; 99291; J2260

== ENCOUNTER 2023-07-06 15:38 | Inpatient (IN) | payer MEDICARE, OTHER, SELFPAY ==
[2023-07-06] VITALS (12 sets, daily range): BP systolic 100–121; BP diastolic 70–101; BMI 34.0; BMI 33.2
[2023-07-06 11:16] LABS: % Basophils 0.8 % (0-2); % Eosinophils 0.4 % (0-6); % Immature Granulocytes 0.9 % (0-0.5); % Lymphocytes 6.4 % (20.5-51.1); % Monocytes 8.9 % (1.7-9.3); % Neutrophils 82.6 % (42.2-75.2); Absolute Basophils 0.1 10^3/uL (0-0.2); Absolute Immature Granulocytes 0.1 10^3/uL (0-0.05); Absolute Lymphocytes 0.6 10^3/uL (1.2-3.4); Absolute Monocytes 0.8 10^3/uL (0.1-0.6); Absolute Neutrophils 7.4 10^3/uL (1.4-6.5); Hematocrit 36.5 % (39.0-52.0); Hemoglobin 12.3 g/dL (13.0-18.0); Mean Corp Hgb Conc. 33.7 g/dL (33.0-37.0); Mean Corpuscular Hgb 28.6 pg (27.0-31.0); Mean Corpuscular Volume 84.9 fL (80.0-94.0); Mean Platelet Volume 9.2 fL (7.4-10.4); Nucleated Red Blood Cells % 0 % (-); Platelet Count 515 10^3/uL (130-400); Red Cell Dist. Width 15.7 % (11.5-14.5); White Blood Cell Count 8.9 10^3/uL (4.8-10.8)
[2023-07-06 11:32] LABS: ALT (SGPT) 21 U/L (0-50); AST (SGOT) 42 U/L (17-59); Albumin 3.3 g/dl (3.5-5.0); Alkaline Phosphatase 183 U/L (38-126); Blood Urea Nitrogen 78 mg/dl (9-20); Calcium 8.9 mg/dl (8.4-10.2); Carbon Dioxide 20 mmol/L (22-30); Chloride 94 mmol/L (98-107); Estimated Creatinine Clearance 35 ml/min; Glucose 178 mg/dl (70-99); Potassium 5.6 mmol/L (3.5-5.1); Sodium 125 mmol/L (135-145); Total Bilirubin 1.4 mg/dl (0.2-1.3)
[2023-07-06 13:42] LABS: Urine Albumin Negative (Neg - Trace); Urine Bilirubin Negative (Negative); Urine Character Clear (Clear); Urine Color Yellow; Urine Glucose Negative (Negative); Urine Ketone Negative (Negative); Urine Leukocyte Negative (Negative); Urine Nitrite Negative (Negative); Urine Occult Blood Negative (Negative); Urine Urobilinogen Negative (Neg - 1+)
--- NOTE | 2023-07-06 13:54 | ED.GENMED ---
History of Present Illness
General
Chief Complaint: Change in Mental Status
Source: patient and spouse
Exam Limitations: none
Time Seen by Provider: 07/06/23 11:26
Nursing documentation reviewed up to this point in time: agreed with
Travel History
Have you had any contact with someone who has COVID-19?: No
Do you have any symptoms of coronavirus? Fever > 100 degrees, chills, cough, shortness of breath, sore throat, loss of taste or smell, muscle aches, or headache?: No
History of Present Illness
History of Present Illness:
68-year-old male with past medical history of A-fib currently on Eliquis, heart failure, liver disease, diabetes presenting to the emergency department today with concerns of increased weakness confusion over the past day or so was here recently for
similar symptoms a week ago at the time found to be hyponatremic and fluid overloaded. Upon here patient does appear to be fluid overload with leg swelling distended abdomen though no tenderness to the abdomen no redness or warmth no signs of SBP.
Labs did show hyponatremia of 125 hyperkalemia 5.6 creatinine elevated but at patient's baseline. Plan to admit for further treatment management considering complex electrolyte and fluid balance dysregulation.
Past History
Past History
ED Past Medical History: Arrthythmia and CHF
Social History
Tobacco: Non-smoker
Alcohol: None
Drug: None
Personal:
Living: with family
Employment: Retired
Review of Systems
Review of Systems
Allergies reviewed?: Yes
All Other Systems: ROS reviewed and negative except as documented in HPI and ROS
Phy Exam
Physical Exam
Physical Exam:
GENERAL: Alert , in no apparent distress
EYE: pupils equal and reactive
NECK: Supple, no significant adenopathy.
ENT: o/p clr, mmm.
CARDIAC: Regular rate and rhythm .
LUNGS: Clear breath sounds bilaterally, no acute respiratory distress, no wheezes/rales/rhonchi
ABDOMEN: Distended abdomenwithout focal tenderness, no r/g, no cvat
NEUROLOGICAL: Alert and oriented, no focal neuro deficits
SKIN: Warm and dry, skin intact.
MUSCULOSKELETAL: Bilateral leg edema +2 pitting edema distal to the knees bilaterally well perfused.
PSYCH: Normal and appropriate interaction.
Course
Orders/Labs/Results
Orders:
Orders
07/06/23 11:09
CMP [Comprehensive Metabolic Panel] Urgent
Complete Blood Count/With Diff Urgent
07/06/23 11:15
EKG [Electrocardiogram (*1)] Urgent
Reason for Study: Tachycardia
EKG- Treatment ONCE
07/06/23 11:34
Chest [CR Chest - 2 Views ] Urgent
Comment:
Reason For Exam: amd picc line
07/06/23 13:22
Urinalysis Reflex To Culture Urgent
Date Specimen was Collected: 07/06/23
Time Specimen was Collected: 12:42
07/06/23 13:51
Add On- LAB Urgent
Tests Added?: Ammonia level
Abnormal Lab Results
07/06/23
11:09
RBC 4.30 L 10^6/uL
(4.70-6.10)
Hgb 12.3 L g/dL
(13.0-18.0)
Hct 36.5 L %
(39.0-52.0)
RDW 15.7 H %
(11.5-14.5)
Plt Count 515 H 10^3/uL
(130-400)
Abs Immat Gran (auto) 0.1 H 10^3/uL
(0-0.05)
Absolute Neuts (auto) 7.4 H 10^3/uL
(1.4-6.5)
Absolute Lymphs (auto) 0.6 L 10^3/uL
(1.2-3.4)
Absolute Monos (auto) 0.8 H 10^3/uL
(0.1-0.6)
Immature Gran % 0.9 H %
(0-0.5)
Neutrophils % 82.6 H %
(42.2-75.2)
Lymphocytes % 6.4 L %
(20.5-51.1)
Sodium 125 L mmol/L
(135-145)
Potassium 5.6 H mmol/L
(3.5-5.1)
Chloride 94 L mmol/L
(98-107)
Carbon Dioxide 20 L mmol/L
(22-30)
BUN 78 H mg/dl
(9-20)
Creatinine 2.7 H mg/dL
(0.7-1.3)
Glucose 178 H mg/dl
(70-99)
Total Bilirubin 1.4 H mg/dl
(0.2-1.3)
Alkaline Phosphatase 183 H U/L
(38-126)
Total Protein 6.0 L g/dl
(6.3-8.2)
Albumin 3.3 L g/dl
(3.5-5.0)
07/06/23 11:09
07/06/23 11:09
Vital Signs
Initial and Last Documented VS:
Initial Vital Signs
BP
111/74
07/06/23 10:58
Last Documented Vital Signs
Temp Pulse Resp BP Pulse Ox
98.1 F 101 25 109/85 98
07/06/23 11:00 07/06/23 13:45 07/06/23 13:45 07/06/23 13:00 07/06/23 13:30
MDM/Problems Addressed
MDM/Problems Addressed:
68-year-old male presenting to the emergency department today with concerns of generalized weakness fatigue worsening over the past day upon arrival mildly tachycardic improving here at rest found to be hyponatremic of 125 hyperkalemic 5.6 appears
to have some fluid overload with pulmonary edema on chest x-ray swollen legs and distended abdomen. Plan to admit for further treatment and monitoring.
*Critical Care Note
Total Time (30-74mins, 75-104mins- exclusive of procedures): Not Applicable
ED Attending Note
-
Portions of this chart may have been created with voice recognition software.� Occasional wrong word or��sound alike� substitutions may have occurred due to the inherent limitations of voice recognition software.
Discharge Plan
Departure
Patient Disposition: Admit
Date of Disposition: 07/06/23
Time of Disposition: 13:56
Admit to: Telemetry
Admit to doctor: Toy
Presentation/result/management discussed w/ accepting MD/DO: Hospitalist
Patient with high blood pressure during this ER visit?: No
Condition: Good
Covid-19: Not Applicable
Discharge Problem:
Hyponatremia, Ascites
Prescriptions:
No Action
allopurinol 100 MG tablet
100 mg PO DAILY
gabapentin 100 MG capsule
100 mg PO Q12H
Patient Comments:
06/18/2023, paperwork from [facility].
acetaminophen 325 mg Tablet
650 mg PO DAILYPRN PRN (Reason: mild pain)
insulin glargine [Lantus U-100 Insulin] 100 unit/mL Solution
10 unit SC HS
Patient Comments:
06/18/2023, paperwork from [facility].
metoprolol succinate 25 mg Tablet Extended Release 24 Hr
12.5 mg PO DAILY
Eliquis 5 mg Tablet
5 mg PO BID
therapeutic multivitamin Tablet
1 tab PO DAILY
torsemide 20 mg Tablet
120 mg PO BID
omega-3 fatty acids 1,000 mg Capsule
1,000 mg PO DAILY
insulin lispro [Admelog SoloStar U-100 Insulin] 100 unit/mL Insulin Pen
2 unit SC AC
milrinone
78,000 mcg IV .SEE BELOW
Patient Comments:
06/18/2023, infuse 78,000 mcg into a venous catheter continuous. Infuse milrinone 0.25 mcg/kg/min IV continuously via CADD may pump. Dose based on weight of 104.3 kg. Pump settings: continuous rate = 7.9 ml/hr; vol = 382 ml. Bag contains 48
hour supply with overfill. Paperwork from [facility].
furosemide 10 mg/mL solution
100 mg IV MOWEFR
Patient Comments:
06/18/2023, infuse 10 ml into venous catheter 3 times a week. Immediately prior to dose, RN to withdraw Furosemide 100 mg/10 ml and administer IV push over 5-10 minutes three times weekly on . Paperwork from [facility].
potassium chloride 10 mEq capsule, extended release
40 meq PO DIRECTED
Hold Instructions: Resume on 07/13/23. Resume this medication if and only if your outpatient physicians/oceanography teacher say you can resume this medication.
Patient Comments:
06/18/2023, pt. takes 4 tablets BID on SuTuThSa and 4 tablets TID on MoWeFr when he has his Furosemide IV.
docusate sodium 100 mg capsule
100 mg PO DAILY
spironolactone 25 mg Tablet
12.5 mg PO DAILY
Hold Instructions: Resume on 07/13/23. Resume this medication if and only if your outpatient physicians/cardiology say it is okay to resume this medication.
levothyroxine 100 mcg tablet
100 mcg PO DAILY@0600
Referrals:
UNKNOWN - PT DOES,NOT KNOW [Family Provider] -
Interventions
Interventions:
*Risk Screen - Suicide Last Done: 07/06/23 11:03
*General Assessment Last Done: 07/06/23 11:03
*Neglect/Abuse Screening Last Done: 07/06/23 11:03
ED- Fall Risk Assessment Last Done: 07/06/23 11:17
*ED COVID-19 Vaccine History Last Done: 07/06/23 11:03
ED- Pulmonary Assessment Last Done: 07/06/23 11:08
ED- Neurological Assessment Last Done: 07/06/23 11:04
ED- Cardiac Assessment Last Done: 07/06/23 11:08
Discharge Date and Time
Print Language: ESTONIAN
[2023-07-06 14:26] LABS: Ammonia 56 umol/L (9-30)
--- NOTE | 2023-07-06 14:55 | HPS.HSE ---
Addendum entered and electronically signed by Devan Merida MD 07/06/23 15:44:
I saw and examined the patient.
The NURSE HEALTHCARE MANAGER or PA's note was reviewed and I agree with the note.
Comment:
68-year-old male with past medical history of cardiac cirrhosis, CHF, nonischemic cardiomyopathy on home milrinone, congenital heart disease, pulmonary atrial fibrillation, hypothyroidism, CKD 4 came to the hospital with weakness and hepatic
encephalopathy.� Elevated ammonia.� Started lactulose. Concern for CHF exacerbation. � Hyponatremic in the ED.� IR consulted for paracenthesis. Consult nephrology and cardiology. Spoke with Spouse, code status is DNR. Patient�s outpatient
cable cutter and swager is at [facility]. Per spouse, they are leaning towards possible hospice eventually. Nephrology to decide regarding diuresis. cw milrinone. prognosis appears guarded.
General: No Apparent Distress and Appears Chronically Ill
HEENT: Anicteric and Moist mucous membranes
Respiratory: Clear and Decreased Breath Sounds
Cardiac: S1/S2, Irregular Rhythm and Tachycardia
GI: Soft, Non Tender and Distended (Positive Fluid Wave)
Musculoskeletal: No Clubbing, No Cyanosis and Other (+3 pitting edema bilateral lower ext)
Neuro: Awake, Alert and Other (Positive asterixis)
Psych: Calm
I spent a total of 78 minutes with the patient or on the floor. More than 50% of this time involved counseling and coordination of care.
Original Note:
Family Physician
-
Family Physician: NOT KNOW UNKNOWN - PT DOES
Chief Complaint
-
Change in Mental Status
History of Present Illness
Patient is a 68 y/o male past medical history of end-stage cardiomyopathy, chronic HFrEF, cardiogenic cirrhosis, CKD stage IV, permanent atrial fibrillation and recent hospitalization for acute heart failure and hepatic encephalopathy who presents
with change in mental status. Additional history is obtained from patient's at the bedside. She notes over the last two day pain has not been himself. She has noted increased confusion and weakness, similar to his previous hospitalization.
She notes increasing abdominal distention and noting the patient did not eat well yesterday. She notes his lower extremities are edematous, but as bad as they have been on prior occasions.
Medical History
Past Medical History
Past Medical History: Reports Other
Additional Past Medical History:
Congenital heart anomaly
PDA (patent ductus arteriosus)
Permanent Atrial Fibrillation
Hypertension
Non-Ischemic Cardiomyopathy
Chronic HFrEF
Cardiogenic Cirrhosis with Ascites
CKD IV
Hyponatremia
Hypothyroidism
DM-II
Hyperkalemia
Chronic Leg Wounds
Past Surgical History: Reports Other
Additional Past Surgical History:
PICC
Social History
Tobacco: Non-smoker
Alcohol: Occasional
Personal:
Living: With Family
Employment: Employed
Family History
Family History: Not pertinent
Allergies / Home Medications
Allergies reflects when Allergies were last updated in [facility].
Home Medications with original date entered in [facility]
Allergy/Medication List:
Allergies
Allergy/AdvReac Type Severity Reaction Status Date / Time
No Known Allergies Allergy Verified 07/06/23 11:00
Home Medications
allopurinol 100 mg tablet 100 mg PO DAILY Gout 03/23/21
gabapentin 100 mg capsule 100 mg PO Q12H Pain 03/23/21
acetaminophen 325 mg tablet 650 mg PO DAILYPRN PRN mild pain 01/03/23
apixaban 5 mg tablet (Eliquis) 5 mg PO BID Blood Clot Prevention/Tx 01/03/23
metoprolol succinate 25 mg tablet,extended release 24 hr 12.5 mg PO DAILY Heart Disease/Hypertension 01/03/23
insulin lispro 100 unit/mL subcutaneous pen (Admelog SoloStar U-100 Insulin lispro) 2 unit SC AC Diabetes 05/10/23
milrinone 78,000 mcg IV .CONTINUOUS Heart Failure 05/10/23
omega-3 fatty acids 1,000 mg capsule 1,000 mg PO DAILY Supplement 05/10/23
torsemide 20 mg tablet 120 mg PO BID Fluid Retention/Swelling 05/10/23
docusate sodium 100 mg capsule 100 mg PO DAILYPRN PRN constipation 06/18/23
furosemide 10 mg/mL injection solution 100 mg IV MOWEFR Fluid Retention/Swelling 06/18/23
potassium chloride 10 mEq capsule,extended release 40 meq PO SUTUTHSA@0800,1700 Electrolyte Repletion 06/18/23
spironolactone 25 mg tablet 12.5 mg PO DAILY Heart Failure 06/18/23
levothyroxine 100 mcg tablet 100 mcg PO DAILY@0600 Thyroid 06/24/23
insulin glargine 100 unit/mL (3 mL) subcutaneous pen (Basaglar KwikPen U-100 Insulin) 10 unit SC HS 07/06/23
potassium chloride 10 mEq tablet,extended release 40 meq PO MOWEFR@08,12,17 07/06/23
therapeutic multivitamin 1 tab PO DAILY 07/06/23
Review of Systems
-
A 12 point ROS was completed and negative except as noted: Yes
Constitutional: Denies Fever or Chills
Respiratory: Reports Trouble Breathing (Mild); Denies Cough
Cardiac: Denies Chest Pain or Palpitations
Abdomen/GI: Reports Other (Abdominal Distension); Denies Abdominal Pain
Musculoskeletal: Reports Edema
Physical Exam
Vital Signs
Vital Signs
Temp Pulse Resp BP Pulse Ox
98.1 F 108 22 105/79 100
07/06/23 11:00 07/06/23 14:45 07/06/23 14:45 07/06/23 14:00 07/06/23 14:45
Physical Exam
General: No Apparent Distress and Appears Chronically Ill
HEENT: Anicteric and Moist mucous membranes
Respiratory: Clear and Decreased Breath Sounds
Cardiac: S1/S2, Irregular Rhythm and Tachycardia
GI: Soft, Non Tender and Distended (Positive Fluid Wave)
Musculoskeletal: No Clubbing, No Cyanosis and Other (+3 pitting edema bilateral lower ext)
Skin: Warm and Dry
Neuro: Awake, Alert and Other (Positive asterixis)
Psych: Calm
Laboratory Results
-
07/06/23 11:09
07/06/23 11:09
Laboratory Results
Total Bilirubin 1.4 mg/dl (0.2-1.3) H 07/06/23 11:09
AST 42 U/L (17-59) 07/06/23 11:09
ALT 21 U/L (0-50) 07/06/23 11:09
Alkaline Phosphatase 183 U/L (38-126) H 07/06/23 11:09
Data Reviewed
-
Lab Data: Labs Reviewed by me
Old Records: Reviewed
Impression/Plan
-
Acute Hepatic Encephalopathy
Cardiogenic Cirrhosis with Ascites
-Start Lactulose 30mL QID and titrate to 2-3 BMs per day
-Recheck ammonia level in AM
-Consult IR for paracentesis
Acute on Chronic HFrEF
End-Stage Non-Ischemic Cardiomyopathy
-Consult Cardiology
-Continue home milrinone infusion
-Defer diuretic management to cardiology and nephrology
-Monitor Is&Os and Daily Weights
Acute on Chronic Hyponatremia
-Consult Nephrology
-Continue fluid restriction
Hyperkalemia
-Hold spironolactone and potassium supplements
CKD Stage IV
-Creatinine ranges from 1.9-2.7 over the past month
-Monitor creatinine closely
Permanent Atrial Fibrillation
-Continue Eliquis for anticoagulation
-Continue metoprolol for rate control
Diabetes Mellitus, Type II
-Decreased dose of Lantus ordered until mental status/appetite improves
-Continue coverage insulin
Hypothyroidism
-Continue Synthroid
DVT proph: Eliquis
Code Status: DNR
[2023-07-06] MEDS: DUPHALAC/CHRONULAC 20 GRAMS PO ×2 (15:16→21:36)
--- NOTE | 2023-07-06 15:44 | W.PN.UPDATE ---
Update Note
Progress Note Update
For billing purpose only
--- NOTE | 2023-07-06 15:47 | W.CON.NEPH ---
Consultation
-
Date/Time Consultation Requested: July 06, 2023 3 PM
Date/Time Consultation Performed: July 06, 2023 4 PM
Requesting Provider: Dr Merida
Performing Provider: Dr. West
Reason for Consultation: Edema
Medical History
-
Chief Complaint: Weakness
History of Present Illness:
Mr. Sousa is a 68YOM with end stage cardiomyopathy and cardiogenic cirrhosis who is on chronic milrinone infusion at home. He also has Afib on Eliquis therapy. His blood pressure is chronically low but stable. He also has diabetes on
insulin therapy. He has chronic kidney disease stage IV with baseline creatinine between 2.5 and 3. He was recently in the hospital with decompensated heart failure. He was diuresed with eventual stabilization and discharge back to home on
milrinone drip. He also has a very complex diuretic regimen including high-dose torsemide as well as intravenous Lasix 3 times weekly given by visiting nurse. Since discharge he states that he has been doing very well with his medicines but that
his weights have crept up a little bit as well as his edema. He was brought in because of mental status change and weakness. He was noted to have worsening hyponatremia as well as hyperkalemia. It appears that the current plan is for him to
eventually go to [facility] for hospice through [facility].
Past Medical History
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
Azotemia in setting of cardiorenal state
Chronic hyponatremia
Hyperkalemia
NICM, EF 18% with enlarged and moderately reduced RV systolic function
Recurrent Ascites
Hypertension now with relative hypotension
Permanent atrial fibrillation
Chronic anticoagulation with Eliquis
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
Patent ductus arteriosus, conservatively managed at [facility]
History of noncompliance
Diabetes mellitus type 2
Anemia, multifactorial
Social History
Tobacco: Non-Smoker
Alcohol: Daily
Drug: None
Personal:
Living: With Family
Family History
Family History: Not Pertinent
Allergies / Home Medications
Allergy/AdvReac Type Severity Reaction Status Date / Time
No Known Allergies Allergy Verified 07/06/23 11:00
�Medication �Instructions �Recorded �Confirmed �Type
allopurinol 100 mg tablet 100 mg PO DAILY Gout 03/23/21 07/06/23 History
gabapentin 100 mg capsule 100 mg PO Q12H Pain 03/23/21 07/06/23 History
acetaminophen 325 mg tablet 650 mg PO DAILYPRN PRN mild pain 01/03/23 07/06/23 History
apixaban 5 mg tablet (Eliquis) 5 mg PO BID Blood Clot 01/03/23 07/06/23 History
Prevention/Tx
metoprolol succinate 25 mg 12.5 mg PO DAILY Heart 01/03/23 07/06/23 History
tablet,extended release 24 hr Disease/Hypertension
insulin lispro 100 unit/mL 2 unit SC AC Diabetes 05/10/23 07/06/23 History
subcutaneous pen (Admelog SoloStar
U-100 Insulin lispro)
milrinone 78,000 mcg IV .CONTINUOUS Heart 05/10/23 07/06/23 History
Failure
omega-3 fatty acids 1,000 mg 1,000 mg PO DAILY Supplement 05/10/23 07/06/23 History
capsule
torsemide 20 mg tablet 120 mg PO BID Fluid 05/10/23 07/06/23 History
Retention/Swelling
docusate sodium 100 mg capsule 100 mg PO DAILYPRN PRN constipation 06/18/23 07/06/23 History
furosemide 10 mg/mL injection 100 mg IV MOWEFR Fluid 06/18/23 07/06/23 History
solution Retention/Swelling
potassium chloride 10 mEq 40 meq PO SUTUTHSA@0800,1700 06/18/23 07/06/23 History
capsule,extended release Electrolyte Repletion
spironolactone 25 mg tablet 12.5 mg PO DAILY Heart Failure 06/18/23 07/06/23 History
levothyroxine 100 mcg tablet 100 mcg PO DAILY@0600 Thyroid 06/24/23 07/06/23 History
insulin glargine 100 unit/mL (3 10 unit SC HS 07/06/23 07/06/23 History
mL) subcutaneous pen (Basaglar
KwikPen U-100 Insulin)
potassium chloride 10 mEq 40 meq PO MOWEFR@08,12,17 07/06/23 07/06/23 History
tablet,extended release
therapeutic multivitamin 1 tab PO DAILY 07/06/23 07/06/23 History
Physical Exam
Vital Signs
Vital Signs
Temp Pulse Resp BP Pulse Ox
98.1 F 108 22 105/79 100
07/06/23 11:00 07/06/23 14:45 07/06/23 14:45 07/06/23 14:00 07/06/23 14:45
Lab Results
WBC 8.9 10^3/uL (4.8-10.8) 07/06/23 11:09
RBC 4.30 10^6/uL (4.70-6.10) L 07/06/23 11:09
Hgb 12.3 g/dL (13.0-18.0) L 07/06/23 11:09
Hct 36.5 % (39.0-52.0) L 07/06/23 11:09
Plt Count 515 10^3/uL (130-400) H 07/06/23 11:09
Sodium 125 mmol/L (135-145) L 07/06/23 11:09
Potassium 5.6 mmol/L (3.5-5.1) H 07/06/23 11:09
Chloride 94 mmol/L (98-107) L 07/06/23 11:09
Carbon Dioxide 20 mmol/L (22-30) L 07/06/23 11:09
BUN 78 mg/dl (9-20) H 07/06/23 11:09
Creatinine 2.7 mg/dL (0.7-1.3) H 07/06/23 11:09
eGFR 25.20 07/06/23 11:09
Glucose 178 mg/dl (70-99) H 07/06/23 11:09
Calcium 8.9 mg/dl (8.4-10.2) 07/06/23 11:09
Albumin 3.3 g/dl (3.5-5.0) L 07/06/23 11:09
Physical Exam
Patient is awake alert oriented and in no distress. Mood and affect were pleasant, insight and judgment were good. Pupils are equal round and reactive to light, extraocular movements are intact, sclera were anicteric. Hearing was normal, ears and
nose are intact. Oropharynx was clear. Neck was supple with trachea midline and no thyromegaly. Heart was regular rate and rhythm without rubs. Lower extremities with 3+ edema. Lungs were with decreased breath sounds to auscultation bilaterally
and with normal excursion. Abdomen was soft, nontender, with normal active bowel sounds, and no hepatosplenomegaly. Skin was without rash and with normal turgor.
Data Reviewed
-
Radiology: Image Personally Visualized and interpreted (Chest x-ray on July 06, 2023 by my read shows cardiomegaly, vascular prominence)
Medical Tests (Nuc Med, Echo etc): Image Personally Visualized and interpreted (EKG on 07/06/2023 by my reading shows A-fib rapid ventricular rate with aberrancy)
Labs: Labs Reviewed by me (Hemoglobin 12.3, sodium 125, potassium 5.6, bicarbonate 20, creatinine 2.7, BUN 78, ammonia 56, urinalysis bland)
Assessment/Plan
-
Impression:
Change in mental status (now improving)
Cardiorenal syndrome
CKD stage IV with baseline creatinine 2.5-3
Recurrent ascites status post paracentesis on 05-31
Nonischemic cardiomyopathy with a EF of 40% (on home milrinone)
Hyponatremia (125)
Hypotension
Permanent atrial fibrillation
Chronic anticoagulation with Eliquis
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
Patent ductus arteriosus, conservatively managed at [facility]
History of noncompliance
Diabetes mellitus type 2
Anemia, multifactorial
Plan:
continue milrinone gtt
bumex 1mg /hr gtt
hold torsemide and lasix while on bumex gtt
lokelma
follow BMP
prognosis is poor, plan for eventual hospice with [facility]
[2023-07-06 16:07] LABS: NT-proBNP 5870 pg/ml
--- NOTE | 2023-07-06 16:28 | CON.CAR ---
Addendum entered and electronically signed by Julius Adams MD 07/06/23 17:23:
I saw and examined the patient.
The Electric Organ Assembler's note was reviewed and I agree with the note.
Comment: Briefly, 68-year-old man past medical history of complex congenital heart disease, stage D heart failure with reduced ejection fraction on home milrinone, hepatic encephalopathy and multiple recent admissions for decompensated heart failure
He is again presenting with decompensated heart failure, hepatic encephalopathy, KATY and electrolyte abnormalities
At the time my exam he was oriented only to self
Warm and well perfused, however he does have significant peripheral edema in keeping with R>L HF
Continue home milrinone dose
Agree with Bumex drip to improve volume status
Follow daily weights, creatinine and electrolytes closely � suspect KAYT is related to cardiorenal syndrome and will improve with diuresis
We will continue to follow inpatient
Ultimately will need follow-up with primary child welfare worker at [facility]
Original Note:
Consultation
Consultation Request
Date/Time Consultation Requested: 07/06/23
Date/Time Consultation Performed: 07/06/23
Requesting Provider: Dr. Merida
Performing Provider: Dr. Adams
Reason for Consultation: Acute HF, hepatic encephalopathy
Medical History
-
History of Present Illness:
Patient came to [facility] today with increased confusion and weakness and is being admitted with recurrent acute HF, hepatic encephalopathy and electrolyte abnormalities so cardiology is being consulted. This is the patient's 7th known admission since
12/2022. He may have had other admissions to [facility] where is follows with Dr. Almanza primarily for h/o congenital heart disease with AV fistula from circumflex to coronary sinus, as well as patent ductus arteriosus. Following 12/2022 admission to
patient had an admission to [facility] where his said that he was told that he was not longer a candidate for repair of his congenital defect with Dr. Kendrick and that he is also not a candidate for heart transplant because of CKD. During that
admission to [facility] he was started on milrinone at 0.125 mcg/kg/min. Patient also started with fairly regular paracenteses at that point. He then had a series of admission for acute HF and electrolyte abnormalities starting early 05/2023. There was an
interval admission or visit to [facility] during which his milrinone was increased to 0.25 mcg/kg/min. He also receives Lasix 100 mg IV every MoWeFr via the [facility] home infusion dept. Patient was scheduled to be seen at [facility] as an outpatient today,
07/06/23, at 3:30, but instead came to [facility] for confusion.
PMH:
Chronic HFrEF, stage D
Home milrinone infusion therapy
Nonischemic cardiomyopathy EF 18% by echo at [facility] 01/2023
Recurrent ascites, cirrhosis
Permanent A-fib on Eliquis
Chronic Eliquis OAC
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
Hyponatremia, chronic
Hyperkalemia improved with hx hyperkalemia
Hypertension
PA, conservatively managed
CKD stage IV
History of hypothyroidism
Admission at for COVID and acute HF 01/03/23 until 01/05/23
Admission at [facility] for acute HF and initiation of home milrinone approx 01/2023
Admission at for acute HF and hyponatremia 05/12/23 until 05/14/23
Admission at [facility] for acute HF and paracentesis discharged 06/17/23
Admission to for mechanical fall and recurrent HF and hyponatremia 06/18/23 until 06/21/23
Admission to for confusion and CHF 06/24/23 until 06/29/23
Admission to for confusion, weakness and electrolyte abnormalities 07/06/23
Past Medical History
Past Medical History: Other (in HPI)
Social History
Tobacco: Non-Smoker
Drug: None
Personal:
Living: With Family
Family History
Family History: Cancer
Allergies / Home Medications
Allergy/AdvReac Type Severity Reaction Status Date / Time
No Known Allergies Allergy Verified 07/06/23 11:00
�Medication �Instructions �Recorded �Confirmed �Type
allopurinol 100 mg tablet 100 mg PO DAILY Gout 03/23/21 07/06/23 History
gabapentin 100 mg capsule 100 mg PO Q12H Pain 03/23/21 07/06/23 History
acetaminophen 325 mg tablet 650 mg PO DAILYPRN PRN mild pain 01/03/23 07/06/23 History
apixaban 5 mg tablet (Eliquis) 5 mg PO BID Blood Clot 01/03/23 07/06/23 History
Prevention/Tx
metoprolol succinate 25 mg 12.5 mg PO DAILY Heart 01/03/23 07/06/23 History
tablet,extended release 24 hr Disease/Hypertension
insulin lispro 100 unit/mL 2 unit SC AC Diabetes 05/10/23 07/06/23 History
subcutaneous pen (Admelog SoloStar
U-100 Insulin lispro)
milrinone 78,000 mcg IV .CONTINUOUS Heart 05/10/23 07/06/23 History
Failure
omega-3 fatty acids 1,000 mg 1,000 mg PO DAILY Supplement 05/10/23 07/06/23 History
capsule
torsemide 20 mg tablet 120 mg PO BID Fluid 05/10/23 07/06/23 History
Retention/Swelling
docusate sodium 100 mg capsule 100 mg PO DAILYPRN PRN constipation 06/18/23 07/06/23 History
furosemide 10 mg/mL injection 100 mg IV MOWEFR Fluid 06/18/23 07/06/23 History
solution Retention/Swelling
potassium chloride 10 mEq 40 meq PO SUTUTHSA@0800,1700 06/18/23 07/06/23 History
capsule,extended release Electrolyte Repletion
spironolactone 25 mg tablet 12.5 mg PO DAILY Heart Failure 06/18/23 07/06/23 History
levothyroxine 100 mcg tablet 100 mcg PO DAILY@0600 Thyroid 06/24/23 07/06/23 History
insulin glargine 100 unit/mL (3 10 unit SC HS 07/06/23 07/06/23 History
mL) subcutaneous pen (Basaglar
KwikPen U-100 Insulin)
potassium chloride 10 mEq 40 meq PO MOWEFR@08,12,17 07/06/23 07/06/23 History
tablet,extended release
therapeutic multivitamin 1 tab PO DAILY 07/06/23 07/06/23 History
Physical Exam
Vital Signs
Temp Pulse Resp BP Pulse Ox
98.1 F 108 22 105/79 100
07/06/23 11:00 07/06/23 14:45 07/06/23 14:45 07/06/23 14:00 07/06/23 14:45
Lab Results
07/06/23 11:09
Cii-D-Wauuccrqrva Pept 5870 pg/ml 07/06/23 14:06
Impression / Plan
-
PCP: Dr. Nikolas Schmitz
Primary Bottom Cager: previously seen by Dr. Torres, last 2018. Now following with Dr. Felix Almanza at [facility] /Dr. Hong Nino
Impression:
Confusion possible hepatic encephalopathy
Acute on chronic HFrEF, stage D
Home milrinone infusion therapy
Nonischemic cardiomyopathy EF 18% by echo at [facility] 01/2023
Recurrent ascites, cirrhosis
Permanent A-fib on Eliquis
Chronic Eliquis OAC
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
Hyponatremia, chronic
Hyperkalemia improved with hx hyperkalemia
Hypertension
PA, conservatively managed
CKD stage IV
History of hypothyroidism
ECHO 09/2018: Severely dilated LV, EF 45% with regional variations, moderate LVH, dilated RV, severe biatrial dilatation, dilated coronary sinus, MAC, mild MR, aortic sclerosis, mild AR, trace TR, PAP 50 to 55 mmHg, dilated IVC, small pericardial
effusion, mildly dilated aortic root and proximal ascending aorta
Echo 08/25/22: EF 42%, global hypokinesis, stage 3 diastolic dysfunction, severely enlarged RV size with moderately reduced RV systolic function, severely dilated LA/RA, mild MR, mild TR with PAP 57-62 mmHg, small pericardial effusion, dilated aortic
root with Sinuses at 3.9 cm
Admission at for COVID and acute HF 01/03/23 until 01/05/23
Admission at [facility] for acute HF and initiation of home milrinone approx 01/2023
Admission at for acute HF and hyponatremia 05/12/23 until 05/14/23
Admission at [facility] for acute HF and paracentesis discharged 06/17/23
Admission to for mechanical fall and recurrent HF and hyponatremia 06/18/23 until 06/21/23
Admission to for confusion and CHF 06/24/23 until 06/29/23
Admission to for confusion, weakness and electrolyte abnormalities 07/06/23
Plan:
-Patient came to [facility] today with increased confusion and weakness and is being admitted with recurrent acute HF, hepatic encephalopathy and electrolyte abnormalities so cardiology is being consulted. This is the patient's 7th known admission since
12/2022. He may have had other admissions to [facility] where is follows with Dr. Almanza primarily for h/o congenital heart disease with AV fistula from circumflex to coronary sinus, as well as patent ductus arteriosus. Following 12/2022 admission to
patient had an admission to [facility] where his said that he was told that he was not longer a candidate for repair of his congenital defect with Dr. Kendrick and that he is also not a candidate for heart transplant because of CKD. During that
admission to [facility] he was started on milrinone at 0.125 mcg/kg/min. Patient also started with fairly regular paracenteses at that point. He then had a series of admission for acute HF and electrolyte abnormalities starting early 05/2023. There was an
interval admission or visit to [facility] during which his milrinone was increased to 0.25 mcg/kg/min. He also receives Lasix 100 mg IV every MoWeFr via the [facility] home infusion dept. Patient was scheduled to be seen at [facility] as an outpatient today,
07/06/23, at 3:30, but instead came to [facility] for confusion.
-Patient being admitted and nephrology consulted for hyponatremia and hyperkalemia.
-Bumex gtt at 1 mg/hr ordered by Nephrology. Outpatient doses of torsemide 120 mg PO and Lasix 100 mg IV every MoWeFr are on hold
-Milrinone gtt to continue at 0.25 mcg/kg/min
-Nephrology ordered [facility]
-Patient with known permanent Afib. HR currently at goal <110 bpm. Outpatient dose of Toprol XL 12.5 mg daily ordered. Patient no longer taking digoxin.
-Outpatient dose of Eliquis 5 mg BID continued and Hgb stable at 12.3. Cre 2.7, but age 68 and 229 lbs.
-ECG reviewed by me with Afib and HR 105.
-Long-term prognosis is poor and hospice has been mentioned by cardiology at as far back as early 05/2023, but patient follows primarily at [facility] and only comes to for emergency care. Not sure what the cardiology plan is form [facility].
[2023-07-06] MEDS: LOKELMA 10 GRAM PO (17:04)
[2023-07-06] MEDS: BUMEX 50 IV (17:04)
[2023-07-06] MEDS: FLUSH (NSS) 1 FLUSH IV (17:10)
[2023-07-06] MEDS: NEURONTIN 100 MG PO (21:36)
[2023-07-06] MEDS: ELIQUIS 5 MG PO (21:36)
[2023-07-06] MEDS: NOVOLOG FLEXPEN-MODERATE RESISTANCE SC (22:15)
[2023-07-06] MEDS: LANTUS 0.0500000000000000028 UNITS SC (22:16)
[2023-07-06] MEDS: PRIMACOR 20 MG 100 IV (22:18)
[2023-07-06 22:21] LABS: Glucose - Point of Care 186 mg/dl (70-99)
[2023-07-07] VITALS (19 sets, daily range): BP systolic 89–116; BP diastolic 54–96; PULSE 112; O2SAT 98; BMI 32.5
[2023-07-07 00:25] LABS: Blood Urea Nitrogen 73 mg/dl (9-20); Calcium 8.8 mg/dl (8.4-10.2); Carbon Dioxide 19 mmol/L (22-30); Chloride 94 mmol/L (98-107); Estimated Creatinine Clearance 33 ml/min; Glucose 178 mg/dl (70-99); Potassium 5.1 mmol/L (3.5-5.1); Sodium 124 mmol/L (135-145); eGFR 24.13
[2023-07-07] MEDS: BUMEX 50 IV ×3 (03:07→21:14)
--- NOTE | 2023-07-07 04:10 | PTCARENOTE ---
ax1- confused forgetful impulsive- got pt to [facility] for bm- pt was very unsteady and minimally able to follow commands but was unable to have bm until on commode- frequently sets off bed alarm- wanting to go home - calls for who went home- very
time consuming with reorienting . bumex and milrinone gtts infusing per orders- afib 100-120's- bp wnl afebrile-
[2023-07-07] MEDS: SYNTHROID 100 MCG PO (04:46)
[2023-07-07 05:03] LABS: Hematocrit 33.6 % (39.0-52.0); Hemoglobin 11.4 g/dL (13.0-18.0); Mean Corp Hgb Conc. 33.9 g/dL (33.0-37.0); Mean Corpuscular Hgb 28.7 pg (27.0-31.0); Mean Corpuscular Volume 84.6 fL (80.0-94.0); Mean Platelet Volume 9.4 fL (7.4-10.4); Platelet Count 496 10^3/uL (130-400); Red Blood Cell Count 3.97 10^6/uL (4.70-6.10); Red Cell Dist. Width 15.6 % (11.5-14.5); White Blood Cell Count 9.9 10^3/uL (4.8-10.8)
[2023-07-07 05:14] LABS: Ammonia 71 umol/L (9-30)
[2023-07-07 05:30] LABS: Blood Urea Nitrogen 73 mg/dl (9-20); Calcium 8.7 mg/dl (8.4-10.2); Carbon Dioxide 18 mmol/L (22-30); Chloride 95 mmol/L (98-107); Estimated Creatinine Clearance 33 ml/min; Glucose 165 mg/dl (70-99); Magnesium 2.5 mg/dl (1.6-2.3); Sodium 126 mmol/L (135-145); eGFR 24.13
--- NOTE | 2023-07-07 05:38 | PTCARENOTE ---
5 lb wt loss over night- pr remains confused but improved with being able to follow commands
--- NOTE | 2023-07-07 07:16 | W.PN.HOSP.TC ---
Today's Communication/Plan
-
Remains confused
Ammonia increased in spite of lactulose
Awaiting paracentesis per interventional radiology for comfort
Diuretic management as per nephrology and cardiology/continue to monitor chemistries
Milrinone drip continues
Awaiting disposition and goals of care discussions with subspecialty services in regards to possible arrangements for [facility] hospice
Assessment / Plan
Assessment / Plan
68-year-old with end-stage cardiomyopathy and cardiogenic cirrhosis on chronic milrinone infusion at home has been followed up at [place] for history of congenital heart defect and AV fistula no longer intervention candidate with repeated episodes of
decompensated heart failure confusion stage IV kidney disease and had been on intravenous furosemide 3 times weekly via visiting nurses at home. He has had increasing weight and protuberant abdomen with increasing obvious ascites and presented with
hyponatremia and hyperkalemia and confusion.
Cardiorenal syndrome
Acute Hepatic Encephalopathy
Cardiogenic Cirrhosis with Ascites
-Start Lactulose 30mL QID and titrate to 2-3 BMs per day
-Recheck ammonia leve continues to increase from 56-71 this morning
-Consult IR for paracentesis
Acute on Chronic HFrEF
End-Stage Non-Ischemic Cardiomyopathy
-Consult Cardiology
-Continue home milrinone infusion
-Defer diuretic management to cardiology and nephrology
-Monitor Is&Os and Daily Weights
Acute on Chronic Hyponatremia
-Consult Nephrology
-Continue fluid restriction
Hyperkalemia
-Hold spironolactone and potassium supplements
-Lokelma as needed
CKD Stage IV
-Creatinine ranges from 1.9-2.7 over the past month
-Monitor creatinine closely
Permanent Atrial Fibrillation
-Continue Eliquis for anticoagulation
-Continue metoprolol for rate control
Diabetes Mellitus, Type II
-Decreased dose of Lantus ordered until mental status/appetite improves
-Continue coverage insulin
Hypothyroidism
-Continue Synthroid
DVT proph: Eliquis
Code Status: DNR
Anticipated Discharge: 24 - 48 hours
Subjective/Interval History
-
Date of Service: July 07, 2023
Remains confused overnight drinking copious amounts of water per nursing. 50 cc of output overnight had large bowel movement
Objective Data
-
Labs:
Laboratory Results
07/06/23 07/07/23
23:12 04:43
WBC 9.9
Hgb 11.4 L
Hct 33.6 L
Plt Count 496 H
Sodium 124 L 126 L
Potassium 5.1 5.0
Chloride 94 L 95 L
Carbon Dioxide 19 L 18 L
BUN 73 H 73 H
Creatinine 2.8 H 2.8 H
Glucose 178 H 165 H
Calcium 8.8 8.7
Vital Signs:
Vital Signs
Temp Pulse Resp BP Pulse Ox
97.4 F 117 23 110/88 98
07/07/23 03:54 07/07/23 06:00 07/07/23 06:00 07/07/23 06:00 07/06/23 20:15
I&O
07/06/23 07/07/23 07/08/23
06:59 06:59 06:59
Intake Total 240 / 240
Output Total 225 / 225
Balance
Review of Systems
-
Unable to obtain full review of systems at this time due to: Other (Delirium)
History Source: Patient
Constitutional: Reports Weight Gain and Fatigue
Cardiac: Reports Orthopnea
Abdomen/GI: Reports Bloated
Physical Exam
-
General: Appears Chronically Ill
HEENT: Other (Icteric)
Respiratory: Decreased Breath Sounds
Cardiac: Regular Rhythm and Tachycardic
GI: Distended and Other (Shifting dullness)
Musculoskeletal: Edema, Right Lower Extrem and Edema, Left Lower Extrem
Neuro: Awake; Negative Oriented (Disoriented to place and time) or AO x 3
Psych: Calm and Confused; Negative Other (Acute delirium)
Data Reviewed
-
Total Time Spent with Patient (in minutes): 67
Labs: Labs Reviewed by me (Ammonia still escalating now up to 71 in spite of large bowel movement/proBNP of 5800/albumin is 3.3/sodium was 126 but stable/potassium down to 5.0)
[2023-07-07 08:29] LABS: Glucose - Point of Care 156 mg/dl (70-99)
[2023-07-07] MEDS: PRIMACOR 20 MG 100 IV ×2 (08:32→20:23)
--- NOTE | 2023-07-07 08:44 | PTCARENOTE ---
AAO to self, place- not time. Icteric, dry skin. Denies pain. Abdomen grossly distended, ascites. Sent to [facility] via monitored stretcher with IV Milronone and IV Bumex gtts infusing as ordered. AFIB 110s-120s BP 110/88.
--- NOTE | 2023-07-07 09:09 | W.PN.CARDCBS ---
Today's Communication / Plan
-
Continue IV milrinone for palliative care. Continue Bumex drip.
He is diuresing well.
Continue Toprol and Eliquis for A-fib. His ventricular rates are modestly elevated. He may need slightly more of the Toprol.
Impression / Plan
-
PCP: Dr. Nikolas Schmitz
Primary Paper Sorter And Counter: previously seen by Dr. 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 Now following with Dr. Felix Almanza at [place] /Dr. Hong Nino
Impression:
Confusion possible hepatic encephalopathy
Acute on chronic HFrEF, stage D
Home milrinone infusion therapy
Nonischemic cardiomyopathy EF 18% by echo at [facility] 01/2023
Recurrent ascites, cirrhosis
Permanent A-fib on Eliquis
Chronic Eliquis OAC
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
Hyponatremia, chronic
Hyperkalemia improved with hx hyperkalemia
Hypertension
PA, conservatively managed
CKD stage IV
History of hypothyroidism
ECHO 09/2018: Severely dilated LV, EF 45% with regional variations, moderate LVH, dilated RV, severe biatrial dilatation, dilated coronary sinus, MAC, mild MR, aortic sclerosis, mild AR, trace TR, PAP 50 to 55 mmHg, dilated IVC, small pericardial
effusion, mildly dilated aortic root and proximal ascending aorta
Echo 08/25/22: EF 42%, global hypokinesis, stage 3 diastolic dysfunction, severely enlarged RV size with moderately reduced RV systolic function, severely dilated LA/RA, mild MR, mild TR with PAP 57-62 mmHg, small pericardial effusion, dilated aortic
root with Sinuses at 3.9 cm
Admission at for COVID and acute HF 01/03/23 until 01/05/23
Admission at [facility] for acute HF and initiation of home milrinone approx 01/2023
Admission at for acute HF and hyponatremia 05/12/23 until 05/14/23
Admission at [facility] [facility] for acute HF and paracentesis discharged 06/17/23
Admission to for mechanical fall and recurrent HF and hyponatremia 06/18/23 until 06/21/23
Admission to for confusion and CHF 06/24/23 until 06/29/23
Admission to for confusion, weakness and electrolyte abnormalities 07/06/23
Plan:
-His weight is down and he is improving. Creatinine remains elevated at 2.8. Continue to follow.
-Bumex gtt at 1 mg/hr ordered by Nephrology. Outpatient doses of torsemide 120 mg PO and Lasix 100 mg IV every MoWeFr are on hold
-Milrinone gtt to continue at 0.25 mcg/kg/min
-Patient with known permanent Afib. HR is borderline. Outpatient dose of Toprol XL 12.5 mg daily ordered. Patient no longer taking digoxin. May need to further titrate Toprol if blood pressure allows.
-Outpatient dose of Eliquis 5 mg BID continued and Hgb stable at 12.3. Cre 2.7, but age 68 and 229 lbs.
-Long-term prognosis is poor and hospice has been mentioned by cardiology at as far back as early 05/2023, but patient follows primarily at [facility] and only comes to for emergency care. Not sure what the cardiology plan is form [facility].
Progress Note - Paper Sorter And Counter
Subjective
Date of Service: July 07, 2023
Breathing is slightly improved. Weight is already down at least 5 pounds.
Objective
Labs:
07/07/23 04:43
07/07/23 04:43
Labs
Hgb 11.4 g/dL (13.0-18.0) L 07/07/23 04:43
Hct 33.6 % (39.0-52.0) L 07/07/23 04:43
Plt Count 496 10^3/uL (130-400) H 07/07/23 04:43
Sodium 126 mmol/L (135-145) L 07/07/23 04:43
Potassium 5.0 mmol/L (3.5-5.1) 07/07/23 04:43
BUN 73 mg/dl (9-20) H 07/07/23 04:43
Creatinine 2.8 mg/dL (0.7-1.3) H 07/07/23 04:43
Glucose 165 mg/dl (70-99) H 07/07/23 04:43
Vital Signs and I&O:
Vital Signs
Temp Pulse Resp BP Pulse Ox
97.9 F 102 22 95/72 99
07/07/23 08:47 07/07/23 08:47 07/07/23 08:47 07/07/23 08:47 07/07/23 08:47
Vital Signs
Temp Pulse Resp BP Pulse Ox
97.9 F 102 22 95/72 99
07/07/23 08:47 07/07/23 08:47 07/07/23 08:47 07/07/23 08:47 07/07/23 08:47
Intake & Output
07/05/23 07/06/23 07/07/23 07/08/23
06:59 06:59 06:59 06:59
Intake Total 240 / 240
Output Total 225 / 225
Balance 15 / 15
Physical Exam
Physical Exam
GEN: No distress, awake, Ox3
HEENT: supple, anicteric, mmm
LUNGS: dec BS at bases
CV: Reg, S1/S2, 1/6 syst LSB, S3+
ABD: soft, BS+, + distended
EXT: + edema
NEURO: Gross non-focal
SKIN: No rash
--- NOTE | 2023-07-07 09:55 | W.PN.UPDATE ---
Addendum entered and electronically signed by Kelby Jerez MD 07/07/23 15:11:
Stage II pressure ulcer to sacrum present on admission
Original Note:
Update Note
Progress Note Update
7.3 L of low volume removed via paracentesis will give 250 mL of 5% albumin equaling 12 g of albumin
[2023-07-07] MEDS: ALBUMIN 5% 250 IV (10:18)
[2023-07-07] MEDS: TOPROL XL 12.5 MG PO (10:20)
[2023-07-07] MEDS: ELIQUIS 5 MG PO ×2 (10:20→19:33)
[2023-07-07] MEDS: DUPHALAC/CHRONULAC 20 GRAMS PO ×4 (10:20→21:30)
[2023-07-07] MEDS: NEURONTIN 100 MG PO ×2 (10:20→19:33)
[2023-07-07] MEDS: NOVOLOG FLEXPEN-MODERATE RESISTANCE 1 UNITS SC ×2 (10:22→14:01)
[2023-07-07 10:32] LABS: Glucose - Point of Care 170 mg/dl (70-99)
[2023-07-07 10:45] LABS: Body Fluid Mononuclear 69.8 %; Body Fluid Polymorphonuclear 30.2 %; Body Fluid WBC 218 /CUMM
[2023-07-07 11:00] LABS: Body Fluid Second Tech AMA
[2023-07-07 12:10] LABS: Glucose - Point of Care 212 mg/dl (70-99)
--- NOTE | 2023-07-07 13:31 | CM ---
CM following re: discharge planning.
Reviewed pt's chart, met with pt.
Pt is a 68 year old male, admitted with primary dx of Acute Hepatic encephalopathy.
Pt reports he lives with spouse 2SH, 1 steps to enter, has 2 supportive children. Pr reports he ambulates with a walker, fell at home. Pt reports he is active with [facility] and receives home infusion therapy Lasix 3 day per week managed
by [facility]. [facility] phone: [phone]. A script for IV required to resume home infusion at home
Pt expressed his desire to return back home with resumptions of [facility], [facility] and family support. Family to transport at discharge.
PCP: Nikolas Schmitz
Pharmacy:[facility].
D/C plan: home with resumptions of [facility], [facility] and family support
CM will follow with discharge plan updates as hospitalization progresses
--- NOTE | 2023-07-07 13:52 | PN.CDI ---
CDI
- -
CDI:
Physician Documentation Request
Admit Date: 07/06/23 15:38
Dear Doctor Meri,
Clinical Indicators:
Patient admitted with acute hepatic encephalopathy.
07/05 RN Skin/Wound assessment: Sacrum Deep Tissue Pressure Injury, POA
Left Buttock Stage 2 Pressure Injury, POA
Right Buttock Deep Tissue Pressure Injury, POA
Physician documentation of the type and location of wounds is required for compliant documentation. Based on the above clinical findings and your assessment, please provide the following in your progress note:
1. Location of the ulcer/wound, including laterality.
2. Type (etiology) of ulcer/wound:
- Pressure (decubitus) ulcer
- Other, please specify
- Unable to determine
3. If a pressure ulcer, please also include the stage* of the ulcer:
- Stage 1 - Skin intact, non-blanchable redness
- Stage 2 - Partial thickness loss of dermis, includes intact or open blister
- Stage 3 - Full thickness tissue not including bone, tendon or muscle
- Stage 4 - Full thickness tissue loss, including exposed bone, tendon or muscle
- Unstageable - Full thickness loss in which the base of the ulcer is covered by slough (yellow, smith, sanchez, green or brown) and/or eschar (smith, brown or black) in the wound bed.
- Unable to determine
Use of terms such as suspected, likely, concern for, or probable (associated with a specific diagnosis that is being evaluated, monitored, or treated as if it exists) are acceptable and can be coded in the inpatient setting, when documented at the
time of discharge.
Thank you,
DOUG Jo RN
CDI Specialist
available via tiger text
Please use your independent medical judgment in providing your response.
*Source: National Pressure Ulcer Advisory Panel (NPUAP)
--- NOTE | 2023-07-07 14:03 | W.PN.NEPH.PH ---
Today's Communication / Plan
-
diurese
Assessment/Plan
-
Impression:
Change in mental status (now improving)
Cardiorenal syndrome
CKD stage IV with baseline creatinine 2.5-3
Recurrent ascites status post paracentesis on 05-31
Nonischemic cardiomyopathy with a EF of 40% (on home milrinone)
Hyponatremia (125)
Hypotension
Permanent atrial fibrillation
Chronic anticoagulation with Eliquis
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
Patent ductus arteriosus, conservatively managed at [facility]
History of noncompliance
Diabetes mellitus type 2
Anemia, multifactorial
Plan:
continue milrinone gtt
continue bumex 1mg /hr gtt
hold torsemide and lasix while on bumex gtt
K improved
follow BMP
prognosis is poor, plan for eventual hospice with [facility]
-
-
Date of Service: July 07, 2023
CC / HPI / ROS
-
Chief Complaint:
CKD4
History of Present Illness:
CKD/Cr stable at 2.8
BP stable
on milrinone gtt for ESCM
on bumex gtt for decompensated CHF
Review of Systems:
no CP/SOB
Labs
-
Labs:
WBC 9.9 10^3/uL (4.8-10.8) 07/07/23 04:43
RBC 3.97 10^6/uL (4.70-6.10) L 07/07/23 04:43
Hgb 11.4 g/dL (13.0-18.0) L 07/07/23 04:43
Hct 33.6 % (39.0-52.0) L 07/07/23 04:43
Plt Count 496 10^3/uL (130-400) H 07/07/23 04:43
Sodium 126 mmol/L (135-145) L 07/07/23 04:43
Potassium 5.0 mmol/L (3.5-5.1) 07/07/23 04:43
Chloride 95 mmol/L (98-107) L 07/07/23 04:43
Carbon Dioxide 18 mmol/L (22-30) L 07/07/23 04:43
BUN 73 mg/dl (9-20) H 07/07/23 04:43
Creatinine 2.8 mg/dL (0.7-1.3) H 07/07/23 04:43
eGFR 24.13 07/07/23 04:43
Glucose 165 mg/dl (70-99) H 07/07/23 04:43
Calcium 8.7 mg/dl (8.4-10.2) 07/07/23 04:43
Roy-E-Igmfuhtgknf Pept 5870 pg/ml 07/06/23 14:06
Albumin 3.3 g/dl (3.5-5.0) L 07/06/23 11:09
Physical Exam
-
Vital Signs:
Vital Signs
Temp Pulse Resp BP Pulse Ox
98.1 F 115 20 92/63 99
07/07/23 12:09 07/07/23 09:51 07/07/23 09:51 07/07/23 09:51 07/07/23 08:47
Cardiovascular:: Regular rate and rhythm
Respiratory:: Bilateral: Coarse
Lung Excursion:: Normal
Abdomen:: Nontender and Soft
Bowel Sounds:: Normal
Extremity Edema:: +3: Bilateral:
[2023-07-07 14:11] LABS: Glucose - Point of Care 186 mg/dl (70-99)
--- NOTE | 2023-07-07 14:39 | PTCARENOTE ---
Returned from [facility], BP 90/60, AF rates 100-110s. OOB to bsc 2 assist- Had large bm, voided clear yellow urine. IV Albumin infused as ordered. Continues on IV Milronone and IV Bumex gtts. Mentation waxes and wanes. LC dim. bibase. 98% RAIR.
Currently oob in chair on chair alarm. Call evans in reach.
[2023-07-07 17:22] LABS: Glucose - Point of Care 207 mg/dl (70-99)
[2023-07-07] MEDS: NOVOLOG FLEXPEN-MODERATE RESISTANCE 3 UNITS SC (17:37)
[2023-07-07] MEDS: LANTUS 0.0500000000000000028 UNITS SC (21:20)
[2023-07-07 21:32] LABS: Glucose - Point of Care 176 mg/dl (70-99)
[2023-07-08] VITALS (17 sets, daily range): BP systolic 92–114; BP diastolic 53–80; PULSE 63–102; O2SAT 97; BMI 30.4
--- NOTE | 2023-07-08 00:33 | PTCARENOTE ---
Pt had 14 beat VT that terminated on its own back to Afib. Pt sleeping asymptomatic. BP 95/67. Currently resting comfortably. Idalia SU TT'd and made aware. No further orders. Will continue to monitor.
--- NOTE | 2023-07-08 05:59 | PTCARENOTE ---
Pt sleeping intermittently throughout shift. AAOx2. Confused to date, year. VSS. Afebrile. Afib on CM. POX RA 96-98%. Continues on Milrinone and Bumex gtts. Denies discomfort to abd. Abd soft distended, round, ascitic. Using urinal at bedside
without difficulty. No change from previous assessment. Using call evans for assistance. Call evans remains within reach. Will continue to monitor.
[2023-07-08 06:07] LABS: Ammonia < 9 umol/L (9-30)
[2023-07-08] MEDS: SYNTHROID 100 MCG PO (06:17)
[2023-07-08 06:29] LABS: Blood Urea Nitrogen 72 mg/dl (9-20); Calcium 8.5 mg/dl (8.4-10.2); Carbon Dioxide 20 mmol/L (22-30); Chloride 97 mmol/L (98-107); Estimated Creatinine Clearance 32 ml/min; Glucose 136 mg/dl (70-99); Potassium 3.7 mmol/L (3.5-5.1); Sodium 127 mmol/L (135-145); eGFR 24.13
--- NOTE | 2023-07-08 06:47 | W.PN.HOSP.TC ---
Today's Communication/Plan
-
Maintain Bumex drip as per cardiology and nephrology
Milrinone infusion that we will continue with home care
Continue lactulose to treat hepatic encephalopathy which has improved mental status
Eventual transition to [facility] hospice at discharge
Continue to monitor BMP
Assessment / Plan
Assessment / Plan
68-year-old with end-stage cardiomyopathy and cardiogenic cirrhosis on chronic milrinone infusion at home has been followed up at [facility] for history of congenital heart defect and AV fistula no longer intervention candidate with repeated episodes of
decompensated heart failure confusion stage IV kidney disease and had been on intravenous furosemide 3 times weekly via visiting nurses at home. He has had increasing weight and protuberant abdomen with increasing obvious ascites and presented with
hyponatremia and hyperkalemia and confusion.
Cardiorenal syndrome
Acute Hepatic Encephalopathy
Cardiogenic Cirrhosis with Ascites
-Start Lactulose 30mL QID and titrate to 2-3 BMs per day
-Recheck ammonia leve continues to increase from 56-71 this morning now down to less than 9
-Continue lactulose
-Consult IR for paracentesis/had 7.3 large-volume paracentesis removed with albumin infusion post
Acute on Chronic HFrEF
End-Stage Non-Ischemic Cardiomyopathy
-Consult Cardiology
-Continue home milrinone infusion
-Defer diuretic management to cardiology and nephrology
-Monitor Is&Os and Daily Weights
Acute on Chronic Hyponatremia
-Consult Nephrology
-Continue fluid restriction
Hyperkalemia
-Hold spironolactone and potassium supplements
-Lokelma as needed
CKD Stage IV
-Creatinine ranges from 1.9-2.7 over the past month
-Monitor creatinine closely
Permanent Atrial Fibrillation
-Continue Eliquis for anticoagulation
-Continue metoprolol for rate control
Diabetes Mellitus, Type II
-Decreased dose of Lantus ordered until mental status/appetite improves
-Continue coverage insulin
Hypothyroidism
-Continue Synthroid
DVT proph: Eliquis
Code Status: DNR
Anticipated Discharge: Within 24 hours
Subjective/Interval History
-
Date of Service: July 08, 2023
Mentation improved comfort improved after large-volume paracentesis removal
Objective Data
-
Labs:
Laboratory Results
07/08/23
05:42
Sodium 127 L
Potassium 3.7 D
Chloride 97 L
Carbon Dioxide 20 L
BUN 72 H
Creatinine 2.8 H
Glucose 136 H
Calcium 8.5
Vital Signs:
Vital Signs
Temp Pulse Resp BP Pulse Ox
97.5 F 98 17 97/56 98
07/08/23 03:48 07/08/23 06:00 07/08/23 06:00 07/08/23 06:00 07/08/23 00:31
I&O
07/06/23 07/07/23 07/08/23
06:59 06:59 06:59
Intake Total 240 / 240 1870.4 / 1870.4
Output Total 225 / 225 1760 / 1760
Balance 15 / 15 110.4 / 110.4
Review of Systems
-
History Source: Patient
EENT: Reports No Symptoms Reported
Respiratory: Reports No Symptoms
Cardiac: Reports No Symptoms
Abdomen/GI: Reports Diarrhea
Physical Exam
-
General: Appears Chronically Ill
HEENT: Normocephalic
Respiratory: Crackles
Cardiac: Regular Rhythm and Tachycardic (Episodes of nonsustained V. tach overnight)
GI: Distended
Neuro: Awake
Psych: Calm
Data Reviewed
-
Total Time Spent with Patient (in minutes): 45
Labs: Labs Reviewed by me (Large-volume paracentesis with a 208 white cells 7.3 L removed/thrombocytosis hemoglobin stable/potassium down to 3.7 sodium 127 creatinine stable at 2.8/ammonia down from 71 to less than 9 today)
[2023-07-08] MEDS: ELIQUIS 5 MG PO ×2 (08:14→21:19)
[2023-07-08] MEDS: NOVOLOG FLEXPEN-MODERATE RESISTANCE SC ×2 (08:14→16:54)
[2023-07-08] MEDS: TOPROL XL 12.5 MG PO (08:14)
[2023-07-08] MEDS: NEURONTIN 100 MG PO ×2 (08:14→21:19)
[2023-07-08] MEDS: DUPHALAC/CHRONULAC 20 GRAMS PO ×3 (08:14→21:19)
[2023-07-08 08:24] LABS: Glucose - Point of Care 128 mg/dl (70-99)
[2023-07-08] MEDS: BUMEX 50 IV ×2 (10:23→21:17)
[2023-07-08] MEDS: PRIMACOR 20 MG 100 IV ×2 (10:53→21:18)
[2023-07-08 11:40] LABS: Glucose - Point of Care 178 mg/dl (70-99)
--- NOTE | 2023-07-08 11:41 | PTCARENOTE ---
Assumed care of patient at beginning of this shift from previous RN. Per report, patient had 2 episodes of vtach: one 14 beat and one 24 beat; Dr Polo made aware when he was up to see patient. Milrinone and bumex drip continues. Milrinone dose
of 7.7ml/hr confirmed with pharmacist Isabela as no calculated drip rate appeared on label or in MAR cell. She stated she will adjust so rate appears. Patient Ox2, forgetful and drowsy; easily arousable to voice. He has been ringing appropriately and
1 assist to stand and OOB to chair. Fluid restriction maintained per nephrology; patient cooperative with restriction but no happy. See worklist for full assessment and vital signs; see MAR for med administration.
--- NOTE | 2023-07-08 12:07 | W.PN.CARDCBS ---
Today's Communication / Plan
-
Diuresing well with Bumex drip. Continue milrinone long-term.
Creatinine overall stable at 2.8.
Continue Eliquis and Toprol. Heart rates are slightly improved today but still borderline. Blood pressure remains marginal but acceptable.
Long-term prognosis remains poor
Impression / Plan
-
PCP: Dr. Nikolas Schmitz
Primary Ranch Manager: previously seen by Dr. 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 Now following with Dr. Felix Almanza at [facility] /Dr. Hong Nino
Impression:
Confusion possible hepatic encephalopathy
Acute on chronic HFrEF, stage D
Home milrinone infusion therapy
Nonischemic cardiomyopathy EF 18% by echo at [facility] 01/2023
Recurrent ascites, cirrhosis
Permanent A-fib on Eliquis
Chronic Eliquis OAC
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
Hyponatremia, chronic
Hyperkalemia improved with hx hyperkalemia
Hypertension
PA, conservatively managed
CKD stage IV
History of hypothyroidism
ECHO 09/2018: Severely dilated LV, EF 45% with regional variations, moderate LVH, dilated RV, severe biatrial dilatation, dilated coronary sinus, MAC, mild MR, aortic sclerosis, mild AR, trace TR, PAP 50 to 55 mmHg, dilated IVC, small pericardial
effusion, mildly dilated aortic root and proximal ascending aorta
Echo 08/25/22: EF 42%, global hypokinesis, stage 3 diastolic dysfunction, severely enlarged RV size with moderately reduced RV systolic function, severely dilated LA/RA, mild MR, mild TR with PAP 57-62 mmHg, small pericardial effusion, dilated aortic
root with Sinuses at 3.9 cm
Admission at for COVID and acute HF 01/03/23 until 01/05/23
Admission at [facility] for acute HF and initiation of home milrinone approx 01/2023
Admission at for acute HF and hyponatremia 05/12/23 until 05/14/23
Admission at [facility] for acute HF and paracentesis discharged 06/17/23
Admission to for mechanical fall and recurrent HF and hyponatremia 06/18/23 until 06/21/23
Admission to for confusion and CHF 06/24/23 until 06/29/23
Admission to for confusion, weakness and electrolyte abnormalities 07/06/23
Plan:
-His weight is down to 244 and he is improving. Creatinine remains stabe at 2.8. Continue to follow.
-Bumex gtt at 1 mg/hr ordered by Nephrology. Outpatient doses of torsemide 120 mg PO and Lasix 100 mg IV every MoWeFr are on hold
-Milrinone gtt to continue at 0.25 mcg/kg/min. Would continue Bumex drip for another 24 hours.
-Patient with known permanent Afib. HR is borderline. Outpatient dose of Toprol XL 12.5 mg daily ordered. Patient no longer taking digoxin. May need to further titrate Toprol if blood pressure allows.
-Outpatient dose of Eliquis 5 mg BID continued and Hgb stable at 12.3. Cre 2.7, but age 68 and 229 lbs.
-Long-term prognosis is poor and hospice has been mentioned by cardiology at as far back as early 05/2023, but patient follows primarily at [facility] and only comes to for emergency care. Not sure what the cardiology plan is form [facility].
Progress Note - Ranch Manager
Subjective
Date of Service: July 08, 2023
Weight is down and breathing is improving
Objective
Labs:
07/07/23 04:43
07/08/23 05:42
Labs
Hgb 11.4 g/dL (13.0-18.0) L 07/07/23 04:43
Hct 33.6 % (39.0-52.0) L 07/07/23 04:43
Plt Count 496 10^3/uL (130-400) H 07/07/23 04:43
Sodium 127 mmol/L (135-145) L 07/08/23 05:42
Potassium 3.7 mmol/L (3.5-5.1) D 07/08/23 05:42
BUN 72 mg/dl (9-20) H 07/08/23 05:42
Creatinine 2.8 mg/dL (0.7-1.3) H 07/08/23 05:42
Glucose 136 mg/dl (70-99) H 07/08/23 05:42
Vital Signs and I&O:
Vital Signs
Temp Pulse Resp BP Pulse Ox
97.7 F 97 21 102/70 98
07/08/23 11:10 07/08/23 11:25 07/08/23 11:25 07/08/23 11:25 07/08/23 00:31
Vital Signs
Temp Pulse Resp BP Pulse Ox
97.7 F 97 21 102/70 98
07/08/23 11:10 07/08/23 11:25 07/08/23 11:25 07/08/23 11:25 07/08/23 00:31
Intake & Output
07/06/23 07/07/23 07/08/23 07/09/23
06:59 06:59 06:59 06:59
Intake Total 240 / 240 1870.4 / 1870.4
Output Total 225 / 225 1760 / 1760 625 / 625
Balance 15 / 15 110.4 / 110.4 -625 / -625
Physical Exam
Physical Exam
GEN: No distress, awake, Ox3
HEENT: supple, anicteric, mmm
LUNGS: scatt rhonchi
CV: irreg, S1/S2, 1/6 syst LSB, S3+
ABD: soft, BS+, NT/ND
EXT: +1 edema
NEURO: Gross non-focal
SKIN: No rash
[2023-07-08] MEDS: NOVOLOG FLEXPEN-MODERATE RESISTANCE 1 UNITS SC (12:39)
--- NOTE | 2023-07-08 15:17 | W.PN.NEPH.PH ---
Today's Communication / Plan
-
- continue milrinone and bumex
Assessment/Plan
-
Impression:
Change in mental status (now improving)
Cardiorenal syndrome
CKD stage IV with baseline creatinine 2.5-3
Recurrent ascites status post paracentesis on 05-31
Nonischemic cardiomyopathy with a EF of 40% (on home milrinone)
Hyponatremia (125)
Hypotension
Permanent atrial fibrillation
Chronic anticoagulation with Eliquis
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
Patent ductus arteriosus, conservatively managed at [facility]
History of noncompliance
Diabetes mellitus type 2
Anemia, multifactorial
Plan:
continue milrinone gtt
continue bumex 1mg /hr gtt
hold torsemide and lasix while on bumex gtt
K improved
follow BMP
prognosis is poor, plan for eventual hospice with [facility]
-
-
Date of Service: July 08, 2023
CC / HPI / ROS
-
Chief Complaint:
CKD4
History of Present Illness:
CKD/Cr stable at 2.8
BP stable
on milrinone gtt for ESCM
on bumex gtt for decompensated CHF
Review of Systems:
no CP/SOB
Labs
-
Labs:
WBC 9.9 10^3/uL (4.8-10.8) 07/07/23 04:43
RBC 3.97 10^6/uL (4.70-6.10) L 07/07/23 04:43
Hgb 11.4 g/dL (13.0-18.0) L 07/07/23 04:43
Hct 33.6 % (39.0-52.0) L 07/07/23 04:43
Plt Count 496 10^3/uL (130-400) H 07/07/23 04:43
Sodium 127 mmol/L (135-145) L 07/08/23 05:42
Potassium 3.7 mmol/L (3.5-5.1) D 07/08/23 05:42
Chloride 97 mmol/L (98-107) L 07/08/23 05:42
Carbon Dioxide 20 mmol/L (22-30) L 07/08/23 05:42
BUN 72 mg/dl (9-20) H 07/08/23 05:42
Creatinine 2.8 mg/dL (0.7-1.3) H 07/08/23 05:42
eGFR 24.13 07/08/23 05:42
Glucose 136 mg/dl (70-99) H 07/08/23 05:42
Calcium 8.5 mg/dl (8.4-10.2) 07/08/23 05:42
Bzx-Q-Yraxjsukizy Pept 5870 pg/ml 07/06/23 14:06
Albumin 3.3 g/dl (3.5-5.0) L 07/06/23 11:09
Physical Exam
-
Vital Signs:
Vital Signs
Temp Pulse Resp BP Pulse Ox
97.7 F 102 15 92/53 98
07/08/23 11:10 07/08/23 12:35 07/08/23 14:11 07/08/23 14:11 07/08/23 00:31
Cardiovascular:: Regular rate and rhythm
Respiratory:: Bilateral: Coarse
Lung Excursion:: Normal
Abdomen:: Soft
Bowel Sounds:: Normal
Extremity Edema:: +2: Bilateral:
Johnson Catheter: No
[2023-07-08 16:59] LABS: Glucose - Point of Care 141 mg/dl (70-99)
--- NOTE | 2023-07-08 21:43 | PTCARENOTE ---
Pt received resting in bed watching TV. More communicative tonight. Constantly clearing his throat. States 'It helps relieve the pain in my abdomen.' Bumex gtt infusing at 4ml/hr and Milrinone gtt infusing at 7.7ml/hr. Afib on CM. Afebrile. Rest of
VSS. Abdomen softly distended, round, ascitic. +BS. Rest of assessment as documented. Needs reminders to turn self in bed. Uses call evans for all assistance. Call evans remains within reach. Will continue to monitor.
[2023-07-08 21:50] LABS: Glucose - Point of Care 202 mg/dl (70-99)
[2023-07-08] MEDS: LANTUS 0.0500000000000000028 UNITS SC (21:51)
[2023-07-09 00:02] VITALS: BP 89/62
[2023-07-09 02:00] VITALS: BP 105/59
[2023-07-09 04:26] LABS: Hematocrit 34.3 % (39.0-52.0); Hemoglobin 11.3 g/dL (13.0-18.0); Mean Corp Hgb Conc. 32.9 g/dL (33.0-37.0); Mean Corpuscular Hgb 28.2 pg (27.0-31.0); Mean Corpuscular Volume 85.5 fL (80.0-94.0); Mean Platelet Volume 9.3 fL (7.4-10.4); Platelet Count 426 10^3/uL (130-400); Red Blood Cell Count 4.01 10^6/uL (4.70-6.10); Red Cell Dist. Width 15.4 % (11.5-14.5); White Blood Cell Count 7.9 10^3/uL (4.8-10.8)
[2023-07-09 04:47] VITALS: BP 96/61
[2023-07-09 04:50] LABS: Blood Urea Nitrogen 70 mg/dl (9-20); Calcium 8.3 mg/dl (8.4-10.2); Carbon Dioxide 22 mmol/L (22-30); Chloride 99 mmol/L (98-107); Estimated Creatinine Clearance 32 ml/min; Glucose 137 mg/dl (70-99); Potassium 3.7 mmol/L (3.5-5.1); Sodium 131 mmol/L (135-145); eGFR 27.64
[2023-07-09] MEDS: SYNTHROID 100 MCG PO (06:10)
[2023-07-09 06:15] VITALS: BP 98/83
[2023-07-09] MEDS: PRIMACOR 20 MG 100 IV (07:00)
[2023-07-09] MEDS: BUMEX 50 IV (07:02)
[2023-07-09] MEDS: NOVOLOG FLEXPEN-MODERATE RESISTANCE SC ×2 (07:12→11:51)
[2023-07-09] MEDS: TOPROL XL 12.5 MG PO (07:13)
[2023-07-09] MEDS: NEURONTIN 100 MG PO (07:13)
[2023-07-09] MEDS: ELIQUIS 5 MG PO (07:13)
[2023-07-09] MEDS: DUPHALAC/CHRONULAC 20 GRAMS PO (07:13)
[2023-07-09 07:23] LABS: Glucose - Point of Care 130 mg/dl (70-99)
[2023-07-09 08:00] VITALS: BP 99/80
--- NOTE | 2023-07-09 08:13 | W.PN.CARDCBS ---
Today's Communication / Plan
-
He has diuresed 30 pounds. He remains on home milrinone for palliative care.
Would stop Bumex drip today and switch him back over to his oral regiment of torsemide 120 mg twice daily with IV Lasix 100 mg 3 times a week.
Continue Toprol/Eliquis
Okay for discharge per
Impression / Plan
-
PCP: Dr. Nikolas Schmitz
Primary Clean Out Driller: previously seen by Dr. 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 Now following with Dr. Felix Almanza at [place] /Dr. Hong Nino
Impression:
Confusion possible hepatic encephalopathy
Acute on chronic HFrEF, stage D
Home milrinone infusion therapy
Nonischemic cardiomyopathy EF 18% by echo at [facility] 01/2023
Recurrent ascites, cirrhosis
Permanent A-fib on Eliquis
Chronic Eliquis OAC
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
Hyponatremia, chronic
Hyperkalemia improved with hx hyperkalemia
Hypertension
PA, conservatively managed
CKD stage IV
History of hypothyroidism
ECHO 09/2018: Severely dilated LV, EF 45% with regional variations, moderate LVH, dilated RV, severe biatrial dilatation, dilated coronary sinus, MAC, mild MR, aortic sclerosis, mild AR, trace TR, PAP 50 to 55 mmHg, dilated IVC, small pericardial
effusion, mildly dilated aortic root and proximal ascending aorta
Echo 08/25/22: EF 42%, global hypokinesis, stage 3 diastolic dysfunction, severely enlarged RV size with moderately reduced RV systolic function, severely dilated LA/RA, mild MR, mild TR with PAP 57-62 mmHg, small pericardial effusion, dilated aortic
root with Sinuses at 3.9 cm
Admission at for COVID and acute HF 01/03/23 until 01/05/23
Admission at [place] for acute HF and initiation of home milrinone approx 01/2023
Admission at for acute HF and hyponatremia 05/12/23 until 05/14/23
Admission at [place] for acute HF and paracentesis discharged 06/17/23
Admission to for mechanical fall and recurrent HF and hyponatremia 06/18/23 until 06/21/23
Admission to for confusion and CHF 06/24/23 until 06/29/23
Admission to for confusion, weakness and electrolyte abnormalities 07/06/23
Plan:
-He has lost 30 pounds and his weight is down to 220. Okay to switch back to outpatient doses of torsemide 120 mg PO and Lasix 100 mg IV every MoWeFr.
-Milrinone gtt to continue at 0.25 mcg/kg/min.
-Creatinine has improved and is down to 2.5
-Patient with known permanent Afib. HR is borderline. Outpatient dose of Toprol XL 12.5 mg daily ordered. Patient no longer taking digoxin.
-Outpatient dose of Eliquis 5 mg BID continued and Hgb stable at 12.3. Cre 2.7, but age 68 and 229 lbs.
-Long-term prognosis is poor and hospice has been mentioned by cardiology at as far back as early 05/2023, but patient follows primarily at [facility] and only comes to for emergency care.
-Okay for discharge from cardiology standpoint
Progress Note - Clean Out Driller
Subjective
Date of Service: July 09, 2023
Weight is down significantly and feels much better. He has lost 30 pounds
Objective
Labs:
07/09/23 04:15
07/09/23 04:15
Labs
Hgb 11.3 g/dL (13.0-18.0) L 07/09/23 04:15
Hct 34.3 % (39.0-52.0) L 07/09/23 04:15
Plt Count 426 10^3/uL (130-400) H 07/09/23 04:15
Sodium 131 mmol/L (135-145) L 07/09/23 04:15
Potassium 3.7 mmol/L (3.5-5.1) 07/09/23 04:15
BUN 70 mg/dl (9-20) H 07/09/23 04:15
Creatinine 2.5 mg/dL (0.7-1.3) H 07/09/23 04:15
Glucose 137 mg/dl (70-99) H 07/09/23 04:15
Vital Signs and I&O:
Vital Signs
Temp Pulse Resp BP Pulse Ox
97.4 F 101 17 98/83 95
07/09/23 03:40 07/09/23 06:15 07/09/23 06:15 07/09/23 06:15 07/08/23 19:34
Vital Signs
Temp Pulse Resp BP Pulse Ox
97.4 F 101 17 98/83 95
07/09/23 03:40 07/09/23 06:15 07/09/23 06:15 07/09/23 06:15 07/08/23 19:34
Intake & Output
07/07/23 07/08/23 07/09/23 07/10/23
06:59 06:59 06:59 06:59
Intake Total 240 / 240 2009.4 / 2009.4 800 / 800
Output Total 225 / 225 1760 / 1760 2575 / 2575
Balance 250.4 / 250.4 -1775 / -1775
Physical Exam
Physical Exam
GEN: No distress, awake, Ox3
HEENT: supple, anicteric, mmm
LUNGS: CTA, no wheezes/rales
CV: Irreg, S1/S2, 1/6 syst LSB, no gallop
ABD: soft, BS+, NT/ND
EXT: trace edema
NEURO: Gross non-focal
SKIN: No rash
[2023-07-09 10:00] VITALS: BP 96/65
--- NOTE | 2023-07-09 10:38 | PTCARENOTE ---
Assumed care of patient at beginning of this shift from previous RN. Patient continues with bumex and milrinone infusions. SR with PVCs. 1 assist OOB; compliant with call evans usage. See worklist for full assessment and vital signs; see MAR for med
administration.
--- NOTE | 2023-07-09 11:08 | PTCARENOTE ---
Addendum entered by Lydia Domingo RN 07/09/23 11:16:
New leads obtained placed; HR now capturing.
Original Note:
HR manually entered this morning as it was not capturing or showing on the monitor. 4 RNs checked equipment (3 from IMU, 1 from ICU) and could not get HR to show. HR will show with POx but not capture. [employer] connected RN to voicemail of [employer];
no return call after 2 voicemails left. [employer] then called unit to say they connected RN to [employer]; she then connected to Ameya from [employer]. Per his instructions, this RN again turned off monitor and box but HR still will not show. He
stated he will be in.
--- NOTE | 2023-07-09 11:32 | W.DS.TRANS ---
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
-
Discharge Instructions:
Discharge Diagnosis/Procedures CHF
Diet 2 Gram Sodium
Instructions:
Stand-Alone Forms:
Changes to Home Medications: No
Discharge Medications:
DC Medications w/original date entered in [employer]
allopurinol 100 mg tablet 100 mg PO DAILY Gout 03/23/21
gabapentin 100 mg capsule 100 mg PO Q12H Pain 03/23/21
acetaminophen 325 mg tablet 650 mg PO DAILYPRN PRN mild pain 01/03/23
apixaban 5 mg tablet (Eliquis) 5 mg PO BID Blood Clot Prevention/Tx 01/03/23
metoprolol succinate 25 mg tablet,extended release 24 hr 12.5 mg PO DAILY Heart Disease/Hypertension 01/03/23
insulin lispro 100 unit/mL subcutaneous pen (Admelog SoloStar U-100 Insulin lispro) 2 unit SC AC Diabetes 05/10/23
milrinone 0.25 mcg IV .CONTINUOUS Heart Failure 05/10/23
omega-3 fatty acids 1,000 mg capsule 1,000 mg PO DAILY Supplement 05/10/23
torsemide 20 mg tablet 120 mg PO BID Fluid Retention/Swelling 05/10/23
docusate sodium 100 mg capsule 100 mg PO DAILYPRN PRN constipation 06/18/23
furosemide 10 mg/mL injection solution 100 mg IV MOWEFR Fluid Retention/Swelling 06/18/23
potassium chloride 10 mEq capsule,extended release 40 meq PO SUTUTHSA@0800,1700 Electrolyte Repletion 06/18/23
spironolactone 25 mg tablet 12.5 mg PO DAILY Heart Failure 06/18/23
levothyroxine 100 mcg tablet 100 mcg PO DAILY@0600 Thyroid 06/24/23
insulin glargine 100 unit/mL (3 mL) subcutaneous pen (Basaglar KwikPen U-100 Insulin) 10 unit SC HS Diabetes 07/06/23
potassium chloride 10 mEq tablet,extended release 40 meq PO MOWEFR@08,12,17 Supplement 07/06/23
therapeutic multivitamin 1 tab PO DAILY Supplement 07/06/23
Home Medication Changes
Pending Results: No
--- NOTE | 2023-07-09 11:34 | W.PN.HOSP.TC ---
Today's Communication/Plan
-
Transition oral Bumex drip to admission dose of torsemide
Continue milrinone infusion.
Mental status stable with ammonia normalized.
Continue lactulose.
Discharge
Assessment / Plan
Assessment / Plan
68-year-old with end-stage cardiomyopathy and cardiogenic cirrhosis on chronic milrinone infusion at home has been followed up at [place] for history of congenital heart defect and AV fistula no longer intervention candidate with repeated episodes of
decompensated heart failure confusion stage IV kidney disease and had been on intravenous furosemide 3 times weekly via visiting nurses at home. He has had increasing weight and protuberant abdomen with increasing obvious ascites and presented with
hyponatremia and hyperkalemia and confusion.
Cardiorenal syndrome
Acute Hepatic Encephalopathy
Cardiogenic Cirrhosis with Ascites
-Start Lactulose 30mL QID and titrate to 2-3 BMs per day
-Recheck ammonia leve continues to increase from 56-71 this morning now down to less than 9
-Continue lactulose
-Consult IR for paracentesis/had 7.3 large-volume paracentesis removed with albumin infusion post
Acute on Chronic HFrEF
End-Stage Non-Ischemic Cardiomyopathy
-Consult Cardiology
-Continue home milrinone infusion
-Defer diuretic management to cardiology and nephrology
-Monitor Is&Os and Daily Weights
Acute on Chronic Hyponatremia
-Consult Nephrology
-Continue fluid restriction
Hyperkalemia
-Hold spironolactone and potassium supplements
-Lokelma as needed
CKD Stage IV
-Creatinine ranges from 1.9-2.7 over the past month
-Monitor creatinine closely
Permanent Atrial Fibrillation
-Continue Eliquis for anticoagulation
-Continue metoprolol for rate control
Diabetes Mellitus, Type II
-Decreased dose of Lantus ordered until mental status/appetite improves
-Continue coverage insulin
Hypothyroidism
-Continue Synthroid
DVT proph: Eliquis
Code Status: DNR
Anticipated Discharge: Today
Subjective/Interval History
-
Date of Service: July 09, 2023
Objective Data
-
Labs:
Laboratory Results
07/09/23
04:15
WBC 7.9
Hgb 11.3 L
Hct 34.3 L
Plt Count 426 H
Sodium 131 L
Potassium 3.7
Chloride 99
Carbon Dioxide 22
BUN 70 H
Creatinine 2.5 H
Glucose 137 H
Calcium 8.3 L
Vital Signs:
Vital Signs
Temp Pulse Resp BP Pulse Ox
97.4 F 92 15 96/65 96
07/09/23 07:44 07/09/23 08:20 07/09/23 10:00 07/09/23 10:00 07/09/23 09:59
I&O
07/08/23 07/09/23 07/10/23
06:59 06:59 06:59
Intake Total 2009.4 / 2009.4 800 / 800 120 / 120
Output Total 1760 / 1760 2575 / 2575 300 / 300
Balance 250.4 / 250.4 -1775 / -1775 -180 / -180
Physical Exam
-
General: Well Developed and No Apparent Distress
HEENT: Normocephalic, Atraumatic and Moist Mucous Membranes
Respiratory: Clear to Auscultation
Cardiac: Regular Rhythm and S1/S2; Negative Murmur, Rub or Gallop
GI: Soft, Nontender, Nondistended and Normal Bowel Sounds; Negative Organomegaly
Rectal: Deferred by Provider
Musculoskeletal: No Clubbing, No Cyanosis and No Edema
Skin: Negative Rash
Neuro: Nonfocal/Grossly Intact
[2023-07-09 12:00] LABS: Glucose - Point of Care 148 mg/dl (70-99)
[2023-07-09] MEDS: DEMADEX 120 MG PO (12:35)
--- NOTE | 2023-07-09 13:34 | W.PN.NEPH.PH ---
Today's Communication / Plan
-
dc
Assessment/Plan
-
Impression:
Change in mental status (now improving)
Cardiorenal syndrome
CKD stage IV with baseline creatinine 2.5-3
Recurrent ascites status post paracentesis on 05-31
Nonischemic cardiomyopathy with a EF of 40% (on home milrinone)
Hyponatremia (125)
Hypotension
Permanent atrial fibrillation
Chronic anticoagulation with Eliquis
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
Patent ductus arteriosus, conservatively managed at [facility]
History of noncompliance
Diabetes mellitus type 2
Anemia, multifactorial
Plan:
transitioned to torsemide
milrinone gtt
lactulose
plan for discharge today
prognosis is poor, plan for eventual hospice with [facility]
-
-
Date of Service: July 09, 2023
CC / HPI / ROS
-
Chief Complaint:
CKD4
History of Present Illness:
CKD/Cr stable at 2.5
BP stable
on milrinone gtt for ESCM
transitioned to torsemide for d/c
Review of Systems:
no CP/SOB
Labs
-
Labs:
WBC 7.9 10^3/uL (4.8-10.8) 07/09/23 04:15
RBC 4.01 10^6/uL (4.70-6.10) L 07/09/23 04:15
Hgb 11.3 g/dL (13.0-18.0) L 07/09/23 04:15
Hct 34.3 % (39.0-52.0) L 07/09/23 04:15
Plt Count 426 10^3/uL (130-400) H 07/09/23 04:15
Sodium 131 mmol/L (135-145) L 07/09/23 04:15
Potassium 3.7 mmol/L (3.5-5.1) 07/09/23 04:15
Chloride 99 mmol/L (98-107) 07/09/23 04:15
Carbon Dioxide 22 mmol/L (22-30) 07/09/23 04:15
BUN 70 mg/dl (9-20) H 07/09/23 04:15
Creatinine 2.5 mg/dL (0.7-1.3) H 07/09/23 04:15
eGFR 27.64 07/09/23 04:15
Glucose 137 mg/dl (70-99) H 07/09/23 04:15
Calcium 8.3 mg/dl (8.4-10.2) L 07/09/23 04:15
Lmq-S-Ypucduewdnn Pept 5870 pg/ml 07/06/23 14:06
Albumin 3.3 g/dl (3.5-5.0) L 07/06/23 11:09
Physical Exam
-
Vital Signs:
Vital Signs
Temp Pulse Resp BP Pulse Ox
97.4 F 92 15 96/65 96
07/09/23 07:44 07/09/23 08:20 07/09/23 10:00 07/09/23 10:00 07/09/23 09:59
Cardiovascular:: Regular rate and rhythm
Respiratory:: Bilateral: Coarse
Lung Excursion:: Normal
Abdomen:: Nontender and Soft
Bowel Sounds:: Normal
Extremity Edema:: +2: Bilateral:
Johnson Catheter: No
--- NOTE | 2023-07-09 13:46 | PTCARENOTE ---
Patient discharged to home. 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 All instructions reviewed with and patient. Dr Steward notified to update follow up care, which was done. Patient/ verbalized understanding of all.
--- NOTE | 2023-07-09 15:48 | CM ---
Patient with Hx end-stage cardiomyopathy and cardiogenic cirrhosis on chronic Milrinone home infusion, with Dx Cardiorenal syndrome, Acute Hepatic Encephalopathy, HF. Room air.
Spoke with patient's Kita; she will bring in his pump to hook him up to the Milrinone to go home. Informed her will notify [facility] he is being discharged. confirms [facility] nurse follows him for home IV Milrinone & IV
Lasix (fax [phone]) and infusion nurse does patient assessment as well - says 'dual nurse' comes out. She is planning on starting hospice soon through [facility].
Referral placed to [facility] to resume service for IV Milrinone and IV Lasix with d/c date today.
Plan home today with resumption [facility].
== END 2023-07-09 13:54 | disposition home health service (06) | DRG 441 ==
LOC: IMU 15:38
PROVIDERS: Internal Medicine; Physician Assistant; Physician Assistant Medical; Radiology Vascular & Interventional Radiology; ADMITTING PHYSICIAN Internal Medicine; ATTENDING PHYSICIAN Internal Medicine; CONSULT PHYSICIAN Internal Medicine Cardiovascular Disease; CONSULT PHYSICIAN Specialist; EMERGENCY PHYSICIAN Emergency Medicine
PROC: 0W9G3ZZ Drainage of Peritoneal Cavity, Percutaneous Approach (ICD-10-PCS; 2023-07-07)
DX: K76.82 Hepatic encephalopathy (principal); I50.23 Acute on chronic systolic (congestive) heart failure; I13.0 Hypertensive heart and chronic kidney disease with heart failure and stage 1 through stage 4 chronic kidney disease, or unspecified chronic kidney disease; E87.1 Hypo-osmolality and hyponatremia; R18.8 Other ascites; N18.4 Chronic kidney disease, stage 4 (severe); I48.21 Permanent atrial fibrillation; I42.8 Other cardiomyopathies; K74.60 Unspecified cirrhosis of liver; E87.5 Hyperkalemia; E11.22 Type 2 diabetes mellitus with diabetic chronic kidney disease; Z79.01 Long term (current) use of anticoagulants; E03.9 Hypothyroidism, unspecified; Z66 Do not resuscitate; I27.81 Cor pulmonale (chronic); Z79.4 Long term (current) use of insulin; L89.152 Pressure ulcer of sacral region, stage 2
CPT/HCPCS: 49083; 71046; 80048; 80053; 81003; 82140; 82962; 83735; 83880; 85025; 85027; 89051; 93005; 96374; 97116; 97162; 97166; 99285; J2260; P9045

== ENCOUNTER 2023-07-25 09:06 | Emergency (ER) | payer MEDICARE, OTHER, SELFPAY ==
[2023-07-25] VITALS (20 sets, daily range): BP systolic 79–104; BP diastolic 54–82; BMI 34.1
[2023-07-25] MEDS: LASIX 80 MG IV (09:51)
[2023-07-25 09:53] LABS: % Basophils 0.3 % (0-2); % Eosinophils 1.1 % (0-6); % Immature Granulocytes 1.2 % (0-0.5); % Lymphocytes 4.4 % (20.5-51.1); % Monocytes 9.2 % (1.7-9.3); % Neutrophils 83.8 % (42.2-75.2); Absolute Eosinophils 0.1 10^3/uL (0-0.7); Absolute Immature Granulocytes 0.1 10^3/uL (0-0.05); Absolute Lymphocytes 0.5 10^3/uL (1.2-3.4); Absolute Monocytes 0.9 10^3/uL (0.1-0.6); Absolute Neutrophils 8.5 10^3/uL (1.4-6.5); Hematocrit 33.8 % (39.0-52.0); Hemoglobin 11.5 g/dL (13.0-18.0); Mean Corpuscular Hgb 27.8 pg (27.0-31.0); Mean Corpuscular Volume 81.6 fL (80.0-94.0); Mean Platelet Volume 9.4 fL (7.4-10.4); Nucleated Red Blood Cells % 0 % (-); Platelet Count 489 10^3/uL (130-400); Red Blood Cell Count 4.14 10^6/uL (4.70-6.10); White Blood Cell Count 10.1 10^3/uL (4.8-10.8)
[2023-07-25 10:02] LABS: INR 1.57; PT 18.6 Sec (11.4-14.6)
[2023-07-25] MEDS: PRIMACOR 20 MG 100 IV (10:14)
--- NOTE | 2023-07-25 10:26 | ED.GENMED ---
History of Present Illness
General
Chief Complaint: Catheter/Tube Problem
Source: patient, records and ambulance crew
Exam Limitations: none
Time Seen by Provider: 07/25/23 09:24
Nursing documentation reviewed up to this point in time: agreed with
Travel History
Have you had any contact with someone who has COVID-19?: No
Do you have any symptoms of coronavirus? Fever > 100 degrees, chills, cough, shortness of breath, sore throat, loss of taste or smell, muscle aches, or headache?: No
History of Present Illness
History of Present Illness:
Patient is a 68-year-old male who presents to the emergency department after his PICC line came out during the night. Patient is on constant milrinone infusions and has not received it since 3 AM. Patient does feel somewhat short of breath denies
chest pain. Patient has a peritoneal catheter for drainage which has not been drained and 2 weeks. Visiting nurse normally does that. Patient does feel distended and in need of drainage. Patient also states that his lower extremities are more
swollen than normal. Patient denies fever or chills.
Past History
Past History
ED Past Medical History: Arrthythmia, CHF, Renal failure, Hypothyroidism and Other (Nonischemic cardiomyopathy, ascites, chronic kidney disease stage IV, cardiogenic cirrhosis)
Social History
Tobacco: Non-smoker
Alcohol: None
Drug: None
Personal:
Living: with family
Employment: Retired
Review of Systems
Review of Systems
All Other Systems: ROS reviewed and negative except as documented in HPI and ROS
Constitutional: Reports fatigue; Denies fever or chills
EENT: Reports no symptoms
Respiratory: Reports trouble breathing; Denies cough
Cardiac: Reports no symptoms
ABD/GI: Reports no symptoms
: Reports no symptoms
Musculoskeletal: Reports edema
Skin: Reports no symptoms
Neurological: Reports no symptoms
Phy Exam
Physical Exam
Physical Exam:
Physical Exam
General: mild distress, alert and appropriate, well nourished, well hydrated, appears sallow and chronically ill
HENT: Normocephalic, supple with no lymphadenopathy, no thyromegaly
Eyes: Clear sclera, conjuctiva without injection
Heart: Regular rhythm and rate. No S3, S4. No murmur. Positive NVD
Lungs: No respiratory distress, no stridor, lung sounds clear and equal bilaterallyntender
Abdomen: distended, nontender, , BS good
Neuro: Alert and oriented x 3, CN II - XII intact, no motor focality
Skin: Chronic erythema of the lower extremities
Psychiatric: well kept. interactive and cooperative
Extremities: No cyanosis. +2-3 pitting edema lower extremities from above the knees distally with weeping fluid from the skin
Scores
Heart Failure Risk
Heart Failure Risk Score: Not Applicable
Heart Score for Chest Pain Patients
STEMI patient?: Not applicable
Withdrawal Assessment of Alcohol
Withdrawal Assessment Completed?: Not applicable
Course
Orders/Labs/Results
Orders:
Orders
07/25/23 09:31
Furosemide [Lasix] 80 mg IV NOW STA
07/25/23 09:[address] Non Medication Order As Directed
Physician Order: drain peritoneal catheter
07/25/23 09:45
Complete Blood Count/With Diff Urgent
Prothrombin Time Urgent
Milrinone Lactate 20 mg/100 ml [Primacor 20 mg] 20 mg in 100 ml IV PER PROTOCOL
Initial dose in mcg/kg/min, then titrate:: 0.25
Titrate to keep:: SBP > 90 mmHg
Titrate by mcg/kg/min:: 0.125 mcg/kg/min
Frequency of titrations (minutes):: 15 minutes
Maximum dose in mcg/kg/min:: 0.75
Begin to taper infusion when:: Remained at goal for 8hrs
Taper by mcg/kg/min:: 0.125 mcg/kg/min
Frequency of taper (hours) if patient maintains goal:: 4 hours
Taper to off?: Yes
If infusion off & no longer maintaining goal:: Contact Provider
07/25/23 10:23
Consult Interventional Radiology [IRAD CONSULT] Urgent
Consulting Provider: Codye Archibald
Was physician already notified: Yes
Reason for Consult/Procedure: peritoneal drainage
Acknowledgement that appropriate orders are entered: Yes
07/25/23 10:43
Comprehensive Metabolic Panel Urgent
Magnesium Urgent
07/25/23 10:57
PICC Line As Directed
07/25/23 11:12
Albumin Human 25% 50 ml [Flexbumin] 12.5 grams in 50 ml IV TODAY
07/25/23 11:53
Portable Chest Xray [CR Chest Portable - 1 View] Urgent
Comment:
Reason For Exam: PICC line placement
Reason Study Needs to be Portable: Unable to Transport
Abnormal Lab Results
07/25/23 07/25/23
09:45 10:43
RBC 4.14 L 10^6/uL
(4.70-6.10)
Hgb 11.5 L g/dL
(13.0-18.0)
Hct 33.8 L %
(39.0-52.0)
RDW 16.0 H %
(11.5-14.5)
Plt Count 489 H 10^3/uL
(130-400)
Abs Immat Gran (auto) 0.1 H 10^3/uL
(0-0.05)
Absolute Neuts (auto) 8.5 H 10^3/uL
(1.4-6.5)
Absolute Lymphs (auto) 0.5 L 10^3/uL
(1.2-3.4)
Absolute Monos (auto) 0.9 H 10^3/uL
(0.1-0.6)
Immature Gran % 1.2 H %
(0-0.5)
Neutrophils % 83.8 H %
(42.2-75.2)
Lymphocytes % 4.4 L %
(20.5-51.1)
PT 18.6 H Sec
(11.4-14.6)
Sodium 121 L mmol/L
(135-145)
Potassium 5.9 H mmol/L
(3.5-5.1)
Chloride 93 L mmol/L
(98-107)
Carbon Dioxide 13 L* mmol/L
(22-30)
BUN 88 H mg/dl
(9-20)
Creatinine 3.4 H mg/dL
(0.7-1.3)
Glucose 159 H mg/dl
(70-99)
Magnesium 2.5 H mg/dl
(1.6-2.3)
Alkaline Phosphatase 176 H U/L
(38-126)
Total Protein 5.4 L g/dl
(6.3-8.2)
Albumin 3.0 L g/dl
(3.5-5.0)
07/25/23 09:45
07/25/23 10:43
Vital Signs
Initial and Last Documented VS:
Initial Vital Signs
Temp Pulse Resp BP Pulse Ox
97.5 F 100 20 98/68 98
07/25/23 09:24 07/25/23 09:24 07/25/23 09:24 07/25/23 09:24 07/25/23 09:24
Last Documented Vital Signs
Temp Pulse Resp BP Pulse Ox
97.5 F 109 17 88/62 98
07/25/23 09:24 07/25/23 12:35 07/25/23 12:35 07/25/23 12:35 07/25/23 12:35
*Pulse Oximetry
Patient hypoxic: no
*Critical Care Note
Total Time (30-74mins, 75-104mins- exclusive of procedures): Not Applicable
Update Note
Update Note:
I spoke with the patient's . Patient is now on hospice which was not conveyed to us by EMS. Patient does not have any blood draws. Patient gets 2 to 3 L of fluid removed every couple weeks. Patient does not feel very good after having more
drawn off and given albumin. Patient will be discharged
ED Attending Note
-
Portions of this chart may have been created with voice recognition software.� Occasional wrong word or��sound alike� substitutions may have occurred due to the inherent limitations of voice recognition software.
Discharge Plan
Departure
Patient Disposition: Home (Routine Discharge)
Date of Disposition: 07/25/23
Time of Disposition: 14:11
Patient with high blood pressure during this ER visit?: No
Condition: Serious
Covid-19: Not Applicable
Discharge Problem:
Nonischemic cardiomyopathy, Cardiac cirrhosis, Needs peripherally inserted central catheter (PICC)
Instructions: Central Line Catheter (DC)
Prescriptions:
No Action
allopurinol 100 MG tablet
100 mg PO DAILY
acetaminophen 325 mg Tablet
650 mg PO DAILYPRN PRN (Reason: mild pain)
metoprolol succinate 25 mg Tablet Extended Release 24 Hr
12.5 mg PO DAILY
Eliquis 5 mg Tablet
5 mg PO BID
torsemide 20 mg Tablet
120 mg PO BID
omega-3 fatty acids 1,000 mg Capsule
1,000 mg PO DAILY
insulin lispro [Admelog SoloStar U-100 Insulin] 100 unit/mL Insulin Pen
2 unit SC AC
milrinone
0.25 mcg IV .CONTINUOUS
Patient Comments:
07/06/2023, Infuse milrinone 0.25 mcg/kg/min IV continuously via CADD may pump. Pump settings: continuous rate = 7.7 ml/hr; concentration is 77,000mcg/385mL D5W (200mcg/mL)
furosemide 10 mg/mL solution
100 mg IV MOWEFR
Patient Comments:
06/18/2023, infuse 10 ml into venous catheter 3 times a week. Immediately prior to dose, RN to withdraw Furosemide 100 mg/10 ml and administer IV push over 5-10 minutes three times weekly on [employer]. Paperwork from [facility].
potassium chloride 10 mEq capsule, extended release
40 meq PO SUTUTHSA@0800,1700
Hold Instructions: Resume on 07/13/23. Resume this medication if and only if your outpatient physicians/ranch cook say you can resume this medication.
docusate sodium 100 mg capsule
100 mg PO DAILYPRN PRN (Reason: constipation)
spironolactone 25 mg Tablet
12.5 mg PO DAILY
Hold Instructions: Resume on 07/13/23. Resume this medication if and only if your outpatient physicians/cardiology say it is okay to resume this medication.
levothyroxine 100 mcg tablet
100 mcg PO DAILY@0600
insulin glargine [Basaglar KwikPen U-100 Insulin] 100 unit/mL (3 mL) Insulin Pen
10 unit SC HS
therapeutic multivitamin Tablet
1 tab PO DAILY
potassium chloride 10 mEq Tablet Extended Release
40 meq PO MOWEFR@,,17
lactulose 20 gram/30 mL Solution
20 g PO TID Qty: 3000 0RF
gabapentin 100 MG capsule
100 mg PO Q12H Qty: 60 0RF
Referrals:
Nikolas Schmitz MD [Family Provider] -
Activity Restrictions/Additional Instructions:
Continue present medications and therapy. Follow-up with your family doctor or ranch cook as needed.
Interventions
Interventions:
*Risk Screen - Suicide Last Done: 07/25/23 09:24
*General Assessment Last Done: 07/25/23 09:24
*Neglect/Abuse Screening Last Done: 07/25/23 09:24
*ED COVID-19 Vaccine History Last Done: 07/25/23 11:31
WD-Myxhyi-Fhehjyknmj Assessment Last Done: 07/25/23 11:39
ED-Male Genitourinary Assessment Last Done: 07/25/23 11:39
Discharge Date and Time
Print Language: LAO
[2023-07-25 11:19] LABS: ALT (SGPT) 18 U/L (0-50); AST (SGOT) 32 U/L (17-59); Alkaline Phosphatase 176 U/L (38-126); Blood Urea Nitrogen 88 mg/dl (9-20); Calcium 8.4 mg/dl (8.4-10.2); Carbon Dioxide 13 mmol/L (22-30); Chloride 93 mmol/L (98-107); Estimated Creatinine Clearance 28 ml/min; Glucose 159 mg/dl (70-99); Magnesium 2.5 mg/dl (1.6-2.3); Potassium 5.9 mmol/L (3.5-5.1); Sodium 121 mmol/L (135-145); Total Bilirubin 1.1 mg/dl (0.2-1.3); Total Protein 5.4 g/dl (6.3-8.2); eGFR 19.11
--- NOTE | 2023-07-25 13:52 | PN.IRAD.UPD ---
Update Note - IRAD
- -
WENT TO ED TO DRAIN PATIENT'S RIGHT SIDED ASEPT CATHETER. PER DR. DIAS, TOOK OFF 2 LITERS OF DARK YELLOW FLUID. NO COMPLAINTS FROM PATIENT, REDRESSED THE CATHETER AND SPOKE WITH NURSE.
== END 2023-07-25 15:43 | disposition home or self-care (01) ==
LOC: EMR 09:06
PROVIDERS: CONSULT PHYSICIAN Radiology Vascular & Interventional Radiology; EMERGENCY PHYSICIAN Emergency Medicine; FAMILY PHYSICIAN Family Medicine
DX: Z45.2 Encounter for adjustment and management of vascular access device (principal); I42.8 Other cardiomyopathies; K76.1 Chronic passive congestion of liver; R06.02 Shortness of breath; R60.0 Localized edema; E03.9 Hypothyroidism, unspecified; N18.4 Chronic kidney disease, stage 4 (severe); I50.9 Heart failure, unspecified; K74.60 Unspecified cirrhosis of liver; Z79.01 Long term (current) use of anticoagulants
CPT/HCPCS: 99284; 96365; 96375; 96366; 71045; 80053; 83735; 85025; 85610; J2260; P9047